=== PATIENT | female | born 1945 | race Caucasian/White ===

== ENCOUNTER → 2016-10-07 | Outpatient (CLI) | payer MEDICARE ==
--- NOTE | 2016-10-07 16:39 | NM ---
EXAMINATION TYPE: NM parathyroid w/spect DATE OF EXAM: 10/07/2016 3:40 PM COMPARISON: NONE HISTORY: Abnormal laboratory testing TECHNIQUE: Following administration of 26.5 mCi Tc99m Sestamibi. Anterior projection images of the neck and ches t were obtained 10 minutes and 3 hours post injection. SPECT images of the neck and chest were obtai daxa and reconstructed in three axes. FINDINGS: Thyroid tracer washout: Delayed images demonstrate near-complete tracer washout from the thyroid. Parathyroid uptake: None. The two-hour delayed images demonstrate no focal abnormal persistent uptake in the region of the parathyroid glands to suggest parathyroid adenoma. Normal uptake: There is physiological tracer uptake in the myocardium, liver, salivary glands, and th yroid gland. IMPRESSION: No evident parathyroid adenoma.
== END | disposition home or self-care (01) ==
LOC: RADNMMAIN 11:17
PROVIDERS: ATTEND Family Medicine
DX: R89.9 Unspecified abnormal finding in specimens from other organs, systems and tissues (principal)
CPT/HCPCS: 78071; A9500

== ENCOUNTER → 2016-11-24 | Outpatient (CLI) | payer MEDICARE ==
--- NOTE | 2016-11-24 13:35 | BD ---
EXAMINATION TYPE: MG DEXA axial skeleton. DATE OF EXAM: 11/24/2016 12:32 PM COMPARISON: NONE CLINICAL HISTORY: Height: 61.5 IN Weight: 171 LBS FRAX RISK QUESTIONS: Alcohol (3 or more units per day): NO Family History (Parent hip fracture): NO Glucocorticoids (More than 3mos): NO (Ex: prednisone, prednisolone, methylprednisolone, dexamethasone, and hydrocortisone). History of Fracture in Adulthood: NO Secondary Osteoporosis: 1. Type 1 Diabetes: NO 2. Hyperthyroidism: NO 3. Menopause before 45: YES AGE 37 4. Malnutrition: NO 5. Chronic liver disease: NO Rheumatoid Arthritis: NO Current Tobacco Use: NO RISK FACTORS HISTORY OF: Active: YES Postmenopausal woman: AGE 37 Take estrogen and/or progesterone medications: NOT NOW How long: HORMONE SHOTS AGE 25 FOR 6 MONTHS. PREMARIN AGE 37 - 47 Lost more than 2 inches in height since high school: YES Hyperparathyroidism: YES MEDICATIONS: Osteoporosis Medications: YES Which medication: Evista How Lon MONTHS Additional Medications: VENLAFAXNE ER, RALOXIFENE (EVISTA), LISINIPRIL,LIPITOR, VIT D EXAM MEASUREMENTS: Bone mineral densitometry was performed using the .[employer] System. Bone mineral density as measured about the Lumbar spine is: ----- L1-L4(G/cm2): 1.363 T Score Values are as follows: ----- L2: 0.3 ----- L3: 2.4 ----- L4: 2.3 ----- L1-L4: 1.5 Bone mineral density has: Increased 0.7% since study of: 03/29/2013 Bone mineral density about the R hip (g/cm2): 0.773 Bone mineral density about the L hip (g/cm2): 0.818 T Score values are as follows: -----R Neck: -1.9 -----L Neck: -1.6 -----R Intertrochanter: -0.5 -----L Intertrochanter: -1.0 Bone mineral density has: Decreased -0.3% since study of: 03/29/2013 IMPRESSION: Osteopenia (T Score between -2.5 and -1 as noted by T score values There is slightly increased risk of fracture and the patient may be considered for treatment. Re-Screen 1-2 years. NOTE: T-SCORE=SD OF THE YOUNG ADULT MEAN.
== END | disposition home or self-care (01) ==
LOC: RADBDWWP 12:30
PROVIDERS: ATTEND Family Medicine
DX: M85.80 Other specified disorders of bone density and structure, unspecified site (principal)
CPT/HCPCS: 77080

== ENCOUNTER 2017-01-20 08:55 | Day surgery (SDC) | payer MEDICARE ==
[2017-01-19 08:34] VITALS: BMI 29.2
[~2017-01-20 08:55] MED LIST: LIDOCAINE 1% 20 ML VIAL (10MG/ML) FOR IV START INTRADERMA PRN
[2017-01-20] MEDS: LACTATED RINGERS 1,000 ML IV SCH ×2 (10:04→10:43)
[2017-01-20 10:05] VITALS: RESP 16; TEMP 98
[2017-01-20] MEDS ORDERED: PROPOFOL 10 MG/ML 20 ML VIAL IV ONE (10:43)
[2017-01-20] MEDS ORDERED: LIDOCAINE 1% INJ 10MG/ML (20 ML MDV) ONE (10:43)
--- NOTE | 2017-01-20 11:00 | P.PCN ---
Date of Procedure: 01/20/17 Preoperative Diagnosis: Postoperative Diagnosis: Procedure(s) Performed: BRIEF HISTORY: Patient is a 71-year-old [place] white female,cheduled for an elective colonoscopy as a part of screening for colon rectal neoplasia. She has family history of colon cancer diagnosed in her father and her paternal uncle. PROCEDURE PERFORMED: Colonoscopy with snare polypectomy . PREOPERATIVE DIAGNOSIS: Screening for colon cancer and family history of colon cancer IV sedation per Anesthesia. PROCEDURE: After informed consent was obtained, the patient, was brought into the endoscopy unit. IV sedation was administered by Anesthesia under continuous monitoring. Digital rectal examination was normal. Initially the Olympus CF- 160 flexible video colonoscope was then inserted in the rectum, gradually advanced into the cecum without any difficulty. Careful examination was performed as the scope was gradually being withdrawn. Ileocecal valve and the appendiceal orifice were visualized and appeared normal. Prep was excellent. Mucosa of the cecum, ascending colon, appeared normal. In the proximal transverse colon there was a 1.5 cm flat polyp that was removed by snare polypectomy. The rest of the transverse colon, descending colon, sigmoid colon , and rectum appeared normal. Retroflexion was performed in the rectum and small internal hemorrhoids were seen. The patient tolerated the procedure well. IMPRESSION: 1.5 cm flat proximal transverse colon polyp status post polypectomy Small internal hemorrhoids RECOMMENDATIONS: Findings of this examination were discussed with the patient as well as her family. She was advised to follow with the biopsy results. If the biopsy shows a tubular adenoma she can have a repeat colonoscopy in 3-5 years. Implants: Indications for Procedure: Operative Findings: Description of Procedure:
[2017-01-20 11:41] VITALS: BP 113/52; PULSE 71
== END 2017-01-20 11:56 | disposition home or self-care (01) ==
LOC: ORWHC2ENDO 08:55
PROVIDERS: ATTEND Internal Medicine Gastroenterology
DX: Z12.11 Encounter for screening for malignant neoplasm of colon (principal); D12.3 Benign neoplasm of transverse colon; I10 Essential (primary) hypertension; E78.5 Hyperlipidemia, unspecified; Z79.899 Other long term (current) drug therapy; Z88.1 Allergy status to other antibiotic agents; Z79.810 Long term (current) use of selective estrogen receptor modulators (SERMs)
CPT/HCPCS: 88305; 45385; J2001; J2704

== ENCOUNTER → 2017-06-11 | Outpatient (CLI) | payer MEDICARE ==
--- NOTE | 2017-06-11 10:04 | MM ---
Reason for exam: additional evaluation requested from prior study. Last mammogram was performed 1 year and 1 month ago. History: Patient is postmenopausal and has history of other cancer at age 66. Reductions of both breasts, November 2015. Benign stereotactic core biopsy of the right breast, January 12, 2003. Took hormonal contraceptives for 3 years beginning at age 21. Took estrogen for 20 years beginning at age 41. Taking antineoplastic beginning at age 71. Physical Findings: Nurse did not find any significant physical abnormalities on exam. MG 3D Diag Mammo W/Cad DANYA Bilateral CC and MLO view(s) were taken. XCCL view(s) were taken of the right breast. Prior study comparison: May 15, 2016, bilateral MG 3d diag mammo w/cad DANYA. May 15, 2015, bilateral MG screening mammo w CAD. There are scattered fibroglandular densities. Finding #1: There is a 5 mm equal density (isodense), circumscribed oval mass in the left breast. Finding #2: There are typically benign calcifications in both breasts. These results were verbally communicated with the patient and result sheet given to the patient on 06/11/17. ASSESSMENT: Incomplete: need additional imaging evaluation, BI-RAD 0 RECOMMENDATION: Ultrasound of the left breast.
--- NOTE | 2017-06-11 10:05 | USB ---
Reason for exam: additional evaluation requested from abnormal screening. History: Patient is postmenopausal and has history of other cancer at age 66. Reductions of both breasts, November 2015. Benign stereotactic core biopsy of the right breast, January 12, 2003. Took hormonal contraceptives for 3 years beginning at age 21. Took estrogen for 20 years beginning at age 41. Taking antineoplastic beginning at age 71. US Breast Limited LT Left breast ultrasound demonstrates no cystic or solid lesion seen. These results were verbally communicated with the patient and result sheet given to the patient on 06/11/17. ASSESSMENT: Probably benign, BI-RAD 3 RECOMMENDATION: Follow-up diagnostic mammogram of the left breast in 6 months.
== END ==
LOC: RADMAMWWP 08:17
PROVIDERS: ATTEND Internal Medicine Hematology & Oncology
DX: R92.8 Other abnormal and inconclusive findings on diagnostic imaging of breast (principal); Z85.3 Personal history of malignant neoplasm of breast
CPT/HCPCS: 76642; G0204; G0279

== ENCOUNTER → 2017-12-13 | Outpatient (CLI) | payer MEDICARE ==
--- NOTE | 2017-12-14 08:52 | MM ---
Reason for exam: follow-up at short interval from prior study. Last mammogram was performed 6 months ago. History: Patient is postmenopausal and has history of other cancer at age 66. Reductions of both breasts, November 2015. Benign stereotactic core biopsy of the right breast, January 12, 2003. Took hormonal contraceptives for 3 years beginning at age 21. Took estrogen for 20 years beginning at age 41. Taking antineoplastic beginning at age 71. Physical Findings: Nurse did not find any significant physical abnormalities on exam. MG 3D Diag Mammo W/Cad LT CC and MLO view(s) were taken of the left breast. Prior study comparison: June 11, 2017, bilateral MG 3d diag mammo w/cad DANYA. May 15, 2016, bilateral MG 3d diag mammo w/cad DANYA. There are scattered fibroglandular densities. There are new lower outer quadrant calcifications that appear dystrophic as fat necrosis, 6 month follow up recommended. The previously seen left breast focal asymmetry now has dystrophic calcifications most compatible with fat necrosis. These results were verbally communicated with the patient and result sheet given to the patient on 12/13/17. ASSESSMENT: Probably benign, BI-RAD 3 RECOMMENDATION: Follow-up diagnostic mammogram of both breasts in 6 months. Back on schedule for May 2018.
== END | disposition home or self-care (01) ==
LOC: RADMAMWWP 10:44
PROVIDERS: ATTEND Internal Medicine Hematology & Oncology
DX: R92.8 Other abnormal and inconclusive findings on diagnostic imaging of breast (principal); Z85.3 Personal history of malignant neoplasm of breast
CPT/HCPCS: 77065; G0279

== ENCOUNTER → 2018-06-15 | Outpatient (CLI) | payer MEDICARE ==
--- NOTE | 2018-06-15 13:45 | MM ---
Reason for exam: follow-up at short interval from prior study. Last mammogram was performed 6 months ago. History: Patient is postmenopausal and has history of other cancer at age 66. Reductions of both breasts, November 2015. Benign stereotactic core biopsy of the right breast, January 12, 2003. Took hormonal contraceptives for 3 years beginning at age 21. Took estrogen for 20 years beginning at age 41. Taking antineoplastic beginning at age 71. Physical Findings: Nurse did not find any significant physical abnormalities on exam. MG 3D Diag Mammo W/Cad DANYA Bilateral CC and MLO view(s) were taken. Prior study comparison: December 13, 2017, left breast MG 3d diag mammo w/cad LT. June 11, 2017, bilateral MG 3d diag mammo w/cad DANYA. No significant new findings when compared with previous films. These results were verbally communicated with the patient and result sheet given to the patient on 06/15/18. ASSESSMENT: Benign, BI-RAD 2 RECOMMENDATION: Routine screening mammogram of both breasts in 1 year.
== END | disposition home or self-care (01) ==
LOC: RADMAMWWP 12:53
PROVIDERS: ATTEND Internal Medicine Hematology & Oncology
DX: R92.8 Other abnormal and inconclusive findings on diagnostic imaging of breast (principal); Z85.3 Personal history of malignant neoplasm of breast
CPT/HCPCS: 77066; G0279; 77062

== ENCOUNTER → 2019-06-20 | Outpatient (CLI) | payer MEDICARE ==
--- NOTE | 2019-06-21 10:22 | MM ---
Reason for exam: screening (asymptomatic). Last mammogram was performed 1 year ago. History: Patient is postmenopausal and has history of other cancer at age 66. Reductions of both breasts, November 2015. Benign stereotactic core biopsy of the right breast, January 12, 2003. Took hormonal contraceptives for 3 years beginning at age 21. Took estrogen for 20 years beginning at age 41. Taking antineoplastic beginning at age 71. Physical Findings: A clinical breast exam by your physician is recommended on an annual basis and results should be correlated with mammographic findings. MG 3D Screening Mammo W/Cad Bilateral CC and MLO view(s) were taken. Prior study comparison: June 15, 2018, bilateral MG 3d diag mammo w/cad DANYA. December 13, 2017, left breast MG 3d diag mammo w/cad LT. There are scattered fibroglandular densities. Benign appearing bilateral calcifications. No suspicious abnormality. Stable posterior depth 3mm asymmetry in the superior left breast on MLO compared to 2017. No significant changes when compared with prior studies. ASSESSMENT: Benign, BI-RAD 2 RECOMMENDATION: Routine screening mammogram of both breasts in 1 year.
== END | disposition home or self-care (01) ==
LOC: RADMAMWWP 09:50
PROVIDERS: ATTEND Family Medicine
DX: Z12.31 Encounter for screening mammogram for malignant neoplasm of breast (principal)
CPT/HCPCS: 77063; 77067

== ENCOUNTER 2019-11-30 15:52 | Emergency (ER) | payer MEDICARE ==
[2019-11-30 15:59] VITALS: RESP 18
[2019-11-30] MEDS ORDERED: ONDANSETRON 4 MG/2 ML VIAL IVP STA (16:06)
[2019-11-30] MEDS ORDERED: diphenhydrAMINE 50 MG/ML 1 ML VIAL IVP STA (16:06)
[2019-11-30] MEDS ORDERED: SODIUM CHLORIDE 0.9% 1,000 ML IV STA (16:06)
[2019-11-30] MEDS ORDERED: KETOROLAC 30 MG/ML 1 ML VIAL IVP STA (16:06)
--- NOTE | 2019-11-30 16:14 | ED ---
General Adult HPI - General Chief complaint: Headache Stated complaint: Headache, vomiting Time Seen by Provider: 11/30/19 15:55 Source: patient Mode of arrival: wheelchair Limitations: physical limitation - History of Present Illness Initial comments: Dictation was produced using [email or web address] dictation software. please excuse any grammatical, word or spelling errors. This patient was cared for during a federal and state declared state of emergency secondary to Covid 19 Chief Complaint: 74-year-old feel past medical history migraines presents with headache. History of Present Illness: 74-year-old female she was sent in by primary care physician for headaches. Patient states she's history of migraines. States that the headache is severe located to the left forehead region. She states that her symptoms have been progressive over the last 4 days. Patient states that headache is mildly different from her headache symptoms past. Denies any radiation to the neck. Patient denies numbness tingling or paresthesias. She has had some episodes of vomiting. Does report that her symptoms are worse in the morning and better at night. She does report improvement of symptoms with Tylenol and Motrin. Patient has any vision loss. She reports that her headaches worse with light and sound. He does report that is throbbing in natu re. The ROS documented in this emergency department record has been reviewed and confirmed by me. Those systems with pertinent positive or negative responses have been documented in the HPI. All other systems are other negative and/or noncontributory. PHYSICAL EXAM: General Impression: Alert and oriented x3, not in acute distress HEENT: Normocephalic atraumatic, extra-ocular movements intact, pupils equal and reactive to light bilaterally, mucous membranes moist. Cardiovascular: Heart regular rate and rhythm, S1&S2 audible, no murmurs, rubs or gallops Chest: Able to complete full sentences, no retractions, no tachypnea Abdomen: Bowel sounds present, abdomen soft, non-tender, non-distended, no organomegaly Musculoskeletal: Pulses present and equal in all extremities, no peripheral marcin a Motor: no focal deficits noted Neurological: CN II-XII grossly intact, no focal motor or sensory deficits noted, no tenderness to palpation over the right temporal area Skin: Intact with no visualized rashes Psych: Normal affect and mood ED course: 74-year-old female past medical history of hypertension, headaches, dyslipidemia presents with headache 4 days. Signs upon arrival are within acc eptable limits. Laboratory evaluation tape. No leukocytosis. Hemoglobin stable. Coag panel is unremarkable. Metabolic panel is negative. Glucose is [address] was obtained showing multiple compartments of acute intracranial hemorrhage including subdural, subarachnoid intraparenchymal bleed. There is mild local mass effect. Brain bleeding is measuring approximately 3.6 cm. Discussed this with radiologist. Patient case was discussed with Dr. Hurley who requested CT angiogram of the head be obtained. Dr. Hurley reviewed the films and requested that patient be transferred to [facility] for further intervention. He also requested the patient be placed on cardiac drip to maintain a systolic blood pressure less than 140 systolic. Results and plan was discussed with patient who is agreeable with plan. Patient given IV analgesia for headache. - Related Data Home Medications Medication Instructions Recorded Confirmed Atorvastatin [Lipitor] 10 mg PO HS 10/28/16 01/20/17 Cholecalciferol [Vitamin D3] 1,000 unit PO DAILY 10/28/16 01/20/17 Lisinopril [Zestril] 20 mg PO BID 10/28/16 01/20/17 Raloxifene [Evista] 60 mg PO DAILY 10/28/16 01/20/17 Venlafaxine HCl [Effexor] 75 mg PO DAILY 10/28/16 01/20/17 Allergies Allergy/AdvReac Type Severity Reaction Status Date / Time erythromycin base Allergy Rash/Hives Verified 11/30/19 15:59 Review of Systems ROS Statement: Those systems with pertinent positive or pertinent negative responses have been documented in the HPI. ROS Other: All systems not noted in ROS Statement are negative. 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, basal cell skin cancer History of Any Multi-Drug Resistant Organisms: None Reported Past Surgical History: Adenoidectomy, Appendectomy, Hysterectomy, Orthopedic Surgery, Tonsillectomy Additional Past Surgical History / Comment(s): navid breast reduction, hemorrhoidectomy, metal nithin in toe, lt carpal tunnel, basal cell skin cancer removed Past Anesthesia/Blood Transfusion Reactions: No Reported Reaction Past Psychological History: No Psychological Hx Reported Smoking Status: Never smoker - Past Family History Mother Family Medical History: CVA/TIA, Dementia, Myocardial Infarction ([place]) Father Family Medical History: Cancer Additional Family Medical History / Comment(s): colon cancer, alcoholism General Exam Limitations: physical limitation Course Vital Signs 11/30/19 11/30/19 11/30/19 15:57 17:31 17:57 Temperature 98.4 F Pulse Rate 71 81 76 Respiratory 18 18 18 Rate Blood Pressure 142/89 156/95 158/85 O2 Sat by Pulse 100 99 99 Oximetry Medical Decision Making - Lab Data Result diagrams: 11/30/19 16:33 11/30/19 16:33 Lab Results 11/30/19 11/30/19 11/30/19 Range/Units 16:33 16:33 16:33 WBC 5.2 (3.8-10.6) k/uL RBC 4.68 (3.80-5.40) m/uL Hgb 14.3 (11.4-16.0) gm/dL Hct 43.2 (34.0-46.0) % MCV 92.2 (80.0-100.0) fL MCH 30.6 (25.0-35.0) pg MCHC 33.2 (31.0-37.0) g/dL RDW 14.2 (11.5-15.5) % Plt Count 163 (150-450) k/uL Neutrophils % 79 % Lymphocytes % 16 % Monocytes % 3 % Eosinophils % 1 % Basophils % 0 % Neutrophils # 4.1 (1.3-7.7) k/uL Lymphocytes # 0.9 L (1.0-4.8) k/uL Monocytes # 0.2 (0-1.0) k/uL Eosinophils # 0.0 (0-0.7) k/uL Basophils # 0.0 (0-0.2) k/uL ESR 10 (0-20) mm/hr PT 10.1 (9.0-12.0) sec INR 1.0 (<1.2) APTT 22.8 (22.0-30.0) sec Sodium 139 (137-145) mmol/L Potassium 3.6 (3.5-5.1) mmol/L Chloride 101 (98-107) mmol/L Carbon Dioxide 28 (22-30) mmol/L Anion Gap 10 mmol/L BUN 16 (7-17) mg/dL Creatinine 0.61 (0.52-1.04) mg/dL Est GFR (CKD-EPI)AfAm >90 (>60 ml/min/1.73 sqM) Est GFR (CKD-EPI)NonAf 90 (>60 ml/min/1.73 sqM) Glucose 127 H (74-99) mg/dL Calcium 9.7 (8.4-10.2) mg/dL C-Reactive Protein <5.0 (<10.0) mg/L Critical Care Time Critical Care Time: Yes Total Critical Care Time: 33 Disposition Clinical Impression: Intracranial bleed Disposition: OTHER INSTITUTION NOT DEFINED Condition: Critical Referrals: Pradeep Chung DO [Primary Care Provider] - 1-2 days Time of Disposition: 18:02 - Out of Hospital Transfer - Req. Specs Out of Hospital Transfer - Requested Specifics: Other Emergency Center ([facility])
[2019-11-30 16:44] LABS: Basophils % (A) 0 %; Eosinophils % (A) 1 %; HCT 43.2 % (34.0-46.0); HGB 14.3 gm/dL (11.4-16.0); Lymphocytes # (A) 0.9 k/uL (1.0-4.8); Lymphocytes % (A) 16 %; MCH 30.6 pg (25.0-35.0); MCHC 33.2 g/dL (31.0-37.0); MCV 92.2 fL (80.0-100.0); Monocytes # (A) 0.2 k/uL (0-1.0); Monocytes % (A) 3 %; Neutrophils # (A) 4.1 k/uL (1.3-7.7); Neutrophils % (A) 79 %; Platelet Count 163 k/uL (150-450); RBC 4.68 m/uL (3.80-5.40); RDW 14.2 % (11.5-15.5); WBC 5.2 k/uL (3.8-10.6)
[2019-11-30 16:55] LABS: African American GFR (CKD) >90 (>60 ml/min/1.73 sqM); Anion Gap 10 mmol/L; Blood Urea Nitrogen 16 mg/dL (7-17); C Reactive Protein <5.0 mg/L (<10.0); Calcium 9.7 mg/dL (8.4-10.2); Carbon Dioxide 28 mmol/L (22-30); Chloride 101 mmol/L (98-107); Glucose 127 mg/dL (74-99); Non-African American GFR(CKD) 90 (>60 ml/min/1.73 sqM); Potassium 3.6 mmol/L (3.5-5.1); Sodium 139 mmol/L (137-145)
--- NOTE | 2019-11-30 17:13 | CT ---
EXAMINATION TYPE: CT brain wo con DATE OF EXAM: 11/30/2019 COMPARISON: None HISTORY: Severe headache. CT DLP: 1172.4 mGycm Automated exposure control for dose reduction was used. FINDINGS: There is acute intracranial hemorrhage. There is a subdural hematoma along the falx cerebri measured near the skull vertex on image 44 at 3 mm in greatest thickness as well as what appears to be an intr aparenchymal hemorrhage of the parietal and occipital lobe measuring up to 3.6 x 1.9 cm on image 30. Just adjacent to the right lateral ventricle. Adjacent subdural hematoma layers along the right tento rium cerebelli measuring 5 mm in greatest thickness. Subarachnoid hemorrhage is also seen in the righ t temporal lobe measuring 4 mm in greatest thickness. Subtle hyperdensity of the right temporal lobe anteriorly on image 22 relate to a cortical contusion. Right temporal subarachnoid hemorrhage is also seen on image 19. There is no significant midline shift. There is some cerebral edema of the right cerebral hemisphere as the sulci are less pronounced than o n the left (for example image 39). Few scattered areas of hypoattenuation in the periventricular and subcortical white matter most commo nly are on the basis of chronic microangiopathy. Lenses are surgically absent. Globes are unremarkabl e. No hydrocephalus seen. Punctate sclerotic foci of the scalp are overwhelmingly benign. Fat-contain ing right parietal intramuscular lesion most commonly relates to a lipoma measuring 2.6 cm. Paranasal sinuses and mastoid air cells are well aerated. IMPRESSION: MULTIPLE COMPARTMENTS OF ACUTE INTRACRANIAL HEMORRHAGE INCLUDING SUBDURAL HEMATOMA, SUBARACHNOID HEMO RRHAGE, AND INTRAPARENCHYMAL HEMORRHAGE MEASURING 3.6 CM WITH LOCAL MASS EFFECT ALTHOUGH NO MIDLINE S HIFT SEEN. GIVEN THE MULTIPLE COMPARTMENTS OF HEMORRHAGE CONCERN FOR TRAUMATIC INJURY ALTHOUGH THIS P ATIENT DENIES TRAUMATIC INJURY AND THE POSSIBILITY OF NONACCIDENTAL TRAUMA SHOULD BE EXCLUDED. COAGUL OPATHY IS AN ALTERNATIVE CONSIDERATION. ANEURYSM IS LESS LIKELY GIVEN THE MULTIPLE COMPARTMENTS OF HE MORRHAGE. FINDINGS WERE DISCUSSED WITH THE ORDERING PROVIDER MARIA ANTONIA ROSALES BY DR. DIA ON 11/30/2019 AT 1708 PM.
[2019-11-30 17:28] LABS: Erythrocyte Sedimentation Rate 10 mm/hr (0-20)
[2019-11-30 17:33] LABS: Partial Thromboplastin Time 22.8 sec (22.0-30.0); Prothrombin Time 10.1 sec (9.0-12.0)
[2019-11-30] MEDS ORDERED: LABETALOL 5 MG/ML VIAL MDV IVP ONE (17:36)
--- NOTE | 2019-11-30 17:40 | XR ---
EXAMINATION TYPE: XR chest 1V portable DATE OF EXAM: 11/30/2019 COMPARISON: NONE HISTORY: Altered mental status. Headache. TECHNIQUE: Single frontal view of the chest is obtained. FINDINGS: The mediastinal silhouette is enlarged with tortuosity the thoracic aorta. Prominent upper mediastinum may relate to prominent vasculature. Left basilar opacity most likely relates to atelect asis along the left hemidiaphragm and overlying copious soft tissue. No pneumothorax or suspected ple ural effusion. Osseous structures appear intact. IMPRESSION: 1. Probable left basilar atelectasis. 2. Enlarged cardiomediastinal silhouette and tortuosity the thoracic aorta. Prominence of the upper m ediastinum may relate to vasculature.
[2019-11-30] MEDS ORDERED: niCARdipine 20 MG in SODIUM CHLORIDE 0.9% 192 ML IV SCH (18:00)
--- NOTE | 2019-11-30 18:06 | CT ---
EXAMINATION TYPE: CT angio head DATE OF EXAM: 11/30/2019 HISTORY: Severe headache. COMPARISON: CT brain of the same date CT DLP: 743.2 mGycm. Automated Exposure Control for Dose Reduction was Utilized. TECHNIQUE: CTA scan of the neck is performed with IV Contrast, patient injected with 100 mL of Isovu e 370, axial images are obtained, coronal and sagittal reformatted images are reviewed. Three-D recon structed images are created on an independent workstation and reviewed. FINDINGS: Carotid/Vascular Structures: The vertebral arteries are codominant. Basilar artery appears intact and unremarkable. Posterior communicating arteries are either diminutive or congenitally absent. Posteri or cerebral arteries appear grossly intact. Intraparenchymal hemorrhage and subdural hemorrhage are s een adjacent to the right posterior cerebral artery however no definitive aneurysm is seen from right posterior cerebral artery. The known subarachnoid hemorrhage of the right temporal lobe is redemonst rated. No sizable aneurysm from the right MCA to account for this finding. Visualized portions of the internal carotid arteries including the cavernous, petrous, and supraclinoid portions are grossly un remarkable. No large vessel vascular occlusion identified. IMPRESSION: Intracranial hemorrhage is seen adjacent to the right posterior cerebral artery however n o definitive aneurysm is identified. No large vessel occlusion. No aneurysm is identified of the righ t MCA to account for the subarachnoid hemorrhage of the right temporal lobe. Subdural hemorrhage is r edemonstrated as seen on the brain CT of the same date.
[2019-11-30 19:15] VITALS: BP 132/80; PULSE 82; TEMP 98.2
== END 2019-11-30 19:15 | disposition other institution (70) ==
LOC: EC 15:52
DX: I62.9 Nontraumatic intracranial hemorrhage, unspecified (principal)
CPT/HCPCS: 36415; 80048; 85652; 85025; 85610; 85730; 86140; 71045; 70496; 70450; 99291; 96365; 96375 ×4; 96361; J1200; J2405; J1885; Q9967

== ENCOUNTER 2020-01-02 16:13 | Emergency (ER) | payer MEDICARE ==
[2020-01-02 16:19] VITALS: RESP 18; TEMP 98.1
[2020-01-02] MEDS ORDERED: METOCLOPRAMIDE 5 MG/ML 2 ML VIAL IVP STA (17:15)
[2020-01-02] MEDS ORDERED: SODIUM CHLORIDE 0.9% 1,000 ML IV STA (17:15)
[2020-01-02] MEDS ORDERED: SODIUM CHLORIDE 0.9% 500 ML 500 ML IV STA (17:15)
[2020-01-02] MEDS ORDERED: FAMOTIDINE 20 MG/2 ML VIAL IV STA (17:16)
--- NOTE | 2020-01-02 17:21 | ED ---
General Adult HPI - General Chief complaint: Nausea/Vomiting/Diarrhea Stated complaint: Vomiting Time Seen by Provider: 01/02/20 16:25 Source: patient, RN notes reviewed Mode of arrival: wheelchair Limitations: no limitations - History of Present Illness Initial comments: Patient is a pleasant 74-year-old female presenting to the emergency Department with vomiting. Onset of symptoms was last night. Patient vomited approximately 12 times. Patient still has some nausea. Patient does have some discomfort of her abdomen secondary to using her muscles excessively. Patient did have recent concern for intracranial hemorrhage however discharge paper showed venous sinus thrombosis. Patient is on anticoagulation. Patient was discharged recently [facility] after being seen here. Blood pressure this morning was high up to 140/90. Patient feels like she may be somewhat dehydrated. Patient states she has double vision however no change in any of her symptoms other than nausea and vomiting since discharge from [facility]. Patient states double vision is chronic. Patient states she did loose some of her vision and was told it will not come back. Patient has some mild unsteadiness with her gait and does use a walker, this is also unchanged. No isolated area of weakness. No confusion. - Related Data Home Medications Medication Instructions Recorded Confirmed Atorvastatin [Lipitor] 10 mg PO HS 10/28/16 01/20/17 Cholecalciferol [Vitamin D3] 1,000 unit PO DAILY 10/28/16 01/20/17 Lisinopril [Zestril] 20 mg PO BID 10/28/16 01/20/17 Raloxifene [Evista] 60 mg PO DAILY 10/28/16 01/20/17 Venlafaxine HCl [Effexor] 75 mg PO DAILY 10/28/16 01/20/17 Previous Rx's Medication Instructions Recorded Metoclopramide HCl [Reglan] 10 mg PO Q6HR PRN #15 tablet 01/02/20 Allergies Allergy/AdvReac Type Severity Reaction Status Date / Time erythromycin base Allergy Rash/Hives Verified 01/02/20 16:19 Review of Systems ROS Statement: Those systems with pertinent positive or pertinent negative responses have been documented in the HPI. ROS Other: All systems not noted in ROS Statement are negative. Constitutional: Denies: fever Eyes: Denies: eye pain ENT: Denies: ear pain Respiratory: Denies: cough Cardiovascular: Denies: chest pain Endocrine: Denies: fatigue Gastrointestinal: Reports: as per HPI, nausea, vomiting Genitourinary: Denies: dysuria Musculoskeletal: Denies: back pain Skin: Denies: rash Neurological: Reports: as per HPI. 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, basal cell skin cancer, brain bleed History of Any Multi-Drug Resistant Organisms: None Reported Past Surgical History: Adenoidectomy, Appendectomy, Hysterectomy, Orthopedic Surgery, Tonsillectomy Additional Past Surgical History / Comment(s): navid breast reduction, hemorrhoidectomy, metal nithin in toe, lt carpal tunnel, basal cell skin cancer removed Past Anesthesia/Blood Transfusion Reactions: No Reported Reaction Past Psychological History: Anxiety Smoking Status: Never smoker Past Alcohol Use History: None Reported Past Drug Use History: None Reported - Past Family History Mother Family Medical History: CVA/TIA, Dementia, Myocardial Infarction ([place]) Father Family Medical History: Cancer Additional Family Medical History / Comment(s): colon cancer, alcoholism General Exam Limitations: no limitations General appearance: alert, in no apparent distress Head exam: Present: normocephalic Eye exam: Present: normal appearance, PERRL, EOMI, other (There is slight disconjugate gaze however extraocular muscles are intact) Neck exam: Present: normal inspection Respiratory exam: Present: normal lung sounds bilaterally Cardiovascular Exam: Present: regular rate, normal rhythm GI/Abdominal exam: Present: soft. Absent: tenderness Extremities exam: Present: normal inspection Neurological exam: Present: alert, oriented X3, CN II-XII intact (there is slight disconjugate gaze and patient states she sees double vision). Absent: motor sensory deficit Expanded Neurological exam: Present: protecting the airway Speech: Present: fluid speech Cranial nerves: EOM's Intact: Normal Motor strength exam: RUE: 5, LUE: 5, RLE: 5, LLE: 5 Eye Response: (4) open spontaneously Motor Response: (6) obeys commands Verbal Response: (5) oriented Psychiatric exam: Present: normal affect, normal mood Skin exam: Present: normal color Course Vital Signs 01/02/20 01/02/20 01/02/20 16:16 16:31 17:47 Temperature 98.1 F Pulse Rate 102 H 85 76 Respiratory 18 18 18 Rate Blood Pressure 133/92 146/94 132/77 O2 Sat by Pulse 96 96 97 Oximetry - Reevaluation(s) Reevaluation #1: 01/02/20 17:57 Patient is on Xarelto, 20 mg 01/02/20 18:47 Patient reevaluated and resting comfortably in bed. Patient still has some mild abdominal discomfort however just feels it is from her muscles being sore from vomiting. Abdomen remained soft and nontender. Patient is offered computed tomography scan of the abdomen however refuses. Case was discussed in detail with Dr. posey covering for Dr. Hurley who is comfortable with discharge and recommend they call tomorrow. EKG Findings - EKG Comments: EKG Findings:: Normal sinus rhythm 84. OR 158. QRS 88. QT 386. QTc 46. Left axis. Normal QRS. No acute ST change. Medical Decision Making - Lab Data Result diagrams: 01/02/20 16:25 01/02/20 16:25 Lab Results 01/02/20 01/02/20 01/02/20 Range/Units 16:25 16:25 16:25 WBC 4.5 (3.8-10.6) k/uL RBC 4.62 (3.80-5.40) m/uL Hgb 14.2 (11.4-16.0) gm/dL Hct 43.4 (34.0-46.0) % MCV 93.9 (80.0-100.0) fL MCH 30.6 (25.0-35.0) pg MCHC 32.6 (31.0-37.0) g/dL RDW 15.5 (11.5-15.5) % Plt Count 183 (150-450) k/uL Neutrophils % 54 % Lymphocytes % 34 % Monocytes % 7 % Eosinophils % 1 % Basophils % 1 % Neutrophils # 2.4 (1.3-7.7) k/uL Lymphocytes # 1.5 (1.0-4.8) k/uL Monocytes # 0.3 (0-1.0) k/uL Eosinophils # 0.0 (0-0.7) k/uL Basophils # 0.0 (0-0.2) k/uL PT 11.9 (9.0-12.0) sec INR 1.2 H (<1.2) APTT 26.8 (22.0-30.0) sec Sodium 138 (137-145) mmol/L Potassium 3.7 (3.5-5.1) mmol/L Chloride 99 (98-107) mmol/L Carbon Dioxide 26 (22-30) mmol/L Anion Gap 13 mmol/L BUN 13 (7-17) mg/dL Creatinine 0.60 (0.52-1.04) mg/dL Est GFR (CKD-EPI)AfAm >90 (>60 ml/min/1.73 sqM) Est GFR (CKD-EPI)NonAf >90 (>60 ml/min/1.73 sqM) Glucose 133 H (74-99) mg/dL Calcium 10.1 (8.4-10.2) mg/dL Total Bilirubin 0.9 (0.2-1.3) mg/dL AST 45 H (14-36) U/L ALT 27 (4-34) U/L Alkaline Phosphatase 83 (38-126) U/L Total Protein 7.8 (6.3-8.2) g/dL Albumin 4.8 (3.5-5.0) g/dL Amylase 64 (30-110) U/L Lipase 65 (23-300) U/L - Radiology Data Radiology results: report reviewed (Computed tomography scan shows resolution of previous areas of intercranial hemorrhage. Persistent decreased attenuation right parietal occipital lobe), image reviewed (KUB shows nonobstructive pattern) Disposition Clinical Impression: Vomiting Disposition: HOME SELF-CARE Condition: Stable Instructions (If sedation given, give patient instructions): Acute Nausea and Vomiting (ED) Additional Instructions: Please follow-up with primary care physician and Dr. Hurley tomorrow. Return for headache, weakness, confusion, speech problems, worsening vision, worsening balance, uncontrolled vomiting, worsening symptoms or other concerns. Prescription sent to [facility] on Prescriptions: Metoclopramide HCl [Reglan] 10 mg PO Q6HR PRN #15 tablet PRN Reason: Nausea Is patient prescribed a controlled substance at d/c from ED?: No Referrals: Pradeep Chung DO [Primary Care Provider] - 1-2 days Time of Disposition: 18:53
[2020-01-02 17:24] LABS: Basophils % (A) 1 %; Eosinophils % (A) 1 %; HCT 43.4 % (34.0-46.0); HGB 14.2 gm/dL (11.4-16.0); Lymphocytes # (A) 1.5 k/uL (1.0-4.8); Lymphocytes % (A) 34 %; MCH 30.6 pg (25.0-35.0); MCHC 32.6 g/dL (31.0-37.0); MCV 93.9 fL (80.0-100.0); Mean Platelet Volume 10.3; Monocytes # (A) 0.3 k/uL (0-1.0); Monocytes % (A) 7 %; Neutrophils # (A) 2.4 k/uL (1.3-7.7); Neutrophils % (A) 54 %; Platelet Count 183 k/uL (150-450); RBC 4.62 m/uL (3.80-5.40); RDW 15.5 % (11.5-15.5); WBC 4.5 k/uL (3.8-10.6)
[2020-01-02 17:30] LABS: ALT 27 U/L (4-34); AST 45 U/L (14-36); African American GFR (CKD) >90 (>60 ml/min/1.73 sqM); Albumin 4.8 g/dL (3.5-5.0); Alkaline Phosphatase 83 U/L (38-126); Amylase 64 U/L (30-110); Anion Gap 13 mmol/L; Blood Urea Nitrogen 13 mg/dL (7-17); Calcium 10.1 mg/dL (8.4-10.2); Carbon Dioxide 26 mmol/L (22-30); Chloride 99 mmol/L (98-107); Glucose 133 mg/dL (74-99); Non-African American GFR(CKD) >90 (>60 ml/min/1.73 sqM); Potassium 3.7 mmol/L (3.5-5.1); Sodium 138 mmol/L (137-145); Total Bilirubin 0.9 mg/dL (0.2-1.3); Total Protein 7.8 g/dL (6.3-8.2)
[2020-01-02 17:34] LABS: INR 1.2 (<1.2); Partial Thromboplastin Time 26.8 sec (22.0-30.0); Prothrombin Time 11.9 sec (9.0-12.0)
--- NOTE | 2020-01-02 17:38 | CT ---
EXAMINATION TYPE: CT brain wo con DATE OF EXAM: 01/02/2020 COMPARISON: 12/10/2019 HISTORY: Nausea, double vision CT DLP: 1056.[address] of the brain was performed. The ventricles, basal cisterns and sulci overlying the cerebral convexities demonstrate mild enlargem ent. Previously noted areas of intracranial hemorrhage have resolved. There is persistent decreased attenu ation within the parietal occipital lobe on the right. There is decreased attenuation about the periventricular white matter and deep white matter of both c erebral hemispheres, compatible with chronic small vessel ischemia. Differential diagnosis does inclu de demyelination. No mass effects are seen.No midline shift. Osseous calvarium is intact. If symptoms persist consider MRI. IMPRESSION: 1. Previously noted areas of intracranial hemorrhage have resolved since prior examination. There is persistent decreased attenuation within the parietal occipital lobe on the right.
--- NOTE | 2020-01-02 17:39 | XR ---
EXAMINATION TYPE: XR KUB DATE OF EXAM: 01/02/2020 COMPARISON: NONE HISTORY: Pain TECHNIQUE: Single supine KUB image of the abdomen is obtained FINDINGS: Small bowel demonstrates no evidence for dilatation or air fluid levels. Gas and fecal material is seen in non-distended colon. No convincing evidence for pneumoperitoneum. No unusual calcifications. Round radiopaque density overlying the right midabdomen. The lung bases are clear. The osseous structures are intact. IMPRESSION: 1. Overall nonobstructive bowel gas pattern.
[2020-01-02] MEDS ORDERED: ONDANSETRON 4 MG ODT STARTER PACK 2 TAB BTL PO STA (18:51)
[2020-01-02 19:22] VITALS: BP 135/97; PULSE 89
== END 2020-01-02 19:22 | disposition home or self-care (01) ==
LOC: EC 16:13
DX: R11.10 Vomiting, unspecified (principal); R10.9 Unspecified abdominal pain; H53.2 Diplopia; F41.9 Anxiety disorder, unspecified; I10 Essential (primary) hypertension; E78.5 Hyperlipidemia, unspecified; Z79.899 Other long term (current) drug therapy; Z79.810 Long term (current) use of selective estrogen receptor modulators (SERMs); Z79.01 Long term (current) use of anticoagulants; Z88.1 Allergy status to other antibiotic agents; Z85.828 Personal history of other malignant neoplasm of skin; Z90.89 Acquired absence of other organs; Z90.710 Acquired absence of both cervix and uterus
CPT/HCPCS: 99284; 96374; 96375; 96361; 36415; 93005; 80053; 82150; 83690; 85025; 85610; 85730; 74018; 70450; J2765; S0119

== ENCOUNTER → 2020-03-06 | Outpatient (CLI) | payer MEDICARE ==
[2020-03-06 12:07] LABS: Anisocytosis Slight; Basophils % (A) 0 %; Eosinophils # (A) 0.1 k/uL (0-0.7); Eosinophils % (A) 2 %; HCT 40.6 % (34.0-46.0); HGB 13.1 gm/dL (11.4-16.0); Hypochromasia Slight; Lymphocytes # (A) 1.7 k/uL (1.0-4.8); Lymphocytes % (A) 62 %; MCHC 32.3 g/dL (31.0-37.0); Monocytes # (A) 0.1 k/uL (0-1.0); Monocytes % (A) 5 %; Neutrophils # (A) 0.8 k/uL (1.3-7.7); Neutrophils % (A) 29 %; Platelet Count 162 k/uL (150-450); RBC 4.23 m/uL (3.80-5.40); RDW 16.3 % (11.5-15.5); WBC 2.7 k/uL (3.8-10.6)
[2020-03-06 12:34] LABS: Large Platelets Present
[2020-03-06 19:51] LABS: African American GFR (CKD) 84.2 (60.0-200.0); Albumin 4.3 g/dL (3.80-4.90); Albumin/Globulin Ratio 2.05 (1.60-3.17); Anion Gap 7.1 mmol/L (4.00-12.00); BUN/Creat Ratio 16.25 Ratio (12.00-20.00); Calcium 9.5 mg/dL (8.7-10.3); Carbon Dioxide 28.9 mmol/L (21.6-31.8); Chol/HDL Ratio 2.55; Globulin 2.1 g/dL (1.6-3.3); LDL Cholesterol,Calculated 62.4 mg/dL (0.0-131.0); Non-African American GFR(CKD) 72.6 (60.0-200.0); Potassium 4.6 mmol/L (3.5-5.5); Total Bilirubin 0.9 mg/dL (0.2-1.2); Total Protein 6.4 g/dL (6.2-8.2); VLDL Calculation 16.6 mg/dL (5.00-40.00)
[2020-03-06 21:25] LABS: Cardiolipin Ab IgG Interp NEGATIVE (NEGATIVE); Cardiolipin Ab IgM Interp Positive (NEGATIVE); Cardiolipin IgA Antibody 25.9 U/mL; Cardiolipin IgM Antibody 108.8 U/mL
[2020-03-07 12:30] LABS: APTT 60 Sec(s) (<43); APTT 1:1 Mix 46 Sec(s) (<43); DRVVT 1:1 Mix 56 Sec(s) (<44); DRVVT Confirmation Positive (Negative); Dilute Russell Viper Venom 90 Sec(s) (<44); Hexagonal Phase Neutralization Negative (Negative)
== END | disposition home or self-care (01) ==
LOC: LABWHC1 10:01
PROVIDERS: ATTEND Family Medicine
DX: I67.6 Nonpyogenic thrombosis of intracranial venous system (principal); I62.9 Nontraumatic intracranial hemorrhage, unspecified; E78.00 Pure hypercholesterolemia, unspecified; E55.9 Vitamin D deficiency, unspecified
CPT/HCPCS: 36415; 80053; 80061; 82306; 85025; 85598; 85613; 85730; 85732; 86146; 86147

== ENCOUNTER → 2020-05-01 | Outpatient (CLI) | payer MEDICARE ==
[2020-05-01 12:23] LABS: African American GFR (CKD) >90 (>60 ml/min/1.73 sqM); Blood Urea Nitrogen 17 mg/dL (7-17); Non-African American GFR(CKD) 86 (>60 ml/min/1.73 sqM)
--- NOTE | 2020-05-01 13:21 | CT ---
EXAMINATION TYPE: CT angio head neck DATE OF EXAM: 05/01/2020 HISTORY: Arteriovenous fistula. COMPARISON: CT DLP: 384.5 mGycm. Automated Exposure Control for Dose Reduction was Utilized. TECHNIQUE: CTA scan of the neck is performed with IV Contrast, patient injected with 65ml mL of Isov ue 370, axial images are obtained, coronal and sagittal reformatted images are reviewed. Three-D jose nstructed images are created on an independent workstation and reviewed. FINDINGS: I common carotid arteries are patent. There is mild atherosclerotic plaque at the carotid b ifurcation with no evidence of significant stenosis. Mild atherosclerotic change of the aortic arch. Origins of the great vessels are patent. There is a large left thyroid nodule measuring 1.8 cm. Additional subcentimeter nodule suspected. Subclavian arteries appear to be patent bilaterally. Vertebral arteries are fairly symmetric in size. Vertebral basilar system is patent. Intracranial carotid arteries are patent. Anterior cerebral, middle cerebral and posterior cerebral a rteries are patent bilaterally suggestion of fenestration in the anterior communicating artery but no evidence of aneurysm. IMPRESSION: 1. Carotid bifurcations demonstrate mild atherosclerotic plaque with no significant stenosis. 2. Question of a small fenestration in the anterior communicating artery but no evidence of sizable a neurysm. 3. No diagnostic evidence of a dural AV fistula. If clinical suspicion is high then MRA/ MRV would be recommended.
== END | disposition home or self-care (01) ==
LOC: RADCTMAIN 11:21
PROVIDERS: ATTEND Psychiatry & Neurology Vascular Neurology
DX: I65.29 Occlusion and stenosis of unspecified carotid artery (principal); I77.0 Arteriovenous fistula, acquired
CPT/HCPCS: 82565; 84520; 70496; 70498; 36415; Q9967

== ENCOUNTER → 2020-05-27 | Outpatient (CLI) | payer MEDICARE ==
[2020-05-27 12:04] LABS: INR 3.1 (<1.2); Prothrombin Time 30.1 sec (9.0-12.0)
== END | disposition home or self-care (01) ==
LOC: LABWHC1 09:13
DX: I67.6 Nonpyogenic thrombosis of intracranial venous system (principal); I62.9 Nontraumatic intracranial hemorrhage, unspecified
CPT/HCPCS: 36415; 85610

== ENCOUNTER → 2020-06-10 | Outpatient (CLI) | payer MEDICARE ==
[2020-06-10 09:33] LABS: INR 1.1 (<1.2); Prothrombin Time 11.6 sec (9.0-12.0)
== END | disposition home or self-care (01) ==
LOC: LABWHC1 08:38
PROVIDERS: ATTEND Internal Medicine Hematology & Oncology
DX: I67.6 Nonpyogenic thrombosis of intracranial venous system (principal); I62.9 Nontraumatic intracranial hemorrhage, unspecified
CPT/HCPCS: 36415; 85610

== ENCOUNTER → 2020-06-24 | Outpatient (CLI) | payer MEDICARE ==
[2020-06-24 15:18] LABS: INR 1.96 (0.90-1.11); Prothrombin Time 20.4 sec (9.9-11.9)
== END | disposition home or self-care (01) ==
LOC: LABWHC1 10:07
PROVIDERS: ATTEND Internal Medicine Hematology & Oncology
DX: I67.6 Nonpyogenic thrombosis of intracranial venous system (principal); I62.9 Nontraumatic intracranial hemorrhage, unspecified
CPT/HCPCS: 36415; 85610

== ENCOUNTER → 2020-07-08 | Outpatient (CLI) | payer MEDICARE ==
[2020-07-08 16:11] LABS: Prothrombin Time 29.9 sec (9.9-11.9)
== END | disposition home or self-care (01) ==
LOC: LABWHC1 09:31
PROVIDERS: ATTEND Internal Medicine Hematology & Oncology
DX: I67.6 Nonpyogenic thrombosis of intracranial venous system (principal); I62.9 Nontraumatic intracranial hemorrhage, unspecified
CPT/HCPCS: 36415; 85610

== ENCOUNTER → 2020-07-22 | Outpatient (CLI) | payer MEDICARE ==
[2020-07-22 15:29] LABS: INR 3.05 (0.90-1.11); Prothrombin Time 30.3 sec (9.9-11.9)
== END | disposition home or self-care (01) ==
LOC: LABWHC1 08:36
PROVIDERS: ATTEND Internal Medicine Hematology & Oncology
DX: I67.6 Nonpyogenic thrombosis of intracranial venous system (principal); I62.9 Nontraumatic intracranial hemorrhage, unspecified
CPT/HCPCS: 36415; 85610

== ENCOUNTER → 2020-08-20 | Outpatient (CLI) | payer MEDICARE ==
[2020-08-20 17:01] LABS: INR 2.45 (0.90-1.11); Prothrombin Time 24.8 sec (9.9-11.9)
== END | disposition home or self-care (01) ==
LOC: LABWHC1 08:44
PROVIDERS: ATTEND Internal Medicine Hematology & Oncology
DX: I67.6 Nonpyogenic thrombosis of intracranial venous system (principal); I62.9 Nontraumatic intracranial hemorrhage, unspecified
CPT/HCPCS: 36415; 85610

== ENCOUNTER 2020-10-11 10:19 | Emergency (ER) | payer MEDICARE ==
[2020-10-11 10:29] VITALS: RESP 18
[2020-10-11 10:31] LABS: Glucose,Whole Blood 100 mg/dL (75-99)
[2020-10-11] MEDS ORDERED: DIPH,PERTUS(ACELL)TETVAC-LF 0.5 ML VIAL IM ONE (10:35)
--- NOTE | 2020-10-11 10:43 | ED ---
General Adult HPI - General Source: patient, EMS, RN notes reviewed, old records reviewed Mode of arrival: EMS Limitations: no limitations <Martin Gamble - Last Filed: 10/11/20 12:19> <Mir Han - Last Filed: 10/11/20 12:51> - General Chief complaint: Fall Stated complaint: Fall Time Seen by Provider: 10/11/20 10:20 - History of Present Illness Initial comments: This is a 75-year-old female who presents to the emergency department with past medical history significant for leukemia. Patient states today she was in the bathroom and she remembers feeling lightheaded and next thing she knew she woke up on the ground. Patient states she has been feeling lightheaded quite a bit lately. Patient was bleeding from back of her head and complained of a little bit of headache. She does not remember the event. Patient denies chest pain difficulty breathing shortness of breath. Patient denies abdominal pain patient denies nausea or vomiting. Patient denies any numbness or weakness. Patient denies any recent fever chills or cough. Patient also refuses a c-collar that EMS wanted to place. Patient continues to refuse a c-collar. Patient also states she's on Coumadin but doesn't know why. (Martin Gamble) - Related Data Home Medications Medication Instructions Recorded Confirmed lisinopriL [Zestril] 20 mg PO BID 10/28/16 10/11/20 Allopurinol [Zyloprim] 300 mg PO DAILY 10/11/20 10/11/20 Atorvastatin [Lipitor] 40 mg PO HS 10/11/20 10/11/20 Famotidine 20 mg PO BID 10/11/20 10/11/20 Venetoclax [Venclexta] 70 mg PO DAILY 10/11/20 10/11/20 Warfarin [Coumadin] 2 mg PO SUTUTHSA@2100 10/11/20 10/11/20 Warfarin [Coumadin] 5 mg PO HS 10/11/20 10/11/20 ondansetron HCL [Zofran] 8 mg PO BID PRN 10/11/20 10/11/20 Allergies Allergy/AdvReac Type Severity Reaction Status Date / Time erythromycin base Allergy Rash/Hives Verified 10/11/20 12:15 Review of Systems ROS Other: All systems not noted in ROS Statement are negative. <Martin Gamble - Last Filed: 10/11/20 12:19> ROS Other: All systems not noted in ROS Statement are negative. <Mir Han - Last Filed: 10/11/20 12:51> ROS Statement: Those systems with pertinent positive or pertinent negative responses have been documented in the HPI. 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, basal cell skin cancer, brain bleed History of Any Multi-Drug Resistant Organisms: None Reported Past Surgical History: Adenoidectomy, Appendectomy, Hysterectomy, Orthopedic Surgery, Tonsillectomy Additional Past Surgical History / Comment(s): navid breast reduction, hemorrhoidectomy, metal nithin in toe, lt carpal tunnel, basal cell skin cancer removed Past Anesthesia/Blood Transfusion Reactions: No Reported Reaction Past Psychological History: Anxiety Smoking Status: Unknown if ever smoked Past Alcohol Use History: None Reported Past Drug Use History: None Reported - Past Family History Mother Family Medical History: CVA/TIA, Dementia, Myocardial Infarction ([place]) Father Family Medical History: Cancer Additional Family Medical History / Comment(s): colon cancer, alcoholism <Martin Gamble - Last Filed: 10/11/20 12:19> General Exam Limitations: no limitations <TyeMartin - Last Filed: 10/11/20 12:19> - General Exam Comments Initial Comments: GENERAL: Patient is well-developed and well-nourished. Patient is nontoxic and well- hydrated and is in mild distress. Patient has a laceration of the back of the scalp in the occipital region. Measures about 5 cm. ENT: Neck is soft and supple. No significant lymphadenopathy is noted. Oropharynx is clear. Moist mucous membranes. Neck has full range of motion without eliciting any pain. EYES: The sclera were anicteric and conjunctiva were pink and moist. Extraocular movements were intact and pupils were equal round and reactive to light. Eyelids were unremarkable. PULMONARY: Unlabored respirations. Good breath sounds bilaterally. No audible rales rhonchi or wheezing was noted. CARDIOVASCULAR: There is a regular rate and rhythm without any murmurs gallops or rubs. ABDOMEN: Soft and nontender with normal bowel sounds. SKIN: Skin is clear with no lesions or rashes and otherwise unremarkable. NEUROLOGIC: Patient is alert and oriented x3. Cranial nerves II through XII are grossly intact. Motor and sensory are also intact. Normal speech, volume and content. Symmetrical smile. MUSCULOSKELETAL: Normal extremities with adequate strength and full range of motion. No lower extremity swelling or edema. No calf tenderness. LYMPHATICS: No significant lymphadenopathy is noted PSYCHIATRIC: Normal psychiatric evaluation. (Martin Gamble) Course Vital Signs 10/11/20 10/11/20 10:22 11:29 Temperature 97.7 F Pulse Rate 81 79 Respiratory 18 18 Rate Blood Pressure 124/76 129/64 O2 Sat by Pulse 98 99 Oximetry Procedures - Laceration Laceration #1 Consent Obtained: verbal consent Indication: laceration Site: scalp Size (cm): 4 Description: linear Depth: simple, single layer Pre-repair: wound explored, irrigated extensively, deep structures intact Type of Sutures: other (Dermal queenie) Number of Sutures: 6 (Dermal queenie) Patient Tolerated Procedure: well, no complications <Mir Han - Last Filed: 10/11/20 12:51> Medical Decision Making - Lab Data Result diagrams: 10/11/20 11:01 10/11/20 11:01 <Martin Gamble - Last Filed: 10/11/20 12:19> - Lab Data Result diagrams: 10/11/20 11:01 10/11/20 11:01 <Mir Han - Last Filed: 10/11/20 12:51> - Medical Decision Making Patient's EKG shows sinus rhythm with occasional PAC at 70 bpm VT interval 160 QRS is 84 QT interval 370 QTC is 424. Patient's EKG shows no ST segment e levation or depression. CT brain and C-spine showed no acute abnormality. Patient ambulated without problem. Patient's scalp was sutured. I suggested that the patient stay but she did not want to stay and her did not want to stay so they stated they would follow-up on Wednesday with their p bettysijohn and refused admission. (Martin Gamble) - Lab Data Lab Results 10/11/20 10/11/20 10/11/20 Range/Units 10:29 10:55 11:01 WBC 1.0 L* (3.8-10.6) k/uL RBC 3.01 L (3.80-5.40) m/uL Hgb 9.8 L (11.4-16.0) gm/dL Hct 30.0 L (34.0-46.0) % MCV 99.5 (80.0-100.0) fL MCH 32.6 (25.0-35.0) pg MCHC 32.7 (31.0-37.0) g/dL RDW 18.3 H (11.5-15.5) % Plt Count 202 (150-450) k/uL MPV 10.7 Neutrophils % 16 % Lymphocytes % 64 % Monocytes % 16 % Eosinophils % 1 % Basophils % 1 % Neutrophils # 0.2 L* (1.3-7.7) k/uL Lymphocytes # 0.6 L (1.0-4.8) k/uL Monocytes # 0.2 (0-1.0) k/uL Eosinophils # 0.0 (0-0.7) k/uL Basophils # 0.0 (0-0.2) k/uL Manual Slide Review Performed Hypochromasia Slight Anisocytosis Slight Macrocytosis Slight PT (9.0-12.0) sec INR (<1.2) APTT (22.0-30.0) sec Sodium (137-145) mmol/L Potassium (3.5-5.1) mmol/L Chloride (98-107) mmol/L Carbon Dioxide (22-30) mmol/L Anion Gap mmol/L BUN (7-17) mg/dL Creatinine (0.52-1.04) mg/dL Est GFR (CKD-EPI)AfAm (>60 ml/min/1.73 sqM) Est GFR (CKD-EPI)NonAf (>60 ml/min/1.73 sqM) Glucose (74-99) mg/dL POC Glucose (mg/dL) 100 H (75-99) mg/dL POC Glu Ice Cream Van Vendor ID Lolis Sanchze Calcium (8.4-10.2) mg/dL Total Bilirubin (0.2-1.3) mg/dL AST (14-36) U/L ALT (4-34) U/L Alkaline Phosphatase (38-126) U/L Troponin I (0.000-0.034) ng/mL Total Protein (6.3-8.2) g/dL Albumin (3.5-5.0) g/dL Urine Color Urine Appearance (Clear) Urine pH (5.0-8.0) Ur Specific [place] (1.001-1.035) Urine Protein (Negative) Urine Glucose (UA) (Negative) Urine Ketones (Negative) Urine Blood (Negative) Urine Nitrite (Negative) Urine Bilirubin (Negative) Urine Urobilinogen (<2.0) mg/dL Ur Leukocyte Esterase (Negative) Urine RBC (0-5) /hpf Urine WBC (0-5) /hpf Ur Squamous Epith Cells (0-4) /hpf Amorphous Sediment (None) /hpf Urine Bacteria (None) /hpf Hyaline Casts (0-2) /lpf Urine Mucus (None) /hpf Urine Opiates Screen (NotDetected) Ur Oxycodone Screen (NotDetected) Urine Methadone Screen (NotDetected) Ur Propoxyphene Screen (NotDetected) Ur Barbiturates Screen (NotDetected) U Tricyclic Antidepress (NotDetected) Ur Phencyclidine Scrn (NotDetected) Ur Amphetamines Screen (NotDetected) U Methamphetamines Scrn (NotDetected) U Benzodiazepines Scrn (NotDetected) Urine Cocaine Screen (NotDetected) U Marijuana (THC) Screen (NotDetected) Serum Alcohol mg/dL Blood Type Blood Type Confirm B Positive Blood Type Recheck Bld Type Recheck Status Antibody Screen Spec Expiration Date 10/11/20 10/11/20 10/11/20 Range/Units 11:01 11:01 11:01 WBC (3.8-10.6) k/uL RBC (3.80-5.40) m/uL Hgb (11.4-16.0) gm/dL Hct (34.0-46.0) % MCV (80.0-100.0) fL MCH (25.0-35.0) pg MCHC (31.0-37.0) g/dL RDW (11.5-15.5) % Plt Count (150-450) k/uL MPV Neutrophils % % Lymphocytes % % Monocytes % % Eosinophils % % Basophils % % Neutrophils # (1.3-7.7) k/uL Lymphocytes # (1.0-4.8) k/uL Monocytes # (0-1.0) k/uL Eosinophils # (0-0.7) k/uL Basophils # (0-0.2) k/uL Manual Slide Review Hypochromasia Anisocytosis Macrocytosis PT 13.5 H (9.0-12.0) sec INR 1.3 H (<1.2) APTT 24.4 (22.0-30.0) sec Sodium 140 (137-145) mmol/L Potassium 4.1 (3.5-5.1) mmol/L Chloride 105 (98-107) mmol/L Carbon Dioxide 25 (22-30) mmol/L Anion Gap 10 mmol/L BUN 14 (7-17) mg/dL Creatinine 0.66 (0.52-1.04) mg/dL Est GFR (CKD-EPI)AfAm >90 (>60 ml/min/1.73 sqM) Est GFR (CKD-EPI)NonAf 87 (>60 ml/min/1.73 sqM) Glucose 118 H (74-99) mg/dL POC Glucose (mg/dL) (75-99) mg/dL POC Glu Ice Cream Van Vendor ID Calcium 9.1 (8.4-10.2) mg/dL Total Bilirubin 1.0 (0.2-1.3) mg/dL AST 22 (14-36) U/L ALT 16 (4-34) U/L Alkaline Phosphatase 70 (38-126) U/L Troponin I <0.012 (0.000-0.034) ng/mL Total Protein 6.6 (6.3-8.2) g/dL Albumin 3.8 (3.5-5.0) g/dL Urine Color Urine Appearance (Clear) Urine pH (5.0-8.0) Ur Specific [place] (1.001-1.035) Urine Protein (Negative) Urine Glucose (UA) (Negative) Urine Ketones (Negative) Urine Blood (Negative) Urine Nitrite (Negative) Urine Bilirubin (Negative) Urine Urobilinogen (<2.0) mg/dL Ur Leukocyte Esterase (Negative) Urine RBC (0-5) /hpf Urine WBC (0-5) /hpf Ur Squamous Epith Cells (0-4) /hpf Amorphous Sediment (None) /hpf Urine Bacteria (None) /hpf Hyaline Casts (0-2) /lpf Urine Mucus (None) /hpf Urine Opiates Screen (NotDetected) Ur Oxycodone Screen (NotDetected) Urine Methadone Screen (NotDetected) Ur Propoxyphene Screen (NotDetected) Ur Barbiturates Screen (NotDetected) U Tricyclic Antidepress (NotDetected) Ur Phencyclidine Scrn (NotDetected) Ur Amphetamines Screen (NotDetected) U Methamphetamines Scrn (NotDetected) U Benzodiazepines Scrn (NotDetected) Urine Cocaine Screen (NotDetected) U Marijuana (THC) Screen (NotDetected) Serum Alcohol <10 mg/dL Blood Type Blood Type Confirm Blood Type Recheck Bld Type Recheck Status Antibody Screen Spec Expiration Date 10/11/20 10/11/20 Range/Units 11:01 11:39 WBC (3.8-10.6) k/uL RBC (3.80-5.40) m/uL Hgb (11.4-16.0) gm/dL Hct (34.0-46.0) % MCV (80.0-100.0) fL MCH (25.0-35.0) pg MCHC (31.0-37.0) g/dL RDW (11.5-15.5) % Plt Count (150-450) k/uL MPV Neutrophils % % Lymphocytes % % Monocytes % % Eosinophils % % Basophils % % Neutrophils # (1.3-7.7) k/uL Lymphocytes # (1.0-4.8) k/uL Monocytes # (0-1.0) k/uL Eosinophils # (0-0.7) k/uL Basophils # (0-0.2) k/uL Manual Slide Review Hypochromasia Anisocytosis Macrocytosis PT (9.0-12.0) sec INR (<1.2) APTT (22.0-30.0) sec Sodium (137-145) mmol/L Potassium (3.5-5.1) mmol/L Chloride (98-107) mmol/L Carbon Dioxide (22-30) mmol/L Anion Gap mmol/L BUN (7-17) mg/dL Creatinine (0.52-1.04) mg/dL Est GFR (CKD-EPI)AfAm (>60 ml/min/1.73 sqM) Est GFR (CKD-EPI)NonAf (>60 ml/min/1.73 sqM) Glucose (74-99) mg/dL POC Glucose (mg/dL) (75-99) mg/dL POC Glu Ice Cream Van Vendor ID Calcium (8.4-10.2) mg/dL Total Bilirubin (0.2-1.3) mg/dL AST (14-36) U/L ALT (4-34) U/L Alkaline Phosphatase (38-126) U/L Troponin I (0.000-0.034) ng/mL Total Protein (6.3-8.2) g/dL Albumin (3.5-5.0) g/dL Urine Color Yellow Urine Appearance Turbid H (Clear) Urine pH 7.0 (5.0-8.0) Ur Specific [place] 1.024 (1.001-1.035) Urine Protein 1+ H (Negative) Urine Glucose (UA) Negative (Negative) Urine Ketones Negative (Negative) Urine Blood Negative (Negative) Urine Nitrite Negative (Negative) Urine Bilirubin Negative (Negative) Urine Urobilinogen 6.0 (<2.0) mg/dL Ur Leukocyte Esterase Negative (Negative) Urine RBC 4 (0-5) /hpf Urine WBC 4 (0-5) /hpf Ur Squamous Epith Cells 1 (0-4) /hpf Amorphous Sediment Rare H (None) /hpf Urine Bacteria Rare H (None) /hpf Hyaline Casts 13 H (0-2) /lpf Urine Mucus Many H (None) /hpf Urine Opiates Screen Not Detected (NotDetected) Ur Oxycodone Screen Not Detected (NotDetected) Urine Methadone Screen Not Detected (NotDetected) Ur Propoxyphene Screen Not Detected (NotDetected) Ur Barbiturates Screen Not Detected (NotDetected) U Tricyclic Antidepress Not Detected (NotDetected) Ur Phencyclidine Scrn Not Detected (NotDetected) Ur Amphetamines Screen Not Detected (NotDetected) U Methamphetamines Scrn Not Detected (NotDetected) U Benzodiazepines Scrn Not Detected (NotDetected) Urine Cocaine Screen Not Detected (NotDetected) U Marijuana (THC) Screen Not Detected (NotDetected) Serum Alcohol mg/dL Blood Type B Positive Blood Type Confirm Blood Type Recheck No Previous Record Bld Type Recheck Status CABO Indicated Antibody Screen NEGATIVE Spec Expiration Date 10/14/20202300 Disposition Is patient prescribed a controlled substance at d/c from ED?: No Time of Disposition: 12:26 <Martin Gamble - Last Filed: 10/11/20 12:19> <Mir Han - Last Filed: 10/11/20 12:51> Clinical Impression: Scalp laceration, Syncope Disposition: HOME SELF-CARE Instructions (If sedation given, give patient instructions): Syncope (ED), Fall Prevention for Older Adults (ED) Additional Instructions: Staple should come out in 7 days Referrals: Pradeep Chung DO [Primary Care Provider] - 1-2 days
--- NOTE | 2020-10-11 11:15 | XR ---
EXAMINATION TYPE: XR chest 1V portable DATE OF EXAM: 10/11/2020 COMPARISON: NONE HISTORY: 11/30/2019 TECHNIQUE: Single frontal view of the chest is obtained. FINDINGS: There is no focal air space opacity, pleural effusion, or pneumothorax seen. The cardiac silhouette size is within normal limits. The osseous structures are intact. No overt failure. Arthr opathy of the shoulder. Hypertrophic and degenerative change of the spine. IMPRESSION: No acute process.
--- NOTE | 2020-10-11 11:16 | XR ---
EXAMINATION TYPE: XR pelvis AP view DATE OF EXAM: 10/11/2020 CLINICAL HISTORY: pain TECHNIQUE: Single view the pelvis is submitted. FINDINGS: No evidence for fracture, dislocation or bony lesion. Joint spaces are well-preserved. S I joints appear symmetric. IMPRESSION: 1. No acute fracture or dislocation seen. ICD 10 NO FRACTURE, INITIAL EVALUATION
[2020-10-11 11:17] LABS: Anisocytosis Slight; Basophils % (A) 1 %; Eosinophils % (A) 1 %; HGB 9.8 gm/dL (11.4-16.0); Hypochromasia Slight; Lymphocytes # (A) 0.6 k/uL (1.0-4.8); Lymphocytes % (A) 64 %; MCH 32.6 pg (25.0-35.0); MCHC 32.7 g/dL (31.0-37.0); MCV 99.5 fL (80.0-100.0); Macrocytosis Slight; Mean Platelet Volume 10.7; Monocytes # (A) 0.2 k/uL (0-1.0); Monocytes % (A) 16 %; Neutrophils # (A) 0.2 k/uL (1.3-7.7); Neutrophils % (A) 16 %; Platelet Count 202 k/uL (150-450); RBC 3.01 m/uL (3.80-5.40); RDW 18.3 % (11.5-15.5)
[2020-10-11 11:25] LABS: INR 1.3 (<1.2); Partial Thromboplastin Time 24.4 sec (22.0-30.0); Prothrombin Time 13.5 sec (9.0-12.0)
[2020-10-11 11:28] LABS: ALT 16 U/L (4-34); AST 22 U/L (14-36); African American GFR (CKD) >90 (>60 ml/min/1.73 sqM); Albumin 3.8 g/dL (3.5-5.0); Alcohol <10 mg/dL; Alkaline Phosphatase 70 U/L (38-126); Anion Gap 10 mmol/L; Blood Urea Nitrogen 14 mg/dL (7-17); Calcium 9.1 mg/dL (8.4-10.2); Carbon Dioxide 25 mmol/L (22-30); Chloride 105 mmol/L (98-107); Glucose 118 mg/dL (74-99); Non-African American GFR(CKD) 87 (>60 ml/min/1.73 sqM); Potassium 4.1 mmol/L (3.5-5.1); Sodium 140 mmol/L (137-145); Total Protein 6.6 g/dL (6.3-8.2)
[2020-10-11 12:02] LABS: Amorphous Sediment,Urine Rare /hpf; Appearance,Urine Turbid (Clear); Bacteria,Urine Rare /hpf; Bilirubin,Urine Negative (Negative); Blood,Urine Negative (Negative); Color,Urine Yellow; Glucose,Urine (UA) Negative (Negative); Hyaline Casts,Urine 13 /lpf (0-2); Ketones,Urine Negative (Negative); Leukocyte Esterase,Urine Negative (Negative); Mucus,Urine Many /hpf; Nitrite,Urine Negative (Negative); Protein,Urine 1+ (Negative); RBC,Urine 4 /hpf (0-5); Specific Gravity,Urine 1.024 (1.001-1.035); Squamous Epithelial Cell,Urine 1 /hpf (0-4); WBC,Urine 4 /hpf (0-5)
--- NOTE | 2020-10-11 12:02 | CT ---
EXAMINATION TYPE: CT brain woo wo con DATE OF EXAM: 10/11/2020 COMPARISON: 01/02/2020 HISTORY: Fall today with possible synsopal episode. CT DLP: 1382.[address] of the brain was performed. The ventricles, basal cisterns and sulci overlying the cerebral convexities demonstrate mild enlargem ent. There is no evidence for intracranial hemorrhage or sulcal effacement. There is decreased attenuatio n about the periventricular white matter and deep white matter of both cerebral hemispheres, compatib le with chronic small vessel ischemia. No mass effects are seen. If symptoms persist consider MRI. Osseous calvarium is intact. IMPRESSION: 1. Age related atrophic and chronic small vessel ischemic change without acute intracranial process seen at this time. CT Cervical Spine: Unenhanced CT of the cervical spine was performed with bone and soft tissue window settings submitted . Coronal and sagittal reconstruction is obtained. There is normal alignment and prevertebral soft tissues. No evidence for acute cervical fracture . Scattered degenerative disc disease and spondylosis. Biapical scarring. Soft tissue air is noted in the occipital region likely related to soft tissue laceration. Correlate clinically. IMPRESSION: 1. No evidence for acute fracture or subluxation of the cervical spine.
[2020-10-11 12:05] LABS: Amphetamine Screen,Urine Not Detected (NotDetected); Barbiturate Screen,Urine Not Detected (NotDetected); Benzodiazepines Screen,Urine Not Detected (NotDetected); Cocaine Screen,Urine Not Detected (NotDetected); Methadone Screen, Urine Not Detected (NotDetected); Opiate Screen,Urine Not Detected (NotDetected); Oxycodone Screen, Urine Not Detected (NotDetected); Phencyclidine Screen,Urine Not Detected (NotDetected); Tricyclic Antidepressant,Urine Not Detected (NotDetected); Urn Cannabinoid Scrn Not Detected (NotDetected)
[2020-10-11 13:05] VITALS: PULSE 77
[2020-10-11 13:07] VITALS: BP 109/70; TEMP 98
== END 2020-10-11 12:58 | disposition home or self-care (01) ==
LOC: EC 10:19
DX: S01.01XA Laceration without foreign body of scalp, initial encounter (principal); R55 Syncope and collapse; F41.9 Anxiety disorder, unspecified; E78.5 Hyperlipidemia, unspecified; I10 Essential (primary) hypertension; Z23 Encounter for immunization; Z79.01 Long term (current) use of anticoagulants; Z79.899 Other long term (current) drug therapy; Z88.1 Allergy status to other antibiotic agents; Z90.89 Acquired absence of other organs; Z90.49 Acquired absence of other specified parts of digestive tract; Z90.710 Acquired absence of both cervix and uterus; Z85.828 Personal history of other malignant neoplasm of skin; Z80.0 Family history of malignant neoplasm of digestive organs; W01.10XA Fall on same level from slipping, tripping and stumbling with subsequent striking against unspecified object, initial encounter; Y92.002 Bathroom of unspecified non-institutional (private) residence as the place of occurrence of the external cause
CPT/HCPCS: 36415; 93005; 86900; 86901; 80053; 84484; 85025; 85610; 85730; 86850; 81001; 80306; 72170; 71045; 72125; 70450; 90715; 99285; 96365; 90471; 12002; G0480; J0690; 80320

== ENCOUNTER 2020-10-12 14:56 | Inpatient (IN) | payer MEDICARE ==
--- NOTE | 2020-10-12 15:42 | ED ---
General Adult HPI - General Chief complaint: Altered Mental Status Stated complaint: Revisit Altered Time Seen by Provider: 10/12/20 15:10 Source: patient Mode of arrival: wheelchair Limitations: physical limitation - History of Present Illness Initial comments: Dictation was produced using [email or web address] dictation software. please excuse any grammatical, word or spelling errors. This patient was cared for during a federal and state declared state of e mergency secondary to Covid 19 Chief Complaint: 75-year-old male presents with altered mental status History of Present Illness: It is a 75-year-old female she presents today with altered mental status. Patient showing signs of confusion today where she saying very abnormal things. Patient has a history of low leukopenia. She is supposedly scheduled to have bone marrow transplant in the near future. She was seen here yesterday after a ground-level fall. She suffered a laceration to her posterior head that was stapled. Patient does take Coumadin. is at bedside reports that she does not have any significant localizing symptoms. She has however been complaining of dizziness. She has a chronic mild cough. Denies any urinary symptoms. reports that patient was significantly weak today and having trouble doing her activities of daily living. The ROS documented in this emergency department record has been reviewed and confirmed by me. Those systems with pertinent positive or negative responses have been documented in the HPI. All other systems are other negative and/or noncontributory. PHYSICAL EXAM: General Impression: Alert and oriented x2/4, not in acute distress HEENT: Normocephalic atraumatic, extra-ocular movements intact, pupils equal and reactive to light bilaterally, mucous membranes moist. Cardiovascular: Heart regular rate and rhythm Chest: Able to complete full sentences, no retractions, no tachypnea Abdomen: abdomen soft, non-tender, non-distended, no organomegaly Musculoskeletal: Pulses present and equal in all extremities, no peripheral edema Motor: no focal deficits noted Neurological: CN II-XII grossly intact, no focal motor or sensory deficits noted, negative Brudzinski's, negative Kernig's, NIH of 34 not able to Skin: Intact with no visualized rashes Psych: Normal affect and mood ED course: Patient is a in 75-year-old female presents with altered mental status. She fell yesterday. Signs upon arrival shows temperature of 103.2, rest of vital signs within acceptable limits. Patient has a fever with altered mental status concerning for sepsis. She does not have any localizing symptoms.Chest x-ray shows no acute processes. Computed tomography scan of the brain is negative for any acute processes. 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 Laboratory evaluation obtained. Leukopenia 1.5, hemoglobin 10.7, white count shows INR 1.9. Metabolic panel is within acceptable limits. CRP is elevated 7.8. Rapid coronavirus test is negative. Pending urine studies. There is a delay in getting a urine sample for evaluation. Considering patient's medical presentation and medical comorbidit ies patient is given a dose of Zosyn and vancomycin for neutropenic fever. Patient does have positive strokelike symptoms. At this point is unclear what patient's symptoms initially began and unlikely to be acute stroke given that alternative diagnoses more likely in the setting of pyrexia. Urinalysis is negative. At this point there is no obvious source of bacterial infection. Patient is on Coumadin and INR is 1.9. She doesn't exactly follow commands and it's thought that patient would not tolerate a lumbar puncture and would be uncooperative. Lumbar puncture will not be attempted at this time. Case is discussed with infectious disease who recommends that patient be started on acyclovir along with broad-spectrum antibiotics. Says altered mental status patient not showing any signs of severe sepsis. She is not hypotensive nor tachycardic nor tachypneic. Infectious disease and neurology will be consulted. Case was discussed with . percussion was went except patient's care for admission. EKG interpretation: Ventricular rate 95, sinus rhythm,. Interval 152, QRS 80, QTC 404. Artifact in V4. No DE prolongation, no QTC prolongation, no ST or T- wave changes noted. EKG compared to 11/08/2020 showing no changes. Overall, this EKG is unremarkable - Related Data Home Medications Medication Instructions Recorded Confirmed lisinopriL [Zestril] 20 mg PO BID 10/28/16 10/12/20 Allopurinol [Zyloprim] 300 mg PO DAILY 10/11/20 10/12/20 Atorvastatin [Lipitor] 40 mg PO HS 10/11/20 10/12/20 Famotidine 20 mg PO BID PRN 10/11/20 10/12/20 Warfarin [Coumadin] 2 mg PO SUTUTHSA@2100 10/11/20 10/12/20 Warfarin [Coumadin] 5 mg PO HS 10/11/20 10/12/20 ondansetron HCL [Zofran] 8 mg PO BID PRN 10/11/20 10/12/20 Allergies Allergy/AdvReac Type Severity Reaction Status Date / Time erythromycin base Allergy Rash/Hives Verified 10/12/20 16:48 Review of Systems ROS Statement: Those systems with pertinent positive or pertinent negative responses have been documented in the HPI. ROS Other: All systems not noted in ROS Statement are negative. 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, basal cell skin cancer, brain bleed History of Any Multi-Drug Resistant Organisms: None Reported Past Surgical History: Adenoidectomy, Appendectomy, Hysterectomy, Orthopedic Surgery, Tonsillectomy Additional Past Surgical History / Comment(s): navid breast reduction, hemorrhoidectomy, metal nithin in toe, lt carpal tunnel, basal cell skin cancer removed Past Anesthesia/Blood Transfusion Reactions: No Reported Reaction Past Psychological History: Anxiety Smoking Status: Unknown if ever smoked Past Alcohol Use History: None Reported Past Drug Use History: None Reported - Past Family History Mother Family Medical History: CVA/TIA, Dementia, Myocardial Infarction ([place]) Father Family Medical History: Cancer Additional Family Medical History / Comment(s): colon cancer, alcoholism General Exam Limitations: physical limitation Course Vital Signs 10/12/20 10/12/20 10/12/20 14:57 15:13 15:23 Temperature 99.5 F 103.2 F H Pulse Rate 97 Respiratory 16 Rate Blood Pressure 111/72 108/59 O2 Sat by Pulse 97 96 Oximetry 10/12/20 10/12/20 10/12/20 15:30 16:00 16:30 Temperature Pulse Rate 96 90 Respiratory 17 18 Rate Blood Pressure 108/59 109/62 110/67 O2 Sat by Pulse 100 100 Oximetry 10/12/20 10/12/20 10/12/20 17:00 17:30 18:27 Temperature 103.1 F H Pulse Rate 91 90 Respiratory 18 18 Rate Blood Pressure 124/75 124/75 O2 Sat by Pulse 100 100 Oximetry Medical Decision Making - Lab Data Result diagrams: 10/12/20 15:51 10/12/20 16:45 Lab Results 10/12/20 10/12/20 10/12/20 Range/Units 15:51 15:51 15:51 WBC 1.5 L (3.8-10.6) k/uL RBC 3.30 L (3.80-5.40) m/uL Hgb 10.7 L (11.4-16.0) gm/dL Hct 32.6 L (34.0-46.0) % MCV 98.8 (80.0-100.0) fL MCH 32.4 (25.0-35.0) pg MCHC 32.8 (31.0-37.0) g/dL RDW 18.3 H (11.5-15.5) % Plt Count 185 (150-450) k/uL MPV 11.3 Neutrophils # WORKDAY CONSULTANT Anisocytosis Slight Macrocytosis Slight PT 18.5 H (9.0-12.0) sec INR 1.9 H (<1.2) APTT 22.4 (22.0-30.0) sec Sodium (137-145) mmol/L Potassium (3.5-5.1) mmol/L Chloride (98-107) mmol/L Carbon Dioxide (22-30) mmol/L Anion Gap mmol/L BUN (7-17) mg/dL Creatinine (0.52-1.04) mg/dL Est GFR (CKD-EPI)AfAm (>60 ml/min/1.73 sqM) Est GFR (CKD-EPI)NonAf (>60 ml/min/1.73 sqM) Glucose (74-99) mg/dL POC Glucose (mg/dL) (75-99) mg/dL POC Glu Insurance Analyst ID Plasma Lactic Acid Andrew (0.7-2.0) mmol/L Calcium (8.4-10.2) mg/dL Magnesium (1.6-2.3) mg/dL Total Bilirubin (0.2-1.3) mg/dL AST (14-36) U/L ALT (4-34) U/L Alkaline Phosphatase (38-126) U/L Ammonia (<30) umol/L C-Reactive Protein (<10.0) mg/L Total Protein (6.3-8.2) g/dL Albumin (3.5-5.0) g/dL Urine Color Yellow Urine Appearance Clear (Clear) Urine pH 6.0 (5.0-8.0) Ur Specific [place] 1.016 (1.001-1.035) Urine Protein Negative (Negative) Urine Glucose (UA) Negative (Negative) Urine Ketones Negative (Negative) Urine Blood Negative (Negative) Urine Nitrite Negative (Negative) Urine Bilirubin Negative (Negative) Urine Urobilinogen 2.0 (<2.0) mg/dL Ur Leukocyte Esterase Negative (Negative) Coronavirus (PCR) (Not Detectd) 10/12/20 10/12/20 10/12/20 Range/Units 15:51 16:31 16:45 WBC (3.8-10.6) k/uL RBC (3.80-5.40) m/uL Hgb (11.4-16.0) gm/dL Hct (34.0-46.0) % MCV (80.0-100.0) fL MCH (25.0-35.0) pg MCHC (31.0-37.0) g/dL RDW (11.5-15.5) % Plt Count (150-450) k/uL MPV Neutrophils # Anisocytosis Macrocytosis PT (9.0-12.0) sec INR (<1.2) APTT (22.0-30.0) sec Sodium (137-145) mmol/L Potassium (3.5-5.1) mmol/L Chloride (98-107) mmol/L Carbon Dioxide (22-30) mmol/L Anion Gap mmol/L BUN (7-17) mg/dL Creatinine (0.52-1.04) mg/dL Est GFR (CKD-EPI)AfAm (>60 ml/min/1.73 sqM) Est GFR (CKD-EPI)NonAf (>60 ml/min/1.73 sqM) Glucose (74-99) mg/dL POC Glucose (mg/dL) 121 H (75-99) mg/dL POC Glu Insurance Analyst ID [facility] Plasma Lactic Acid Andrew 1.7 (0.7-2.0) mmol/L Calcium (8.4-10.2) mg/dL Magnesium (1.6-2.3) mg/dL Total Bilirubin (0.2-1.3) mg/dL AST (14-36) U/L ALT (4-34) U/L Alkaline Phosphatase (38-126) U/L Ammonia <9 (<30) umol/L C-Reactive Protein (<10.0) mg/L Total Protein (6.3-8.2) g/dL Albumin (3.5-5.0) g/dL Urine Color Urine Appearance (Clear) Urine pH (5.0-8.0) Ur Specific [place] (1.001-1.035) Urine Protein (Negative) Urine Glucose (UA) (Negative) Urine Ketones (Negative) Urine Blood (Negative) Urine Nitrite (Negative) Urine Bilirubin (Negative) Urine Urobilinogen (<2.0) mg/dL Ur Leukocyte Esterase (Negative) Coronavirus (PCR) Not Detected (Not Detectd) 10/12/20 Range/Units 16:45 WBC (3.8-10.6) k/uL RBC (3.80-5.40) m/uL Hgb (11.4-16.0) gm/dL Hct (34.0-46.0) % MCV (80.0-100.0) fL MCH (25.0-35.0) pg MCHC (31.0-37.0) g/dL RDW (11.5-15.5) % Plt Count (150-450) k/uL MPV Neutrophils # Anisocytosis Macrocytosis PT (9.0-12.0) sec INR (<1.2) APTT (22.0-30.0) sec Sodium 135 L (137-145) mmol/L Potassium 4.0 (3.5-5.1) mmol/L Chloride 101 (98-107) mmol/L Carbon Dioxide 26 (22-30) mmol/L Anion Gap 8 mmol/L BUN 12 (7-17) mg/dL Creatinine 0.68 (0.52-1.04) mg/dL Est GFR (CKD-EPI)AfAm >90 (>60 ml/min/1.73 sqM) Est GFR (CKD-EPI)NonAf 86 (>60 ml/min/1.73 sqM) Glucose 124 H (74-99) mg/dL POC Glucose (mg/dL) (75-99) mg/dL POC Glu Insurance Analyst ID Plasma Lactic Acid Andrew (0.7-2.0) mmol/L Calcium 9.1 (8.4-10.2) mg/dL Magnesium 1.9 (1.6-2.3) mg/dL Total Bilirubin 1.3 (0.2-1.3) mg/dL AST 24 (14-36) U/L ALT 15 (4-34) U/L Alkaline Phosphatase 62 (38-126) U/L Ammonia (<30) umol/L C-Reactive Protein 78.8 H (<10.0) mg/L Total Protein 6.7 (6.3-8.2) g/dL Albumin 3.8 (3.5-5.0) g/dL Urine Color Urine Appearance (Clear) Urine pH (5.0-8.0) Ur Specific [place] (1.001-1.035) Urine Protein (Negative) Urine Glucose (UA) (Negative) Urine Ketones (Negative) Urine Blood (Negative) Urine Nitrite (Negative) Urine Bilirubin (Negative) Urine Urobilinogen (<2.0) mg/dL Ur Leukocyte Esterase (Negative) Coronavirus (PCR) (Not Detectd) Disposition Clinical Impression: Altered mental status Disposition: ADMITTED IP TO THIS HOSP Condition: Fair Referrals: Pradeep Chung DO [Primary Care Provider] - 1-2 days Decision Time: 18:39
[2020-10-12 16:17] LABS: Anisocytosis Slight; HCT 32.6 % (34.0-46.0); HGB 10.7 gm/dL (11.4-16.0); MCH 32.4 pg (25.0-35.0); MCHC 32.8 g/dL (31.0-37.0); MCV 98.8 fL (80.0-100.0); Macrocytosis Slight; Mean Platelet Volume 11.3; Platelet Count 185 k/uL (150-450); RDW 18.3 % (11.5-15.5)
[2020-10-12 16:23] LABS: INR 1.9 (<1.2); Partial Thromboplastin Time 22.4 sec (22.0-30.0); Prothrombin Time 18.5 sec (9.0-12.0)
[2020-10-12 16:32] LABS: Glucose,Whole Blood 121 mg/dL (75-99)
--- NOTE | 2020-10-12 16:32 | XR ---
EXAMINATION TYPE: XR chest 1V portable DATE OF EXAM: 10/12/2020 COMPARISON: Yesterday HISTORY: Fever. TECHNIQUE: Single view FINDINGS: Heart is normal. Lungs are clear of consolidation. There are chest leads. There are no heriberto r masses. Costophrenic angles are clear. IMPRESSION: No active cardiopulmonary disease. Normal heart. No change.
--- NOTE | 2020-10-12 16:36 | CT ---
EXAMINATION TYPE: CT brain wo con DATE OF EXAM: 10/12/2020 COMPARISON: Yesterday HISTORY: Altered mental status post fall yesterday. CT DLP: 1100.4 mGycm Automated exposure control for dose reduction was used. There is cerebral mild atrophy. There is no mass effect nor midline shift. There is no sign of intrac ranial hemorrhage. There is some hypodensity in the right occipital lobe with slight enlargement of t he occipital horn right lateral ventricle consistent with an old infarct. Calvarium is intact. The skull base is intact. There is normal aeration of the mastoid sinuses. IMPRESSION: Old right occipital lobe infarct. No acute intracranial abnormality. Cerebral atrophy. No change comp ared to yesterday.
[2020-10-12 16:59] LABS: Lactic Acid, Venous 1.7 mmol/L (0.7-2.0)
[2020-10-12 17:03] LABS: ALT 15 U/L (4-34); AST 24 U/L (14-36); African American GFR (CKD) >90 (>60 ml/min/1.73 sqM); Albumin 3.8 g/dL (3.5-5.0); Alkaline Phosphatase 62 U/L (38-126); Anion Gap 8 mmol/L; Blood Urea Nitrogen 12 mg/dL (7-17); C Reactive Protein 78.8 mg/L (<10.0); Calcium 9.1 mg/dL (8.4-10.2); Carbon Dioxide 26 mmol/L (22-30); Chloride 101 mmol/L (98-107); Glucose 124 mg/dL (74-99); Magnesium 1.9 mg/dL (1.6-2.3); Non-African American GFR(CKD) 86 (>60 ml/min/1.73 sqM); Sodium 135 mmol/L (137-145); Total Bilirubin 1.3 mg/dL (0.2-1.3); Total Protein 6.7 g/dL (6.3-8.2)
[2020-10-12] MEDS ORDERED: AMPICILLIN-SULBACTAM 3 GM in SODIUM CHLORIDE 0.9% 100 ML IVPB STA (17:19)
[2020-10-12] MEDS ORDERED: PIPERACILLIN-TAZOBACTAM 3.375 GM in SODIUM CHLORIDE 0.9% 100 ML IVPB STA (17:20)
[2020-10-12] MEDS ORDERED: VANCOMYCIN IV PER PHARMACY 1 EACH MISC MISCELLANE PRN (17:20)
[2020-10-12] MEDS ORDERED: VANCOMYCIN 1,250 MG in SODIUM CHLORIDE 0.9% 250 ML IVPB STA (17:27)
[2020-10-12 18:05] LABS: Appearance,Urine Clear (Clear); Bilirubin,Urine Negative (Negative); Blood,Urine Negative (Negative); Color,Urine Yellow; Glucose,Urine (UA) Negative (Negative); Ketones,Urine Negative (Negative); Leukocyte Esterase,Urine Negative (Negative); Nitrite,Urine Negative (Negative); Protein,Urine Negative (Negative); Specific Gravity,Urine 1.016 (1.001-1.035)
[2020-10-12] MEDS ORDERED: ACETAMINOPHEN TAB 500 MG TAB PO STA (18:17)
[2020-10-12] MEDS ORDERED: ONDANSETRON 4 MG/2 ML VIAL IVP PRN (18:39)
[2020-10-12] MEDS ORDERED: NALOXONE 0.4 MG/ML 1 ML VIAL IV PRN (18:39)
--- NOTE | 2020-10-12 18:58 | CT ---
EXAMINATION TYPE: CT angio head neck DATE OF EXAM: 10/12/2020 COMPARISON: 05/01/2020 HISTORY: Altered mental status post fall yesterday. CT DLP: 431.6 mGycm Automated exposure control for dose reduction was used. CONTRAST: Performed with IV Contrast, patient injected with 65ml mL of Isovue 370. Images obtained from the aortic arch to the vertex of the brain with IV contrast and 3-D post process ed images. Aortic arch is intact. There is normal branching pattern of the great vessels on the aortic arch. The re is bilateral arterial flow in the subclavian arteries. There is arterial flow in the common art gallery internship al and external carotid arteries bilaterally. There is arterial flow in both vertebral arteries. Ther e is fairly wide patency of the internal and external carotid arteries bilaterally. There is less calvin n 10% stenosis in both internal carotid arteries. There is arterial flow in the vertebrobasilar arter y system. There is no evidence of carotid or vertebral artery aneurysm or dissection. There is arterial flow in the anterior middle and posterior cerebral arteries. There is no evidence o f hemodynamic stenosis. There is no mass effect. I see no evidence of intracranial aneurysm or neovas cularity. There is normal contrast opacification of the venous sinuses. IMPRESSION: No significant angiographic abnormality of the head and neck. No adverse change compared to old exam.
[2020-10-12] MEDS ORDERED: FAMOTIDINE 20 MG TAB PO PRN (20:29)
[2020-10-12] MEDS ORDERED: SODIUM CHLORIDE 0.9% 500 ML 500 ML IV ONE (20:34)
[2020-10-12] MEDS: SODIUM CHLORIDE 0.9% 1,000 ML IV SCH ×2 (20:50→20:51)
[2020-10-12] MEDS: ATORVASTATIN 40 MG TAB PO SCH (22:15)
[2020-10-12] MEDS: ACYCLOVIR SODIUM 650 MG in SODIUM CHLORIDE 0.9% 100 ML IV SCH (22:50)
[2020-10-13] MEDS: ACYCLOVIR SODIUM 650 MG in SODIUM CHLORIDE 0.9% 100 ML IV SCH ×2 (03:51→13:06)
[2020-10-13] MEDS: SODIUM CHLORIDE 0.9% 1,000 ML IV SCH ×4 (03:52→22:50)
[2020-10-13] MEDS: ACETAMINOPHEN TAB 325 MG TAB PO PRN ×3 (03:54→21:40)
[2020-10-13 08:18] LABS: Neutrophils % (M) 4 %
[2020-10-13 08:19] LABS: Blast Cells # (M) 0.31 k/uL (0); Lymphocytes # (M) 0.77 k/uL (1.0-4.8); Metamyelocytes # (M) 0.03 k/uL (0); Metamyelocytes % 2 %; Monocytes # (M) 0.14 k/uL (0-1.0); Nucleated Red Blood Cells 12 /100 WBC (0-0); Total Cells Counted 100; WBC 1.3 k/uL (3.8-10.6)
[2020-10-13 08:20] LABS: Neutrophils # (M) 0.05 k/uL (1.3-7.7)
[2020-10-13 08:21] LABS: Poikilocytosis (M) Present; Polychromasia Present
[2020-10-13 08:22] LABS: Large Platelets Present
[2020-10-13] MEDS: VANCOMYCIN 1,250 MG in SODIUM CHLORIDE 0.9% 250 ML IVPB SCH (09:13)
[2020-10-13] MEDS: allopurinoL 300 MG TAB PO SCH (09:13)
[2020-10-13] MEDS ORDERED: levETIRAcetam IV 1,000 MG in SALINE 1 100ML.BAG IVPB STA (10:30)
[2020-10-13] MEDS ORDERED: RX INFO: IV CONTRAST WAS GIVEN 1 EACH MISC MISCELLANE PRN (10:39)
--- NOTE | 2020-10-13 10:59 | P.CNNES ---
History of Present Illness Consult date: 10/13/20 Requesting physician: Jimmy García Reason for Consult: altered mental status History of Present Illness: This is a 75-year-old woman with medical history of intraparechymal hemorrhage (11/2019), leukemia on chemotherapy and hypertension that presented to the emergency department on 10/12/2020 for altered mental status. Some of the history is obtained from medical record since patient is unable to provide that to me. Patient could not tell me why she presented to the hospital on this current visit but stated that on Wednesday she was in the bathroom and then the she stood up and felt very dizzy and passed out. She thinks she passed out for 30 minutes but unsure. She was on the ground and her found on the ground. She denies of any the jerking extremities that her seen according to the patient. Denies of any urinary or bowel incontinence or tongue bite. She denies of any previous episodes of the seizures or syncopal episodes. She denies of any fever recently. She denies of any chest palpitation prior to the episode that. Denies of any visual disturbance. She has chronic ringing of the head she said since the intraparenchymal bleed of November 2019. Denies of any focal weakness. She said that she had queenie in the back of the head as a result of the fall. On this current presentation to the ED it is noted that the patient had that confusion and was saying abnormal things. It is noted the in the note by the ED that the reports that the patient was significantly weak on 10/12/2020 and was having trouble of daily activities at. Patient was complaining of dizziness. Patient has a history of leukemia and that she's supposed to be as scheduled for bone marrow transplant in the future. Also as stated above, the patient also presented to the emergency department on 10/11/2020 for an episode of a fall. Upon looking the ED notes that it is noted that the patient was in the bathroom and remembers feeling lightheaded and the next thing as she knew was that she was a she woke up on the ground. The patient is on Coumadin and could not tell the ED why she is on Coumadin but was tell me that the she had a tumor in the brain in November 2019. Patient stated that the she is been diagnosed with chlamydia at the end of 2019 and that started the her chemotherapy in 09/02/2020. Currently she gets it every other week according to the patient. Regarding the patient's history she stated that it was a normal to her knowledge vaginal delivery and no complication. Again she does not have any history of seizures. Of note patient stated in November 2019 she had headache as well as vomiting and she presented to [facility] [place] she was told that that the she had the bleed in the brain as well as a tumor. She had a CT of the head on the 11/30/2019 and it's reported as multiple compartments of acute intracranial hemorrhage including subdural hematoma, subar achnoid hemorrhage and intraparenchymal hemorrhage measuring 3.6 cm with local mass effect although no midline shift seen. Given the multiple compartments of hemorrhage concern for a traumatic injury although this patient denies traumatic injury and the possibility of non-accidental trauma should be excluded that. Coagulopathy is an alternative consideration. Aneurysm less likely given the multiple compartments of hemorrhage. She was transferred over to [facility]. She said that she didn't have any intervention. As a result she was told that she had a hemorrhage as well as a tumor and was started on the anticoagulation. She cannot tell me what kind of tumor. I'm thinking possibly she had the sinus thrombosis and that is my thinking process. Workup in the hospital consisted of: Initial vital signs is blood pressure of 111/72, heart rate of 97, respiratory of 16, temperature of 99.5 Fahrenheit oral and pulse ox 97% at room air. Temperature was 103.2 Fahrenheit. Also it is recorded in the patient's blood pressure has been in the 80s over 50s to 60s. 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 No acute intracranial abnormality. Cerebral atrophy. No change compared to yesterday. CTA of the head and neck was reported as no significant angiographic abnormality of the head and neck. No adverse changes compared to old exam. EKG is reported as sinus rhythm with premature superventricular complication. Left axis deviation. Nonspecific T wave abnormality. Abnormal EKG. Initial white blood cell is 1.3. The blasts is 24 which is elevated. The neutrophils is 0.05. Nucleated red blood cell is 12K. His sodium was 135. Initial POC glucose is 121. The plasma lactic acid vein is 1.7 the. The calcium is 9.1. Magnesium is 1.9. Ammonia level S is less than 9. CRP is 78.8 which is elevated. Review of Systems Review of system: The 12 point system was reviewed and apparent positive and negative per HPI. 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, basal cell skin cancer, brain bleed History of Any Multi-Drug Resistant Organisms: None Reported Past Surgical History: Adenoidectomy, Appendectomy, Hysterectomy, Orthopedic Surgery, Tonsillectomy Additional Past Surgical History / Comment(s): navid breast reduction, hemorrhoidectomy, metal nithin in toe, lt carpal tunnel, basal cell skin cancer removed Past Anesthesia/Blood Transfusion Reactions: No Reported Reaction Past Psychological History: Anxiety Smoking Status: Unknown if ever smoked Past Alcohol Use History: None Reported Past Drug Use History: None Reported - Past Family History Mother Family Medical History: CVA/TIA, Dementia, Myocardial Infarction ([place]) Father Family Medical History: Cancer Additional Family Medical History / Comment(s): colon cancer, alcoholism Medications and Allergies Home Medications Medication Instructions Recorded Confirmed Type lisinopriL [Zestril] 20 mg PO BID 10/28/16 10/12/20 History Allopurinol [Zyloprim] 300 mg PO DAILY 10/11/20 10/12/20 History Atorvastatin [Lipitor] 40 mg PO HS 10/11/20 10/12/20 History Famotidine 20 mg PO BID PRN 10/11/20 10/12/20 History Warfarin [Coumadin] 2 mg PO SUTUTHSA@2100 10/11/20 10/12/20 History Warfarin [Coumadin] 5 mg PO HS 10/11/20 10/12/20 History ondansetron HCL [Zofran] 8 mg PO BID PRN 10/11/20 10/12/20 History Allergies Allergy/AdvReac Type Severity Reaction Status Date / Time erythromycin base Allergy Rash/Hives Verified 10/12/20 16:48 Physical Examination - Vital Signs Vital Signs: Vital Signs Temp Pulse Pulse Resp BP BP BP 10/13/20 05:26 98.9 F 10/13/20 03:45 100.7 F H 96 20 130/66 10/12/20 23:00 97.9 F 85 18 114/73 02/20/21 22:12 97.6 F 101/65 10/12/20 20:56 97.4 F L 10/12/20 20:50 96/55 10/12/20 20:24 80/53 87/59 10/12/20 19:30 98.7 F 79 20 88/55 10/12/20 18:27 103.1 F H 10/12/20 17:30 90 18 124/75 10/12/20 17:00 91 18 124/75 10/12/20 16:30 90 18 110/67 10/12/20 16:00 96 17 109/62 10/12/20 15:30 108/59 10/12/20 15:23 103.2 F H 10/12/20 15:13 108/59 10/12/20 14:57 99.5 F 97 16 111/72 Pulse Ox 10/13/20 05:26 10/13/20 03:45 10/12/20 23:00 100 10/12/20 22:12 10/12/20 20:56 10/12/20 20:50 10/12/20 20:24 10/12/20 19:30 96 10/12/20 18:27 10/12/20 17:30 100 10/12/20 17:00 100 10/12/20 16:30 10/12/20 16:00 100 10/12/20 15:30 100 10/12/20 15:23 10/12/20 15:13 96 10/12/20 14:57 97 Intake and Output 10/12/20 10/13/20 10/13/20 22:59 06:59 14:59 Output Total 400 1600 Balance -400 -1600 Output: Urine 400 1600 Straight 400 800 Other: Voiding Method Bedpan Bedpan Diaper Weight 65.771 kg 76.4 kg GENERAL: The patient is lying in bed and is not in acute distress. HENT: Staple in occipital region and seems more middle/right region (from recent fall this past Wednesday). Otherwise Normocephalic. No nuchal ridigity. CHEST: The heart rate is regular rate rhythm. No murmurs to auscultation. LUNG: Clear to auscultation bilaterally no wheezing noted throughout. Not labored breathing. ABDOMEN/GI: Bowel sounds present in all 4 quadrants. No tenderness to palpation throughout. NEUROLOGICAL: Higher mental function: The patient is awake, alert, oriented to self, place and time. Patient is following commands. No aphasia and no neglect. Cranial nerves: The pupils are round, equal and reactive to light and accommodation. Visual noe are left upper quandrant hemianopsia to confro ntation. Extraocular movement is intact no nystagmus is noted. Facial sensation is normal to touch throughout. The facial strength is normal throughout. Hearing is mildly decreased to hand rubs bilaterally. Tongue is midline and moved [id number] without any difficulty. No dysarthria is noted. Shoulder shrug is normal bilaterally. Motor: Gait is deferred. The strength is left arm extension/flexion 5- otherwise 5/5. Normal tone and bulk. Cerebellum: Normal finger to nose heel to chin bilaterally. Sensation: Sensation is normal to touch throughout. Reflexes (right/left): 2+ Plantars are mute bilaterally. Results Urinalysis is negative for urinary tract infection. Martin virus PCR was not detected. Coagulation study: PT of 18.5, INR 1.9, PTT of 22.4. - Laboratory Findings CBC and BMP: 10/12/20 15:51 10/12/20 16:45 Abnormal Lab Findings: Abnormal Labs 10/12/20 10/12/20 10/12/20 15:51 15:51 16:31 WBC 1.3 L* RBC 3.30 L Hgb 10.7 L Hct 32.6 L RDW 18.3 H Blast Cells % 24 H* Neutrophils # (Manual) 0.05 L* Lymphocytes # (Manual) 0.77 L Metamyelocytes # (Man) 0.03 H Blast Cells # (Man) 0.31 H Nucleated RBCs 12 H PT 18.5 H INR 1.9 H Sodium Glucose POC Glucose (mg/dL) 121 H C-Reactive Protein 10/12/20 16:45 WBC RBC Hgb Hct RDW Blast Cells % Neutrophils # (Manual) Lymphocytes # (Manual) Metamyelocytes # (Man) Blast Cells # (Man) Nucleated RBCs PT INR Sodium 135 L Glucose 124 H POC Glucose (mg/dL) C-Reactive Protein 78.8 H Assessment and Plan Assessment: This is a 75-year-old woman with medical history of leukemia that presented to the emergency department on 10/12/2020 for altered mental status. She presented to the emergency department also on the 10/11/2019 for an episode of unresponsiveness. The patient's altered mental status and the episode of unresponsiveness (10/11/20) with generalzied weakness and septic is likely due septic especially with history of leukemia. Cannot rule out seizure (especially with old stroke). Old right occipital/temporal bleed (11/2019) Left upper quandrant hemianopsia due to above. Episode of unresponsiveness on 10/11/2020 is likely due to new onset seizure. Cannot rule out syncope. 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 No acute intracranial abnormality. Cerebral atrophy. No change compared to yesterday. CTA of the head and neck was reported as no significant angiographic abnormality of the head and neck. No adverse changes compared to old exam. Tomorrow I'll get MRI of the brain with and without gadolinium for better enhancement. MRI the brain cannot be done today since the there is no ataxia available. I ordered an EEG. The EEG can be done tomorrow since patient is back to baseline and I'll be starting the patient on the Keppra 500 mg 1 tablet twice a day and I will load her with one time Keppra 1000mg once. I ordered a TSH level as well. I ordered orthostatic as well as 2-D echo. I recommend holding the Coumadin and is anticoagulation as needed can consider heparin drip but please avoid any boluses and keep the PTT between 45 and 60. Oncology team is consulted. Infection disease is on board. Infection disease ordered herpes virus. The patient was started on acyclovir, Zosyn and vancomycin. Blood cultures are ordered and are pending. I do not think this is meningoencephalitis since patient is awake and responding and no nuchal rigidity. Will try to obtain records from [facility] for her recent work-up (11/2019). I had a discussion with the primary team and he stated she had venous sinus thrombosis in the past. She had chemotherapy last 2 weeks ago and has been fee ling generalized weakness. The plan was discussed with the patient's nurse. Also plan is discussed with the primary team. Thank you for the consultation. Dr. Fontenot will take over coverage for neurology service starting tomorrow (10/14/2020). Wisam Williamson MD Neuro-Hospitalist Time with Patient: Greater than 30
--- NOTE | 2020-10-13 14:42 | P.CONS ---
History of Present Illness - Reason for Consult Consult date: 10/13/20 Leukopenia Requesting physician: Alberto Dubois - Chief Complaint Fall and confusion - History of Present Illness Ms. 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 Malloy (I was not able to verify this by ), however was lost to follow up since 08/2017, who is here for fall and altered mentation. CT head and CT angio overall unreamrakable. Neurology on board. She was febrile at 103 on presentation. She was found to have leukopenia, WBC 1.5, with blasts, leading to our consult. She was started on broad spectrum antibiotics and was admitted for further management. I discussed with pt's . She presented here in 11/2019 at which time she was found to have a clot in the brain. She was transferred to [facility] where she met Dr. Serra and was discharged on warfarin. She was also found to have acute leukemia, and is on hypomethylating agent with oral chemotherapy. It seems that she completed her therapy and is now being evaluated for BMT at [facility]. Unfortunately she was hospitalized here for fall and head trauma prior to having this testing done. While here, she was found to have confusion and fever up to 103. Admitted and started on broad specturm antibiotics. I attempted to confirm if pt was seen by Dr. Malloy in [phone] however pt's had to speak with another physician. WIll clarify this history by tomorrow. 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, basal cell skin cancer, brain bleed History of Any Multi-Drug Resistant Organisms: None Reported Past Surgical History: Adenoidectomy, Appendectomy, Hysterectomy, Orthopedic Surgery, Tonsillectomy Additional Past Surgical History / Comment(s): navid breast reduction, hemorrhoidectomy, metal nithin in toe, lt carpal tunnel, basal cell skin cancer removed Past Anesthesia/Blood Transfusion Reactions: No Reported Reaction Past Psychological History: Anxiety Smoking Status: Unknown if ever smoked Past Alcohol Use History: None Reported Past Drug Use History: None Reported - Past Family History Mother Family Medical History: CVA/TIA, Dementia, Myocardial Infarction ([place]) Father Family Medical History: Cancer Additional Family Medical History / Comment(s): colon cancer, alcoholism Medications and Allergies Home Medications Medication Instructions Recorded Confirmed Type lisinopriL [Zestril] 20 mg PO BID 10/28/16 10/12/20 History Allopurinol [Zyloprim] 300 mg PO DAILY 10/11/20 10/12/20 History Atorvastatin [Lipitor] 40 mg PO HS 10/11/20 10/12/20 History Famotidine 20 mg PO BID PRN 10/11/20 10/12/20 History Warfarin [Coumadin] 2 mg PO SUTUTHSA@2100 10/11/20 10/12/20 History Warfarin [Coumadin] 5 mg PO HS 10/11/20 10/12/20 History ondansetron HCL [Zofran] 8 mg PO BID PRN 10/11/20 10/12/20 History Allergies Allergy/AdvReac Type Severity Reaction Status Date / Time erythromycin base Allergy Rash/Hives Verified 10/12/20 16:48 Physical Exam Vitals: Vital Signs Temp Pulse Pulse Resp BP BP BP 10/13/20 08:00 98.4 F 98 18 99/64 10/13/20 05:26 98.9 F 10/13/20 03:45 100.7 F H 96 20 130/66 10/12/20 23:00 97.9 F 85 18 114/73 10/12/20 22:12 97.6 F 101/65 10/12/20 20:56 97.4 F L 10/12/20 20:50 96/55 10/12/20 20:24 80/53 87/59 10/12/20 19:30 98.7 F 79 20 88/55 10/12/20 18:27 103.1 F H 10/12/20 17:30 90 18 124/75 10/12/20 17:00 91 18 124/75 10/12/20 16:30 90 18 110/67 10/12/20 16:00 96 17 109/62 10/12/20 15:30 108/59 10/12/20 15:23 103.2 F H 10/12/20 15:13 108/59 10/12/20 14:57 99.5 F 97 16 111/72 Pulse Ox 10/13/20 08:00 100 10/13/20 05:26 10/13/20 03:45 10/12/20 23:00 100 10/12/20 22:12 10/12/20 20:56 10/12/20 20:50 10/12/20 20:24 10/12/20 19:30 96 10/12/20 18:27 10/12/20 17:30 100 10/12/20 17:00 100 10/12/20 16:30 10/12/20 16:00 100 10/12/20 15:30 100 10/12/20 15:23 10/12/20 15:13 96 10/12/20 14:57 97 Intake and Output 10/12/20 10/13/20 10/13/20 22:59 06:59 14:59 Intake Total 240 Output Total 400 1600 Balance -400 -1600 240 Intake: Oral 240 Output: Urine 400 1600 Straight 400 800 Other: Voiding Method Bedpan Bedpan Bedpan Diaper Diaper Weight 65.771 kg 76.4 kg To limit exposure to and protect all from the spread of COVID, part/all of the encounter was provided by chart review, telephone/video visit with the patient/family, and/or discussion with other teams and ancillary staff. Results CBC & Chem 7: 10/12/20 15:51 10/12/20 16:45 Labs: Abnormal Lab Results - Last 24 Hours (Table) 10/12/20 10/12/20 10/12/20 Range/Units 15:51 15:51 16:31 WBC 1.3 L* (3.8-10.6) k/uL RBC 3.30 L (3.80-5.40) m/uL Hgb 10.7 L (11.4-16.0) gm/dL Hct 32.6 L (34.0-46.0) % RDW 18.3 H (11.5-15.5) % Blast Cells % 24 H* % Neutrophils # (Manual) 0.05 L* (1.3-7.7) k/uL Lymphocytes # (Manual) 0.77 L (1.0-4.8) k/uL Metamyelocytes # (Man) 0.03 H (0) k/uL Blast Cells # (Man) 0.31 H (0) k/uL Nucleated RBCs 12 H (0-0) /100 WBC PT 18.5 H (9.0-12.0) sec INR 1.9 H (<1.2) Sodium (137-145) mmol/L Glucose (74-99) mg/dL POC Glucose (mg/dL) 121 H (75-99) mg/dL C-Reactive Protein (<10.0) mg/L Procalcitonin (0.02-0.09) ng/mL 10/12/20 10/13/20 Range/Units 16:45 06:42 WBC (3.8-10.6) k/uL RBC (3.80-5.40) m/uL Hgb (11.4-16.0) gm/dL Hct (34.0-46.0) % RDW (11.5-15.5) % Blast Cells % % Neutrophils # (Manual) (1.3-7.7) k/uL Lymphocytes # (Manual) (1.0-4.8) k/uL Metamyelocytes # (Man) (0) k/uL Blast Cells # (Man) (0) k/uL Nucleated RBCs (0-0) /100 WBC PT (9.0-12.0) sec INR (<1.2) Sodium 135 L (137-145) mmol/L Glucose 124 H (74-99) mg/dL POC Glucose (mg/dL) (75-99) mg/dL C-Reactive Protein 78.8 H (<10.0) mg/L Procalcitonin 0.27 H (0.02-0.09) ng/mL CT Scan - head: report reviewed Assessment and Plan Assessment: 1. Acute leukemia 2. Febrile neutropenia 3. Bicytopenia due to chemotherapy 4. History of CVA/embolism on warfarin Plan: Ms. Schumacher is a very pleasant 75 yo female with multiple comorbidities including acute leukemia, follows with Dr. Serra in [facility], who is here for fall and altered mentation, course complicated by febrile neutropenia. She has bicytopenia, neutropenia and anemia, due to chemotherapy and leukemia. Agree with infectious work up and broad spectrum antibiotics. ID consult. Continue to hold anticoagulation for now, and if plt remains stable and no signs of [employer] bleed, could consider resuming warfarin vs heparin drip. Will need to obtain records from Dr. Serra. She was being evaluated by [facility] for BMT. Discussed with pt's and nursing staff. They were agreeable to the plan. To limit exposure to and protect all from the spread of COVID, part/all of the encounter was provided by chart review, telephone/video visit with the pat ient/family, and/or discussion with other teams and ancillary staff.
--- NOTE | 2020-10-13 14:53 | P.HPIM ---
History of Present Illness H&P Date: 10/13/20 Chief Complaint: Delirium History of presenting complaint: This is a 75-year-old patient of Dr. Chung. Chronic stable medical conditions include hyperlipidemia, hypertension, parathyroid disorder, basal cell skin cancer. Reported history of blood clot in the brain for which patient is on Coumadin, possibly venous thrombosis. Exact diagnosis currently not known. Patient does follow with was a heme oncologist out of [place] and patient be getting chemotherapy for what appears to be leukemia. Last treatment was over 2 weeks ago. She had presented to the ER 2 days ago while after she took a fall in the bathroom. She is feeling lightheaded and neck sting she woke up on the ground. She has been feeling lightheaded lately. She is bleeding from the back of the head there is no chest pain or palpitation prior to the event. No fever reported at that time. She refused a c-collar. Computed tomography scan of the brain that was negative. Patient did not ambulate in the ER without any problem. Scalp was sutured. Patient was asked to stay but patient decided to leave. Refused admission. [November 2019 patient presented to the ER here-CT angios the head had shown intracranial hemorrhage adjacent to the right posterior cerebral artery but no definite aneurysm identified. Subdural hemorrhage. Patient was transferred to [place] in [place]. Patient now presented to the ER with somewhat of a confusion. Presented to the ER. Denies any urinary symptoms. Per the the patient had been very weak. Having trouble with her ADLs. Also noted to have a fever. Patient was started on IV vancomycin and cefepime and IV acyclovir. Lumbar puncture could not be done because INR is 1.9. Patient has been complaining of feeling cold. Had a fever of 103. Denies any neck stiffness or any photophobia. Review of systems: GEN.: Tired feeling cold fever EYES: None HEENT: Posterior scalp suture NECK: None RESPIRATORY: None CARDIOVASCULAR: None GASTROINTESTINAL: None GENITOURINARY: None MUSCULOSKELETAL: None LYMPHATICS: None HEMATOLOGICAL: None PSYCHIATRY: [Was confused yesterday NEUROLOGICAL: [No focal weakness Past medical history to include: Hyperlipidemia, hypertension, mitral valve prolapse, parathyroid disorder, basal cell skin cancer, venous sinus thrombosis, intracranial and subdural hemorrhage in November 2019 Social history: Patient is a . No history of smoking or alcohol Physical examination: VITAL SIGNS: 103.2, 97, 16, 108/59, 97% room air-upon presentation GENERAL: [BMI 30.8, laying in bed, tired. EYES: Pupils equal. Conjunctiva normal. HEENT: External appearance of nose and ears normal, oral cavity grossly normal. Mental sutured in the posterior scalp NECK: JVD not raised; masses not palpable. HEART: First and second heart sounds are normal; no edema. LUNGS: Respiratory rate normal; clear to auscultation. ABDOMEN: Soft, nontender, liver spleen not palpable, no masses palpable. PSYCH: Tired answering questionsl. NEUROLOGICAL: Cranial nerves grossly intact; no facial asymmetry, power and sensation grossly intact. LYMPHATICS: No lymph nodes palpable in the axilla and neck INVESTIGATIONS, reviewed in the clinical context: WBC 1.3 hemoglobin 10.7 platelets 185 blood cells 24% INR 1.9 potassium 4 creatinine 0.68 pro-calcitonin 0.27 TSH 0.686 UA negative Coronavirus [PCR)-not detected Chest x-ray film personally reviewed by me-questionable right basilar infiltrate Computed tomography scan of the brain-without contrast-old right occipital lobe infarct CT angios head and neck-no angiographic abnormality of the head and neck. Assessment and plan: -This is a patient who now presents with increasing confusion which appears to be delirium likely from fever/infection. Patient is neutropenic. Has patient empirically was put on vancomycin and cefepime. Was also put on IV acyclovir. Patient denies any neck stiffness and photophobia currently. There may be a possible infiltrate on the right lung base. -Coumadin monitoring. -It is unclear as to why exactly patient's anticoagulation. Possibly for cranial venous thrombosis. -History of intracranial and subdural hemorrhage in November 2019. 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 We'll consult hematology -Essential hypertension continue Zestril -Hyperlipidemia continue with Lipitor -Hyperuricemia likely from treatment for leukemia. Continue with allopurinol -Recent fall from syncope resulting in scalp laceration. Patient has a sutured at the back of the scalp -Acute delirium on presentation, from sepsis -Neutropenic Sepsis, possibly from pneumonia. Blood culture pending -Questionable seizure as per neurology. Patient be started on Keppra. EEG being ordered Patient's admitted to the medical floor. Consultation to neurology, infectious disease, hematology. Patient is on IV vancomycin, cefepime, IV acyclovir. Coumadin has temporarily been held. Addendum: I spoke to patient's Haim. He did tell me that patient is on Coumadin for the blood clot in the brain that was present same time as the bleeding but they decided to put the patient on Coumadin. This is being followed by Dr. Serra. I also spoke to Dr. rivas from [place]. Both of us feel that the chances of meningitis extremely unlikely. An lumbar puncture will not be needed. Coumadin and therefore be resumed tonight. Past Medical History Past Medical History: Cancer, Hyperlipidemia, Hypertension, Mitral Valve Prolap se (MVP) Additional Past Medical History / Comment(s): 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, basal cell skin cancer, brain bleed History of Any Multi-Drug Resistant Organisms: None Reported Past Surgical History: Adenoidectomy, Appendectomy, Hysterectomy, Orthopedic Surgery, Tonsillectomy Additional Past Surgical History / Comment(s): navid breast reduction, hemorrhoidectomy, metal nithin in toe, lt carpal tunnel, basal cell skin cancer removed Past Anesthesia/Blood Transfusion Reactions: No Reported Reaction Past Psychological History: Anxiety Smoking Status: Unknown if ever smoked Past Alcohol Use History: None Reported Past Drug Use History: None Reported - Past Family History Mother Family Medical History: CVA/TIA, Dementia, Myocardial Infarction (ID) Father Family Medical History: Cancer Additional Family Medical History / Comment(s): colon cancer, alcoholism Medications and Allergies Home Medications Medication Instructions Recorded Confirmed Type lisinopriL [Zestril] 20 mg PO BID 10/28/16 10/12/20 History Allopurinol [Zyloprim] 300 mg PO DAILY 10/11/20 10/12/20 History Atorvastatin [Lipitor] 40 mg PO HS 10/11/20 10/12/20 History Famotidine 20 mg PO BID PRN 10/11/20 10/12/20 History Warfarin [Coumadin] 2 mg PO SUTUTHSA@2100 10/11/20 10/12/20 History Warfarin [Coumadin] 5 mg PO HS 10/11/20 10/12/20 History ondansetron HCL [Zofran] 8 mg PO BID PRN 10/11/20 10/12/20 History Allergies Allergy/AdvReac Type Severity Reaction Status Date / Time erythromycin base Allergy Rash/Hives Verified 10/12/20 16:48 Physical Exam Vitals: Vital Signs Temp Pulse Pulse Resp BP BP BP 10/13/20 05:26 98.9 F 10/13/20 03:45 100.7 F H 96 20 130/66 10/12/20 23:00 97.9 F 85 18 114/73 10/12/20 22:12 97.6 F 101/65 10/12/20 20:56 97.4 F L 10/12/20 20:50 96/55 10/12/20 20:24 80/53 87/59 10/12/20 19:30 98.7 F 79 20 88/55 10/12/20 18:27 103.1 F H 10/12/20 17:30 90 18 124/75 10/12/20 17:00 91 18 124/75 10/12/20 16:30 90 18 110/67 10/12/20 16:00 96 17 109/62 10/12/20 15:30 108/59 10/12/20 15:23 103.2 F H 10/12/20 15:13 108/59 10/12/20 14:57 99.5 F 97 16 111/72 Pulse Ox 10/13/20 05:26 10/13/20 03:45 10/12/20 23:00 100 10/12/20 22:12 10/12/20 20:56 10/12/20 20:50 10/12/20 20:24 10/12/20 19:30 96 10/12/20 18:27 10/12/20 17:30 100 10/12/20 17:00 100 10/12/20 16:30 10/12/20 16:00 100 10/12/20 15:30 100 10/12/20 15:23 10/12/20 15:13 96 10/12/20 14:57 97 Intake and Output 10/12/20 10/13/20 10/13/20 22:59 06:59 14:59 Output Total 400 1600 Balance -400 -1600 Output: Urine 400 1600 Straight 400 800 Other: Voiding Method Bedpan Bedpan Diaper Weight 65.771 kg 76.4 kg Results CBC & Chem 7: 10/12/20 15:51 02/20/21 16:45 Labs: Abnormal Lab Results - Last 24 Hours (Table) 10/12/20 10/12/20 10/12/20 Range/Units 15:51 15:51 16:31 WBC 1.3 L* (3.8-10.6) k/uL RBC 3.30 L (3.80-5.40) m/uL Hgb 10.7 L (11.4-16.0) gm/dL Hct 32.6 L (34.0-46.0) % RDW 18.3 H (11.5-15.5) % Blast Cells % 24 H* % Neutrophils # (Manual) 0.05 L* (1.3-7.7) k/uL Lymphocytes # (Manual) 0.77 L (1.0-4.8) k/uL Metamyelocytes # (Man) 0.03 H (0) k/uL Blast Cells # (Man) 0.31 H (0) k/uL Nucleated RBCs 12 H (0-0) /100 WBC PT 18.5 H (9.0-12.0) sec INR 1.9 H (<1.2) Sodium (137-145) mmol/L Glucose (74-99) mg/dL POC Glucose (mg/dL) 121 H (75-99) mg/dL C-Reactive Protein (<10.0) mg/L 10/12/20 Range/Units 16:45 WBC (3.8-10.6) k/uL RBC (3.80-5.40) m/uL Hgb (11.4-16.0) gm/dL Hct (34.0-46.0) % RDW (11.5-15.5) % Blast Cells % % Neutrophils # (Manual) (1.3-7.7) k/uL Lymphocytes # (Manual) (1.0-4.8) k/uL Metamyelocytes # (Man) (0) k/uL Blast Cells # (Man) (0) k/uL Nucleated RBCs (0-0) /100 WBC PT (9.0-12.0) sec INR (<1.2) Sodium 135 L (137-145) mmol/L Glucose 124 H (74-99) mg/dL POC Glucose (mg/dL) (75-99) mg/dL C-Reactive Protein 78.8 H (<10.0) mg/L Thrombosis Risk Factor Assmnt - Choose All That Apply Each Risk Factor Represents 3 Points: Age 75 years or older Thrombosis Risk Factor Assessment Total Risk Factor Score: 3 Thrombosis Risk Factor Assessment Level: Moderate Risk
[2020-10-13] MEDS ORDERED: HEPARIN SODIUM,PORCINE 5,000 UNIT/ML 1 ML VIAL IV PRN (15:35)
[2020-10-13 16:44] LABS: Anisocytosis Slight; HCT 23.6 % (34.0-46.0); MCH 33.8 pg (25.0-35.0); MCHC 33.8 g/dL (31.0-37.0); Macrocytosis Slight; Mean Platelet Volume 11.1; Platelet Count 124 k/uL (150-450); RBC 2.36 m/uL (3.80-5.40); WBC 2.4 k/uL (3.8-10.6)
[2020-10-13 16:49] LABS: INR 2.2 (<1.2); Partial Thromboplastin Time 25.6 sec (22.0-30.0); Prothrombin Time 21.1 sec (9.0-12.0)
[2020-10-13] MEDS: HEPARIN SOD,PORK IN 0.45% NACL 25,000 UNIT in 0.45% NACL 1 250ML.BAG IV SCH (17:01)
[2020-10-13 17:06] LABS: Band Neutrophils % 1 %; Lymphocytes # (M) 1.73 k/uL (1.0-4.8); Monocytes # (M) 0.19 k/uL (0-1.0); Neutrophils % (M) 10 %
[2020-10-13 17:07] LABS: Blast Cells # (M) 0.22 k/uL (0); Metamyelocytes # (M) 0.02 k/uL (0); Metamyelocytes % 1 %; Myelocytes # (M) 0.02 k/uL (0); Myelocytes % 1 %; Nucleated Red Blood Cells 1 /100 WBC (0-0); Total Cells Counted 200
[2020-10-13 17:08] LABS: Polychromasia Present
[2020-10-13 17:59] LABS: Amorphous Sediment,Urine Rare /hpf; Appearance,Urine Cloudy (Clear); Bacteria,Urine Rare /hpf; Bilirubin,Urine Negative (Negative); Blood,Urine Small (Negative); Color,Urine Yellow; Glucose,Urine (UA) Negative (Negative); Ketones,Urine Negative (Negative); Leukocyte Esterase,Urine Negative (Negative); Mucus,Urine Occasional /hpf; Nitrite,Urine Negative (Negative); PH, Urine 5.5 (5.0-8.0); Protein,Urine Trace (Negative); RBC,Urine 8 /hpf (0-5); Specific Gravity,Urine 1.019 (1.001-1.035); Squamous Epithelial Cell,Urine <1 /hpf (0-4); Urobilinogen,Urine <2.0 mg/dL (<2.0); WBC,Urine 3 /hpf (0-5)
[2020-10-13] MEDS ORDERED: WARFARIN 7.5 MG TAB PO ONE (18:00)
[2020-10-13 19:30] LABS: African American GFR (CKD) >90 (>60 ml/min/1.73 sqM); Anion Gap 7 mmol/L; Blood Urea Nitrogen 9 mg/dL (7-17); Carbon Dioxide 23 mmol/L (22-30); Chloride 107 mmol/L (98-107); Glucose 92 mg/dL (74-99); Non-African American GFR(CKD) >90 (>60 ml/min/1.73 sqM); Potassium 3.8 mmol/L (3.5-5.1); Sodium 137 mmol/L (137-145)
--- NOTE | 2020-10-13 20:44 | CONS ---
CONSULTATION DATE OF SERVICE: 10/13/2020. REASON FOR CONSULTATION: Fever. HISTORY OF PRESENT ILLNESS: The patient is a 75-year-old female with past medical history significant for intracranial hemorrhage back in September of 2019. The patient was treated at [facility]. Apparently, there was also question of venous thrombosis for which the patient is currently on Coumadin. During that time, patient also diagnosed with leukemia and has been on chemotherapy. Last chemo about 2 weeks ago. The patient was recently evaluated at this facility after apparently the patient did have a fall with laceration to the scalp, the patient did have 7 stitches applied on 08/10/2020 and the patient was subsequently discharged home. The patient is brought back to the ER yesterday for fever and confusion. The patient apparently did have fever of 104 Fahrenheit. At home, the patient was noticed to be confused and not making any sense. There is no clear history of any seizure activity. No vomiting or any diarrhea. With these symptoms, the patient was brought into the ER. On arrival to the ER, the patient did have fever of 103 degrees Fahrenheit. The patient is currently saturating 90 to 100% on room air. The patient was noticed to be leukopenic and did have evidence of on the CBC. The patient did have a normal kidney function. Liver enzymes are normal. CRP was 78.8. The patient did have a negative UA. Martin PCR was negative. The patient did have a chest x-ray which was negative for any acute cardiopulmonary disease. CT of the brain with right occipital lobe infarct. No intracranial acute abnormality. Angiographic CT was done as well with no significant angiographic abnormality of the head, neck. LP was considered yesterday as per discussion with the ER physician, however, could not be completed as the patient is on Coumadin and the patient's INR is 1.9 and repeat is 2.2. The patient was started on broad spectrum antibiotic, as the patient was leukopenic, in the form of cefepime and vancomycin and Acyclovir pending formal ID consultation this afternoon. The patient's fever subsequently resolved last night and the patient mentation improved. However, he did spike another fever of 102.7 this afternoon. The patient denies having any headache. The patient knows she is at [facility]. The patient denies any photophobia. No nausea, no vomiting. The patient denies any chest pain or shortness of breath. Minimal cough. The patient complaining of constipation and did have hard time going to the bathroom requiring frequent straining. No blood in the stool and denies any burning or frequency of urine. REVIEW OF SYSTEMS: Positive points have been mentioned in HPI. Rest of the systems are negative. PAST MEDICAL HISTORY: Intracranial hemorrhage, leukemia, basal cell cancer, hypertension, hyperlipidemia, mitral valve prolapse. PAST SURGICAL HISTORY: Adenoidectomy and appendectomy, hysterectomy, tonsillectomy, bilateral breast reduction, hemorrhoidectomy, left carpal tunnel. SOCIAL HISTORY: No smoking, drinking or drug use. FAMILY HISTORY: Mother history of dementia, [place], CVA, TIA. Father history of colon cancer, alcoholism. ALLERGIES: TO ERYTHROMYCIN. MEDICATIONS: The patient is currently on Tylenol, Zyloprim, Lipitor, cefepime 2 g q.8h. she is on heparin, Keppra, Narcan, Zofran, vancomycin pharmacy to dose, Acyclovir. PHYSICAL EXAMINATION: Blood pressure 108/79, pulse 100. Temperature 98.9, T-max is 102.7. She is 100% on room air. GENERAL DESCRIPTION: The patient is an elderly female lying in bed in no distress. No tachypnea or accessory muscles of respiration use. HEENT: Shows pallor. No scleral icterus. Oral mucous membranes dry. NECK: Trachea central. No thyromegaly. LUNGS: Unlabored breathing, decreased breath sounds in the bases. No wheeze or crackles. HEART S1, S2. Regular rate and rhythm. ABDOMEN: Soft. No tenderness. No guarding. No rigidity. EXTREMITIES: No edema of the feet. SKIN examination: No rash or mass palpable. NEUROLOGIC: The patient is awake, alert and oriented times three. No signs of meningeal irritation. LABS: Hemoglobin is 8, white count 2.4. Admission white count 1.3. Did have 24% blasts. BUN of 12, creatinine 0.68. Electrolytes have been normal. Liver enzymes are normal. CRP 78.8. Procalcitonin 0.27. Urine was negative. Martin PCR was negative. Chest x- ray report negative. CT of the brain was negative for any bleed. DIAGNOSTIC IMPRESSION AND PLAN: Patient with a hospital with fever and mental status changes, confusion in this patient who currently does not have any signs of meningeal irritation. Patient is back to her baseline. Clinically not behaving as meningitis or encephalitis. Neurology has seen the patient and of the same opinion with her fever, possibly related to her acute leukemia, as the patient did have significant in the peripheral smear as there is no obvious focus of infection. In view of the patient constipation and straining of the stool, underlying abdominal etiology needs to be ruled out. PLAN: 1. We will obtain a CT of abdomen and pelvis with contrast to rule out any intraabdominal pathology for her fever. 2. We will keep the patient on cefepime and vancomycin while waiting for the culture to finalize and workup to be completed. However, clinically not behaving as an encephalitis. Acyclovir will be discontinued to decrease risk of nephrotoxicity. 3. IV fluid. 4. We will follow on clinical condition and culture to further adjust medication if needed. Thank you for this consultation. Will follow this patient along with you. MMODL / IJN: [id number] /
[2020-10-13] MEDS ORDERED: WARFARIN 5 MG TAB PO SCH (21:00)
[2020-10-13] MEDS ORDERED: WARFARIN 2 MG TAB PO SCH (21:00)
[2020-10-13] MEDS: ATORVASTATIN 40 MG TAB PO SCH (21:40)
[2020-10-13] MEDS: IOPAMIDOL CONTRAST (ORAL USE) VIAL PO PRN ×2 (21:40→22:50)
[2020-10-13] MEDS: levETIRAcetam 500 MG TAB PO SCH (21:40)
[2020-10-13] MEDS: CEFEPIME 2 GM in SODIUM CHLORIDE 0.9% 100 ML IVPB SCH (21:52)
--- NOTE | 2020-10-14 00:26 | CT ---
EXAMINATION TYPE: CT abdomen pelvis w con DATE OF EXAM: 10/13/2020 COMPARISON: None HISTORY: Fever, Constipation CT DLP: 987.40 mGycm Automated exposure control for dose reduction was used. CONTRAST: Performed with IV Contrast, patient injected with 100 mL of Isovue 300. Images obtained from the diaphragm to the floor the pelvis with oral and IV contrast. There is some mild atelectasis left lung base and minimal pleural thickening. Heart size is normal. T here is no pericardial effusion. The stomach is intact. Liver spleen pancreas gallbladder appear intact. Bile ducts are not dilated. There is 1 cm cyst in th e anterior liver near the falciform ligament. There is no adrenal mass. Kidneys show satisfactory contrast opacification. There is no hydronephrosi s. The ureters are not dilated. There is no retroperitoneal adenopathy. There is Rosas catheter in th e urinary bladder. Bladder is empty. There is retained fecal material in the rectum that measures 5.8 cm. There is presacral fluid accumulation. The appendix is not definitely seen. There is no sign of thickened appendix. There is no evidence of mesenteric edema. There is no ascites or free air. Lumbar vertebra have normal alignment. There is degenerative disc space narrowing. There is no compre ssion fracture. The bony pelvis is intact. The hip joints appear intact. The sacrum is intact. I see no evidence of sacral fracture or bone destruction. There is subcutaneous edema over the lumbar spine . There is hysterectomy. I see no evidence of any significant intestinal wall thickening. IMPRESSION: Presacral fluid accumulation measures 2 cm of uncertain significance. I see no significant rectal wal l thickening. There is rectal fecal impaction.
[2020-10-14] MEDS: VANCOMYCIN 1,250 MG in SODIUM CHLORIDE 0.9% 250 ML IVPB SCH (02:27)
[2020-10-14 04:48] LABS: Anisocytosis Slight; HGB 7.7 gm/dL (11.4-16.0); Hypochromasia Slight; MCH 33.3 pg (25.0-35.0); MCHC 33.3 g/dL (31.0-37.0); Macrocytosis Slight; Platelet Count 121 k/uL (150-450)
[2020-10-14 05:01] LABS: African American GFR (CKD) >90 (>60 ml/min/1.73 sqM); Non-African American GFR(CKD) >90 (>60 ml/min/1.73 sqM); Prothrombin Time 19.6 sec (9.0-12.0)
[2020-10-14] MEDS: ACETAMINOPHEN TAB 325 MG TAB PO PRN (05:14)
[2020-10-14 05:22] LABS: Neutrophils % (M) 2 %
[2020-10-14 05:23] LABS: Blast Cells # (M) 0.34 k/uL (0); Lymphocytes # (M) 1.78 k/uL (1.0-4.8); Metamyelocytes # (M) 0.05 k/uL (0); Metamyelocytes % 2 %; Monocytes # (M) 0.19 k/uL (0-1.0); Neutrophils # (M) 0.05 k/uL (1.3-7.7); Nucleated Red Blood Cells 6 /100 WBC (0-0); Total Cells Counted 200; WBC 2.4 k/uL (3.8-10.6)
[2020-10-14 05:24] LABS: Anisocytosis (M) Present; Polychromasia Present
[2020-10-14] MEDS: CEFEPIME 2 GM in SODIUM CHLORIDE 0.9% 100 ML IVPB SCH ×3 (07:01→22:00)
[2020-10-14] MEDS: SODIUM CHLORIDE 0.9% 1,000 ML IV SCH ×3 (07:04→22:01)
[2020-10-14] MEDS: allopurinoL 300 MG TAB PO SCH (08:47)
[2020-10-14] MEDS: levETIRAcetam 500 MG TAB PO SCH ×2 (08:47→20:53)
[2020-10-14] MEDS ORDERED: PHYTONADIONE 5 MG in SODIUM CHLORIDE 0.9% 50 ML IVPB STA (10:31)
--- NOTE | 2020-10-14 11:00 | ECHOF ---
Referral Reason:syncope MEASUREMENTS -------- HEIGHT: 157.5 cm WEIGHT: 77.6 kg BP: RVIDd: 2.3 cm (< 3.3) IVSd: 1.4 cm (0.6 - 1.1) LVIDd: 4.0 cm (3.9 - 5.3) LVPWd: 1.4 cm (0.6 - 1.1) IVSs: 2.0 cm LVIDs: 2.3 cm LVPWs: 1.8 cm Ao Diam: 2.8 cm (2.0 - 3.7) AV Cusp: 1.7 cm (1.5 - 2.6) LA Diam: 2.9 cm (2.7 - 3.8) MV EXCURSION: 14.924 mm (> 18.000) MV EF SLOPE: 71 mm/s (70 - 150) EPSS: 1.0 cm MV E Marlo: 0.84 m/s MV DecT: 104 ms MV A Marlo: 1.04 m/s MV E/A Ratio: 0.81 RAP: 5.00 mmHg RVSP: 12.60 mmHg FINDINGS -------- This was a technically difficult study with suboptimal views. The left ventricular size is normal. There is mild concentric left ventricular hypertrophy. Overa ll left ventricular systolic function is normal with, an EF between 55 - 60 %. The right ventricle is normal in size. The left atrial size is normal. The right atrial size is normal. The aortic valve is trileaflet and appears structurally normal. The mitral valve is normal. There is trace mitral regurgitation. The tricuspid valve appears structurally normal. Trace tricuspid regurgitation present. Right jody tricular systolic pressure is normal at < 35 mmHg. There is no pulmonic regurgitation present. The aortic root size is normal. IVC Not well visulized. There is no pericardial effusion. CONCLUSIONS -------- 1. The left ventricular size is normal. 2. There is mild concentric left ventricular hypertrophy. 3. Overall left ventricular systolic function is normal with, an EF between 55 - 60 %. 4. There is trace mitral regurgitation. 5. Trace tricuspid regurgitation present. 6. There is no pericardial effusion. [employer] ASSEMBLER: Kaycee Greenberg RDCS
[2020-10-14] MEDS ORDERED: VANCOMYCIN 1,500 MG in SODIUM CHLORIDE 0.9% 250 ML IVPB SCH (12:00)
[2020-10-14 13:53] LABS: HSV I IgG Interp POSITIVE (NEGATIVE); HSV II IgG Interp NEGATIVE (NEGATIVE)
[2020-10-14] MEDS ORDERED: SENNOSIDES 8.6 MG TAB PO PRN (16:00)
--- NOTE | 2020-10-14 16:19 | P.PN ---
Subjective Progress Note Date: 10/14/20 Patient initially seen by Dr. Lb Williamson from neurology on 10/13/2020. Please refer to his note for details. This is a follow-up note. Patient has history of intraparenchymal hemorrhage in November 2019, more recent diagnosis of leukemia on chemotherapy, hypertension, came to the hospital on 10/12/2020 for altered mental status. Patient's was also present today. Patient has not had any further seizure type spells or syncopal spell since arrival to the hospital. Patient had EEG performed earlier, which we will review the results. MRI of the brain cannot be performed because patient has st aples placed in on 10/11/2020. Patient is currently maintained on Keppra 500 mg twice a day. No further seizures. Patient's tells me that on 10/11/2020 on Wednesday, she wanted to go to the bathroom, when she got up, felt dizzy, grab the railing, but fell and hit her head on the door edge. She passed out. Patient was on Coumadin. Patient was brought to the hospital. CT head was performed, and she was released. However the next day on 10/12/2020 patient went to bathroom, but was not able to get up. She was found to have temperature of 104. This prompted readmission to the hospital. Computed tomography scan of the head performed 10/12/2020 showed old right occipital lobe infarct. No acute process. Cerebral atrophy. No change as compared to the computed tomography scan of head from the day prior. CTA of head and neck showed no significant abnormality. No stenosis or aneurysm. 2-D echo showed normal left-ventricular size. Mild concentric LVH. EF is 55-60%. Trace MR. Patient's blood test shows WBC 2.4 hemoglobin 7.7, platelets 121, with 14 last cells 0.05% neutrophils. INR is 2.0. Patient is on heparin, with PTT 57.2. Chem-7, UA negative. Influenza screen negative. Martin virus PCR negative. Patient at present complains of pain in the rectal region as she had undergone manual extraction of constipated bowels. She also complains of pain in the queenie otherwise she is doing perfectly fine. Telemetry monitoring showing sinus rhythm with PVCs. Objective - Vital Signs Vital signs: Vital Signs Temp 99.2 F 10/14/20 11:09 Pulse 83 10/14/20 11:31 Resp 18 10/14/20 11:31 BP 122/77 10/14/20 11:31 Pulse Ox 100 10/14/20 11:31 Intake & Output 10/13/20 10/14/20 10/14/20 18:59 06:59 18:59 Intake Total 240 112.461 180 Output Total 2100 1480 Balance -1860 -1367.539 180 Weight 77.9 kg Intake: IV 180 Cefepime 2 gm In Sodium 100 Chloride 0.9% 100 ml @ 25 mls/hr IVPB Q8H [facility] Rx#: [id number] Heparin Sod,Pork in 0.45% 80 NaCl 25,000 unit In 0.45 % NaCl 1 250ml.bag @ 12 UNITS/KG/HR 9.168 mls/hr IV .Q24H [facility] Rx#: [id number] Intake, IV Titration 112.461 Amount Heparin Sod,Pork in 0.45% 112.461 NaCl 25,000 unit In 0.45 % NaCl 1 250ml.bag @ 12 UNITS/KG/HR 9.168 mls/hr IV .Q24H [facility] Rx#: [id number] Oral 240 Output: Urine 2100 1480 Straight 900 Other: Voiding Method Bedpan Indwelling Catheter Indwelling Catheter Diaper - Exam Patient is an elderly female, in no acute distress. Patient is alert and awake fully oriented. She is slightly irritable, gets edgy with her . Each and language functions are normal. On cranial nerve examination pupils are round and reacting, visual noe revealed left upper quadrant visual field defect. Extraocular muscles are intact. Face is symmetric and tongue protrudes the midline. On muscle strength testing there is no pronator drift and the strength is normal in arms and legs. No ataxia. Tone and bulk of muscles normal. - Labs CBC & Chem 7: 10/14/20 04:15 10/14/20 04:15 Labs: Abnormal Lab Results - Last 24 Hours (Table) 10/13/20 10/13/20 10/13/20 Range/Units 06:42 16:18 16:18 WBC 2.4 L (3.8-10.6) k/uL RBC 2.36 L (3.80-5.40) m/uL Hgb 8.0 L D (11.4-16.0) gm/dL Hct 23.6 L (34.0-46.0) % RDW 18.0 H (11.5-15.5) % Plt Count 124 L (150-450) k/uL Blast Cells % 9 H* % Neutrophils # (Manual) 0.20 L* (1.3-7.7) k/uL Metamyelocytes # (Man) 0.02 H (0) k/uL Myelocytes # (Manual) 0.02 H (0) k/uL Blast Cells # (Man) 0.22 H (0) k/uL Nucleated RBCs 1 H (0-0) /100 WBC PT 21.1 H (9.0-12.0) sec INR 2.2 H (<1.2) APTT (22.0-30.0) sec Creatinine (0.52-1.04) mg/dL Calcium (8.4-10.2) mg/dL Urine Appearance (Clear) Urine Protein (Negative) Urine Blood (Negative) Urine RBC (0-5) /hpf Amorphous Sediment (None) /hpf Urine Bacteria (None) /hpf Urine Mucus (None) /hpf HSV I IgG Interpret POSITIVE A (NEGATIVE) 10/13/20 10/13/20 10/13/20 Range/Units 17:00 18:53 22:16 WBC (3.8-10.6) k/uL RBC (3.80-5.40) m/uL Hgb (11.4-16.0) gm/dL Hct (34.0-46.0) % RDW (11.5-15.5) % Plt Count (150-450) k/uL Blast Cells % % Neutrophils # (Manual) (1.3-7.7) k/uL Metamyelocytes # (Man) (0) k/uL Myelocytes # (Manual) (0) k/uL Blast Cells # (Man) (0) k/uL Nucleated RBCs (0-0) /100 WBC PT (9.0-12.0) sec INR (<1.2) APTT 45.7 H (22.0-30.0) sec Creatinine (0.52-1.04) mg/dL Calcium 8.0 L (8.4-10.2) mg/dL Urine Appearance Cloudy H (Clear) Urine Protein Trace H (Negative) Urine Blood Small H (Negative) Urine RBC 8 H (0-5) /hpf Amorphous Sediment Rare H (None) /hpf Urine Bacteria Rare H (None) /hpf Urine Mucus Occasional H (None) /hpf HSV I IgG Interpret (NEGATIVE) 10/14/20 10/14/20 10/14/20 Range/Units 04:15 04:15 04:15 WBC 2.4 L (3.8-10.6) k/uL RBC 2.30 L (3.80-5.40) m/uL Hgb 7.7 L (11.4-16.0) gm/dL Hct 23.0 L (34.0-46.0) % RDW 18.0 H (11.5-15.5) % Plt Count 121 L (150-450) k/uL Blast Cells % 14 H* % Neutrophils # (Manual) 0.05 L* (1.3-7.7) k/uL Metamyelocytes # (Man) 0.05 H (0) k/uL Myelocytes # (Manual) (0) k/uL Blast Cells # (Man) 0.34 H (0) k/uL Nucleated RBCs 6 H (0-0) /100 WBC PT 19.6 H (9.0-12.0) sec INR 2.0 H (<1.2) APTT 55.0 H (22.0-30.0) sec Creatinine 0.49 L (0.52-1.04) mg/dL Calcium (8.4-10.2) mg/dL Urine Appearance (Clear) Urine Protein (Negative) Urine Blood (Negative) Urine RBC (0-5) /hpf Amorphous Sediment (None) /hpf Urine Bacteria (None) /hpf Urine Mucus (None) /hpf HSV I IgG Interpret (NEGATIVE) 10/14/20 Range/Units 09:44 WBC (3.8-10.6) k/uL RBC (3.80-5.40) m/uL Hgb (11.4-16.0) gm/dL Hct (34.0-46.0) % RDW (11.5-15.5) % Plt Count (150-450) k/uL Blast Cells % % Neutrophils # (Manual) (1.3-7.7) k/uL Metamyelocytes # (Man) (0) k/uL Myelocytes # (Manual) (0) k/uL Blast Cells # (Man) (0) k/uL Nucleated RBCs (0-0) /100 WBC PT (9.0-12.0) sec INR (<1.2) APTT 57.2 H (22.0-30.0) sec Creatinine (0.52-1.04) mg/dL Calcium (8.4-10.2) mg/dL Urine Appearance (Clear) Urine Protein (Negative) Urine Blood (Negative) Urine RBC (0-5) /hpf Amorphous Sediment (None) /hpf Urine Bacteria (None) /hpf Urine Mucus (None) /hpf HSV I IgG Interpret (NEGATIVE) Microbiology - Last 24 Hours (Table) 10/12/20 16:45 Blood Culture - Preliminary Blood No Growth after 24 hours Assessment and Plan Assessment: * Probable Syncopal spell 2, less likely seizure. * History of intraparenchymal hemorrhage with residual left upper quadrant visual field defect * Recent diagnosis of leukemia. * Fecal impaction Plan: * We will review the EEG. * If the EEG is normal, would consider taking her off Keppra. * Medical management as per IM/hematology.
[2020-10-14] MEDS: HEPARIN SOD,PORK IN 0.45% NACL 25,000 UNIT in 0.45% NACL 1 250ML.BAG IV SCH (18:48)
[2020-10-14] MEDS: metroNIDAZOLE 500 MG TAB PO SCH ×2 (18:48→20:53)
--- NOTE | 2020-10-14 19:19 | P.PN ---
Subjective Progress Note Date: 10/14/20 Principal diagnosis: AML, coumadin therapy In follow-up today patient remains slightly confused-asking about someone knocking on the door at breakfast but no one was here? Patient continues on heparin drip at this time. She had a follow-up CT of the head, no evidence for acute bleed. CT AP reviewed with her, showing some presacral fluid, subcutaneously-likely related to fall. When I asked patient about her treatment for AML she was not able to report much other than that she takes a pill. left information that she is on pills as well as injections (venclexta, vidaza/dacogen?). Pt is out of her meds? She was due for BM Bx in 2 days. Patient's blast count is noted to be a 14% today. Patient denies vision changes, nausea, pain in the back or in the legs. Objective - Vital Signs Vital signs: Vital Signs Temp 99.2 F 10/14/20 11:09 Pulse 83 10/14/20 11:31 Resp 18 10/14/20 11:31 BP 122/77 10/14/20 11:31 Pulse Ox 100 10/14/20 11:31 Intake & Output 10/13/20 10/14/20 10/14/20 18:59 06:59 18:59 Intake Total 240 112.461 305 Output Total 2100 1480 Balance -1860 -1367.539 305 Weight 77.9 kg Intake: IV 180 Cefepime 2 gm In Sodium 100 Chloride 0.9% 100 ml @ 25 mls/hr IVPB Q8H [facility] Rx#: [id number] Heparin Sod,Pork in 0.45% 80 NaCl 25,000 unit In 0.45 % NaCl 1 250ml.bag @ 12 UNITS/KG/HR 9.168 mls/hr IV .Q24H [facility] Rx#: [id number] Intake, IV Titration 112.461 Amount Heparin Sod,Pork in 0.45% 112.461 NaCl 25,000 unit In 0.45 % NaCl 1 250ml.bag @ 12 UNITS/KG/HR 9.168 mls/hr IV .Q24H [facility] Rx#: [id number] Oral 240 125 Output: Urine 2100 1480 Straight 900 Other: Voiding Method Bedpan Indwelling Catheter Indwelling Catheter Diaper - Constitutional General appearance: Present: average body habitus, cooperative, no acute dis tress - EENT EENT Comment(s): [place] on the back of head, clotted blood, hematoma as expected-nothing out of the ordinary Eyes: Present: anicteric sclerae, EOMI ENT: Present: hearing grossly normal - Respiratory Respiratory: bilateral: CTA - Cardiovascular Heart sounds: normal: S1, S2 - Peripheral edema leg Peripheral Edema: bilateral: None - Gastrointestinal General gastrointestinal: Present: normal bowel sounds, soft - Integumentary Integumentary: Present: pale - Neurologic Neurologic: Present: CNII-XII intact - Musculoskeletal Musculoskeletal: Present: generalized weakness, strength equal bilaterally - Psychiatric Psychiatric Comment(s): affect his irritable Psychiatric: Present: A&O x's 3 - Labs CBC & Chem 7: 10/14/20 04:15 10/14/20 04:15 Labs: Abnormal Lab Results - Last 24 Hours (Table) 10/13/20 10/13/20 10/13/20 Range/Units 06:42 18:53 22:16 WBC (3.8-10.6) k/uL RBC (3.80-5.40) m/uL Hgb (11.4-16.0) gm/dL Hct (34.0-46.0) % RDW (11.5-15.5) % Plt Count (150-450) k/uL Blast Cells % % Neutrophils # (Manual) (1.3-7.7) k/uL Metamyelocytes # (Man) (0) k/uL Blast Cells # (Man) (0) k/uL Nucleated RBCs (0-0) /100 WBC PT (9.0-12.0) sec INR (<1.2) APTT 45.7 H (22.0-30.0) sec Creatinine (0.52-1.04) mg/dL Calcium 8.0 L (8.4-10.2) mg/dL HSV I IgG Interpret POSITIVE A (NEGATIVE) 10/14/20 10/14/20 10/14/20 Range/Units 04:15 04:15 04:15 WBC 2.4 L (3.8-10.6) k/uL RBC 2.30 L (3.80-5.40) m/uL Hgb 7.7 L (11.4-16.0) gm/dL Hct 23.0 L (34.0-46.0) % RDW 18.0 H (11.5-15.5) % Plt Count 121 L (150-450) k/uL Blast Cells % 14 H* % Neutrophils # (Manual) 0.05 L* (1.3-7.7) k/uL Metamyelocytes # (Man) 0.05 H (0) k/uL Blast Cells # (Man) 0.34 H (0) k/uL Nucleated RBCs 6 H (0-0) /100 WBC PT 19.6 H (9.0-12.0) sec INR 2.0 H (<1.2) APTT 55.0 H (22.0-30.0) sec Creatinine 0.49 L (0.52-1.04) mg/dL Calcium (8.4-10.2) mg/dL HSV I IgG Interpret (NEGATIVE) 10/14/20 Range/Units 09:44 WBC (3.8-10.6) k/uL RBC (3.80-5.40) m/uL Hgb (11.4-16.0) gm/dL Hct (34.0-46.0) % RDW (11.5-15.5) % Plt Count (150-450) k/uL Blast Cells % % Neutrophils # (Manual) (1.3-7.7) k/uL Metamyelocytes # (Man) (0) k/uL Blast Cells # (Man) (0) k/uL Nucleated RBCs (0-0) /100 WBC PT (9.0-12.0) sec INR (<1.2) APTT 57.2 H (22.0-30.0) sec Creatinine (0.52-1.04) mg/dL Calcium (8.4-10.2) mg/dL HSV I IgG Interpret (NEGATIVE) Microbiology - Last 24 Hours (Table) 10/12/20 16:45 Blood Culture - Preliminary Blood No Growth after 24 hours - Imaging and Cardiology CT scan - abdomen: report reviewed CT scan - pelvis: report reviewed Assessment and Plan (1) Acute myeloid leukemia Narrative/Plan: Called . Pt was diagnosed with AML about 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 Last venclexta was 10/10 and her last dacogen (5 day injections- sounds right) was Wednesday. She was supposed to have work up for BMT last week (ECHO, PFT, labs), she was due for BM Bx in 2 days. She fell Wednesday, came in after fall, received queenie in head and sent home. Her temp was 104F on Sat and she was brought back to ER. Her last fever was 100.6 Fahrenheit last night. After discussing case with patient's , patient will return to her treating Oncologist. I assured him that I would have our staff collect the documents and fax them directly to the Oncologist. All of patient's questions and concerns were addressed to his satisfaction Current Visit: Yes Status: Acute Priority: High Code(s): C92.00 - ACUTE MYELOBLASTIC LEUKEMIA, NOT HAVING ACHIEVED REMISSION SNOMED Code(s): 44250598 (2) Altered mental status Narrative/Plan: Status post fall. CT of the head no evidence for parenchymal brain hemorrhage or subdural hematoma. Unclear the exact etiology of the patient's altered mental status at this time, Neurology consulted Current Visit: Yes Status: Acute Priority: High Code(s): R41.82 - ALTERED MENTAL STATUS, UNSPECIFIED SNOMED Code(s): 849048617 (3) CVA (cerebral vascular accident) Narrative/Plan: Patient has a history of CVA and is on anticoagulation with Coumadin. After her fall she has been placed on heparin drip after admit with AMS. Noted 2 gram drop in Hgb (the 10Hgb is probably a lab anomaly). Coumadin reversed today with a dose of vitamin K, PTT therapeutic. Close hemoglobin monitoring until confirmed no acute bleeding. Current Visit: No Status: Chronic Priority: High Code(s): I63.9 - CEREBRAL INFARCTION, UNSPECIFIED SNOMED Code(s): 352868113 Time with Patient: Greater than 30
[2020-10-14] MEDS: ATORVASTATIN 40 MG TAB PO SCH (20:53)
--- NOTE | 2020-10-14 21:02 | P.PN ---
Progress Note - Text Progress Note Date: 10/14/20 Chief Complaint: Delirium History of presenting complaint: This is a 75-year-old patient of Dr. Chung. Chronic stable medical conditions include hyperlipidemia, hypertension, parathyroid disorder, basal cell skin cancer. Reported history of blood clot in the brain for which patient is on Coumadin, possibly venous thrombosis. Exact diagnosis currently not known. Patient does follow with was a heme oncologist out of [place] and patient be getting chemotherapy for what appears to be leukemia. Last treatment was over 2 weeks ago. She had presented to the ER 2 days ago while after she took a fall in the bathroom. She is feeling lightheaded and neck sting she woke up on the ground. She has been feeling lightheaded lately. She is bleeding from the back of the head there is no chest pain or palpitation prior to the event. No fever reported at that time. She refused a c-collar. Computed tomography scan of the brain that was negative. Patient did not ambulate in the ER without any problem. Scalp was sutured. Patient was asked to stay but homer dias decided to leave. Refused admission. [November 2019 patient presented to the ER here-CT angios the head had shown intracranial hemorrhage adjacent to the right posterior cerebral artery but no definite aneurysm identified. Subdural hemorrhage. Patient was transferred to [facility] in [place]. Patient now presented to the ER with somewhat of a confusion. Presented to the ER. Denies any urinary symptoms. Per the the patient had been very weak. Having trouble with her ADLs. Also noted to have a fever. Patient was started on IV vancomycin and cefepime and IV acyclovir. Lumbar puncture could not be done because INR is 1.9. Patient has been complaining of feeling cold. Had a fever of 103. Denies any neck stiffness or any photophobia. Admitted with neutropenic sepsis the possible source being right lower lobe pneumonia. Initially started on Keppra by neurology for possible seizure. Syncope felt to be from sepsis. Today-patient for more awake. Eating better. Able to converse better. is at bedside. Fevers of coming down. Patient does state of having constipation for a few days. Review of systems: Was done for constitutional, cardiovascular, GI, pulmonary. relevant finding as above Active Medications Acetaminophen (Acetaminophen Tab 325 Mg Tab) 650 mg PO Q6HR PRN PRN Reason: Mild Pain or Fever > 100.5 Last Admin: 10/14/20 05:14 Dose: 650 mg Documented by: Allopurinol (Allopurinol 300 Mg Tab) 300 mg PO DAILY [facility] Last Admin: 10/14/20 08:47 Dose: 300 mg Documented by: Atorvastatin Calcium (Atorvastatin 40 Mg Tab) 40 mg PO HS [facility] Last Admin: 10/13/20 21:40 Dose: 40 mg Documented by: Famotidine (Famotidine 20 Mg Tab) 20 mg PO BID PRN PRN Reason: on chemo days Heparin Sodium (Porcine) (Heparin Sodium,Porcine 5,000 Unit/Ml 1 Ml Vial) 0 unit IV PER PROTOCOL PRN; Protocol PRN Reason: Low PTT Cefepime HCl 2 gm/ Sodium (Chloride) 100 mls @ 25 mls/hr IVPB Q8H [facility] Last Admin: 10/14/20 13:45 Dose: 25 mls/hr Documented by: Sodium Chloride (Saline 0.9%) 1,000 mls @ 125 mls/hr IV .Q8H [facility] Last Admin: 10/14/20 13:13 Dose: 125 mls/hr Documented by: Heparin Sodium/Sodium Chloride (25,000 unit/ Sodium Chloride) 250 mls @ 9.168 mls/hr IV .Q24H [facility]; Protocol Last Admin: 10/14/20 18:48 Dose: 12 units/kg/hr, 9.168 mls/hr Documented by: Levetiracetam (Levetiracetam 500 Mg Tab) 500 mg PO Q12HR [facility] Last Admin: 10/14/20 08:47 Dose: 500 mg Documented by: Metronidazole (Metronidazole 500 Mg Tab) 500 mg PO TID [facility] Last Admin: 10/14/20 18:48 Dose: 500 mg Documented by: Miscellaneous Information (Rx Info: Iv Contrast Was Given 1 Each Misc) 1 each MISCELLANE DAILY PRN PRN Reason: Per Protocol Stop: 10/15/20 10:40 Naloxone HCl (Naloxone 0.4 Mg/Ml 1 Ml Vial) 0.2 mg IV Q2M PRN PRN Reason: Opioid Reversal Ondansetron HCl (Ondansetron 4 Mg/2 Ml Vial) 4 mg IVP Q8HR PRN PRN Reason: Nausea And Vomiting Senna (Sennosides 8.6 Mg Tab) 8.6 mg PO DAILY PRN PRN Reason: Constipation Past medical history to include: Hyperlipidemia, hypertension, mitral valve prolapse, parathyroid disorder, basal cell skin cancer, venous sinus thrombosis, intracranial and subdural hemorrhage in November 2019 Social history: Patient is a . No history of smoking or alcohol Physical examination: VITAL SIGNS: 98.2, 82, 18, 102/65, 99% 2 L GENERAL: Propped up in bed, eating her lunch more awake EYES: Pupils equal. Conjunctiva normal. HEENT: metal sutured in the posterior scalp NECK: JVD not raised; masses not palpable. HEART: First and second heart sounds are normal; no edema. LUNGS: Respiratory rate normal; clear to auscultation. ABDOMEN: Soft, nontender, liver spleen not palpable, no masses palpable. PSYCH: Answering questions but she improved NEUROLOGICAL: Cranial nerves grossly intact; no facial asymmetry, power and sensation grossly intact. INVESTIGATIONS, reviewed in the clinical context: October 14: WBC 2.4 hemoglobin 7.7 platelets 121 2-D echocardiogram-EF 55-60% Computed tomography scan of the abdomen and pelvis with contrast-subcutaneous edema over the lumbar spine.. Rectal fecal impaction WBC 1.3 hemoglobin 10.7 platelets 185 blood cells 24% INR 1.9 potassium 4 creatinine 0.68 pro-calcitonin 0.27 TSH 0.686 UA negative Coronavirus [PCR)-not detected Chest x-ray film personally reviewed by me-questionable right basilar infiltrate Computed tomography scan of the brain-without contrast-old right occipital lobe infarct CT angios head and neck-no angiographic abnormality of the head and neck. Assessment and plan: -Acute delirium with metabolic encephalopathy from sepsis improving, POA -Coumadin monitoring. Will be resumed today and will DC IV heparin after discussion with Dr. Vitale -On Coumadin for venous sinus thrombosis. -History of intracranial and subdural hemorrhage in November 2019. For which patient was transferred out to [facility] -Acute myeloid leukemia, being treated by Dr. lombardo from [facility]. Outpatient due for bone marrow transplant. -Essential hypertension continue Zestril -Hyperlipidemia continue with Lipitor -Hyperuricemia likely from treatment for leukemia. Continue with allopurinol -Recent fall from syncope resulting in scalp laceration. Patient has a sutured at the back of the scalp -Neutropenic Sepsis, possibly from pneumonia. Blood culture pending -Questionable seizure as per neurology. Patient be started on Keppra. EEG pending -Acute constipation. We'll give lactulose Discussed with Dr. Emmanuel from ID. No indication for acyclovir. That was discontinued. He also discontinued the vancomycin. Patient to continue on cefepime. I discussed earlier with Dr. Vitale from neurology. Okay to resume Coumadin. At a lengthy discussion with the patient and at the bedside. Questions were answered. Total time spent today about 45 minutes with over 25 minutes of discussion
[2020-10-14] MEDS ORDERED: WARFARIN 5 MG TAB PO ONE (21:15)
--- NOTE | 2020-10-14 22:04 | PN ---
PROGRESS NOTE DATE OF SERVICE: 10/14/2020 REASON FOR FOLLOWUP: Fever. INTERVAL HISTORY: The patient 's overall fever pattern has improved. Last temperature was in the evening of 100.6. The patient denies having any chest pain, shortness of breath or cough. No abdominal pain. Did have a bowel movement. Constipation resolved. PHYSICAL EXAMINATION: Blood pressure 121/68 with a pulse of 82, temperature 99.2. She is 100% on 2 L nasal cannula. General description is an elderly female lying in bed in no distress. RESPIRATORY SYSTEM: Unlabored breathing. Clear to auscultation anteriorly. HEART: S1, S2. Regular rate and rhythm. ABDOMEN: Soft. No tenderness. LABS: Hemoglobin is 7.5, white count of 2.4; 14 blast cells with a creatinine 0.49. Blood culture has been negative so far. CT did show evidence of presacral edema. DIAGNOSTIC IMPRESSION AND PLAN: Patient admitted to hospital with a fever and mental status changes with concern about possible relationship to her underlying leukemia plus/minus abdominal source in this patient with chronic constipation. Currently covered with cefepime. Flagyl has been added. Vancomycin discontinued. Continue with supportive care. MMODL / IJN: [id number] /
--- NOTE | 2020-10-15 05:34 | EEG ---
ELECTROENCEPHALOGRAM REPORT DATE OF SERVICE: 10/14/2020 PREAMBLE: This is a 75-year-old female who was admitted to the hospital for an episode of unresponsiveness. She has history of leukemia and a history of right occipital temporal bleed. This study is performed to evaluate for any epileptiform activity. EEG FINDINGS: This is a 21 channel routine EEG recording of patient utilizing 10/20 international system with referential and bipolar montages. The background consists of well developed, well regulated, moderate voltage activity in mixed frequencies of 8 hertz alpha with 6-7 hertz theta activity. Background is posterior dominant and reactive to eye opening and closing. Photic driving response was not seen. Different stages of sleep were not seen. No focal or generalized epileptiform activity was seen. IMPRESSION: This is a mildly abnormal EEG due to background slowing of mild degree. This is suggestive of generalized cerebral dysfunction as can be seen with toxic metabolic encephalopathy or due to diffuse structural brain abnormality. No epileptiform activity was seen. MMODL / IJN: [id number] /
[2020-10-15] MEDS: CEFEPIME 2 GM in SODIUM CHLORIDE 0.9% 100 ML IVPB SCH ×3 (06:14→20:55)
[2020-10-15] MEDS: SODIUM CHLORIDE 0.9% 1,000 ML IV SCH ×2 (07:26→13:25)
[2020-10-15 08:01] LABS: African American GFR (CKD) >90 (>60 ml/min/1.73 sqM); Non-African American GFR(CKD) >90 (>60 ml/min/1.73 sqM)
[2020-10-15 08:02] LABS: Anisocytosis Slight; HGB 8.3 gm/dL (11.4-16.0); Hypochromasia Slight; MCH 33.5 pg (25.0-35.0); MCHC 33.4 g/dL (31.0-37.0); MCV 100.5 fL (80.0-100.0); Macrocytosis Slight; Mean Platelet Volume 10.9; Platelet Count 104 k/uL (150-450); RBC 2.48 m/uL (3.80-5.40); RDW 17.9 % (11.5-15.5); WBC 2.5 k/uL (3.8-10.6)
[2020-10-15 08:12] LABS: INR 1.1 (<1.2); Partial Thromboplastin Time 24.5 sec (22.0-30.0); Prothrombin Time 11.2 sec (9.0-12.0)
[2020-10-15] MEDS: metroNIDAZOLE 500 MG TAB PO SCH ×3 (08:19→20:55)
[2020-10-15] MEDS: allopurinoL 300 MG TAB PO SCH (08:19)
[2020-10-15] MEDS: levETIRAcetam 500 MG TAB PO SCH (08:19)
[2020-10-15 10:48] LABS: Blast Cells # (M) 0.75 k/uL (0); Lymphocytes # (M) 1.45 k/uL (1.0-4.8); Metamyelocytes # (M) 0.03 k/uL (0); Metamyelocytes % 1 %; Monocytes # (M) 0.08 k/uL (0-1.0); Neutrophils % (M) 8 %; Nucleated Red Blood Cells 2 /100 WBC (0-0); Total Cells Counted 100
[2020-10-15] MEDS ORDERED: VANCOMYCIN TROUGH DUE 1 EACH MISC MISCELLANE ONE (11:00)
--- NOTE | 2020-10-15 13:29 | P.PN ---
Subjective Progress Note Date: 10/15/20 10/15/2020: Patient denies any new change. No syncopal spells. 10/14/2020: Patient initially seen by Dr. Lb Williamson from neurology on 10/13/2020. Please refer to his note for details. This is a follow-up note. Patient has history of intraparenchymal hemorrhage in November 2019, more recent diagnosis of leukemia on chemotherapy, hypertension, came to the hospital on 10/12/2020 for altered mental status. Patient's was also present today. Patient has not had any further seizure type spells or syncopal spell since arrival to the hospital. Patient had EEG performed earlier, which we will rev iew the results. MRI of the brain cannot be performed because patient has queenie placed in on 10/11/2020. Patient is currently maintained on Keppra 500 mg twice a day. No further seizures. Patient's tells me that on 10/11/2020 on Wednesday, she wanted to go to the bathroom, when she got up, felt dizzy, grab the railing, but fell and hit her head on the door edge. She passed out. Patient was on Coumadin. Patient was brought to the hospital. CT head was performed, and she was released. However the next day on 10/12/2020 patient went to bathroom, but was not able to get up. She was found to have temperature of 104. This prompted readmission to the hospital. Computed tomography scan of the head performed 10/12/2020 showed old right occipital lobe infarct. No acute process. Cerebral atrophy. No change as compared to the computed tomography scan of head from the day prior. CTA of head and neck showed no significant abnormality. No stenosis or aneurysm. 2-D echo showed normal left-ventricular size. Mild concentric LVH. EF is 55-60%. Trace MR. Patient's blood test shows WBC 2.4 hemoglobin 7.7, platelets 121, with 14 last cells 0.05% neutrophils. INR is 2.0. Patient is on heparin, with PTT 57.2. Chem-7, UA negative. Influenza screen negative. Martin virus PCR negative. Patient at present complains of pain in the rectal region as she had undergone manual extraction of constipated bowels. She also complains of pain in the queenie otherwise she is doing perfectly fine. Telemetry monitoring showing sinus rhythm with PVCs. Objective - Vital Signs Vital signs: Vital Signs Temp 99.8 F H 10/15/20 08:00 Pulse 80 10/15/20 08:00 Resp 16 10/15/20 08:00 BP 107/62 10/15/20 08:00 Pulse Ox 98 10/15/20 08:49 Intake & Output 10/14/20 10/15/20 10/15/20 18:59 06:59 18:59 Intake Total 135.680 2464.733 222 Output Total 2720 Balance 553.921 -1547.267 222 Weight 79 kg Intake: IV 180 100 Cefepime 2 gm In Sodium 100 100 Chloride 0.9% 100 ml @ 25 mls/hr IVPB Q8H [facility] Rx#: [id number] Heparin Sod,Pork in 0.45% 80 NaCl 25,000 unit In 0.45 % NaCl 1 250ml.bag @ 12 UNITS/KG/HR 9.168 mls/hr IV .Q24H [facility] Rx#: [id number] Intake, IV Titration 744.134 6438.733 Amount Heparin Sod,Pork in 0.45% 123.921 72.733 NaCl 25,000 unit In 0.45 % NaCl 1 250ml.bag @ 12 UNITS/KG/HR 9.168 mls/hr IV .Q24H [facility] Rx#: [id number] Sodium Chloride 0.9% 1, 1000 000 ml @ 125 mls/hr IV . Q8H [facility] Rx#:[id number] Oral 250 222 Output: Urine 2720 Straight 1500 Other: Voiding Method Indwelling Catheter Indwelling Catheter Indwelling Catheter - Exam Patient is an elderly female, in no acute distress. Detailed testing deferred. - Labs CBC & Chem 7: 10/15/20 07:29 10/15/20 07:29 Labs: Abnormal Lab Results - Last 24 Hours (Table) 10/13/20 10/15/20 Range/Units 06:42 07:29 WBC 2.5 L (3.8-10.6) k/uL RBC 2.48 L (3.80-5.40) m/uL Hgb 8.3 L (11.4-16.0) gm/dL Hct 25.0 L (34.0-46.0) % MCV 100.5 H (80.0-100.0) fL RDW 17.9 H (11.5-15.5) % Plt Count 104 L (150-450) k/uL Blast Cells % 30 H* % Neutrophils # (Manual) 0.20 L* (1.3-7.7) k/uL Metamyelocytes # (Man) 0.03 H (0) k/uL Blast Cells # (Man) 0.75 H (0) k/uL Nucleated RBCs 2 H (0-0) /100 WBC HSV I IgG Interpret POSITIVE A (NEGATIVE) Microbiology - Last 24 Hours (Table) 10/12/20 16:45 Blood Culture - Preliminary Blood No Growth after 48 hours Assessment and Plan Assessment: * Probable Syncopal spell 2, less likely seizure. * History of intraparenchymal hemorrhage with residual left upper quadrant visual field defect * Recent diagnosis of leukemia. * Fecal impaction Plan: * EEG showed mild background slowing consistent with encephalopathy. No epileptiform activity was seen. * We will discontinue Keppra. * Medical management as per IM/hematology. * Neurology will sign off. Please reconsult neurology if any further concerns.
--- NOTE | 2020-10-15 14:05 | P.PN ---
Objective - Vital Signs Vital signs: Vital Signs Temp 99.8 F H 10/15/20 08:00 Pulse 80 10/15/20 12:00 Resp 16 10/15/20 12:00 BP 115/75 10/15/20 12:00 Pulse Ox 100 10/15/20 12:00 Intake & Output 10/14/20 10/15/20 10/15/20 18:59 06:59 18:59 Intake Total 455.374 9299.733 222 Output Total 2720 Balance 553.921 -1547.267 222 Weight 79 kg Intake: IV 180 100 Cefepime 2 gm In Sodium 100 100 Chloride 0.9% 100 ml @ 25 mls/hr IVPB Q8H [facility] Rx#: [id number] Heparin Sod,Pork in 0.45% 80 NaCl 25,000 unit In 0.45 % NaCl 1 250ml.bag @ 12 UNITS/KG/HR 9.168 mls/hr IV .Q24H [facility] Rx#: [id number] Intake, IV Titration 764.780 4830.733 Amount Heparin Sod,Pork in 0.45% 123.921 72.733 NaCl 25,000 unit In 0.45 % NaCl 1 250ml.bag @ 12 UNITS/KG/HR 9.168 mls/hr IV .Q24H [facility] Rx#: [id number] Sodium Chloride 0.9% 1, 1000 000 ml @ 125 mls/hr IV . Q8H [facility] Rx#:[id number] Oral 250 222 Output: Urine 2720 Straight 1500 Other: Voiding Method Indwelling Catheter Indwelling Catheter Indwelling Catheter - Exam - Constitutional General appearance: Present: average body habitus, cooperative, no acute distress - EENT EENT Comment(s): [place] on the back of head, clotted blood, hematoma as expected-nothing out of the ordinary Eyes: Present: anicteric sclerae, EOMI ENT: Present: hearing grossly normal - Respiratory Respiratory: bilateral: CTA - Cardiovascular Heart sounds: normal: S1, S2 - Peripheral edema leg Peripheral Edema: bilateral: None - Gastrointestinal General gastrointestinal: Present: normal bowel sounds, soft - Integumentary Integumentary: Present: pale - Neurologic Neurologic: Present: CNII-XII intact - Musculoskeletal Musculoskeletal: Present: generalized weakness, strength equal bilaterally - Psychiatric Psychiatric Comment(s): affect his irritable Psychiatric: Present: A&O x's 3 - Labs CBC & Chem 7: 10/15/20 07:29 10/15/20 07:29 Labs: Abnormal Lab Results - Last 24 Hours (Table) 10/13/20 10/15/20 Range/Units 06:42 07:29 WBC 2.5 L (3.8-10.6) k/uL RBC 2.48 L (3.80-5.40) m/uL Hgb 8.3 L (11.4-16.0) gm/dL Hct 25.0 L (34.0-46.0) % MCV 100.5 H (80.0-100.0) fL RDW 17.9 H (11.5-15.5) % Plt Count 104 L (150-450) k/uL Blast Cells % 30 H* % Neutrophils # (Manual) 0.20 L* (1.3-7.7) k/uL Metamyelocytes # (Man) 0.03 H (0) k/uL Blast Cells # (Man) 0.75 H (0) k/uL Nucleated RBCs 2 H (0-0) /100 WBC HSV I IgG Interpret POSITIVE A (NEGATIVE) Microbiology - Last 24 Hours (Table) 10/12/20 16:45 Blood Culture - Preliminary Blood No Growth after 48 hours Assessment and Plan Plan: - Imaging and Cardiology CT scan - abdomen: report reviewed CT scan - pelvis: report reviewed Assessment and Plan: 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 Last venclexta was 10/10 and her last dacogen (5 day injections-sounds right) was Wednesday. She was supposed to have work up for BMT last week (ECHO, PFT, labs), she was due for BM Bx in 2 days. She fell Wednesday, came in after fall, received queenie in head and sent home. Her temp was 104F on Sat and she was brought back to ER. Her last fever was 100.6 Fahrenheit last night. Plan will be for patient to return to her treating Oncologist within this week. Altered mental status improving Status post fall. CT of the head no evidence for parenchymal brain hemorrhage or subdural hematoma. Unclear the exact etiology of the patient's altered mental status at this time, Neurology consulted Constipation: - Patient will have increased bowel regimen prior to discharge and plan for discharge CVA (cerebral vascular accident) Patient has a history of CVA and is on anticoagulation with Coumadin. Ok to restart warfarin at prior dosing and patient and aware that follow-up with their primary oncologist needed within the next 2-3 days Physician Attest: I have completed the full history and physical and agree with above dictation, dictated as a scribe.
[2020-10-15 16:52] VITALS: RESP 18
[2020-10-15] MEDS: WARFARIN 5 MG TAB PO SCH (16:52)
[2020-10-15] MEDS: ACETAMINOPHEN TAB 325 MG TAB PO PRN (16:54)
[2020-10-15] MEDS ORDERED: WARFARIN 2 MG TAB PO SCH (18:00)
--- NOTE | 2020-10-15 19:16 | P.PN ---
Progress Note - Text Progress Note Date: 10/15/20 Chief Complaint: Delirium History of presenting complaint: This is a 75-year-old patient of Dr. Chung. Chronic stable medical conditions include hyperlipidemia, hypertension, parathyroid disorder, basal cell skin cancer. Reported history of blood clot in the brain for which patient is on Coumadin, possibly venous thrombosis. Exact diagnosis currently not known. Patient does follow with was a heme oncologist out of [place] and patient be getting chemotherapy for what appears to be leukemia. Last treatment was over 2 weeks ago. She had presented to the ER 2 days ago while after she took a fall in the bathroom. She is feeling lightheaded and neck sting she woke up on the ground. She has been feeling lightheaded lately. She is bleeding from the back of the head there is no chest pain or palpitation prior to the event. No fever reported at that time. She refused a c-collar. Computed tomography scan of the brain that was negative. Patient did not ambulate in the ER without any problem. Scalp was sutured. Patient was asked to stay but homer dias decided to leave. Refused admission. [November 2019 patient presented to the ER here-CT angios the head had shown intracranial hemorrhage adjacent to the right posterior cerebral artery but no definite aneurysm identified. Subdural hemorrhage. Patient was transferred to [facility] in [place]. Patient now presented to the ER with somewhat of a confusion. Presented to the ER. Denies any urinary symptoms. Per the the patient had been very weak. Having trouble with her ADLs. Also noted to have a fever. Patient was started on IV vancomycin and cefepime and IV acyclovir. Lumbar puncture could not be done because INR is 1.9. Patient has been complaining of feeling cold. Had a fever of 103. Denies any neck stiffness or any photophobia. Admitted with neutropenic sepsis the possible source being right lower lobe pneumonia. Initially started on Keppra by neurology for possible seizure. Syncope felt to be from sepsis. EEG negative for seizure. Keppra discontinued by neurology. Today-doing better. No fever. Eating about 50%. Review of systems: Was done for constitutional, cardiovascular, GI, pulmonary. relevant finding as above Active Medications Acetaminophen (Acetaminophen Tab 325 Mg Tab) 650 mg PO Q6HR PRN PRN Reason: Mild Pain or Fever > 100.5 Last Admin: 10/15/20 16:54 Dose: 650 mg Documented by: Allopurinol (Allopurinol 300 Mg Tab) 300 mg PO DAILY [facility] Last Admin: 10/15/20 08:19 Dose: 300 mg Documented by: Atorvastatin Calcium (Atorvastatin 40 Mg Tab) 40 mg PO HS [facility] Last Admin: 10/14/20 20:53 Dose: 40 mg Documented by: Famotidine (Famotidine 20 Mg Tab) 20 mg PO BID PRN PRN Reason: on chemo days Cefepime HCl 2 gm/ Sodium (Chloride) 100 mls @ 25 mls/hr IVPB Q8H [facility] Last Admin: 10/15/20 13:48 Dose: 25 mls/hr Documented by: Sodium Chloride (Saline 0.9%) 1,000 mls @ 125 mls/hr IV .Q8H [facility] Last Admin: 10/15/20 13:25 Dose: Not Given Documented by: Metronidazole (Metronidazole 500 Mg Tab) 500 mg PO TID [facility] Last Admin: 10/15/20 16:52 Dose: 500 mg Documented by: Miscellaneous Information (Warfarin Per Pharmacy) 1 each MISCELLANE DIRECTED PRN PRN Reason: Per Protocol Naloxone HCl (Naloxone 0.4 Mg/Ml 1 Ml Vial) 0.2 mg IV Q2M PRN PRN Reason: Opioid Reversal Ondansetron HCl (Ondansetron 4 Mg/2 Ml Vial) 4 mg IVP Q8HR PRN PRN Reason: Nausea And Vomiting Polyethylene Glycol (Polyethylene Glycol 3350 17 Gm Powd.Pack) 17 gm PO DAILY [facility] Senna (Sennosides 8.6 Mg Tab) 8.6 mg PO DAILY PRN PRN Reason: Constipation Senna/Docusate Sodium (Sennosides-Docusate Sodium 1 Each Tab) 2 each PO BID [facility] Warfarin Sodium (Warfarin 5 Mg Tab) 5 mg PO DAILY@1800 [facility]; Protocol Last Admin: 10/15/20 16:52 Dose: 5 mg Documented by: Warfarin Sodium (Warfarin 2 Mg Tab) 2 mg PO SuTuThSa@1800 [facility]; Protocol Last Admin: 10/15/20 16:53 Dose: 2 mg Documented by: Past medical history to include: Hyperlipidemia, hypertension, mitral valve prolapse, parathyroid disorder, basal cell skin cancer, venous sinus thrombosis, intracranial and subdural hemorrhage in November 2019 Social history: Patient is a . No history of smoking or alcohol Physical examination: VITAL SIGNS: 99.8, 80, 16, 107/62, 98% on 2 L GENERAL: Sitting up more comfortable EYES: Pupils equal. Conjunctiva normal. HEENT: metal sutured in the posterior scalp NECK: JVD not raised; masses not palpable. HEART: First and second heart sounds are normal; no edema. LUNGS: Respiratory rate normal; clear to auscultation. ABDOMEN: Soft, nontender, liver spleen not palpable, no masses palpable. PSYCH: Answering questions appropriately INVESTIGATIONS, reviewed in the clinical context: October 15: WBC 2.5 hemoglobin 8.3 platelets 104 October 14: WBC 2.4 hemoglobin 7.7 platelets 121 2-D echocardiogram-EF 55-60% Computed tomography scan of the abdomen and pelvis with contrast-subcutaneous edema over the lumbar spine.. Rectal fecal impaction WBC 1.3 hemoglobin 10.7 platelets 185 blood cells 24% INR 1.9 potassium 4 creatinine 0.68 pro-calcitonin 0.27 TSH 0.686 UA negative Coronavirus [PCR)-not detected Chest x-ray film personally reviewed by me-questionable right basilar infiltrate Computed tomography scan of the brain-without contrast-old right occipital lobe infarct CT angios head and neck-no angiographic abnormality of the head and neck. Blood culture-negative Assessment and plan: -Acute delirium with metabolic encephalopathy from sepsis improving, POA -Coumadin monitoring. -On Coumadin for venous sinus thrombosis. -History of intracranial and subdural hemorrhage in November 2019. For which patient was transferred out to [facility] -Acute myeloid leukemia, being treated by Dr. lombardo from [facility]. Outpatient due for bone marrow transplant. -Essential hypertension continue Zestril -Hyperlipidemia continue with Lipitor -Hyperuricemia likely from treatment for leukemia. Continue with allopurinol -Recent fall from syncope resulting in scalp laceration. Patient has a sutured at the back of the scalp -Neutropenic Sepsis, possibly from pneumonia. Blood culture negative -Seizures ruled out. EEG negative. Keppra discontinued -Acute constipation. We'll give lactulose -Medical debility. Being followed by PT Discussed with Dr. Vitale from neurology. Keppra been discontinued. Continue with IV antibiotics. Increase activity.
[2020-10-15] MEDS: SENNOSIDES-DOCUSATE SODIUM 1 EACH TAB PO SCH (20:55)
[2020-10-15] MEDS: ATORVASTATIN 40 MG TAB PO SCH (20:55)
[2020-10-15] MEDS: ENOXAPARIN 80 MG/0.8 ML SYRINGE SQ SCH (22:05)
--- NOTE | 2020-10-15 22:41 | PN ---
PROGRESS NOTE DATE OF SERVICE: 10/15/2020 REASON FOR FOLLOWUP: Fever. INTERVAL HISTORY: The patient did spike a low-grade fever of 100.4 this evening. The patient was afebrile after that. The patient overall is feeling better; denies having any chest pain, shortness of breath or cough. No abdominal pain or diarrhea. PHYSICAL EXAMINATION: Blood pressure 104/59, pulse of 77, temperature 98.5. T-max is 100.4. She is 97% on room air. General description is an elderly female lying in bed in no distress. RESPIRATORY SYSTEM: Unlabored breathing with decreased intensity of breath sounds. No wheeze. HEART: S1, S2. Regular rate and rhythm. ABDOMEN: Soft. No tenderness. LABS: Hemoglobin 8.3, white count 2.5, creatinine 0.55. Blood culture has been negative. DIAGNOSTIC IMPRESSION AND PLAN: Patient with a fever and concern for possible malignancy, plus/minus abdominal source. Patient is covered with cefepime and Flagyl. That will be continued while monitoring clinical course closely. Continue supportive care. MMODL / IJN: [id number] /
[2020-10-16] MEDS: CEFEPIME 2 GM in SODIUM CHLORIDE 0.9% 100 ML IVPB SCH ×3 (06:02→20:45)
[2020-10-16 08:29] LABS: INR 1.2 (<1.2)
[2020-10-16 08:45] LABS: African American GFR (CKD) >90 (>60 ml/min/1.73 sqM); Non-African American GFR(CKD) >90 (>60 ml/min/1.73 sqM)
[2020-10-16 09:07] LABS: Anisocytosis Slight; HCT 25.4 % (34.0-46.0); HGB 8.2 gm/dL (11.4-16.0); Hypochromasia Slight; MCH 32.5 pg (25.0-35.0); MCHC 32.2 g/dL (31.0-37.0); MCV 100.8 fL (80.0-100.0); Macrocytosis Slight; Mean Platelet Volume 11.1; Poikilocytosis Slight; RBC 2.52 m/uL (3.80-5.40); RDW 18.4 % (11.5-15.5)
--- NOTE | 2020-10-16 09:11 | XR ---
EXAMINATION TYPE: XR chest 2V DATE OF EXAM: 10/16/2020 COMPARISON: Chest x-ray dated 10/12/2020 HISTORY: Pneumonia TECHNIQUE: Frontal and lateral views of the chest are obtained. FINDINGS: Cardiac mediastinal silhouette shows a similar appearance, lung volumes are improved. No e vident pneumothorax or pleural effusion. There are overlying leads. No evident airspace disease. Cont rast material present in the bowel. IMPRESSION: Improved lung aeration. No acute cardiopulmonary disease evident.
[2020-10-16] MEDS: SENNOSIDES-DOCUSATE SODIUM 1 EACH TAB PO SCH ×2 (09:15→20:32)
[2020-10-16] MEDS: ENOXAPARIN 80 MG/0.8 ML SYRINGE SQ SCH ×2 (09:15→20:45)
[2020-10-16] MEDS: polyethylene glycoL 3350 17 GM POWD.PACK PO SCH (09:15)
[2020-10-16] MEDS: metroNIDAZOLE 500 MG TAB PO SCH ×3 (09:15→20:46)
[2020-10-16] MEDS: allopurinoL 300 MG TAB PO SCH (09:15)
[2020-10-16 14:07] LABS: Neutrophils % (M) 1 %
[2020-10-16 14:08] LABS: Band Neutrophils % 1 %; Monocytes # (M) 0.08 k/uL (0-1.0)
[2020-10-16 14:09] LABS: Metamyelocytes # (M) 0.02 k/uL (0); Metamyelocytes % 1 %; Myelocytes # (M) 0.04 k/uL (0); Myelocytes % 2 %; Nucleated Red Blood Cells 3 /100 WBC (0-0); Total Cells Counted 200
[2020-10-16 14:10] LABS: Blast Cells # (M) 0.52 k/uL (0); Lymphocytes # (M) 1.36 k/uL (1.0-4.8)
[2020-10-16] MEDS: SODIUM CHLORIDE 0.9% 1,000 ML IV SCH ×2 (14:19→18:42)
[2020-10-16] MEDS: WARFARIN 5 MG TAB PO SCH (17:14)
[2020-10-16] MEDS: ATORVASTATIN 40 MG TAB PO SCH (20:45)
[2020-10-16] MEDS: ACETAMINOPHEN TAB 325 MG TAB PO PRN (20:45)
--- NOTE | 2020-10-16 20:51 | P.PN ---
Progress Note - Text Progress Note Date: 10/16/20 Chief Complaint: Delirium History of presenting complaint: This is a 75-year-old patient of Dr. Chung. Chronic stable medical conditions include hyperlipidemia, hypertension, parathyroid disorder, basal cell skin cancer. Reported history of blood clot in the brain for which patient is on Coumadin, possibly venous thrombosis. Exact diagnosis currently not known. Patient does follow with was a heme oncologist out of [place] and patient be getting chemotherapy for what appears to be leukemia. Last treatment was over 2 weeks ago. She had presented to the ER 2 days ago while after she took a fall in the bathroom. She is feeling lightheaded and neck sting she woke up on the ground. She has been feeling lightheaded lately. She is bleeding from the back of the head there is no chest pain or palpitation prior to the event. No fever reported at that time. She refused a c-collar. Computed tomography scan of the brain that was negative. Patient did not ambulate in the ER without any problem. Scalp was sutured. Patient was asked to stay but homer dias decided to leave. Refused admission. [November 2019 patient presented to the ER here-CT angios the head had shown intracranial hemorrhage adjacent to the right posterior cerebral artery but no definite aneurysm identified. Subdural hemorrhage. Patient was transferred to [facility] in [place]. Patient now presented to the ER with somewhat of a confusion. Presented to the ER. Denies any urinary symptoms. Per the the patient had been very weak. Having trouble with her ADLs. Also noted to have a fever. Patient was started on IV vancomycin and cefepime and IV acyclovir. Lumbar puncture could not be done because INR is 1.9. Patient has been complaining of feeling cold. Had a fever of 103. Denies any neck stiffness or any photophobia. Admitted with neutropenic sepsis the possible source being right lower lobe pneumonia. Initially started on Keppra by neurology for possible seizure. Syncope felt to be from sepsis. EEG negative for seizure. Keppra discontinued by neurology. Today- at the bedside. Doing much better. Oral intake better.. No fever. Cough improved Review of systems: Was done for constitutional, cardiovascular, GI, pulmonary. relevant finding as above Active Medications Acetaminophen (Acetaminophen Tab 325 Mg Tab) 650 mg PO Q6HR PRN PRN Reason: Mild Pain or Fever > 100.5 Last Admin: 10/15/20 16:54 Dose: 650 mg Documented by: Allopurinol (Allopurinol 300 Mg Tab) 300 mg PO DAILY [facility] Last Admin: 10/16/20 09:15 Dose: 300 mg Documented by: Atorvastatin Calcium (Atorvastatin 40 Mg Tab) 40 mg PO HS [facility] Last Admin: 10/15/20 20:55 Dose: 40 mg Documented by: Enoxaparin Sodium (Enoxaparin 80 Mg/0.8 Ml Syringe) 80 mg SQ Q12HR [facility] Last Admin: 10/16/20 09:15 Dose: 80 mg Documented by: Famotidine (Famotidine 20 Mg Tab) 20 mg PO BID PRN PRN Reason: on chemo days Cefepime HCl 2 gm/ Sodium (Chloride) 100 mls @ 25 mls/hr IVPB Q8H [facility] Last Admin: 10/16/20 14:18 Dose: 25 mls/hr Documented by: Sodium Chloride (Saline 0.9%) 1,000 mls @ 125 mls/hr IV .Q8H [facility] Last Admin: 10/16/20 18:42 Dose: Not Given Documented by: Metronidazole (Metronidazole 500 Mg Tab) 500 mg PO TID [facility] Last Admin: 10/16/20 17:14 Dose: 500 mg Documented by: Miscellaneous Information (Warfarin Per Pharmacy) 1 each MISCELLANE DIRECTED PRN PRN Reason: Per Protocol Naloxone HCl (Naloxone 0.4 Mg/Ml 1 Ml Vial) 0.2 mg IV Q2M PRN PRN Reason: Opioid Reversal Ondansetron HCl (Ondansetron 4 Mg/2 Ml Vial) 4 mg IVP Q8HR PRN PRN Reason: Nausea And Vomiting Polyethylene Glycol (Polyethylene Glycol 3350 17 Gm Powd.Pack) 17 gm PO DAILY [facility] Last Admin: 10/16/20 09:15 Dose: 17 gm Documented by: Senna (Sennosides 8.6 Mg Tab) 8.6 mg PO DAILY PRN PRN Reason: Constipation Senna/Docusate Sodium (Sennosides-Docusate Sodium 1 Each Tab) 2 each PO BID [facility] Last Admin: 10/16/20 20:32 Dose: Not Given Documented by: Warfarin Sodium (Warfarin 5 Mg Tab) 5 mg PO DAILY@1800 [facility]; Protocol Last Admin: 10/16/20 17:14 Dose: 5 mg Documented by: Warfarin Sodium (Warfarin 2 Mg Tab) 2 mg PO ErnieuThSa@1800 [facility]; Protocol Last Admin: 10/15/20 16:53 Dose: 2 mg Documented by: Past medical history to include: Hyperlipidemia, hypertension, mitral valve prolapse, parathyroid disorder, basal cell skin cancer, venous sinus thrombosis, intracranial and subdural hemorrhage in November 2019 Social history: Patient is a . No history of smoking or alcohol Physical examination: VITAL SIGNS: 99, 90, 18, 135 with 74, 100% on room air GENERAL: Sitting up more comfortable EYES: Pupils equal. Conjunctiva normal. HEENT: metal sutured in the posterior scalp NECK: JVD not raised; masses not palpable. HEART: First and second heart sounds are normal; no edema. LUNGS: Respiratory rate normal; clear to auscultation. ABDOMEN: Soft, nontender, liver spleen not palpable, no masses palpable. PSYCH: Answering questions appropriately INVESTIGATIONS, reviewed in the clinical context: October 15: WBC 2.5 hemoglobin 8.3 platelets 104 October 14: WBC 2.4 hemoglobin 7.7 platelets 121 2-D echocardiogram-EF 55-60% Computed tomography scan of the abdomen and pelvis with contrast-subcutaneous edema over the lumbar spine.. Rectal fecal impaction WBC 1.3 hemoglobin 10.7 platelets 185 blood cells 24% INR 1.9 potassium 4 creatinine 0.68 pro-calcitonin 0.27 TSH 0.686 UA negative Coronavirus [PCR)-not detected Chest x-ray film personally reviewed by me-questionable right basilar infiltrate Computed tomography scan of the brain-without contrast-old right occipital lobe infarct CT angios head and neck-no angiographic abnormality of the head and neck. Blood culture-negative Assessment and plan: -Acute delirium with metabolic encephalopathy from sepsis improving, POA -Coumadin monitoring. -On Coumadin for venous sinus thrombosis. -History of intracranial and subdural hemorrhage in November 2019. For which patient was transferred out to [facility] -Acute myeloid leukemia, being treated by Dr. lombardo from [facility]. Outpatient due for bone marrow transplant. -Essential hypertension continue Zestril -Hyperlipidemia continue with Lipitor -Hyperuricemia likely from treatment for leukemia. Continue with allopurinol -Recent fall from syncope resulting in scalp laceration. Patient has a sutured at the back of the scalp -Neutropenic Sepsis, possibly from pneumonia. Blood culture negative -Seizures ruled out. EEG negative. Keppra discontinued -Acute constipation. Responded well to laxative -Medical debility. Being followed by PT. Patient did walk down the hallway today. Did well Cussed length with the patient and . Patient clinically doing much better. continue with Lovenox DC IV fluids oral intake is good
--- NOTE | 2020-10-16 22:26 | PN ---
PROGRESS NOTE DATE OF SERVICE: 10/16/2020 REASON FOR FOLLOWUP: Fever. INTERVAL HISTORY: The patient spiked another fever this afternoon of 101 degrees Fahrenheit. The patient has been breathing comfortably. The patient denies having any chest pain, shortness of breath or cough. No abdominal pain or diarrhea. She was wondering when she can go home. PHYSICAL EXAMINATION: Her blood pressure is 171/79 with a pulse of 72, temperature 101.2. She is 98% on room air. General description is an elderly female lying in bed in no distress. RESPIRATORY SYSTEM: Unlabored breathing. Clear to auscultation anteriorly. HEART: S1, S2. Regular rate and rhythm. ABDOMEN: Soft. No tenderness. EXTREMITIES: No edema of the feet. LABS: Hemoglobin 8.2, white count 2.0. Did have 26% blast cells. Creatinine 0.59. Blood and urine cultures have been negative so far. DIAGNOSTIC IMPRESSION AND PLAN: Patient with febrile neutropenia, more likely due to her underlying hematological malignancy, as the patient currently does not have any obvious focus of infection. On empiric antibiotics; to continue, and we will monitor her clinical course closely. MMODL / IJN: [id number] /
[2020-10-17] MEDS: CEFEPIME 2 GM in SODIUM CHLORIDE 0.9% 100 ML IVPB SCH (06:17)
[2020-10-17] MEDS: ENOXAPARIN 80 MG/0.8 ML SYRINGE SQ SCH (08:39)
[2020-10-17] MEDS: SENNOSIDES-DOCUSATE SODIUM 1 EACH TAB PO SCH (08:39)
[2020-10-17] MEDS: polyethylene glycoL 3350 17 GM POWD.PACK PO SCH (08:39)
[2020-10-17] MEDS: allopurinoL 300 MG TAB PO SCH (08:40)
[2020-10-17] MEDS: metroNIDAZOLE 500 MG TAB PO SCH (08:40)
[2020-10-17 10:05] LABS: INR 1.4 (<1.2); Prothrombin Time 14.2 sec (9.0-12.0)
[2020-10-17 10:14] LABS: Anisocytosis Slight; HCT 24.9 % (34.0-46.0); HGB 8.1 gm/dL (11.4-16.0); Hypochromasia Slight; MCH 32.1 pg (25.0-35.0); MCHC 32.6 g/dL (31.0-37.0); MCV 98.5 fL (80.0-100.0); Macrocytosis Slight; Mean Platelet Volume 11.2; Poikilocytosis Slight; RBC 2.53 m/uL (3.80-5.40); RDW 18.1 % (11.5-15.5)
[2020-10-17 10:47] VITALS: BP 158/63; PULSE 91; TEMP 98.3
[2020-10-17 11:25] LABS: Neutrophils # (M) 0.02 k/uL (1.3-7.7); Neutrophils % (M) 1 %
[2020-10-17 11:26] LABS: Blast Cells # (M) 0.74 k/uL (0); Lymphocytes # (M) 0.95 k/uL (1.0-4.8); Monocytes # (M) 0.09 k/uL (0-1.0); Nucleated Red Blood Cells 9 /100 WBC (0-0); Total Cells Counted 100; WBC 1.8 k/uL (3.8-10.6)
[2020-10-17 11:31] LABS: Platelet Count 66 k/uL (150-450); Poikilocytosis (M) Present
[2020-10-17] MEDS: SODIUM CHLORIDE 0.9% 1,000 ML IV SCH (12:32)
--- NOTE | 2020-10-17 17:03 | PN ---
PROGRESS NOTE DATE OF SERVICE: 10/17/2020 REASON FOR FOLLOWUP: Fever, possibly related to underlying hematological malignancy. INTERVAL HISTORY: The patient is currently afebrile. She did have a low-grade fever of 101 last night, though. The patient is feeling better. The patient denies having any headache. No chest pain, shortness of breath or cough. No abdominal pain or diarrhea. She wants to go home. PHYSICAL EXAMINATION: Blood pressure 158/63, pulse of 91, temperature 98.3. She is 98% on room air. General description is an elderly female up in the bed in no distress. RESPIRATORY SYSTEM: Unlabored breathing. Clear to auscultation anteriorly. HEART: S1, S2. Regular rate and rhythm. ABDOMEN: Soft. No tenderness. LABS: Hemoglobin is 8.1, white count 1.8. Blast cells of 41%. CRP is 80. Procalcitonin 0.16. DIAGNOSTIC IMPRESSION AND PLAN: Patient admitted to hospital with a fever in this patient who did have extensive workup without localizing focus of infection. She did have predominantly abdominal symptoms and has been on cefepime and Flagyl. Will finish therapy with a short course of oral Ceftin and Flagyl with advice to follow up with her oncologist as soon as possible for treatment of underlying illness. Continue with supportive care. MMODL / IJN: [id number] /
--- NOTE | 2020-10-17 23:10 | P.DS ---
Providers Date of admission: 10/12/20 18:39 Expected date of discharge: 10/17/20 Attending physician: Alberto Dubois Consults: 10/12/20 17:58 Consult Physician Routine Consulting Provider: Jasper Emmanuel Consult Reason/Comments: sirs, suspect infection Do you want consulting provider notified?: Yes 10/12/20 18:17 Consult Physician Routine Consulting Provider: Wisam Williamson Consult Reason/Comments: altered mental status Do you want consulting provider notified?: Yes 10/12/20 20:52 Consult Physician Routine Consulting Provider: Arturo Gan Consult Reason/Comments: history of leukemia Do you want consulting provider notified?: Yes Primary care physician: [facility] Course: Chief Complaint: Delirium History of presenting complaint: This is a 75-year-old patient of Dr. Chung. Chronic stable medical conditions include hyperlipidemia, hypertension, parathyroid disorder, basal cell skin cancer. Reported history of blood clot in the brain for which patient is on Coumadin, possibly venous thrombosis. Exact diagnosis currently not known. Patient does follow with was a heme oncologist out of [place] and patient be getting chemotherapy for what appears to be leukemia. Last treatment was over 2 weeks ago. She had presented to the ER 2 days ago while after she took a fall in the bathroom. She is feeling lightheaded and neck sting she woke up on the ground. She has been feeling lightheaded lately. She is bleeding from the back of the head there is no chest pain or palpitation prior to the event. No fever reported at that time. She refused a c-collar. Computed tomography scan of the brain that was negative. Patient did not ambulate in the ER without any problem. Scalp was sutured. Patient was asked to stay but patient decided to leave. Refused admission. [November 2019 patient presented to the ER here-CT angios the head had shown intracranial hemorrhage adjacent to the right posterior cerebral artery but no definite aneurysm identified. Subdural hemorrhage. Patient was transferred to [place] in [place]. Patient now presented to the ER with somewhat of a confusion. Presented to the ER. Denies any urinary symptoms. Per the the patient had been very weak. Having trouble with her ADLs. Also noted to have a fever. Patient was started on IV vancomycin and cefepime and IV acyclovir. Lumbar puncture could not be done because INR is 1.9. Patient has been complaining of feeling cold. Had a fever of 103. Denies any neck stiffness or any photophobia. Admitted with neutropenic sepsis the possible source being right lower lobe pneumonia. Initially started on Keppra by neurology for possible seizure. Syncope felt to be from sepsis. EEG negative for seizure. Keppra discontinued by neurology. Today-patient doing well. Oral intake good. Had a fever last night. But clinically looks much improved. Discussed with Dr. Ruano. Both of us agreed that probably the fevers from leukemia. Slight cough. Feeling much better. Keen to go home. Patient will overlap with Lovenox until INR therapeutic Discussion and discharge planning more than 35 minutes Consultation: Dr. Emmanuel from ID Dr. Gan from oncology Past medical history to include: Hyperlipidemia, hypertension, mitral valve prolapse, parathyroid disorder, basal cell skin cancer, venous sinus thrombosis, intracranial and subdural hemorrhage in November 2019 Social history: Patient is a . No history of smoking or alcohol Physical examination: VITAL SIGNS: 98.3, 91, 18, 1 58 x 63, 98% room air GENERAL: Sitting up comfortable EYES: Pupils equal. Conjunctiva normal. HEENT: metal sutured in the posterior scalp NECK: JVD not raised; masses not palpable. HEART: First and second heart sounds are normal; no edema. LUNGS: Respiratory rate normal; clear to auscultation. ABDOMEN: Soft, nontender, liver spleen not palpable, no masses palpable. PSYCH: Answering questions appropriately INVESTIGATIONS, reviewed in the clinical context: October 17: White count 1.8 hemoglobin 8.1 platelet 66 October 15: WBC 2.5 hemoglobin 8.3 platelets 104 October 14: WBC 2.4 hemoglobin 7.7 platelets 121 2-D echocardiogram-EF 55-60% Computed tomography scan of the abdomen and pelvis with contrast-subcutaneous edema over the lumbar spine.. Rectal fecal impaction WBC 1.3 hemoglobin 10.7 platelets 185 blood cells 24% INR 1.9 potassium 4 creatinine 0.68 pro-calcitonin 0.27 TSH 0.686 UA negative Coronavirus [PCR)-not detected Chest x-ray film personally reviewed by me-questionable right basilar infiltrate Computed tomography scan of the brain-without contrast-old right occipital lobe infarct CT angios head and neck-no angiographic abnormality of the head and neck. Blood culture-negative Assessment and plan: -Acute delirium with metabolic encephalopathy from sepsis , POA -Coumadin monitoring. -On Coumadin for venous sinus thrombosis. -History of intracranial and subdural hemorrhage in November 2019. 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 Outpatient due for bone marrow transplant. -Essential hypertension continue Zestril -Hyperlipidemia continue with Lipitor -Hyperuricemia likely from treatment for leukemia. Continue with allopurinol -Recent fall from syncope resulting in scalp laceration. Patient has a sutured at the back of the scalp -Neutropenic Sepsis, possibly from pneumonia. Blood culture negative, POA -Seizures ruled out. EEG negative. Keppra discontinued -Acute constipation. Responded well to laxative -Medical debility. Being followed by PT. Patient did walk down the hallway Did well Disposition: Home Follow up with her oncologist, repeat labs in 3 days including INR Plan - Discharge Summary Discharge Rx Participant: No New Discharge Prescriptions: New Cefuroxime Axetil [Ceftin] 500 mg PO BID #14 tab metroNIDAZOLE [Flagyl] 500 mg PO TID #21 tab Enoxaparin [Lovenox] 80 mg SQ Q12HR #10 syringe polyethylene glycoL 3350 [Miralax] 17 gm PO DAILY powd.pack Sennosides-Docusate Sodium [Senokot-S] 2 each PO BID tab Continue Warfarin [Coumadin] 5 mg PO HS Warfarin [Coumadin] 2 mg PO SUTUTHSA@2100 ondansetron HCL [Zofran] 8 mg PO BID PRN PRN Reason: Nausea Famotidine 20 mg PO BID PRN PRN Reason: on chemo days Atorvastatin [Lipitor] 40 mg PO HS Allopurinol [Zyloprim] 300 mg PO DAILY No Action lisinopriL [Zestril] 20 mg PO BID Discharge Medication List lisinopriL [Zestril] 20 mg PO BID 10/28/16 [History] Allopurinol [Zyloprim] 300 mg PO DAILY 10/11/20 [History] Atorvastatin [Lipitor] 40 mg PO HS 10/11/20 [History] Famotidine 20 mg PO BID PRN 10/11/20 [History] Warfarin [Coumadin] 2 mg PO SUTUTHSA@2100 10/11/20 [History] Warfarin [Coumadin] 5 mg PO HS 10/11/20 [History] ondansetron HCL [Zofran] 8 mg PO BID PRN 10/11/20 [History] Cefuroxime Axetil [Ceftin] 500 mg PO BID #14 tab 10/17/20 [Rx] Enoxaparin [Lovenox] 80 mg SQ Q12HR #10 syringe 10/17/20 [Rx] Sennosides-Docusate Sodium [Senokot-S] 2 each PO BID tab 10/17/20 [Rx] metroNIDAZOLE [Flagyl] 500 mg PO TID #21 tab 10/17/20 [Rx] polyethylene glycoL 3350 [Miralax] 17 gm PO DAILY powd.pack 10/17/20 [Rx] Follow up Appointment(s)/Referral(s): oncologistdr [Other] - 1 Week Pradeep Chung DO [Primary Care Provider] - 10/22/20 9:00 am (Appointment already made for October 22 at 9 am ) Activity/Diet/Wound Care/Special Instructions: cbc/bmp - 4 days Discharge Disposition: HOME SELF-CARE
== END 2020-10-17 15:46 | disposition home or self-care (01) | DRG 871 ==
LOC: EC 14:56 → 3SCARD 18:39
PROVIDERS: ADMIT Hospitalist; ATTEND Hospitalist
DX: A41.89 Other specified sepsis (principal); J18.9 Pneumonia, unspecified organism; G93.41 Metabolic encephalopathy; C92.00 Acute myeloblastic leukemia, not having achieved remission; D68.9 Coagulation defect, unspecified; R65.20 Severe sepsis without septic shock; C44.91 Basal cell carcinoma of skin, unspecified; D70.3 Neutropenia due to infection; E21.5 Disorder of parathyroid gland, unspecified; E78.5 Hyperlipidemia, unspecified; F41.9 Anxiety disorder, unspecified; I10 Essential (primary) hypertension; I34.1 Nonrheumatic mitral (valve) prolapse; I49.3 Ventricular premature depolarization; Z86.718 Personal history of other venous thrombosis and embolism; Z79.01 Long term (current) use of anticoagulants; Z86.73 Personal history of transient ischemic attack (TIA), and cerebral infarction without residual deficits; K56.41 Fecal impaction; R29.734 NIHSS score 34; R50.81 Fever presenting with conditions classified elsewhere; R56.9 Unspecified convulsions; T45.1X5A Adverse effect of antineoplastic and immunosuppressive drugs, initial encounter; S01.81XA Laceration without foreign body of other part of head, initial encounter; W18.30XA Fall on same level, unspecified, initial encounter; Y92.002 Bathroom of unspecified non-institutional (private) residence as the place of occurrence of the external cause; Z79.899 Other long term (current) drug therapy; Z80.0 Family history of malignant neoplasm of digestive organs; Z82.3 Family history of stroke; Z82.49 Family history of ischemic heart disease and other diseases of the circulatory system; Z85.828 Personal history of other malignant neoplasm of skin; Z90.710 Acquired absence of both cervix and uterus; Z90.89 Acquired absence of other organs; E79.0 Hyperuricemia without signs of inflammatory arthritis and tophaceous disease; Z81.1 Family history of alcohol abuse and dependence; Z88.1 Allergy status to other antibiotic agents; Z53.09 Procedure and treatment not carried out because of other contraindication
CPT/HCPCS: 12002; 36415; 70450; 70496; 70498; 71045; 71046; 72125; 72170; 74177; 80048; 80053; 80306; 80320; 81001; 81003; 82140; 82565; 83605; 83735; 84145; 84443; 84484; 85025; 85610; 85730; 86140; 86695; 86696; 86850; 86900; 86901; 87040; 87502; 87635; 90471; 90715; 93005; 93306; 94760; 95816; 96365; 99285

== ENCOUNTER 2020-10-28 17:24 | Inpatient (IN) | payer MEDICARE ==
[2020-10-28] MEDS ORDERED: ACETAMINOPHEN TAB 500 MG TAB PO STA (18:07)
--- NOTE | 2020-10-28 18:25 | ED ---
General Adult HPI - General Chief complaint: Recheck/Abnormal Lab/Rx Stated complaint: Fever, Abd labs Time Seen by Provider: 10/28/20 17:30 Source: patient, EMS, RN notes reviewed, old records reviewed Mode of arrival: EMS Limitations: no limitations - History of Present Illness Initial comments: This is a 75-year-old female with a past medical history significant for AML. Patient states 2 weeks ago she fell and hit her head and needs to be transferred to another facility. Patient was sent home the next day she developed 104 fever was brought [facility] to [facility]. Patient Was Discharged Home but Continues to Feel Very Weak and Often Is Unable to Hold Herself up and Needs to Set Her down to the Ground Gently. Patient went to see her primary medical care doctor today and he wanted to come to the hospital because her hemoglobin was low as well as her platelets. Patient also spiked 102 fever earlier in the day while she was at [facility]. Patient denies any new pain. Patient denies headache patient denies any numbness weakness. Patient shortness of breath or difficulty breathing. Patient denies any cough. Patient denies any dysuria hematuria urinary frequency. - Related Data Home Medications Medication Instructions Recorded Confirmed lisinopriL [Zestril] 20 mg PO BID 10/28/16 10/12/20 Allopurinol [Zyloprim] 300 mg PO DAILY 10/11/20 10/12/20 Atorvastatin [Lipitor] 40 mg PO HS 10/11/20 10/12/20 Famotidine 20 mg PO BID PRN 10/11/20 10/12/20 Warfarin [Coumadin] 2 mg PO SUTUTHSA@2100 10/11/20 10/12/20 Warfarin [Coumadin] 5 mg PO HS 10/11/20 10/12/20 ondansetron HCL [Zofran] 8 mg PO BID PRN 10/11/20 10/12/20 Previous Rx's Medication Instructions Recorded Cefuroxime Axetil [Ceftin] 500 mg PO BID #14 tab 10/17/20 Enoxaparin [Lovenox] 80 mg SQ Q12HR #10 syringe 10/17/20 Sennosides-Docusate Sodium 2 each PO BID tab 10/17/20 [Senokot-S] metroNIDAZOLE [Flagyl] 500 mg PO TID #21 tab 10/17/20 polyethylene glycoL 3350 [Miralax] 17 gm PO DAILY powd.pack 10/17/20 Allergies Allergy/AdvReac Type Severity Reaction Status Date / Time erythromycin base Allergy Rash/Hives Verified 10/12/20 16:48 Review of Systems ROS Statement: Those systems with pertinent positive or pertinent negative responses have been documented in the HPI. ROS Other: All systems not noted in ROS Statement are negative. 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, basal cell skin cancer, brain bleed History of Any Multi-Drug Resistant Organisms: None Reported Past Surgical History: Adenoidectomy, Appendectomy, Hysterectomy, Orthopedic Surgery, Tonsillectomy Additional Past Surgical History / Comment(s): navid breast reduction, hemorrhoidectomy, metal nithin in toe, lt carpal tunnel, basal cell skin cancer removed Past Anesthesia/Blood Transfusion Reactions: No Reported Reaction Past Psychological History: Anxiety Smoking Status: Unknown if ever smoked Past Alcohol Use History: None Reported Past Drug Use History: None Reported - Past Family History Mother Family Medical History: CVA/TIA, Dementia, Myocardial Infarction ([place]) Father Family Medical History: Cancer Additional Family Medical History / Comment(s): colon cancer, alcoholism General Exam - General Exam Comments Initial Comments: GENERAL: Patient is well-developed and well-nourished. Patient is nontoxic and well- hydrated and is in mild distress. I took the patient's temperature was 100.1 though she felt warmer. ENT: Neck is soft and supple. No significant lymphadenopathy is noted. Oropharynx is clear. Moist mucous membranes. Neck has full range of motion without eliciting any pain. EYES: The sclera were anicteric and conjunctiva was pale. Extraocular movements were intact and pupils were equal round and reactive to light. Eyelids were unremarkable. PULMONARY: Unlabored respirations. Good breath sounds bilaterally. No audible rales rhonchi or wheezing was noted. CARDIOVASCULAR: There is a regular rate and rhythm without any murmurs gallops or rubs. ABDOMEN: Soft and nontender with normal bowel sounds. No palpable organomegaly was noted. There is no palpable pulsatile mass. SKIN: Skin is pale. NEUROLOGIC: Patient is alert and oriented x3. Cranial nerves II through XII are grossly intact. Motor and sensory are also intact. Normal speech, volume and content. Symmetrical smile. MUSCULOSKELETAL: Normal extremities with adequate strength and full range of motion. No lower extremity swelling or edema. No calf tenderness. LYMPHATICS: No significant lymphadenopathy is noted PSYCHIATRIC: Normal psychiatric evaluation. Limitations: no limitations Course Vital Signs 10/28/20 10/28/20 10/28/20 17:30 17:41 18:41 Temperature 99 F 101 F H Pulse Rate 94 Respiratory 18 18 Rate Blood Pressure 137/61 O2 Sat by Pulse 95 Oximetry 10/28/20 19:54 Temperature 98.1 F Pulse Rate Respiratory Rate Blood Pressure O2 Sat by Pulse Oximetry Medical Decision Making - Medical Decision Making EKG shows normal sinus rhythm at 92 bpm [place] interval 258 QRSs 82 QT interval 340 QTC is 420. Patient's EKG shows no ST segment elevation or depression. Patient's chest x-ray showed no acute abnormality. Patient's neutrophils were extremely low and they were called to us as a critical value by lab however pathology will be looking at them tomorrow. I spoke with Dr. Dubois he agreed to admit the patient admitted the patient I consult to Dr. Andino and Dr. Ruano. I started the patient on cefepime - Lab Data Result diagrams: 10/28/20 18:17 10/28/20 18:17 Lab Results 10/28/20 10/28/20 10/28/20 Range/Units 18:17 18:17 18:17 WBC 2.7 L (3.8-10.6) k/uL RBC 2.18 L (3.80-5.40) m/uL Hgb 7.0 L (11.4-16.0) gm/dL Hct 21.3 L (34.0-46.0) % MCV 97.7 (80.0-100.0) fL MCH 32.0 (25.0-35.0) pg MCHC 32.7 (31.0-37.0) g/dL RDW 19.4 H (11.5-15.5) % Plt Count (150-450) k/uL MPV 14.5 Neutrophils # ANTENNA RIGGER Hypochromasia Slight Poikilocytosis Slight Anisocytosis Slight Macrocytosis Slight PT 37.8 H (9.0-12.0) sec INR 3.9 H (<1.2) APTT 22.8 (22.0-30.0) sec Sodium 133 L (137-145) mmol/L Potassium 4.1 (3.5-5.1) mmol/L Chloride 101 (98-107) mmol/L Carbon Dioxide 27 (22-30) mmol/L Anion Gap 5 mmol/L BUN 11 (7-17) mg/dL Creatinine 0.44 L (0.52-1.04) mg/dL Est GFR (CKD-EPI)AfAm >90 (>60 ml/min/1.73 sqM) Est GFR (CKD-EPI)NonAf >90 (>60 ml/min/1.73 sqM) Glucose 97 (74-99) mg/dL Plasma Lactic Acid Andrew (0.7-2.0) mmol/L Calcium 8.2 L (8.4-10.2) mg/dL Total Bilirubin 1.1 (0.2-1.3) mg/dL AST 29 (14-36) U/L ALT 21 (4-34) U/L Alkaline Phosphatase 43 (38-126) U/L Total Protein 5.7 L (6.3-8.2) g/dL Albumin 3.2 L (3.5-5.0) g/dL Urine Color Urine Appearance (Clear) Urine pH (5.0-8.0) Ur Specific [place] (1.001-1.035) Urine Protein (Negative) Urine Glucose (UA) (Negative) Urine Ketones (Negative) Urine Blood (Negative) Urine Nitrite (Negative) Urine Bilirubin (Negative) Urine Urobilinogen (<2.0) mg/dL Ur Leukocyte Esterase (Negative) Urine RBC (0-5) /hpf Urine WBC (0-5) /hpf Ur Squamous Epith Cells (0-4) /hpf Urine Mucus (None) /hpf Coronavirus (PCR) (Not Detectd) Influenza Type A RNA (Not Detectd) Influenza Type B (PCR) (Not Detectd) 10/28/20 10/28/20 10/28/20 Range/Units 18:17 18:27 18:27 WBC (3.8-10.6) k/uL RBC (3.80-5.40) m/uL Hgb (11.4-16.0) gm/dL Hct (34.0-46.0) % MCV (80.0-100.0) fL MCH (25.0-35.0) pg MCHC (31.0-37.0) g/dL RDW (11.5-15.5) % Plt Count (150-450) k/uL MPV Neutrophils # Hypochromasia Poikilocytosis Anisocytosis Macrocytosis PT (9.0-12.0) sec INR (<1.2) APTT (22.0-30.0) sec Sodium (137-145) mmol/L Potassium (3.5-5.1) mmol/L Chloride (98-107) mmol/L Carbon Dioxide (22-30) mmol/L Anion Gap mmol/L BUN (7-17) mg/dL Creatinine (0.52-1.04) mg/dL Est GFR (CKD-EPI)AfAm (>60 ml/min/1.73 sqM) Est GFR (CKD-EPI)NonAf (>60 ml/min/1.73 sqM) Glucose (74-99) mg/dL Plasma Lactic Acid Andrew 1.1 (0.7-2.0) mmol/L Calcium (8.4-10.2) mg/dL Total Bilirubin (0.2-1.3) mg/dL AST (14-36) U/L ALT (4-34) U/L Alkaline Phosphatase (38-126) U/L Total Protein (6.3-8.2) g/dL Albumin (3.5-5.0) g/dL Urine Color Urine Appearance (Clear) Urine pH (5.0-8.0) Ur Specific [place] (1.001-1.035) Urine Protein (Negative) Urine Glucose (UA) (Negative) Urine Ketones (Negative) Urine Blood (Negative) Urine Nitrite (Negative) Urine Bilirubin (Negative) Urine Urobilinogen (<2.0) mg/dL Ur Leukocyte Esterase (Negative) Urine RBC (0-5) /hpf Urine WBC (0-5) /hpf Ur Squamous Epith Cells (0-4) /hpf Urine Mucus (None) /hpf Coronavirus (PCR) Not Detected (Not Detectd) Influenza Type A RNA Not Detected (Not Detectd) Influenza Type B (PCR) Not Detected (Not Detectd) 10/28/20 Range/Units 19:30 WBC (3.8-10.6) k/uL RBC (3.80-5.40) m/uL Hgb (11.4-16.0) gm/dL Hct (34.0-46.0) % MCV (80.0-100.0) fL MCH (25.0-35.0) pg MCHC (31.0-37.0) g/dL RDW (11.5-15.5) % Plt Count (150-450) k/uL MPV Neutrophils # Hypochromasia Poikilocytosis Anisocytosis Macrocytosis PT (9.0-12.0) sec INR (<1.2) APTT (22.0-30.0) sec Sodium (137-145) mmol/L Potassium (3.5-5.1) mmol/L Chloride (98-107) mmol/L Carbon Dioxide (22-30) mmol/L Anion Gap mmol/L BUN (7-17) mg/dL Creatinine (0.52-1.04) mg/dL Est GFR (CKD-EPI)AfAm (>60 ml/min/1.73 sqM) Est GFR (CKD-EPI)NonAf (>60 ml/min/1.73 sqM) Glucose (74-99) mg/dL Plasma Lactic Acid Andrew (0.7-2.0) mmol/L Calcium (8.4-10.2) mg/dL Total Bilirubin (0.2-1.3) mg/dL AST (14-36) U/L ALT (4-34) U/L Alkaline Phosphatase (38-126) U/L Total Protein (6.3-8.2) g/dL Albumin (3.5-5.0) g/dL Urine Color Yellow Urine Appearance Cloudy H (Clear) Urine pH 7.0 (5.0-8.0) Ur Specific [place] 1.014 (1.001-1.035) Urine Protein Negative (Negative) Urine Glucose (UA) Negative (Negative) Urine Ketones Negative (Negative) Urine Blood Trace H (Negative) Urine Nitrite Negative (Negative) Urine Bilirubin Negative (Negative) Urine Urobilinogen <2.0 (<2.0) mg/dL Ur Leukocyte Esterase Negative (Negative) Urine RBC 3 (0-5) /hpf Urine WBC 2 (0-5) /hpf Ur Squamous Epith Cells 4 (0-4) /hpf Urine Mucus Few H (None) /hpf Coronavirus (PCR) (Not Detectd) Influenza Type A RNA (Not Detectd) Influenza Type B (PCR) (Not Detectd) Disposition Clinical Impression: Fever, Anemia, Neutropenia, Generalized weakness Disposition: ADMITTED IP TO THIS HOSP Referrals: Pradeep Chung DO [Primary Care Provider] - 1-2 days Time of Disposition: 20:00
[2020-10-28] MEDS: SODIUM CHLORIDE 0.9% 500 ML 500 ML IV SCH ×2 (18:29→20:22)
[2020-10-28 18:38] LABS: Anisocytosis Slight; HCT 21.3 % (34.0-46.0); Hypochromasia Slight; MCHC 32.7 g/dL (31.0-37.0); MCV 97.7 fL (80.0-100.0); Macrocytosis Slight; Mean Platelet Volume 14.5; Poikilocytosis Slight; RBC 2.18 m/uL (3.80-5.40); RDW 19.4 % (11.5-15.5)
[2020-10-28 18:42] LABS: INR 3.9 (<1.2); Partial Thromboplastin Time 22.8 sec (22.0-30.0); Prothrombin Time 37.8 sec (9.0-12.0)
[2020-10-28 19:01] LABS: ALT 21 U/L (4-34); AST 29 U/L (14-36); African American GFR (CKD) >90 (>60 ml/min/1.73 sqM); Albumin 3.2 g/dL (3.5-5.0); Alkaline Phosphatase 43 U/L (38-126); Anion Gap 5 mmol/L; Blood Urea Nitrogen 11 mg/dL (7-17); Calcium 8.2 mg/dL (8.4-10.2); Carbon Dioxide 27 mmol/L (22-30); Chloride 101 mmol/L (98-107); Glucose 97 mg/dL (74-99); Non-African American GFR(CKD) >90 (>60 ml/min/1.73 sqM); Sodium 133 mmol/L (137-145); Total Bilirubin 1.1 mg/dL (0.2-1.3); Total Protein 5.7 g/dL (6.3-8.2)
[2020-10-28 19:04] LABS: Potassium 4.1 mmol/L (3.5-5.1)
[2020-10-28 19:41] LABS: Appearance,Urine Cloudy (Clear); Color,Urine Yellow; Protein,Urine Negative (Negative); Specific Gravity,Urine 1.014 (1.001-1.035)
[2020-10-28 19:42] LABS: Bilirubin,Urine Negative (Negative); Blood,Urine Trace (Negative); Glucose,Urine (UA) Negative (Negative); Ketones,Urine Negative (Negative); Leukocyte Esterase,Urine Negative (Negative); Mucus,Urine Few /hpf; Nitrite,Urine Negative (Negative); RBC,Urine 3 /hpf (0-5); Squamous Epithelial Cell,Urine 4 /hpf (0-4); Urobilinogen,Urine <2.0 mg/dL (<2.0); WBC,Urine 2 /hpf (0-5)
--- NOTE | 2020-10-28 19:50 | XR ---
EXAMINATION TYPE: XR chest 2V DATE OF EXAM: 10/28/2020 COMPARISON: Chest x-ray from 10/12/2020 HISTORY: Fever TECHNIQUE: Frontal and lateral views of the chest are obtained. FINDINGS: There is no focal air space opacity, pleural effusion, or pneumothorax seen. The cardiac silhouette size is within normal limits. The osseous structures are intact. IMPRESSION: No acute cardiopulmonary process.
[2020-10-28] MEDS ORDERED: CEFEPIME 2 GM in SODIUM CHLORIDE 0.9% 100 ML IVPB STA (19:55)
[2020-10-28] MEDS ORDERED: SODIUM CHLORIDE 0.9% 1,000 ML IV ONE (20:22)
[2020-10-29] MEDS: CEFEPIME 2 GM in SODIUM CHLORIDE 0.9% 100 ML IVPB SCH ×3 (03:35→19:34)
[2020-10-29] MEDS: SODIUM CHLORIDE 0.9% 1,000 ML IV SCH (11:41)
--- NOTE | 2020-10-29 14:13 | P.CONS ---
History of Present Illness - Reason for Consult Consult date: 10/29/20 AML Requesting physician: Martin Gamble - Chief Complaint fever, weak - History of Present Illness Mrs. Schumacher is a 75 yo female seen by Dr. 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 She states November 2019 she was diagnosed with CVA, seen in [place]. She was soon after diagnosed with AML. She is on venetoclax and hypomethylating agent injections, pending treatment f/u bone marrow-was supposed to be last month-to see if she is in remission and can proceed with transplant. She was admitted in Aug for fall and head trauma, then last month for fever. She is again admitted with fever. Patient was in [place] for her HMA injection late last week. isn't sure what the lab results were or what her vital signs were leaving that appointment. He states that at home she was becoming progressively weaker, checked her temperature, it was 104 Fahrenheit. Brought her to the emergency department. Documented MAXIMUM TEMPERATURE was 101. Pancultures are pending, chest x-ray was negative for an acute process, broad-spectrum antibiotics have been initiated. When seen patient is confusing a lot of her recent events. At this time she has no appetite but denies any nausea, vomiting, oral irritation or sore throat, chest pain, shortness of breath, productive cough, abdominal pain or cramping, dysuria, hematuria, she is unable to explain the consistency of her stool, she doesn't remember her last bowel movement, she denies any pain. 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, basal cell skin cancer, brain bleed History of Any Multi-Drug Resistant Organisms: None Reported Past Surgical History: Adenoidectomy, Appendectomy, Hysterectomy, Orthopedic Surgery, Tonsillectomy Additional Past Surgical History / Comment(s): navid breast reduction, hemorrhoidectomy, metal nithin in toe, lt carpal tunnel, basal cell skin cancer removed Past Anesthesia/Blood Transfusion Reactions: No Reported Reaction Past Psychological History: Anxiety Smoking Status: Unknown if ever smoked Past Alcohol Use History: None Reported Past Drug Use History: None Reported - Past Family History Mother Family Medical History: CVA/TIA, Dementia, Myocardial Infarction ([place]) Father Family Medical History: Cancer Additional Family Medical History / Comment(s): colon cancer, alcoholism Medications and Allergies Home Medications Medication Instructions Recorded Confirmed Type lisinopriL [Zestril] 20 mg PO BID 10/28/16 10/28/20 History Allopurinol [Zyloprim] 300 mg PO DAILY 10/11/20 10/28/20 History Atorvastatin [Lipitor] 40 mg PO HS 10/11/20 10/28/20 History Famotidine 20 mg PO BID PRN 10/11/20 10/28/20 History Warfarin [Coumadin] 2 mg PO SUTUTHSA@2100 10/11/20 10/28/20 History Warfarin [Coumadin] 5 mg PO HS 10/11/20 10/28/20 History ondansetron HCL [Zofran] 8 mg PO BID PRN 10/11/20 10/28/20 History polyethylene glycoL 3350 [Miralax] 17 gm PO DAILY powd.pack 10/17/20 10/28/20 Rx Sennosides-Docusate Sodium 2 tab PO BID 10/28/20 10/28/20 History [Senokot-S] Venetoclax [Venclexta] 10 mg PO DAILY 10/28/20 10/28/20 History Allergies Allergy/AdvReac Type Severity Reaction Status Date / Time erythromycin base Allergy Rash/Hives Verified 10/28/20 20:43 Physical Exam Vitals: Vital Signs Temp Pulse Resp BP Pulse Ox 10/29/20 08:00 99.2 F 88 18 116/66 99 10/29/20 03:35 99.1 F 86 20 123/67 97 10/28/20 20:22 82 16 106/57 95 10/28/20 19:54 98.1 F 10/28/20 18:41 18 10/28/20 17:41 101 F H 10/28/20 17:30 99 F 94 18 137/61 95 Intake and Output 10/28/20 10/29/20 10/29/20 22:59 06:59 14:59 Other: Weight 72.575 kg - Constitutional mildly confused General appearance: average body habitus, cooperative - EENT Eyes: anicteric sclerae, EOMI ENT: hearing grossly normal, normal oropharynx - Neck Neck: no lymphadenopathy - Respiratory Respiratory: bilateral: CTA - Cardiovascular Rhythm: regular Heart sounds: normal: S1, S2 Abnormal Heart Sounds: no systolic murmur, no diastolic murmur, no rub, no S3 Gallop, no S4 Gallop, no click, no other leg Peripheral Edema: bilateral: None - Gastrointestinal General gastrointestinal: no absent bowel sounds, no decreased bowel sounds, no distended, no hepatomegaly, no hyperactive bowel sounds, normal bowel sounds, no organomegaly, no rigid, no scaphoid, soft, no splenomegaly, no tenderness, no umbilical hernia, no ventral hernia - Integumentary Integumentary: normal - Neurologic Neurologic: CNII-XII intact (grossly) - Psychiatric Some of patient's words did not come out as intended. Her train of thought is sometimes hard to follow and changes thoughts in the middle of a sentence Psychiatric: A&O x's 3, appropriate affect, intact judgment & insight Results CBC & Chem 7: 10/28/20 18:17 10/28/20 18:17 Labs: Abnormal Lab Results - Last 24 Hours (Table) 10/28/20 10/28/20 10/28/20 Range/Units 18:17 18:17 18:17 WBC 2.7 L (3.8-10.6) k/uL RBC 2.18 L (3.80-5.40) m/uL Hgb 7.0 L (11.4-16.0) gm/dL Hct 21.3 L (34.0-46.0) % RDW 19.4 H (11.5-15.5) % PT 37.8 H (9.0-12.0) sec INR 3.9 H (<1.2) Sodium 133 L (137-145) mmol/L Creatinine 0.44 L (0.52-1.04) mg/dL Calcium 8.2 L (8.4-10.2) mg/dL Total Protein 5.7 L (6.3-8.2) g/dL Albumin 3.2 L (3.5-5.0) g/dL Urine Appearance (Clear) Urine Blood (Negative) Urine Mucus (None) /hpf 10/28/20 Range/Units 19:30 WBC (3.8-10.6) k/uL RBC (3.80-5.40) m/uL Hgb (11.4-16.0) gm/dL Hct (34.0-46.0) % RDW (11.5-15.5) % PT (9.0-12.0) sec INR (<1.2) Sodium (137-145) mmol/L Creatinine (0.52-1.04) mg/dL Calcium (8.4-10.2) mg/dL Total Protein (6.3-8.2) g/dL Albumin (3.5-5.0) g/dL Urine Appearance Cloudy H (Clear) Urine Blood Trace H (Negative) Urine Mucus Few H (None) /hpf Chest x-ray: report reviewed Assessment and Plan (1) Febrile neutropenia Narrative/Plan: MAXIMUM TEMPERATURE inpatient 101 Fahrenheit, reported temperature of 104 Fahrenheit at home prior to admission. Patient's ANC is not reportable at this time. She recently had treatment for AML. Pancultures pending. Empiric antibiotics ordered. CBC daily. No G-CSF at this time. Current Visit: Yes Status: Acute Priority: High Code(s): D70.9 - NEUTROPENIA, UNSPECIFIED; R50.81 - FEVER PRESENTING WITH CONDITIONS CLASSIFIED ELSEWHERE SNOMED Code(s): 980958092 (2) Acute myeloid leukemia Narrative/Plan: Spoke with patient's . Patient has been continued on the same regimen of the medical ask as well as weekly injections for her AML. Patient is due for a bone marrow on 11/05 to see if she has a deep enough remission for transplant. Please hold the venetoclax while inpatient and being treated for febrile neutropenia. F/U with Hem/Onc in [place] Current Visit: Yes Status: Acute Priority: High Code(s): C92.00 - ACUTE MYELOBLASTIC LEUKEMIA, NOT HAVING ACHIEVED REMISSION SNOMED Code(s): 42178711 (3) Antineoplastic chemotherapy induced pancytopenia Narrative/Plan: Patient will require irradiated blood products. Transfuse for hemoglobin less than 7 unless symptomatic. Transfuse for platelet count less than 10,000 unless symptomatic. New blood specimen had to be sent-pending results No G-CSF at this time. Still pending a bone marrow biopsy and aspirate to confirm remission. Current Visit: Yes Status: Chronic Priority: High Code(s): D61.810 - ANTINEOPLASTIC CHEMOTHERAPY INDUCED PANCYTOPENIA; T45.1X5A - ADVERSE EFFECT OF ANTINEOPLASTIC AND IMMUNOSUP DRUGS, INIT SNOMED Code(s): 377861518065626 (4) Coagulopathy Narrative/Plan: INR 3.9. Hold tonight's dose of Coumadin. Pharmacy to dose Coumadin. We will wait until plt count resulted before reversing INR completely, no evidence of acute bleeding. Or, if platelets less than 50,000, can transfuse - irradiated blood products only- to keep plt level near 50,000 to continue anticoagulation. Current Visit: Yes Status: Acute Priority: High Code(s): D68.9 - COAGULATION DEFECT, UNSPECIFIED SNOMED Code(s): 59571062 Plan: I spoke with patient's over the phone regarding her case.
[2020-10-29 14:53] LABS: Neutrophils % (M) 1 %
[2020-10-29 14:54] LABS: Band Neutrophils % 1 %; Metamyelocytes # (M) 0.05 k/uL (0); Metamyelocytes % 2 %; Myelocytes # (M) 0.03 k/uL (0); Myelocytes % 1 %; Nucleated Red Blood Cells 4 /100 WBC (0-0); Total Cells Counted 100
[2020-10-29 14:55] LABS: Blast Cells # (M) 0.86 k/uL (0); Lymphocytes # (M) 1.48 k/uL (1.0-4.8); Monocytes # (M) 0.13 k/uL (0-1.0); WBC 2.6 k/uL (3.8-10.6)
[2020-10-29 14:56] LABS: Poikilocytosis (M) Present
[2020-10-29] MEDS ORDERED: ONDANSETRON 4 MG TAB PO PRN (18:33)
[2020-10-29] MEDS ORDERED: FAMOTIDINE 20 MG TAB PO PRN (18:33)
[2020-10-29] MEDS: ATORVASTATIN 40 MG TAB PO SCH (20:09)
[2020-10-29] MEDS: lisinopriL 20 MG TAB PO SCH (20:09)
[2020-10-29] MEDS: SENNOSIDES-DOCUSATE SODIUM 1 EACH TAB PO SCH (20:09)
--- NOTE | 2020-10-29 23:10 | P.HPIM ---
History of Present Illness H&P Date: 10/29/20 Chief Complaint: Tired History of presenting complaint: This is a 75-year-old patient of Dr. Chung. Chronic stable medical conditions include hyperlipidemia, hypertension, parathyroid disorder, basal cell skin cancer. Reported history of blood clot in the brain for which patient is on Coumadin, possibly venous thrombosis. Patient does follow with was a heme oncologist out of [place] and patient be getting chemotherapy for acute myeloid leukemia. [November 2019 patient presented to the ER here-CT angios the head had shown intracranial hemorrhage adjacent to the right posterior cerebral artery but no definite aneurysm identified. Subdural hemorrhage. Patient was transferred to [facility] in [place]. On October 12 this year patient admitted here with neutropenic sepsis felt to be possibly from right lower lobe pneumonia. EEG was negative for seizure acti vity. Patient is doing much better by the time of discharge. Some fever was still present. [place] to be from underlying leukemia. Patient was discharged. Since discharge patient has been doing well. Patient now presents after being transferred here from another facility. Her platelets and hemoglobin at below. She also had a few 102 earlier. Has been eating okay. Does feel a bit weak. No respiratory urinary symptoms. Review of systems: GEN.: Tired fever EYES: None HEENT: None NECK: None RESPIRATORY: None CARDIOVASCULAR: None GASTROINTESTINAL: None GENITOURINARY: None MUSCULOSKELETAL: Some muscle weakness LYMPHATICS: None HEMATOLOGICAL: None PSYCHIATRY: None NEUROLOGICAL: [No focal weakness Past medical history to include: Hyperlipidemia, hypertension, mitral valve prolapse, parathyroid disorder, basal cell skin cancer, venous sinus thrombosis, intracranial and subdural hemorrhage in November 2019. Acute myeloid leukemia Social history: Lives with . No history of smoking or alcohol Physical examination: VITAL SIGNS: 101, 94, 18, 1 37 x 61, 95% room air GENERAL: BMI 30.2, laying in bed, awake but tired EYES: Pupils equal. Conjunctiva pale. HEENT: External appearance of nose and ears normal, oral cavity grossly normal. NECK: JVD not raised; masses not palpable. HEART: First and second heart sounds are normal; no edema. LUNGS: Respiratory rate normal; clear to auscultation. ABDOMEN: Soft, nontender, liver spleen not palpable, no masses palpable. PSYCH: Tired answering questions NEUROLOGICAL: Cranial nerves grossly intact; no facial asymmetry, power and sensation grossly intact. LYMPHATICS: No lymph nodes palpable in the axilla and neck INVESTIGATIONS, reviewed in the clinical context: WBC 2.6 hemoglobin 7 platelets-unable to provide a count blast cells 33% Potassium 4.1 creatinine 0.44 albumin 3.2 UA negative for nitrate and leukoesterase Coronavirus [PCF]-not detected. Influenza type A and type B both nondetected. EKG tracing personally reviewed by me-normal sinus rhythm Chest x-ray film personally reviewed by me-no obvious infiltrates Assessment and plan: -This is a patient with underlying AML presents with fever feeling tired. Weak. Was in the hospital close to a month ago when treated for pneumonia with neutropenic sepsis. Patient's had fever off and on. Had been felt to be from AML itself. -Coumadin monitoring. -anticoagulation. for cranial venous thrombosis. -History of intracranial and subdural hemorrhage in November 2019. For which patient was transferred out to [facility] -Acute myeloid leukemia, being treated by Dr. lombardo from [facility]. Awaiting bone marrow transplant -Essential hypertension continue Zestril -Hyperlipidemia continue with Lipitor -Hyperuricemia likely from treatment for leukemia. Continue with allopurinol -Neutropenic fever. The fever could be itself be from underlying AML. Patient empirically has been put on cefepime. Home medications are continued. Gentle hydration. Consultation to hematology and ID. Patient has been elliott cultured. 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, basal cell skin cancer, brain bleed History of Any Multi-Drug Resistant Organisms: None Reported Past Surgical History: Adenoidectomy, Appendectomy, Hysterectomy, Orthopedic Surgery, Tonsillectomy Additional Past Surgical History / Comment(s): navid breast reduction, hemorrhoidectomy, metal nithin in toe, lt carpal tunnel, basal cell skin cancer removed Past Anesthesia/Blood Transfusion Reactions: No Reported Reaction Past Psychological History: Anxiety Smoking Status: Unknown if ever smoked Past Alcohol Use History: None Reported Past Drug Use History: None Reported - Past Family History Mother Family Medical History: CVA/TIA, Dementia, Myocardial Infarction ([place]) Father Family Medical History: Cancer Additional Family Medical History / Comment(s): colon cancer, alcoholism Medications and Allergies Home Medications Medication Instructions Recorded Confirmed Type lisinopriL [Zestril] 20 mg PO BID 10/28/16 10/28/20 History Allopurinol [Zyloprim] 300 mg PO DAILY 10/11/20 10/28/20 History Atorvastatin [Lipitor] 40 mg PO HS 10/11/20 10/28/20 History Famotidine 20 mg PO BID PRN 10/11/20 10/28/20 History Warfarin [Coumadin] 2 mg PO SUTUTHSA@2100 10/11/20 10/28/20 History Warfarin [Coumadin] 5 mg PO HS 10/11/20 10/28/20 History ondansetron HCL [Zofran] 8 mg PO BID PRN 10/11/20 10/28/20 History polyethylene glycoL 3350 [Miralax] 17 gm PO DAILY powd.pack 10/17/20 10/28/20 Rx Sennosides-Docusate Sodium 2 tab PO BID 10/28/20 10/28/20 History [Senokot-S] Venetoclax [Venclexta] 10 mg PO DAILY 10/28/20 10/28/20 History Allergies Allergy/AdvReac Type Severity Reaction Status Date / Time erythromycin base Allergy Rash/Hives Verified 10/28/20 20:43 Physical Exam Vitals: Vital Signs Temp Pulse Resp BP Pulse Ox 10/29/20 11:00 98.9 F 10/29/20 08:00 99.2 F 88 18 116/66 99 10/29/20 03:35 99.1 F 86 20 123/67 97 10/28/20 20:22 82 16 106/57 95 10/28/20 19:54 98.1 F 10/28/20 18:41 18 10/28/20 17:41 101 F H 10/28/20 17:30 99 F 94 18 137/61 95 Intake and Output 10/28/20 10/29/20 10/29/20 22:59 06:59 14:59 Other: Weight 72.575 kg Results CBC & Chem 7: 10/28/20 18:17 10/28/20 18:17 Labs: Abnormal Lab Results - Last 24 Hours (Table) 10/28/20 10/28/20 10/28/20 Range/Units 18:17 18:17 18:17 WBC 2.7 L (3.8-10.6) k/uL RBC 2.18 L (3.80-5.40) m/uL Hgb 7.0 L (11.4-16.0) gm/dL Hct 21.3 L (34.0-46.0) % RDW 19.4 H (11.5-15.5) % PT 37.8 H (9.0-12.0) sec INR 3.9 H (<1.2) Sodium 133 L (137-145) mmol/L Creatinine 0.44 L (0.52-1.04) mg/dL Calcium 8.2 L (8.4-10.2) mg/dL Total Protein 5.7 L (6.3-8.2) g/dL Albumin 3.2 L (3.5-5.0) g/dL Urine Appearance (Clear) Urine Blood (Negative) Urine Mucus (None) /hpf 10/28/20 Range/Units 19:30 WBC (3.8-10.6) k/uL RBC (3.80-5.40) m/uL Hgb (11.4-16.0) gm/dL Hct (34.0-46.0) % RDW (11.5-15.5) % PT (9.0-12.0) sec INR (<1.2) Sodium (137-145) mmol/L Creatinine (0.52-1.04) mg/dL Calcium (8.4-10.2) mg/dL Total Protein (6.3-8.2) g/dL Albumin (3.5-5.0) g/dL Urine Appearance Cloudy H (Clear) Urine Blood Trace H (Negative) Urine Mucus Few H (None) /hpf
[2020-10-30] MEDS: CEFEPIME 2 GM in SODIUM CHLORIDE 0.9% 100 ML IVPB SCH ×3 (04:52→19:29)
[2020-10-30] MEDS: SODIUM CHLORIDE 0.9% 1,000 ML IV SCH ×3 (04:53→12:45)
--- NOTE | 2020-10-30 05:51 | CONS ---
CONSULTATION DATE OF SERVICE: 10/29/2020 REASON FOR CONSULTATION: Fever. HISTORY OF PRESENT ILLNESS: The patient is a 75-year-old female with past medical history significant for acute myeloid leukemia for which the patient is currently undergoing treatment at . Patient was recently admitted to this facility with fever. The patient did have extensive workup with no obvious focus of infection thought to be related to her acute myeloid leukemia. Patient subsequently has been evaluated in the outpatient setting by her oncologist and hence has receive another chemo. The patient has now been brought back to the hospital last evening for evaluation of fever at home along with generalized weakness. The patient denies having any headache or URI symptoms. Denies having any chest pain, shortness of breath or cough. No nausea, no vomiting. No abdominal pain. No diarrhea. No urinary symptoms. With these symptoms, the patient was evaluated by the ER physician. On arrival to the ER, the patient did have a fever of 101 degrees Fahrenheit. The patient is currently on room air. The patient did have a mild leukopenia with white count of 2.6. Did have 33% bands. Platelet count was unable to provide adequate number. The patient did have a normal kidney function and liver enzymes are normal. Urine was negative. Martin and influenza PCR was negative. Chest x-ray was negative for any acute infiltrate. She was started on cefepime. Infectious Disease was consulted for further management of antibiotic therapy. REVIEW OF SYSTEMS: Positive points have been mentioned in HPI. Rest of systems are negative. PAST MEDICAL HISTORY: Acute myeloid leukemia, hypertension, hyperlipidemia, mitral valve prolapse. PAST SURGICAL HISTORY: Adenoidectomy, appendectomy, hysterectomy, tonsillectomy, bilateral breast reduction, hemorrhoidectomy. SOCIAL HISTORY: Denies smoking, drinking, drug use. FAMILY HISTORY: No pertinent findings noticed. ALLERGIES: ERYTHROMYCIN BASED. MEDICATIONS: The patient is currently on Zyloprim, Lipitor, cefepime, Pepcid, Zestril, Zofran, Senokot, and IV fluid. PHYSICAL EXAMINATION: VITAL SIGNS: Blood pressure 119/70 with a pulse of 80, temperature 98.8. She is 97% room air. GENERAL DESCRIPTION: An elderly female lying in bed in no distress. No tachypnea or accessory muscles of respiration use. HEENT: Shows pallor. No scleral icterus. Oral mucous membrane is dry. NECK: Trachea central, no thyromegaly. LUNGS: Unlabored breathing, clear to auscultation anteriorly. HEART: S1, S2. Regular rate and rhythm. ABDOMEN: Soft, no tenderness. No guarding. No rigidity. EXTREMITIES: No edema of the feet. SKIN: No rash or mass palpable. NEUROLOGIC: The patient is awake, alert, oriented. Mood and affect normal. No signs of meningeal irritation. LABS: Hemoglobin is 7, white count 2.6 with 33% bands. BUN of 11, creatinine 0.44. Electrolytes have been normal. Liver enzymes are normal. Urine was negative. Martin and influenza PCR was negative. Chest x-ray was negative. DIAGNOSTIC IMPRESSION AND PLAN: Patient admitted to the hospital with weakness and fever which could be related to her underlying hematological malignancy as patient currently does not have any obvious focus of infection. Patient with negative chest x-ray. Urine is negative. Abdomen soft and nontender on examination. No evidence of any cellulitis or joint swelling. PLAN: 1. We will obtain a CT of the abdomen and pelvis with contrast to rule out any intraabdominal source for infection. 2. Continue the empiric cefepime at this point. 3. Will check and CRP level. 4. We will follow on clinical condition and further adjust medication if needed. Thank you for this consultation. Will follow this patient along with you. MMODL / IJN: [id number] /
[2020-10-30] MEDS: SENNOSIDES-DOCUSATE SODIUM 1 EACH TAB PO SCH ×2 (08:15→20:26)
[2020-10-30] MEDS: polyethylene glycoL 3350 17 GM POWD.PACK PO SCH (08:15)
[2020-10-30] MEDS: lisinopriL 20 MG TAB PO SCH ×2 (08:16→20:26)
[2020-10-30] MEDS: allopurinoL 300 MG TAB PO SCH (08:16)
[2020-10-30 10:01] LABS: INR 1.9 (<1.2); Prothrombin Time 18.8 sec (9.0-12.0)
[2020-10-30 10:02] LABS: Anisocytosis Slight; HCT 22.1 % (34.0-46.0); HGB 7.2 gm/dL (11.4-16.0); Hypochromasia Slight; MCH 32.4 pg (25.0-35.0); MCHC 32.4 g/dL (31.0-37.0); MCV 100.1 fL (80.0-100.0); Macrocytosis Slight; Mean Platelet Volume 10.9; Poikilocytosis Slight; RBC 2.21 m/uL (3.80-5.40); RDW 19.3 % (11.5-15.5)
[2020-10-30] MEDS: IOPAMIDOL CONTRAST (ORAL USE) VIAL PO PRN ×2 (10:08→11:20)
[2020-10-30 11:09] LABS: Monocytes # (M) 0.04 k/uL (0-1.0)
[2020-10-30 11:10] LABS: Blast Cells # (M) 0.59 k/uL (0); Lymphocytes # (M) 1.17 k/uL (1.0-4.8); Nucleated Red Blood Cells 4 /100 WBC (0-0); Total Cells Counted 100; WBC 1.8 k/uL (3.8-10.6)
[2020-10-30 11:13] LABS: Platelet Count 42 k/uL (150-450)
[2020-10-30 11:14] LABS: Polychromasia Present
--- NOTE | 2020-10-30 12:27 | CT ---
EXAMINATION TYPE: CT abdomen pelvis w con DATE OF EXAM: 10/30/2020 HISTORY: Jaundice and fever. CT DLP: 1158mGycm Automated Exposure Control for Dose Reduction was Utilized. CONTRAST: CT scan of the abdomen and pelvis is performed with IV Contrast, patient injected with 100 mL of Isov ue 300. COMPARISON: CT abdomen and pelvis October 13, 2020. FINDINGS: LUNG BASES: Mild bibasilar linear scarring and/or atelectasis. LIVER/GB: Subcentimeter low dense lesion axial image 23 presumed benign and unchanged from prior. No new biliary dilatation. PANCREAS: No significant abnormality is seen. SPLEEN: Stable anterior splenule axial image 22. ADRENALS: No significant abnormality is seen. KIDNEYS: Nonspecific subtle slightly hypodense subcentimeter lesion image 43 series 7 should be follo wed. It is too small to currently characterize. Nondependent air in the bladder position following re cent catheterization, correlate clinically. BOWEL: Small sized hiatal hernia. Oral contrast extends to the left colon. No suspicious small or lar ge bowel dilatation. Mild to moderate prominence of fecal material in the sigmoid colon. This is slig htly less prominent in the rectum from prior CT. Posterior perirectal fluid and fat stranding is impr venu from prior CT. UTERUS/ADNEXA: Uterus surgically absent. A few scattered tiny bilateral pelvic phleboliths redemonstr ated. LYMPH NODES: No greater than 1cm abdominal or pelvic lymph nodes are appreciated. OSSEOUS STRUCTURES: Transitional type vertebra lumbosacral junction redemonstrated. [id number] multilevel disc space narrowing. Multilevel facet arthropathy in the mid to lower lumbar spine. OTHER: Tiny fat-containing umbilical hernia. Significant narrowing at the celiac artery origin is not ed sagittal image 38. Correlate for celiac artery compression syndrome. IMPRESSION: No suspicious new intrahepatic mass or biliary ductal dilatation. Improved presacral flui d and fat stranding. Improved rectal fecal stasis. Persistent mild to moderate distal colonic fecal s tasis. No bowel obstruction.
--- NOTE | 2020-10-30 14:58 | P.PN ---
Subjective Progress Note Date: 10/30/20 Principal diagnosis: Febrile neutropenia, AMS Pt doing well in f/u today. no fever, pain, appetite is fair, no acute changes in bowel or bladder. Objective - Vital Signs Vital signs: Vital Signs Temp 99.3 F 10/30/20 05:00 Pulse 80 10/30/20 08:00 Resp 18 10/30/20 08:00 BP 118/78 10/30/20 05:00 Pulse Ox 95 10/30/20 05:00 Intake & Output 10/29/20 10/30/20 10/30/20 18:59 06:59 18:59 Intake Total 640 1160 240 Balance 640 1160 240 Weight 72.575 kg Intake: Intake, IV Titration 640 800 Amount Cefepime 2 gm In Sodium 200 Chloride 0.9% 100 ml @ 25 mls/hr IVPB Q8H GINO Rx#: [id number] Sodium Chloride 0.9% 1, 640 600 000 ml @ 75 mls/hr IV . [id number] GINO Rx#:[id number] Oral 360 240 Other: # Voids 1 1 - Constitutional General appearance: Present: average body habitus, cooperative, no acute distress - EENT Eyes: Present: anicteric sclerae, EOMI ENT: Present: hearing grossly normal - Respiratory Respiratory: bilateral: CTA - Cardiovascular Rhythm: regular Heart sounds: normal: S1, S2 Abnormal Heart Sounds: Absent: systolic murmur, diastolic murmur, rub, S3 Gallop, S4 Gallop, click, other - Peripheral edema leg Peripheral Edema: bilateral: None - Gastrointestinal General gastrointestinal: Present: normal bowel sounds, soft. Absent: absent bowel sounds, decreased bowel sounds, distended, hepatomegaly, hyperactive bowel sounds, organomegaly, rigid, scaphoid, splenomegaly, tenderness, umbilical hernia, ventral hernia - Musculoskeletal Musculoskeletal: Present: strength equal bilaterally - Psychiatric Psychiatric: Present: A&O x's 3, appropriate affect - Labs CBC & Chem 7: 10/30/20 08:52 10/28/20 18:17 Labs: Abnormal Lab Results - Last 24 Hours (Table) 10/28/20 10/30/20 10/30/20 Range/Units 18:17 08:52 08:52 WBC 2.6 L 1.9 L (3.8-10.6) k/uL RBC 2.21 L (3.80-5.40) m/uL Hgb 7.2 L (11.4-16.0) gm/dL Hct 22.1 L (34.0-46.0) % MCV 100.1 H (80.0-100.0) fL RDW 19.3 H (11.5-15.5) % Blast Cells % 33 H* % Neutrophils # (Manual) 0.00 L* (1.3-7.7) k/uL Metamyelocytes # (Man) 0.05 H (0) k/uL Myelocytes # (Manual) 0.03 H (0) k/uL Blast Cells # (Man) 0.86 H (0) k/uL Nucleated RBCs 4 H (0-0) /100 WBC PT 18.8 H (9.0-12.0) sec INR 1.9 H (<1.2) Microbiology - Last 24 Hours (Table) 10/28/20 18:36 Blood Culture - Preliminary Blood No Growth after 24 hours 10/28/20 18:21 Blood Culture - Preliminary Blood No Growth after 24 hours Assessment and Plan (1) Febrile neutropenia Narrative/Plan: MAXIMUM TEMPERATURE inpatient 101 Fahrenheit, reported temperature of 104 Fahrenheit at home prior to admission, no fever since last night. Patient's ANC remains unreportable at this time. She recently had treatment for AML. Pancultures pending. Empiric antibiotics cont. CBC daily. No G-CSF at this time. Current Visit: Yes Status: Acute Priority: High Code(s): D70.9 - NEUTROPENIA, UNSPECIFIED; R50.81 - FEVER PRESENTING WITH CONDITIONS CLASSIFIED ELSEWHERE SNOMED Code(s): 899095987 (2) Acute myeloid leukemia Narrative/Plan: Patient has been continued on the same regimen of venetoclax and weekly SQ injections for her AML. Patient is due for a bone marrow on 11/05 to see if she has a deep enough remission for transplant. Please hold the venetoclax while inpatient and being treated for febrile neutropenia. F/U with Hem/Onc in [place] Current Visit: Yes Status: Acute Priority: High Code(s): C92.00 - ACUTE MYELOBLASTIC LEUKEMIA, NOT HAVING ACHIEVED REMISSION SNOMED Code(s): 87133934 (3) Antineoplastic chemotherapy induced pancytopenia Narrative/Plan: Patient will require irradiated blood products. Transfuse for hemoglobin less than 7 unless symptomatic. Transfuse for platelet count less than 10,000 unless symptomatic. 42,000 today No G-CSF at this time. Still pending a bone marrow biopsy and aspirate to confirm remission. Current Visit: Yes Status: Chronic Priority: High Code(s): D61.810 - ANTINEOPLASTIC CHEMOTHERAPY INDUCED PANCYTOPENIA; T45.1X5A - ADVERSE EFFECT OF ANTINEOPLASTIC AND IMMUNOSUP DRUGS, INIT SNOMED Code(s): 509396198395516 (4) Coagulopathy Narrative/Plan: INR 1.9. No need to reverse INR, just cont to hold coumadin for plt count <50,000 Current Visit: Yes Status: Acute Priority: High Code(s): D68.9 - COAGULATION DEFECT, UNSPECIFIED SNOMED Code(s): 33821373 Plan: Pt wanted to go home but, cultures must be resulted and she must be afebrile for [address] Gan discussed case with Attending. Doctor attests: I performed a history and physical examination of this patient, developed impression and plan of care, discussed with dictator. I agree with dictators note, documented as a scribe.
[2020-10-30] MEDS ORDERED: ACETAMINOPHEN TAB 325 MG TAB PO PRN (15:14)
[2020-10-30] MEDS: ATORVASTATIN 40 MG TAB PO SCH (20:26)
--- NOTE | 2020-10-30 22:35 | P.PN ---
Progress Note - Text Progress Note Date: 10/30/20 Chief Complaint: Tired History of presenting complaint: This is a 75-year-old patient of Dr. Chung. Chronic stable medical conditions include hyperlipidemia, hypertension, parathyroid disorder, basal cell skin cancer. Reported history of blood clot in the brain for which patient is on Coumadin, possibly venous thrombosis. Patient does follow with was a heme oncologist out of [place] and patient be getting chemotherapy for acute myeloid leukemia. [November 2019 patient presented to the ER here-CT angios the head had shown intracranial hemorrhage adjacent to the right posterior cerebral artery but no definite aneurysm identified. Subdural hemorrhage. Patient was transferred to [facility] in [place]. On October 12 this year patient admitted here with neutropenic sepsis felt to be possibly from right lower lobe pneumonia. EEG was negative for seizure activity. Patient is doing much better by the time of discharge. Some fever was still present. [place]aston to be from underlying leukemia. Patient was discharged. Since discharge patient has been doing well. Patient now presents after being transferred here from another facility. Her platelets and hemoglobin at below. She also had a few 102 earlier. Has been eating okay. Does feel a bit weak. No respiratory urinary symptoms. Today-laying in bed. Wants to go home. Does not like hospital food. No fever noted. On empiric antibiotics. Review of systems: Was done for constitutional, cardiovascular, GI, pulmonary. relevant finding as above Active Medications Acetaminophen (Acetaminophen Tab 325 Mg Tab) 650 mg PO Q6HR PRN PRN Reason: Fever and/ or Pain Allopurinol (Allopurinol 300 Mg Tab) 300 mg PO DAILY [facility] Last Admin: 10/30/20 08:16 Dose: 300 mg Documented by: Atorvastatin Calcium (Atorvastatin 40 Mg Tab) 40 mg PO HS [facility] Last Admin: 10/30/20 20:26 Dose: 40 mg Documented by: Famotidine (Famotidine 20 Mg Tab) 20 mg PO BID PRN PRN Reason: on chemo days Cefepime HCl 2 gm/ Sodium (Chloride) 100 mls @ 25 mls/hr IVPB Q8H [facility] Last Admin: 10/30/20 19:29 Dose: 25 mls/hr Documented by: Sodium Chloride (Saline 0.9%) 1,000 mls @ 75 mls/hr IV .[id number] [facility] Last Admin: 10/30/20 12:45 Dose: 75 mls/hr Documented by: Lisinopril (Lisinopril 20 Mg Tab) 20 mg PO BID [facility] Last Admin: 10/30/20 20:26 Dose: 20 mg Documented by: Ondansetron HCl (Ondansetron 4 Mg Tab) 8 mg PO BID PRN PRN Reason: Nausea Polyethylene Glycol (Polyethylene Glycol 3350 17 Gm Powd.Pack) 17 gm PO DAILY [facility] Last Admin: 10/30/20 08:15 Dose: 17 gm Documented by: Senna/Docusate Sodium (Sennosides-Docusate Sodium 1 Each Tab) 2 each PO BID [facility] Last Admin: 10/30/20 20:26 Dose: 2 each Documented by: Past medical history to include: Hyperlipidemia, hypertension, mitral valve prolapse, parathyroid disorder, basal cell skin cancer, venous sinus thrombosis, intracranial and subdural hemorrhage in November 2019. Acute myeloid leukemia Social history: Lives with . No history of smoking or alcohol Physical examination: VITAL SIGNS: 7.3, 84, 17, 113/58, 100% on room air GENERAL: BMI 30.2, laying in bed, awake EYES: Pupils equal. Conjunctiva pale. HEENT: External appearance of nose and ears normal, oral cavity grossly normal. NECK: JVD not raised; masses not palpable. HEART: First and second heart sounds are normal; no edema. LUNGS: Respiratory rate normal; clear to auscultation. ABDOMEN: Soft, nontender, liver spleen not palpable, no masses palpable. PSYCH: Answering questions INVESTIGATIONS, reviewed in the clinical context: October 30: White count 1.8 hemoglobin 7.2 platelets adequate pro-time 18.8 Computed tomography scan of the abdomen and pelvis-no obvious source of any infection. WBC 2.6 hemoglobin 7 platelets-unable to provide a count blast cells 33% Potassium 4.1 creatinine 0.44 albumin 3.2 UA negative for nitrate and leukoesterase Coronavirus [PCF]-not detected. Influenza type A and type B both nondetected. EKG tracing personally reviewed by me-normal sinus rhythm Chest x-ray film personally reviewed by me-no obvious infiltrates Blood cultures-from October 28: Negative Assessment and plan: -This is a patient with underlying AML presents with fever feeling tired. Weak. Was in the hospital close to a month ago when treated for pneumonia with neutropenic sepsis. Patient's had fever off and on. Had been felt to be from AML itself. -Coumadin monitoring. -anticoagulation. for cranial venous thrombosis. -History of intracranial and subdural hemorrhage in November 2019. For which patient was transferred out to [facility] -Acute myeloid leukemia, being treated by Dr. lombardo from [facility]. Awaiting bone marrow transplant -Essential hypertension continue Zestril -Hyperlipidemia continue with Lipitor -Hyperuricemia likely from treatment for leukemia. Continue with allopurinol -Neutropenic fever. The fever could be itself be from underlying AML. Infection workup is coming back negative treadmill. Continue with IV cefepime. Did explain to the patient and ear to make sure that infection negative before she can be discharged.
--- NOTE | 2020-10-31 01:57 | PN ---
PROGRESS NOTE DATE OF SERVICE: 10/30/2020 REASON FOR FOLLOWUP: Fever. INTERVAL HISTORY: Patient is currently afebrile. Patient is breathing comfortably on room air. Denies having any chest pain. No shortness of breath or cough. No nausea, vomiting, abdominal pain or diarrhea. PHYSICAL EXAMINATION: Her blood pressure is 108/66, pulse of 90, temperature 98.9. She is 95% on room air. General description is an elderly female lying in bed in no distress. Respiratory system: Unlabored breathing, lungs clear to auscultation anteriorly. Heart S1, S2. Regular rate and rhythm. Abdomen: Soft, no tenderness. LABS: White count is 1.8. Cultures so far negative. CT abdomen and pelvis presacral fluid and fat stranding improved. Rectal fecal stasis. DIAGNOSTIC IMPRESSION AND PLAN: Patient with fever and leukopenia and underlying acute myeloid leukemia. As the patient currently does not have any obvious focus of infection, the patient is currently empirically covered with Zosyn with cefepime and can be discontinued if cultures remained to be negative and continue supportive care. MMODL / IJN: [id number] /
[2020-10-31] MEDS: CEFEPIME 2 GM in SODIUM CHLORIDE 0.9% 100 ML IVPB SCH ×3 (03:28→21:01)
[2020-10-31] MEDS: SODIUM CHLORIDE 0.9% 1,000 ML IV SCH ×2 (04:52→19:36)
[2020-10-31] MEDS: polyethylene glycoL 3350 17 GM POWD.PACK PO SCH (08:47)
[2020-10-31] MEDS: SENNOSIDES-DOCUSATE SODIUM 1 EACH TAB PO SCH ×2 (08:47→20:57)
[2020-10-31] MEDS: allopurinoL 300 MG TAB PO SCH ×2 (08:48→11:55)
[2020-10-31] MEDS: lisinopriL 20 MG TAB PO SCH ×3 (08:48→11:56)
[2020-10-31 10:43] LABS: Glucose,Whole Blood 113 mg/dL (75-99)
--- NOTE | 2020-10-31 11:32 | CT ---
EXAMINATION TYPE: CT brain wo con for TPA DATE OF EXAM: 10/31/2020 COMPARISON: Prior CT 10/12/2020 HISTORY: Confusion. Altered mental status CT DLP: 1205.8 mGycm Automated exposure control for dose reduction was used. Helical imaging through the brain. FINDINGS: Cerebellar atrophy and cortical atrophy show similar appearance. Periventricular white matter shows p atchy low attenuation, low-attenuation within the anterior limb of the internal capsule on the left m ay be more conspicuous than on prior due to differences in technique. There is no hemorrhage or hydro cephalus. Encephalomalacia along the inferior right occipital lobe shows a similar appearance. The ca lvarium is intact. Paranasal sinuses and mastoid air cells as visualized are unremarkable. Orbits rosa w symmetric appearance. IMPRESSION: STABLE EXAM, FINDINGS CONSISTENT WITH CHRONIC SMALL VESSEL ISCHEMIC CHANGE, AGE RELATED ATROPHY. PROM INENCE OF THE CEREBELLAR ATROPHY COULD BE INDICATIVE OF UNDERLYING AND I SEIZURE THERAPY, ALCOHOLISM, CORRELATE.
[2020-10-31 11:40] LABS: INR 1.39 (0.90-1.11); Prothrombin Time 14.8 sec (9.9-11.9)
--- NOTE | 2020-10-31 11:50 | CT ---
EXAMINATION TYPE: CODE STROKE: CTA head neck DATE OF EXAM: 10/31/2020 HISTORY: Shortness of breath, altered mental status and confusion COMPARISON: CT brain 10/31/2020 CT DLP: 559.2 mGycm. Automated Exposure Control for Dose Reduction was Utilized. TECHNIQUE: CTA scan of the neck is performed with IV Contrast, patient injected with 65 mL of Isovue 370, axial images are obtained, coronal and sagittal reformatted images are reviewed. Three-D recons tructed images are created on an independent workstation and reviewed. FINDINGS: Carotid/Vascular Structures: Transverse aorta is patent, the innominate, left and right common caroti d, left and likely subclavian arteries are patent. Left and right vertebral arteries are patent and s how codominant appearance. Internal and extra carotid arteries are patent, there is no evidence of st enosis by NASCET criteria. Interest cranial circulation shows no significant stenosis of the internal carotid arteries, there is no evident embolus, aneurysm, or dissection. There are cerebral vascular calcifications Other: Low dense focus in the left thyroid gland measures 2.1 cm. Degenerative disc disease, multilev el facet arthropathy, multilevel foraminal encroachment noted in the cervical spine. IMPRESSION: No significant abnormality is seen within the vasculature. Left thyroid nodule is indete rminate
[2020-10-31 12:57] LABS: Anisocytosis (M) 2+; Basophils # (A) 0 X 10*3/uL (0.00-0.10); Basophils % (A) 0 %; Eosinophils # (A) 0 X 10*3/uL (0.04-0.35); Eosinophils % (A) 0 %; HCT 19.1 % (37.2-46.3); HGB 6.1 g/dL (12.0-15.0); Lymphocytes # (A) 0.95 X 10*3/uL (0.90-5.00); Lymphocytes % (A) 63.8 %; MCH 32.4 pg (27.0-32.0); MCHC 31.9 g/dL (32.0-37.0); MCV 101.6 fL (80.0-97.0); Mean Platelet Volume 11.7 fL (9.5-12.2); Monocytes % (A) 26.8 %; Neutrophils # (A) 0.14 X 10*3/uL (1.80-7.70); Neutrophils % (A) 9.4 %; Platelet Count 33 X 10*3/uL (140-440); RBC 1.88 X 10*6/uL (4.10-5.20); RDW 18.1 % (11.5-14.5); WBC 1.49 X 10*3/uL (4.50-10.00)
--- NOTE | 2020-10-31 16:08 | P.PN ---
Subjective Progress Note Date: 10/31/20 Principal diagnosis: Febrile neutropenia, AMS Pt doing ok in f/u today. No fever, pain, appetite is fair, no acute changes in bowel or bladder. She is having dizziness when changing positions. Code stroke was called on her later in the morning after being seen Objective - Vital Signs Vital signs: Vital Signs Temp 98.5 F 10/31/20 04:34 Pulse 105 H 10/31/20 14:49 Resp 17 10/31/20 14:49 BP 121/78 10/31/20 14:49 Pulse Ox 97 10/31/20 14:49 Intake & Output 10/30/20 10/31/20 10/31/20 18:59 06:59 18:59 Intake Total 240 Balance 240 Intake: Oral 240 Other: # Voids 1 3 # Bowel Movements 0 - Constitutional General appearance: Present: average body habitus, cooperative, no acute distress - EENT Eyes: Present: anicteric sclerae, EOMI - Respiratory Respiratory: bilateral: CTA - Cardiovascular Heart sounds: normal: S1, S2 - Gastrointestinal General gastrointestinal: Present: normal bowel sounds, soft - Integumentary Integumentary: Present: pale - Musculoskeletal Musculoskeletal: Present: generalized weakness - Psychiatric Psychiatric: Present: A&O x's 3 - Labs CBC & Chem 7: 10/31/20 06:20 10/28/20 18:17 Labs: Abnormal Lab Results - Last 24 Hours (Table) 10/28/20 10/30/20 10/31/20 Range/Units 18:15 05:23 06:20 WBC 1.49 L* (4.50-10.00) X 10*3/uL RBC 1.88 L (4.10-5.20) X 10*6/uL Hgb 6.1 L* (12.0-15.0) g/dL Hct 19.1 L* (37.2-46.3) % MCV 101.6 H (80.0-97.0) fL MCH 32.4 H (27.0-32.0) pg MCHC 31.9 L (32.0-37.0) g/dL RDW 18.1 H (11.5-14.5) % Plt Count 33 L (140-440) X 10*3/uL Plt Count Comment DECREASED A Absolute Nucleated RBC 0.06 H (0.00-0.00) X 10*3/uL Neutrophils # 0.14 L* (1.80-7.70) X 10*3/uL Eosinophils # 0 L (0.04-0.35) X 10*3/uL NRBC/100 WBC Diff 4.0 H (0.0-0.0) /100 WBCS Immature Plt Fraction 16.4 H (1.1-6.1) % PT (9.9-11.9) sec INR (0.90-1.11) POC Glucose (mg/dL) (75-99) mg/dL Procalcitonin 0.11 H (0.02-0.09) ng/mL Crossmatch See Detail 10/31/20 10/31/20 Range/Units 06:20 10:41 WBC (4.50-10.00) X 10*3/uL RBC (4.10-5.20) X 10*6/uL Hgb (12.0-15.0) g/dL Hct (37.2-46.3) % MCV (80.0-97.0) fL MCH (27.0-32.0) pg MCHC (32.0-37.0) g/dL RDW (11.5-14.5) % Plt Count (140-440) X 10*3/uL Plt Count Comment Absolute Nucleated RBC (0.00-0.00) X 10*3/uL Neutrophils # (1.80-7.70) X 10*3/uL Eosinophils # (0.04-0.35) X 10*3/uL NRBC/100 WBC Diff (0.0-0.0) /100 WBCS Immature Plt Fraction (1.1-6.1) % PT 14.8 H (9.9-11.9) sec INR 1.39 H (0.90-1.11) POC Glucose (mg/dL) 113 H (75-99) mg/dL Procalcitonin (0.02-0.09) ng/mL Crossmatch Microbiology - Last 24 Hours (Table) 10/28/20 18:36 Blood Culture - Preliminary Blood No Growth after 48 hours 10/28/20 18:21 Blood Culture - Preliminary Blood No Growth after 48 hours Assessment and Plan (1) Febrile neutropenia Narrative/Plan: No fever since after admission. Patient's ANC 0.14. She recently had treatment for AML. Pancultures neg so far. Empiric antibiotics cont. CBC daily. No G-CSF at this time. Current Visit: Yes Status: Acute Priority: High Code(s): D70.9 - NEUTROPENIA, UNSPECIFIED; R50.81 - FEVER PRESENTING WITH CONDITIONS CLASSIFIED ELSEWHERE SNOMED Code(s): 077997094 (2) Acute myeloid leukemia Narrative/Plan: Patient has been continued on the same regimen of venetoclax and weekly SQ HMA injections for her AML. Patient is due for a bone marrow on 11/05 to see if she has a deep enough remission for transplant. Please hold the venetoclax while inpatient and being treated for febrile neutropenia. Current Visit: Yes Status: Acute Priority: High Code(s): C92.00 - ACUTE MYELOBLASTIC LEUKEMIA, NOT HAVING ACHIEVED REMISSION SNOMED Code(s): 85899567 (3) Antineoplastic chemotherapy induced pancytopenia Narrative/Plan: Patient will require irradiated blood products. Transfuse for hemoglobin less than 7 unless symptomatic. 1 unit irradiated PRBCs today for Hgb 6.1. Transfuse for platelet count less than 10,000 unless symptomatic. 33,000 today. No asa, NSAIDs, anticoagulation No G-CSF at this time. Still pending a bone marrow biopsy and aspirate to confirm remission. Current Visit: Yes Status: Chronic Priority: High Code(s): D61.810 - ANTINEOPLASTIC CHEMOTHERAPY INDUCED PANCYTOPENIA; T45.1X5A - ADVERSE EFFECT OF ANTINEOPLASTIC AND IMMUNOSUP DRUGS, INIT SNOMED Code(s): 970699446079426 (4) Coagulopathy Narrative/Plan: INR 1.39. Cont to hold coumadin for plt count <50,000 Current Visit: Yes Status: Acute Priority: High Code(s): D68.9 - CO AGULATION DEFECT, UNSPECIFIED SNOMED Code(s): 02170800 Plan: Pt wanted to go home but, cultures must be resulted and she must be afebrile for [address] Gan discussed case with Attending. SPENT >45 min with pt who also showed up at office. Records are being requested from [facility] so pt care can be transferred to Dr. Beckford. Doctor attests: I performed a history and physical examination of this patient, developed impression and plan of care, discussed with dictator. I agree with dictators note, documented as a scribe. Time with Patient: Greater than 30
--- NOTE | 2020-10-31 20:10 | PN ---
PROGRESS NOTE DATE OF SERVICE: 10/31/2020 REASON FOR FOLLOWUP: Fever. INTERVAL HISTORY: The patient is currently afebrile. The patient is breathing comfortably. The patient denies having any chest pain no shortness of breath or cough. No nausea, no vomiting, no abdominal pain or diarrhea. She has been complaining of pain to her rectal area. PHYSICAL EXAMINATION: Blood pressure 113/79 with a pulse of 105, temperature 98. She is 97% on room air. General description is an elderly female lying in bed in no distress. RESPIRATORY SYSTEM: Unlabored breathing. Clear to auscultation anteriorly. HEART: S1, S2. Regular rate and rhythm. ABDOMEN: Soft. No tenderness. Examination of sacral area in the presence of the patient's did not show any evidence of any wound or any fissure. LABS: Hemoglobin 6.1, white count 1.49. DIAGNOSTIC IMPRESSION AND PLAN: Patient with a fever. Source is likely her acute myeloid leukemia. The patient does not have any obvious focus of infection. Culture has been negative. The blood culture remains negative. The antibiotic should be discontinued and monitor the patient closely off antibiotic therapy. Continue supportive care. MMODL / IJN: [id number] /
[2020-10-31] MEDS: ATORVASTATIN 40 MG TAB PO SCH (21:01)
--- NOTE | 2020-10-31 23:27 | P.CNNES ---
History of Present Illness Consult date: 10/31/20 Requesting physician: Alberto Dubois Reason for Consult: Code Stroke History of Present Illness: Patient is a 75-year-old female came to the hospital on 10/28/2020 for fever with abnormal labs. Patient has history of AML. Patient 2 weeks ago fell and hit her head and needed to be transferred to another facility. Patient was sent home in the next day she developed 101 fever was brought back to the hospital for a week. Patient was discharged but continued to feel very weak, and often unable to hold herself up and needs to sat her down to the ground gently. Patient was brought to the hospital because her hemoglobin was low as well as her platelets. Patient also spiked fever 102. Patient currently not on any antiplatelets or anticoagulants because of pancytopenia. At home patient was on warfarin. Apparently today patient was coming back from the bathroom to her bed, then she had a syncopal spell. The nurse was present by her side, who lowered her down to the floor. Patient was very diaphoretic, and subsequently was noted to have garbled speech, not following commands, had some word salad, not making sense. This prompted activation of the stroke code at 10:40 AM today. Her symptoms lasted for about 5-10 minutes and then was back to baseline. At present patient feels fine. Offers no focal symptoms. CT head showed stable exam. Findings consistent with chronic small vessel ischemic changes, age-related atrophy, prominence of the cerebellar atrophy, could be indicative of Dilantin therapy, alcoholism. Clinical correlation recommended. CTA of head and neck showed no significant abnormality within the vasculature. Left thyroid nodule is indeterminate. Patient's INR on arrival was 3.9, which is now 1.39 after Coumadin has been held. Her most recent blood test from this morning showed WBC 1.49, hemoglobin 6.1, platelets 33. INR is 1.39. UA negative. Patient's lupus anticoagulants are present. Cardiolipin antibodies IgM are elevated 108.8, IgA also elevated 25.9. Beta-2 glycoprotein IgM also elevated 149/20. Heparin levels above 1.0 international units per mL may cause falsely elevated results. Patient at present feels fine. Patient had orthostatics checked, in which her supine blood pressure was 121/78, on sitting was 113/76 on standing up dropped to 81/34. Patient states that she has suffered from a couple falls since last 1 month. Patient is a nonsmoker. Review of Systems Complains of fever, fatigue, tiredness, denies any numbness tingling focal weakness. Patient complains of generalized weakness. Denies any chest pain, abdominal pain, nausea vomiting diarrhea. Denies double vision. All other review of systems reviewed and noncontributory. Patient is feeling cold. Also complains of dizziness when changing her position. 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, basal cell skin cancer, brain bleed History of Any Multi-Drug Resistant Organisms: None Reported Past Surgical History: Adenoidectomy, Appendectomy, Hysterectomy, Orthopedic Surgery, Tonsillectomy Additional Past Surgical History / Comment(s): navid breast reduction, hemorrhoidectomy, metal nithin in toe, lt carpal tunnel, basal cell skin cancer removed Past Anesthesia/Blood Transfusion Reactions: No Reported Reaction Past Psychological History: Anxiety Smoking Status: Unknown if ever smoked Past Alcohol Use History: None Reported Past Drug Use History: None Reported - Past Family History Mother Family Medical History: CVA/TIA, Dementia, Myocardial Infarction (ID) Father Family Medical History: Cancer Additional Family Medical History / Comment(s): colon cancer, alcoholism Medications and Allergies Home Medications Medication Instructions Recorded Confirmed Type lisinopriL [Zestril] 20 mg PO BID 10/28/16 10/28/20 History Allopurinol [Zyloprim] 300 mg PO DAILY 10/11/20 10/28/20 History Atorvastatin [Lipitor] 40 mg PO HS 10/11/20 10/28/20 History Famotidine 20 mg PO BID PRN 10/11/20 10/28/20 History Warfarin [Coumadin] 2 mg PO SUTUTHSA@2100 10/11/20 10/28/20 History Warfarin [Coumadin] 5 mg PO HS 10/11/20 10/28/20 History ondansetron HCL [Zofran] 8 mg PO BID PRN 10/11/20 10/28/20 History polyethylene glycoL 3350 [Miralax] 17 gm PO DAILY powd.pack 10/17/20 10/28/20 Rx Sennosides-Docusate Sodium 2 tab PO BID 10/28/20 10/28/20 History [Senokot-S] Venetoclax [Venclexta] 10 mg PO DAILY 10/28/20 10/28/20 History Allergies Allergy/AdvReac Type Severity Reaction Status Date / Time erythromycin base Allergy Rash/Hives Verified 10/28/20 20:43 Physical Examination - Vital Signs Vital Signs: Vital Signs Temp Pulse Resp BP Pulse Ox 10/31/20 13:22 88 107/68 10/31/20 13:07 89 100/56 10/31/20 12:52 88 103/68 10/31/20 12:37 91 111/77 10/31/20 12:23 97 109/69 10/31/20 12:07 97 129/87 10/31/20 11:52 99 127/72 10/31/20 11:37 97 112/81 10/31/20 11:27 100 115/73 96 10/31/20 04:34 98.5 F 89 16 115/73 97 10/30/20 21:05 98.8 F 91 16 108/66 95 Intake and Output 10/30/20 10/31/20 10/31/20 22:59 06:59 14:59 Other: # Voids 3 # Bowel Movements 0 On examination patient is an elderly female, in no acute distress. She is alert and awake, fully oriented, knows it is October 2020 and that she is in [facility] and name of the current president. She however states that she is 57 years old and she is adamant that she is 57, despite myself tell ing her about her age of 75. She still states that she is 57. Speech and language functions are normal. Attention, concentration and fund of knowledge appears adequate. Detail cognitive function testing deferred. On cranial nerve exam his pupils are round and reactive to light, visual noe are full on confrontation, extraocular muscles are intact with no nystagmus. Face is symmetric, tongue protrudes to the midline. Palatal elevation and sensation normal, hearing and shoulder shrug normal. Facial sensation normal. On muscle strength testing there is no pronator drift and the strength is normal in arms and legs distally and proximally reflexes are 2+ and plantars are downgoing. Se nsory to touch is equal. No ataxia for [id number] testing, tone and bulk of muscles normal gait deferred. On general examination there is no bruit, S1 and S2 audible, abdomen soft nontender. Peripheral pulses present. No edema. Results - Laboratory Findings CBC and BMP: 10/31/20 06:20 10/28/20 18:17 Abnormal Lab Findings: Abnormal Labs 10/28/20 10/28/20 10/28/20 18:15 18:17 18:17 WBC 2.6 L RBC 2.18 L Hgb 7.0 L Hct 21.3 L MCV MCH MCHC RDW 19.4 H Plt Count Plt Count Comment Absolute Nucleated RBC Blast Cells % 33 H* Neutrophils # Neutrophils # (Manual) 0.00 L* Eosinophils # Metamyelocytes # (Man) 0.05 H Myelocytes # (Manual) 0.03 H Blast Cells # (Man) 0.86 H Nucleated RBCs 4 H NRBC/100 WBC Diff Immature Plt Fraction PT 37.8 H INR 3.9 H Sodium Creatinine POC Glucose (mg/dL) Calcium C-Reactive Protein Total Protein Albumin Procalcitonin Urine Appearance Urine Blood Urine Mucus Crossmatch See Detail 10/28/20 10/28/20 10/30/20 18:17 19:30 05:23 WBC RBC Hgb Hct MCV MCH MCHC RDW Plt Count Plt Count Comment Absolute Nucleated RBC Blast Cells % Neutrophils # Neutrophils # (Manual) Eosinophils # Metamyelocytes # (Man) Myelocytes # (Manual) Blast Cells # (Man) Nucleated RBCs NRBC/100 WBC Diff Immature Plt Fraction PT INR Sodium 133 L Creatinine 0.44 L POC Glucose (mg/dL) Calcium 8.2 L C-Reactive Protein Total Protein 5.7 L Albumin 3.2 L Procalcitonin 0.11 H Urine Appearance Cloudy H Urine Blood Trace H Urine Mucus Few H Crossmatch 10/30/20 10/30/20 10/30/20 05:23 08:52 08:52 WBC 1.8 L RBC 2.21 L Hgb 7.2 L Hct 22.1 L MCV 100.1 H MCH MCHC RDW 19.3 H Plt Count 42 L Plt Count Comment Absolute Nucleated RBC Blast Cells % 33 H* Neutrophils # Neutrophils # (Manual) 0.00 L* Eosinophils # Metamyelocytes # (Man) Myelocytes # (Manual) Blast Cells # (Man) 0.59 H Nucleated RBCs 4 H NRBC/100 WBC Diff Immature Plt Fraction PT 18.8 H INR 1.9 H Sodium Creatinine POC Glucose (mg/dL) Calcium C-Reactive Protein 2.1 H Total Protein Albumin Procalcitonin Urine Appearance Urine Blood Urine Mucus Crossmatch 10/31/20 10/31/20 10/31/20 06:20 06:20 10:41 WBC 1.49 L* RBC 1.88 L Hgb 6.1 L* Hct 19.1 L* MCV 101.6 H MCH 32.4 H MCHC 31.9 L RDW 18.1 H Plt Count 33 L Plt Count Comment DECREASED A Absolute Nucleated RBC 0.06 H Blast Cells % Neutrophils # 0.14 L* Neutrophils # (Manual) Eosinophils # 0 L Metamyelocytes # (Man) Myelocytes # (Manual) Blast Cells # (Man) Nucleated RBCs NRBC/100 WBC Diff 4.0 H Immature Plt Fraction 16.4 H PT 14.8 H INR 1.39 H Sodium Creatinine POC Glucose (mg/dL) 113 H Calcium C-Reactive Protein Total Protein Albumin Procalcitonin Urine Appearance Urine Blood Urine Mucus Crossmatch Assessment and Plan Assessment: * Syncopal spell, likely due to orthostatic hypotension versus vasovagal. Patient's orthostatics are significantly positive. Patient's subsequent speech difficulty could be related to cerebral ischemia related to severe anemia, syncope, that resolved fairly rapidly. Patient CTA of head and neck are normal. Current neurological examination is nonfocal. * Acute myeloid leukemia, with pancytopenia * Neutropenic fever Plan: * Patient had a syncopal spell. Doubt TIA, although cannot be ruled out. * Patient had a normal CTA of head and neck. * Patient has positive orthostatics. Treatment of anemia, hydration and other hematologic condition as per IM. * Patient was on Coumadin, but has been held because of severe coagulopathy. * No other neurological workup indicated. * Neurology will sign off. Please reconsult neurology if any other concerns.
--- NOTE | 2020-10-31 23:37 | P.PN ---
Progress Note - Text Progress Note Date: 10/31/20 Chief Complaint: Tired History of presenting complaint: This is a 75-year-old patient of Dr. Chung. Chronic stable medical conditions include hyperlipidemia, hypertension, parathyroid disorder, basal cell skin cancer. Reported history of blood clot in the brain for which patient is on Coumadin, possibly venous thrombosis. Patient does follow with was a heme oncologist out of [place] and patient be getting chemotherapy for acute myeloid leukemia. November 2019 patient presented to the ER here-CT angios the head had shown intracranial hemorrhage adjacent to the right posterior cerebral artery but no definite aneurysm identified. Subdural hemorrhage. Patient was transferred to [facility] in [place]. On October 12 this year patient admitted here with neutropenic sepsis felt to be possibly from right lower lobe pneumonia. EEG was negative for seizure activity. Patient is doing much better by the time of discharge. Some fever was still present. [place] to be from underlying leukemia. Patient was discharged. Since discharge patient has been doing well. Patient now presents after being transferred here from another facility. Her platelets and hemoglobin at below. She also had a few 102 earlier. Has been eating okay. Does feel a bit weak. No respiratory urinary symptoms. Today-this morning hours on the floor patient is feeling a bit tired. Requested to go home. Nurse called me and the patient had slumped to the floor. Did not pass out. Was on answering questions appropriately. There was no focal weakness. She was not making sense. Code stroke was called. I ordered a stat computed tomography scan of the brain. Also patient hemoglobin was 7 and because patient is feeling tired and ordered a unit of a dehydrated blood cells after discussing with hematology team Review of systems: Was done for constitutional, cardiovascular, GI, pulmonary. relevant finding as above Active Medications Acetaminophen (Acetaminophen Tab 325 Mg Tab) 650 mg PO Q6HR PRN PRN Reason: Fever and/ or Pain Allopurinol (Allopurinol 300 Mg Tab) 300 mg PO DAILY [facility] Last Admin: 10/31/20 11:55 Dose: Not Given Documented by: Atorvastatin Calcium (Atorvastatin 40 Mg Tab) 40 mg PO HS [facility] Last Admin: 10/31/20 21:01 Dose: 40 mg Documented by: Famotidine (Famotidine 20 Mg Tab) 20 mg PO BID PRN PRN Reason: on chemo days Cefepime HCl 2 gm/ Sodium (Chloride) 100 mls @ 25 mls/hr IVPB Q8H [facility] Last Admin: 10/31/20 21:01 Dose: 25 mls/hr Documented by: Sodium Chloride (Saline 0.9%) 1,000 mls @ 75 mls/hr IV .[id number] [facility] Last Admin: 10/31/20 19:36 Dose: 75 mls/hr Documented by: Lisinopril (Lisinopril 20 Mg Tab) 20 mg PO BID [facility] Last Admin: 10/31/20 11:56 Dose: Not Given Documented by: Ondansetron HCl (Ondansetron 4 Mg Tab) 8 mg PO BID PRN PRN Reason: Nausea Polyethylene Glycol (Polyethylene Glycol 3350 17 Gm Powd.Pack) 17 gm PO DAILY [facility] Last Admin: 10/31/20 08:47 Dose: Not Given Documented by: Senna/Docusate Sodium (Sennosides-Docusate Sodium 1 Each Tab) 2 each PO BID [facility] Last Admin: 10/31/20 20:57 Dose: Not Given Documented by: Past medical history to include: Hyperlipidemia, hypertension, mitral valve prolapse, parathyroid disorder, basal cell skin cancer, venous sinus thrombosis, intracranial and subdural hemorrhage in November 2019. Acute myeloid leukemia Social history: Lives with . No history of smoking or alcohol Physical examination: VITAL SIGNS: Afebrile, 97, 16, 115/73, 96% room air GENERAL: BMI 30.2, laying in bed, awake, tired EYES: Pupils equal. Conjunctiva pale. HEENT: External appearance of nose and ears normal, oral cavity grossly normal. NECK: JVD not raised; masses not palpable. HEART: First and second heart sounds are normal; no edema. LUNGS: Respiratory rate normal; clear to auscultation. ABDOMEN: Soft, nontender, liver spleen not palpable, no masses palpable. PSYCH: Answering occasional questions. Sometimes vague. No focal weakness INVESTIGATIONS, reviewed in the clinical context: October 31: WBC 1.8 hemoglobin 7.2 platelets 42 Computed tomography scan of the brain-acute chronic changes CT of the brain-unremarkable October 30: White count 1.8 hemoglobin 7.2 platelets adequate pro-time 18.8 Computed tomography scan of the abdomen and pelvis-no obvious source of any infection. WBC 2.6 hemoglobin 7 platelets-unable to provide a count blast cells 33% Potassium 4.1 creatinine 0.44 albumin 3.2 UA negative for nitrate and leukoesterase Coronavirus [PCF]-not detected. Influenza type A and type B both nondetected. EKG tracing personally reviewed by me-normal sinus rhythm Chest x-ray film personally reviewed by me-no obvious infiltrates Blood cultures-from October 28: Negative Assessment and plan: -This is a patient with underlying AML presents with fever feeling tired. Weak. Was in the hospital close to a month ago when treated for pneumonia with neutropenic sepsis. Patient's had fever off and on. Had been felt to be from AML itself. -Coumadin monitoring. -anticoagulation. for cranial venous thrombosis. -History of intracranial and subdural hemorrhage in November 2019. For which patient was transferred out to [facility] -Acute myeloid leukemia, being treated by Dr. lombardo from [facility]. Await ing bone marrow transplant -Essential hypertension continue Zestril -Hyperlipidemia continue with Lipitor -Hyperuricemia likely from treatment for leukemia. Continue with allopurinol -Neutropenic fever. The fever could be itself be from underlying AML. -Near-syncope likely due to vasovagal. Stroke was ruled out. Patient is anemic. Blood has been ordered. Because of the presentation neurology was consulted. Neuro checks ordered Neurology consult. Radiated red blood cells ordered. Code stroke. Also spoken with her . Total time spent for critical care today was 45 minutes.
[2020-11-01 05:00] VITALS: RESP 16
[2020-11-01] MEDS: CEFEPIME 2 GM in SODIUM CHLORIDE 0.9% 100 ML IVPB SCH ×2 (05:01→12:32)
[2020-11-01 05:04] LABS: Glucose,Whole Blood 100 mg/dL (75-99)
[2020-11-01] MEDS: SODIUM CHLORIDE 0.9% 1,000 ML IV SCH (05:05)
[2020-11-01 07:52] LABS: Anisocytosis Slight; HCT 23.2 % (34.0-46.0); MCH 32.5 pg (25.0-35.0); MCHC 34.8 g/dL (31.0-37.0); Mean Platelet Volume 10.5; Poikilocytosis Slight; RBC 2.48 m/uL (3.80-5.40); RDW 18.5 % (11.5-15.5)
[2020-11-01 07:59] LABS: INR 1.2 (<1.2); Prothrombin Time 12.6 sec (9.0-12.0)
[2020-11-01 08:08] LABS: Cholesterol 98 mg/dL (<200); HDL Cholesterol 26 mg/dL (40-60); LDL Cholesterol,Calculated 53 mg/dL (0-99); Triglycerides 97 mg/dL (<150)
[2020-11-01 08:31] LABS: HGB 8.1 gm/dL (11.4-16.0)
[2020-11-01 08:32] LABS: MCV 93.4 fL (80.0-100.0); Platelet Count 45 k/uL (150-450)
[2020-11-01] MEDS: lisinopriL 20 MG TAB PO SCH (08:39)
[2020-11-01] MEDS: polyethylene glycoL 3350 17 GM POWD.PACK PO SCH (08:39)
[2020-11-01] MEDS: SENNOSIDES-DOCUSATE SODIUM 1 EACH TAB PO SCH (08:39)
[2020-11-01] MEDS: allopurinoL 300 MG TAB PO SCH (08:39)
[2020-11-01 09:07] LABS: Blast Cells # (M) 0.47 k/uL (0); Lymphocytes # (M) 0.95 k/uL (1.0-4.8); Monocytes # (M) 0.06 k/uL (0-1.0); Neutrophils # (M) 0.03 k/uL (1.3-7.7); Neutrophils % (M) 2 %; Nucleated Red Blood Cells 5 /100 WBC (0-0); Total Cells Counted 100; WBC 1.5 k/uL (3.8-10.6)
[2020-11-01 13:05] VITALS: BP 119/76; PULSE 83; TEMP 98.6
--- NOTE | 2020-11-01 14:15 | PN ---
PROGRESS NOTE DATE OF SERVICE: 11/01/2020 REASON FOR FOLLOWUP: Fever. INTERVAL HISTORY: The patient is currently afebrile. The patient is feeling better. Breathing comfortably. Patient denies having any chest pain, shortness of breath or cough. No nausea, no vomiting. No abdominal pain and no diarrhea. PHYSICAL EXAMINATION: Her blood pressure 119/76, pulse of 83, temperature 98.6. She is 96% on room air. General description is an elderly female lying in bed in no distress. RESPIRATORY SYSTEM: Unlabored breathing, clear to auscultation anteriorly. HEART: S1, S2. Regular rate and rhythm. ABDOMEN: Soft, no tenderness. LABS: Hemoglobin 8.1, white count 1.5. Culture has been negative. DIAGNOSTIC IMPRESSION AND PLAN: Patient with a fever in acute myeloid leukemia. The patient with no obvious focus of infection did have extensive workup. Plan is to discharge home, no antibiotics and close outpatient followup. MMODL / IJN: [id number] /
--- NOTE | 2020-11-01 15:05 | P.PN ---
Subjective Progress Note Date: 11/01/20 Principal diagnosis: Pancytopenia Discharge planning today, patient has prolonged neutropenia will need close monitoring, defer prophylaxic antibiotics to ID. Objective - Vital Signs Vital signs: Vital Signs Temp 98.6 F 11/01/20 11:37 Pulse 83 11/01/20 11:37 Resp 16 11/01/20 11:37 BP 119/76 11/01/20 11:37 Pulse Ox 96 11/01/20 11:37 Intake & Output 10/31/20 11/01/20 11/01/20 18:59 06:59 18:59 Intake Total 100 1035 360 Balance 100 1035 360 Intake: Intake, IV Titration 100 725 Amount Cefepime 2 gm In Sodium 100 200 Chloride 0.9% 100 ml @ 25 mls/hr IVPB Q8H [facility] Rx#: [id number] Sodium Chloride 0.9% 1, 525 000 ml @ 75 mls/hr IV . [id number] [facility] Rx#:[id number] Oral 360 Blood Product 310 Rc Irr As1 Unit 310 [id number] Other: Voiding Method Diaper Diaper # Voids 1 3 - Exam - Constitutional General appearance: Present: average body habitus, cooperative, no acute distress - EENT Eyes: Present: anicteric sclerae, EOMI - Respiratory Respiratory: bilateral: CTA - Cardiovascular Heart sounds: normal: S1, S2 - Gastrointestinal General gastrointestinal: Present: normal bowel sounds, soft - Integumentary Integumentary: Present: pale - Musculoskeletal Musculoskeletal: Present: generalized weakness - Psychiatric Psychiatric: Present: A&O x's 3 - Labs CBC & Chem 7: 11/01/20 07:21 10/28/20 18:17 Labs: Abnormal Lab Results - Last 24 Hours (Table) 10/28/20 11/01/20 11/01/20 Range/Units 18:15 00:25 05:02 WBC (3.8-10.6) k/uL RBC (3.80-5.40) m/uL Hgb (11.4-16.0) gm/dL Hct (34.0-46.0) % RDW (11.5-15.5) % Plt Count (150-450) k/uL Blast Cells % % Neutrophils # (Manual) (1.3-7.7) k/uL Lymphocytes # (Manual) (1.0-4.8) k/uL Blast Cells # (Man) (0) k/uL Nucleated RBCs (0-0) /100 WBC PT (9.0-12.0) sec INR (<1.2) POC Glucose (mg/dL) 100 H (75-99) mg/dL HDL Cholesterol (40-60) mg/dL Crossmatch See Detail See Detail 11/01/20 11/01/20 11/01/20 Range/Units 07:21 07:21 07:21 WBC 1.5 L (3.8-10.6) k/uL RBC 2.48 L (3.80-5.40) m/uL Hgb 8.1 L (11.4-16.0) gm/dL Hct 23.2 L (34.0-46.0) % RDW 18.5 H (11.5-15.5) % Plt Count 45 L (150-450) k/uL Blast Cells % 31 H* % Neutrophils # (Manual) 0.03 L* (1.3-7.7) k/uL Lymphocytes # (Manual) 0.95 L (1.0-4.8) k/uL Blast Cells # (Man) 0.47 H (0) k/uL Nucleated RBCs 5 H (0-0) /100 WBC PT 12.6 H (9.0-12.0) sec INR 1.2 H (<1.2) POC Glucose (mg/dL) (75-99) mg/dL HDL Cholesterol 26 L (40-60) mg/dL Crossmatch Microbiology - Last 24 Hours (Table) 10/28/20 18:36 Blood Culture - Preliminary Blood No Growth after 72 hours 10/28/20 18:21 Blood Culture - Preliminary Blood No Growth after 72 hours Assessment and Plan Plan: Assessment and Plan Febrile neutropenia No fever since after admission. She recently had treatment for AML. Pancultures neg so far. Empiric antibiotics cont. CBC daily. No G-CSF at this time. Acute myeloid leukemia Patient has been continued on the same regimen of venetoclax and weekly SQ HMA injections for her AML. Patient is due for a bone marrow on 11/05 to see if she has a deep enough remission for transplant. Please hold the venetoclax while inpatient and being treated for febrile neutropenia. Antineoplastic chemotherapy induced pancytopenia Patient will require irradiated blood products. Transfuse for hemoglobin less than 7 unless symptomatic. Hgb 8.1 Transfuse for platelet count less than 10,000 unless symptomatic. No asa, NSAIDs, anticoagulation No G-CSF at this time. Still pending a bone marrow biopsy and aspirate to confirm remission. Coagulopathy Cont to hold coumadin for plt count <50,000 Plan: Discharge is in from primary team, plan to follow-up with Dr. Beckford next week
--- NOTE | 2020-11-02 21:04 | P.DS ---
Providers Date of admission: 10/28/20 20:22 Expected date of discharge: 11/01/20 Attending physician: Alberto Dubois Consults: 10/28/20 20:22 Consult Physician Urgent Consulting Provider: Arturo Gan Consult Reason/Comments: AML Do you want consulting provider notified?: Yes Consult Physician Urgent Consulting Provider: Jasper Emmanuel Consult Reason/Comments: Fever of unknown origin Do you want consulting provider notified?: Yes 10/31/20 11:16 Consult Physician Routine Consulting Provider: Ricardo Fontenot Consult Reason/Comments: code stroke Do you want consulting provider notified?: Yes Primary care physician: [facility] Course: Chief Complaint: Tired History of presenting complaint: This is a 75-year-old patient of Dr. Chung. Chronic stable medical conditions include hyperlipidemia, hypertension, parathyroid disorder, basal cell skin cancer. Reported history of blood clot in the brain for which patient is on Coumadin, possibly venous thrombosis. 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 [November 2019 patient presented to the ER here-CT angios the head had shown intracranial hemorrhage adjacent to the right posterior cerebral artery but no definite aneurysm identified. Subdural hemorrhage. Patient was transferred to [facility] in [place]. On October 12 this year patient admitted here with neutropenic sepsis felt to be possibly from right lower lobe pneumonia. EEG was negative for seizure activity. Patient is doing much better by the time of discharge. Some fever was still present. [place] to be from underlying leukemia. Patient was discharged. Since discharge patient has been doing well. Patient now presents after being transferred here from another facility. Her platelets and hemoglobin at below. She also had a few 102 earlier. Has been eating okay. Does feel a bit weak. No respiratory urinary symptoms. Patient had an episode of becoming less responsive. A bit confused. Workup including computed tomography scan neurological workup was all negative. Hemoglobin was low with orthostatic. Given a unit of blood. Patient responded really well. Today-greatly improved. Using a walker to get about. Hemoglobin is stable. Discussed with neurology. Discussed with the patient and the . Stable for discharge. Follow-up with his oncologist. Cleared by oncology. Patient is back walking around with a walker. Discussed with physical therapy. Stable Discussion and discharge planning more than 35 minutes Consultation: Dr. Vitale from neurology Dr. Gan from oncology Past medical history to include: Hyperlipidemia, hypertension, mitral valve prolapse, parathyroid disorder, basal cell skin cancer, venous sinus thrombosis, intracranial and subdural hemorrhage in November 2019. Acute myeloid leukemia Social history: Lives with . No history of smoking or alcohol Physical examination: VITAL SIGNS: 98.6, 83, 16, 119/76, 96% room air GENERAL: Sitting up, comfortable EYES: Pupils equal. Conjunctiva pale. HEENT: External appearance of nose and ears normal, oral cavity grossly normal. NECK: JVD not raised; masses not palpable. HEART: First and second heart sounds are normal; no edema. LUNGS: Respiratory rate normal; clear to auscultation. ABDOMEN: Soft, nontender, liver spleen not palpable, no masses palpable. PSYCH: AO 3 INVESTIGATIONS, reviewed in the clinical context: November 01: WBC 1.5 hemoglobin 8.1 platelets 45 blast cells October 31: WBC 1.8 hemoglobin 7.2 platelets 42 Computed tomography scan of the brain-acute chronic changes CT of the brain-unremarkable October 30: White count 1.8 hemoglobin 7.2 platelets adequate pro-time 18.8 Computed tomography scan of the abdomen and pelvis-no obvious source of any infection. WBC 2.6 hemoglobin 7 platelets-unable to provide a count blast cells 33% Potassium 4.1 creatinine 0.44 albumin 3.2 UA negative for nitrate and leukoesterase Coronavirus [PCF]-not detected. Influenza type A and type B both nondetected. EKG tracing personally reviewed by me-normal sinus rhythm Chest x-ray film personally reviewed by me-no obvious infiltrates Blood cultures-from October 28: Negative Assessment and plan: -Fever felt to be from AML. Infection workup was negative. -Symptomatic severe anemia from AML. Transfuse 1 unit of blood. -Coumadin monitoring. -anticoagulation. for cranial venous thrombosis. -History of intracranial and subdural hemorrhage in November 2019. For which patient was transferred out to [facility] -Acute myeloid leukemia, being treated by Dr. lombardo from [facility]. Awaiting bone marrow transplant -Essential hypertension continue Zestril -Hyperlipidemia continue with Lipitor -Hyperuricemia likely from treatment for leukemia. Continue with allopurinol -Near-syncope likely due to vasovagal. Secondary to anemia. Stroke workup was negative Disposition: Home Plan - Discharge Summary Discharge Rx Participant: No New Discharge Prescriptions: Continue Warfarin [Coumadin] 5 mg PO HS Warfarin [Coumadin] 2 mg PO SUTUTHSA@2100 ondansetron HCL [Zofran] 8 mg PO BID PRN PRN Reason: Nausea Famotidine 20 mg PO BID PRN PRN Reason: on chemo days Atorvastatin [Lipitor] 40 mg PO HS Allopurinol [Zyloprim] 300 mg PO DAILY polyethylene glycoL 3350 [Miralax] 17 gm PO DAILY powd.pack Sennosides-Docusate Sodium [Senokot-S] 2 tab PO BID Venetoclax [Venclexta] 10 mg PO DAILY Changed lisinopriL [Zestril] 10 mg PO HS #0 Discharge Medication List Allopurinol [Zyloprim] 300 mg PO DAILY 10/11/20 [History] Atorvastatin [Lipitor] 40 mg PO HS 10/11/20 [History] Famotidine 20 mg PO BID PRN 10/11/20 [History] Warfarin [Coumadin] 2 mg PO SUTUTHSA@2100 10/11/20 [History] Warfarin [Coumadin] 5 mg PO HS 10/11/20 [History] ondansetron HCL [Zofran] 8 mg PO BID PRN 10/11/20 [History] polyethylene glycoL 3350 [Miralax] 17 gm PO DAILY powd.pack 10/17/20 [Rx] Sennosides-Docusate Sodium [Senokot-S] 2 tab PO BID 10/28/20 [History] Venetoclax [Venclexta] 10 mg PO DAILY 10/28/20 [History] lisinopriL [Zestril] 10 mg PO HS #0 11/01/20 [Rx] Follow up Appointment(s)/Referral(s): oncology, [Other] - 1 Week Pradeep Chung DO [Primary Care Provider] - 11/13/20 1:00 pm [facility], [NON-STAFF] - 1 Week Activity/Diet/Wound Care/Special Instructions: cbc/bmp - 3 days Discharge Disposition: HOME WITH HOME HEALTH SERVICES
== END 2020-11-01 17:25 | disposition home health service (06) | DRG 834 ==
LOC: EC 17:24 → 5NMEDONC 20:22
PROVIDERS: ADMIT Hospitalist; ATTEND Hospitalist
PROC: 30233N1 Transfusion of Nonautologous Red Blood Cells into Peripheral Vein, Percutaneous Approach (ICD-10-PCS; principal; 2020-11-01)
DX: C92.00 Acute myeloblastic leukemia, not having achieved remission (principal); D61.810 Antineoplastic chemotherapy induced pancytopenia; I62.03 Nontraumatic chronic subdural hemorrhage; D68.9 Coagulation defect, unspecified; I67.6 Nonpyogenic thrombosis of intracranial venous system; D70.9 Neutropenia, unspecified; E21.5 Disorder of parathyroid gland, unspecified; Z20.822 Contact with and (suspected) exposure to COVID-19; R50.81 Fever presenting with conditions classified elsewhere; T45.1X5A Adverse effect of antineoplastic and immunosuppressive drugs, initial encounter; E78.5 Hyperlipidemia, unspecified; I10 Essential (primary) hypertension; E04.1 Nontoxic single thyroid nodule; I34.1 Nonrheumatic mitral (valve) prolapse; R55 Syncope and collapse; E79.0 Hyperuricemia without signs of inflammatory arthritis and tophaceous disease; Z85.828 Personal history of other malignant neoplasm of skin; Z79.01 Long term (current) use of anticoagulants; Z79.899 Other long term (current) drug therapy; Z91.81 History of falling; Z90.49 Acquired absence of other specified parts of digestive tract; Z90.89 Acquired absence of other organs; Z90.710 Acquired absence of both cervix and uterus; Z87.19 Personal history of other diseases of the digestive system; Z87.42 Personal history of other diseases of the female genital tract; Z87.2 Personal history of diseases of the skin and subcutaneous tissue; Z87.39 Personal history of other diseases of the musculoskeletal system and connective tissue; Z86.59 Personal history of other mental and behavioral disorders; Z86.19 Personal history of other infectious and parasitic diseases; Z98.890 Other specified postprocedural states; Z88.1 Allergy status to other antibiotic agents; Z82.49 Family history of ischemic heart disease and other diseases of the circulatory system; Z81.8 Family history of other mental and behavioral disorders; Z82.3 Family history of stroke; Z80.0 Family history of malignant neoplasm of digestive organs; Z81.1 Family history of alcohol abuse and dependence
CPT/HCPCS: 36415; 70450; 70496; 70498; 71046; 74177; 80053; 80061; 81001; 83605; 84145; 85025; 85610; 85730; 86140; 86850; 86900; 86901; 86920; 87040; 87502; 87635; 93005; 94760; 96361; 96365; 96366; 99285

== ENCOUNTER 2020-11-12 12:17 | Inpatient (IN) | payer MEDICARE ==
[2020-11-12] MEDS ORDERED: SODIUM CHLORIDE 0.9% 500 ML 500 ML IV STA (12:22)
[2020-11-12] MEDS ORDERED: CEFEPIME 2 GM in SODIUM CHLORIDE 0.9% 100 ML IVPB STA (12:30)
[2020-11-12] MEDS ORDERED: VANCOMYCIN IV PER PHARMACY 1 EACH MISC MISCELLANE PRN (12:30)
[2020-11-12] MEDS ORDERED: VANCOMYCIN 1,250 MG in SODIUM CHLORIDE 0.9% 250 ML IVPB STA (12:33)
--- NOTE | 2020-11-12 12:40 | ED ---
General Adult HPI - General Chief complaint: Syncope Stated complaint: syncope Time Seen by Provider: 11/12/20 12:20 Source: patient, EMS, RN notes reviewed, old records reviewed Mode of arrival: EMS - History of Present Illness Initial comments: 75-year-old female presented from the oncologist office with syncopal episode, hypotension. Patient is currently being treated for AML she is uncertain when her last chemotherapy was per she was admitted earlier this month this inst itution. Patient denies pain complaints. She denies abdominal pain nausea vomiting. EMS reported the patient was scheduled for chemotherapy today but is not believe that the patient received chemotherapy today. Patient had a very low blood pressure in the office, and had had 2 short episodes of syncope lasting several minutes. She denies chest pain. Denies palpitations. She denies cough or fever but states she does have chills. - Related Data Home Medications Medication Instructions Recorded Confirmed Allopurinol [Zyloprim] 300 mg PO DAILY 10/11/20 11/12/20 Atorvastatin [Lipitor] 40 mg PO HS 10/11/20 11/12/20 Famotidine 20 mg PO BID PRN 10/11/20 11/12/20 Warfarin [Coumadin] 2 mg PO SUTUTHSA@2100 10/11/20 11/12/20 Warfarin [Coumadin] 5 mg PO HS 10/11/20 11/12/20 ondansetron HCL [Zofran] 8 mg PO BID PRN 10/11/20 11/12/20 Previous Rx's Medication Instructions Recorded polyethylene glycoL 3350 [Miralax] 17 gm PO DAILY powd.pack 10/17/20 lisinopriL [Zestril] 10 mg PO HS #0 11/01/20 Allergies Allergy/AdvReac Type Severity Reaction Status Date / Time erythromycin base Allergy Rash/Hives Verified 11/12/20 13:21 Review of Systems ROS Statement: Those systems with pertinent positive or pertinent negative responses have been documented in the HPI. ROS Other: All systems not noted in ROS Statement are negative. 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, basal cell skin cancer, brain bleed History of Any Multi-Drug Resistant Organisms: None Reported Past Surgical History: Adenoidectomy, Appendectomy, Hysterectomy, Orthopedic Surgery, Tonsillectomy Additional Past Surgical History / Comment(s): navid breast reduction, hemorrhoidectomy, metal nithin in toe, lt carpal tunnel, basal cell skin cancer removed Past Anesthesia/Blood Transfusion Reactions: No Reported Reaction Past Psychological History: Anxiety Smoking Status: Unknown if ever smoked Past Alcohol Use History: None Reported Past Drug Use History: None Reported - Past Family History Mother Family Medical History: CVA/TIA, Dementia, Myocardial Infarction ([place]) Father Family Medical History: Cancer Additional Family Medical History / Comment(s): colon cancer, alcoholism General Exam General appearance: alert, in no apparent distress Head exam: Present: atraumatic, normocephalic Eye exam: Present: normal appearance, PERRL ENT exam: Present: mucous membranes dry Neck exam: Present: normal inspection Respiratory exam: Present: normal lung sounds bilaterally. Absent: respiratory distress, wheezes Cardiovascular Exam: Present: normal rhythm, tachycardia GI/Abdominal exam: Present: soft. Absent: distended, tenderness, guarding, rebound Extremities exam: Present: normal inspection, normal capillary refill. Absent: pedal edema, calf tenderness Neurological exam: Present: alert, oriented X3, CN II-XII intact. Absent: motor sensory deficit Psychiatric exam: Present: normal affect, normal mood Skin exam: Present: warm, dry, intact. Absent: cyanosis, diaphoretic Course Vital Signs 11/12/20 11/12/20 12:18 14:20 Temperature 98.4 F Pulse Rate 125 H 92 Respiratory 18 18 Rate Blood Pressure 116/52 100/56 O2 Sat by Pulse 97 98 Oximetry - Reevaluation(s) Reevaluation #1: 11/12/20 12:35 I did discuss case with Sada angelo for oncology who had been present when the patient was sent by EMS to the emergency department. She recommends admission to oncology with medicine on consult and broad-spectrum antibiotics in addition to blood cultures and urine cultures. EKG Findings - EKG Comments: EKG Findings:: EKG: Sinus tachycardia, left anterior fascicular block, rate of 121, ND interval 1:30, QRS duration 74, QTC 440, no ST segment elevation Medical Decision Making - Medical Decision Making 75-year-old female being treated for AML presenting from the oncologist's office with syncope. I did discuss case with Sada Jones recommends urine culture, blood culture, broad-spectrum IV antibiotics and admission. I did admit this patient to oncology with medicine on consult as requested. Patient started on cefepime and vancomycin in the emergency department. She is leukopenic, anemic and has thrombocytopenia. She has a supratherapeutic INR greater than 10. Lactic acid 3.3. Urinalysis pending. - Lab Data Result diagrams: 11/12/20 13:09 11/12/20 13:09 Lab Results 11/12/20 11/12/20 11/12/20 Range/Units 13:09 13:09 13:09 WBC 2.4 L (3.8-10.6) k/uL RBC 2.72 L (3.80-5.40) m/uL Hgb 8.6 L (11.4-16.0) gm/dL Hct 26.3 L (34.0-46.0) % MCV 96.7 (80.0-100.0) fL MCH 31.8 (25.0-35.0) pg MCHC 32.9 (31.0-37.0) g/dL RDW 18.9 H (11.5-15.5) % Plt Count 77 L D (150-450) k/uL MPV 10.7 Hypochromasia Moderate Poikilocytosis Slight Anisocytosis Slight Macrocytosis Slight PT 124.6 H (9.0-12.0) sec INR >10.0 H* (<1.2) APTT 42.9 H (22.0-30.0) sec Sodium 133 L (137-145) mmol/L Potassium 3.9 (3.5-5.1) mmol/L Chloride 99 (98-107) mmol/L Carbon Dioxide 24 (22-30) mmol/L Anion Gap 10 mmol/L BUN 13 (7-17) mg/dL Creatinine 0.63 (0.52-1.04) mg/dL Est GFR (CKD-EPI)AfAm >90 (>60 ml/min/1.73 sqM) Est GFR (CKD-EPI)NonAf 88 (>60 ml/min/1.73 sqM) Glucose 123 H (74-99) mg/dL Plasma Lactic Acid Andrew (0.7-2.0) mmol/L Calcium 8.7 (8.4-10.2) mg/dL Magnesium 1.8 (1.6-2.3) mg/dL Total Bilirubin 1.2 (0.2-1.3) mg/dL AST 41 H (14-36) U/L ALT 60 H (4-34) U/L Alkaline Phosphatase 66 (38-126) U/L Troponin I (0.000-0.034) ng/mL Total Protein 6.1 L (6.3-8.2) g/dL Albumin 3.3 L (3.5-5.0) g/dL Coronavirus (PCR) (Not Detectd) 11/12/20 11/12/20 11/12/20 Range/Units 13:09 13:09 13:09 WBC (3.8-10.6) k/uL RBC (3.80-5.40) m/uL Hgb (11.4-16.0) gm/dL Hct (34.0-46.0) % MCV (80.0-100.0) fL MCH (25.0-35.0) pg MCHC (31.0-37.0) g/dL RDW (11.5-15.5) % Plt Count (150-450) k/uL MPV Hypochromasia Poikilocytosis Anisocytosis Macrocytosis PT (9.0-12.0) sec INR (<1.2) APTT (22.0-30.0) sec Sodium (137-145) mmol/L Potassium (3.5-5.1) mmol/L Chloride (98-107) mmol/L Carbon Dioxide (22-30) mmol/L Anion Gap mmol/L BUN (7-17) mg/dL Creatinine (0.52-1.04) mg/dL Est GFR (CKD-EPI)AfAm (>60 ml/min/1.73 sqM) Est GFR (CKD-EPI)NonAf (>60 ml/min/1.73 sqM) Glucose (74-99) mg/dL Plasma Lactic Acid Andrew 3.3 H* (0.7-2.0) mmol/L Calcium (8.4-10.2) mg/dL Magnesium (1.6-2.3) mg/dL Total Bilirubin (0.2-1.3) mg/dL AST (14-36) U/L ALT (4-34) U/L Alkaline Phosphatase (38-126) U/L Troponin I <0.012 (0.000-0.034) ng/mL Total Protein (6.3-8.2) g/dL Albumin (3.5-5.0) g/dL Coronavirus (PCR) Not Detected (Not Detectd) Disposition Clinical Impression: Neutropenia, Anemia, Coagulopathy, Acute myeloid leukemia, Syncope, Dehydration Disposition: ADMITTED IP TO THIS [facility] Condition: Stable Is patient prescribed a controlled substance at d/c from ED?: No Referrals: Pradeep Chung DO [Primary Care Provider] - 1-2 days Decision to Admit Reason: Admit from EC Decision Date: 11/12/20 Decision Time: 14:27
[2020-11-12 13:22] LABS: Anisocytosis Slight; HCT 26.3 % (34.0-46.0); HGB 8.6 gm/dL (11.4-16.0); Hypochromasia Moderate; MCH 31.8 pg (25.0-35.0); MCHC 32.9 g/dL (31.0-37.0); MCV 96.7 fL (80.0-100.0); Macrocytosis Slight; Mean Platelet Volume 10.7; Poikilocytosis Slight; RBC 2.72 m/uL (3.80-5.40); RDW 18.9 % (11.5-15.5)
[2020-11-12 13:33] LABS: African American GFR (CKD) >90 (>60 ml/min/1.73 sqM); Albumin 3.3 g/dL (3.5-5.0); Anion Gap 10 mmol/L; Carbon Dioxide 24 mmol/L (22-30); Chloride 99 mmol/L (98-107); Glucose 123 mg/dL (74-99); Non-African American GFR(CKD) 88 (>60 ml/min/1.73 sqM); Potassium 3.9 mmol/L (3.5-5.1); Sodium 133 mmol/L (137-145); Total Protein 6.1 g/dL (6.3-8.2)
[2020-11-12 13:34] LABS: Partial Thromboplastin Time 42.9 sec (22.0-30.0)
[2020-11-12 13:39] LABS: Prothrombin Time 124.6 sec (9.0-12.0)
[2020-11-12 13:45] LABS: INR >10.0 (<1.2)
[2020-11-12 14:01] LABS: Platelet Count 77 k/uL (150-450)
--- NOTE | 2020-11-12 14:06 | XR ---
EXAMINATION TYPE: XR chest 2V DATE OF EXAM: 11/12/2020 COMPARISON: 10/28/2020 TECHNIQUE: PA and lateral views submitted. HISTORY: Syncope FINDINGS: Left basilar subsegmental consolidation. No overt failure. Heart size normal. Hypertrophic and degene rative change of the spine. No pneumothorax. IMPRESSION: 1. Left basilar atelectasis or early infiltrate.
[2020-11-12 14:20] LABS: ALT 60 U/L (4-34); AST 41 U/L (14-36); Alkaline Phosphatase 66 U/L (38-126); Blood Urea Nitrogen 13 mg/dL (7-17); Calcium 8.7 mg/dL (8.4-10.2); Magnesium 1.8 mg/dL (1.6-2.3); Total Bilirubin 1.2 mg/dL (0.2-1.3)
[2020-11-12] MEDS ORDERED: PHYTONADIONE 2 MG in SODIUM CHLORIDE 0.9% 50 ML IVPB STA (14:21)
[2020-11-12] MEDS ORDERED: NALOXONE 0.4 MG/ML 1 ML VIAL IV PRN (14:25)
[2020-11-12 14:42] LABS: Blast Cells # (M) 1.04 k/uL (0); Lymphocytes # (M) 1.01 k/uL (1.0-4.8); Metamyelocytes # (M) 0.02 k/uL (0); Metamyelocytes % 1 %; Monocytes # (M) 0.09 k/uL (0-1.0); Myelocytes # (M) 0.02 k/uL (0); Myelocytes % 1 %; Neutrophils # (M) 0.12 k/uL (1.3-7.7); Neutrophils % (M) 5 %; Nucleated Red Blood Cells 4 /100 WBC (0-0); Total Cells Counted 100; WBC 2.3 k/uL (3.8-10.6)
[2020-11-12 14:43] LABS: Rouleaux Present
--- NOTE | 2020-11-12 16:05 | P.HPIM ---
History of Present Illness H&P Date: 11/12/20 Chief Complaint: Syncopal and Hypotensive Mrs. 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 She states November 2019 she was diagnosed with CVA, seen in [place]. She was soon after diagn osed with AML. She started on venetoclax and hypomethylating agent (HMA) injections, pending treatment f/u bone marrow-was supposed to be last month (September)-to see if she is in remission and can proceed with transplant. Unfortunately, this has been delayed with recurrent fevers, prolonged neut ropenia and re-hospitalizations. She was admitted in Aug for fall and head trauma, then September and 3 weeks ago for febrile neutropenia. Patient was in [place] for her HMA injection the first week of October. She presented to the office today for follow-up visit, although she was extremely lethargic and there was a moment of unresponsiveness. Her Blood pressure at the time of visit was 50s/30s. EMS was called and she was transported to emergency department for further evaluation and admission at the direction of Dr. Beckford. Spoke with ER physician Dr. Shanks and would like patient to have imaging Brain, Chest, Abdomen, Pelvis as well as elliott cultures - then broad spectrum antibiotics and anti-fugal coverage. INR >10, her last admission her warfarin was held due to thrombocytopenia. Dr. Beckford has asked for a stat CT Brain, as well as Chest, abdomen and Pelvis imaging (which can be done tomorrow once a little more stable). Vancomycin and cefepime initiated after Blood cultures in ER and Vitamin K given. Stat repeat coags ordered Review of Systems ROS unobtainable: due to mental status 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, basal cell skin cancer, brain bleed History of Any Multi-Drug Resistant Organisms: None Reported Past Surgical History: Adenoidectomy, Appendectomy, Hysterectomy, Orthopedic Surgery, Tonsillectomy Additional Past Surgical History / Comment(s): navid breast reduction, hemorrhoidectomy, metal nithin in toe, lt carpal tunnel, basal cell skin cancer removed Past Anesthesia/Blood Transfusion Reactions: No Reported Reaction Past Psychological History: Anxiety Smoking Status: Unknown if ever smoked Past Alcohol Use History: None Reported Past Drug Use History: None Reported - Past Family History Mother Family Medical History: CVA/TIA, Dementia, Myocardial Infarction ([place]) Father Family Medical History: Cancer Additional Family Medical History / Comment(s): colon cancer, alcoholism Medications and Allergies Home Medications Medication Instructions Recorded Confirmed Type Allopurinol [Zyloprim] 300 mg PO DAILY 10/11/20 11/12/20 History Atorvastatin [Lipitor] 40 mg PO HS 10/11/20 11/12/20 History Famotidine 20 mg PO BID PRN 10/11/20 11/12/20 History Warfarin [Coumadin] 2 mg PO SUTUTHSA@2100 10/11/20 11/12/20 History Warfarin [Coumadin] 5 mg PO HS 10/11/20 11/12/20 History ondansetron HCL [Zofran] 8 mg PO BID PRN 10/11/20 11/12/20 History polyethylene glycoL 3350 [Miralax] 17 gm PO DAILY powd.pack 10/17/20 11/12/20 Rx lisinopriL [Zestril] 10 mg PO HS #0 11/01/20 11/12/20 Rx Allergies Allergy/AdvReac Type Severity Reaction Status Date / Time erythromycin base Allergy Rash/Hives Verified 11/12/20 13:21 Physical Exam Vitals: Vital Signs Temp Pulse Resp BP Pulse Ox 11/12/20 12:18 98.4 F 125 H 18 116/52 97 Intake and Output 11/11/20 11/12/20 11/12/20 22:59 06:59 14:59 Other: Weight 63.503 kg - Constitutional General appearance: thin - EENT Eyes: EOMI ENT: hard of hearing, NA/AT - Respiratory Respiratory: bilateral: diminished - Cardiovascular Heart rate: 124 Rhythm: regularly irregular Heart sounds: normal: S2 - Gastrointestinal General gastrointestinal: soft - Integumentary Integumentary: pale - Neurologic YOUSUF - Musculoskeletal Musculoskeletal: generalized weakness - Psychiatric Lethargic and difficult to arouse Results CBC & Chem 7: 11/15/20 06:53 11/15/20 06:53 Thrombosis Risk Factor Assmnt - DVT/VTE Prophylaxis DVT/VTE Prophylaxis: Contraindicated - See note Assessment and Plan (1) Acute myeloid leukemia Current Visit: Yes Status: Acute Priority: High Code(s): C92.00 - ACUTE MYELOBLASTIC LEUKEMIA, NOT HAVING ACHIEVED REMISSION SNOMED Code(s): 19741589 (2) Coagulopathy Current Visit: Yes Status: Acute Priority: High Code(s): D68.9 - COAGULATION DEFECT, UNSPECIFIED SNOMED Code(s): 33861147 (3) Altered mental status Current Visit: No Status: Acute Priority: High Code(s): R41.82 - ALTERED MENTAL STATUS, UNSPECIFIED SNOMED Code(s): 249826319 (4) SIRS (systemic inflammatory response syndrome) Current Visit: No Status: Acute Code(s): R65.10 - SIRS OF NON-INFECTIOUS ORIGIN W/O ACUTE ORGAN DYSFUNCTION SNOMED Code(s): 985619727 (5) 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: Chronic Priority: High Code(s): D61.810 - ANTINEOPLASTIC CHEMOTHERAPY INDUCED PANCYTOPENIA; T45.1X5A - ADVERSE EFFECT OF ANTINEOPLASTIC AND IMMUNOSUP DRUGS, INIT SNOMED Code(s): 362538020890009 Plan: PLan: Per Dr. beckfodr - Brain Imaging to rule out acute bleed versus other - CT Chest/Abd/Pelvis - Repeat Coags - Hold Anticoagulation at this time - Bone Marrow biopsy to be scheduled this week - Elliott Cultures for prolong neutropenia and broad spectrum antibiotics and Anti- fungal Transfuse Hemoglobin less than 7, platelets less than 10 Irradiated blood products only No Growth factor as remission of leukemia has not been established Physician attest: I have completed the full history and physical and agree with above dictation, dictated as a ascribe.,
[2020-11-12 16:23] LABS: D-Dimer 0.47 mg/L FEU (<0.60)
--- NOTE | 2020-11-12 16:47 | CT ---
EXAMINATION TYPE: CT brain wo/w con DATE OF EXAM: 11/12/2020 COMPARISON: 10/31/2020. HISTORY: INR>10, mental status change. CT DLP: 2170.4 mGycm Automated exposure control for dose reduction was used. CONTRAST: CT scan of the head is performed without and with IV Contrast, patient injected with 100 mL of Isovue 300. FINDINGS: There is no abnormal enhancing mass or midline shift identified. Stable mild parenchymal volume loss . The ventricles and sulci are within normal limits in size. The globes are intact and the visualize d sinuses are clear. No evidence of enhancing lesions or fluid collection. IMPRESSION: No acute intracranial abnormality or enhancing lesions.
[2020-11-12 17:48] LABS: Appearance,Urine Cloudy (Clear); Bacteria,Urine Rare /hpf; Bilirubin,Urine Negative (Negative); Blood,Urine Trace (Negative); Color,Urine Yellow; Glucose,Urine (UA) Negative (Negative); Ketones,Urine Negative (Negative); Leukocyte Esterase,Urine Negative (Negative); Mucus,Urine Few /hpf; Nitrite,Urine Negative (Negative); Protein,Urine Trace (Negative); RBC,Urine 7 /hpf (0-5); Specific Gravity,Urine 1.027 (1.001-1.035); Squamous Epithelial Cell,Urine 33 /hpf (0-4); WBC,Urine 9 /hpf (0-5)
[2020-11-12] MEDS ORDERED: FAMOTIDINE 20 MG TAB PO PRN (20:32)
[2020-11-13] MEDS: ATORVASTATIN 40 MG TAB PO SCH ×2 (01:00→21:14)
[2020-11-13] MEDS: SODIUM CHLORIDE 0.9% 1,000 ML IV SCH ×5 (01:02→22:17)
[2020-11-13] MEDS: VANCOMYCIN 1,250 MG in SODIUM CHLORIDE 0.9% 250 ML IVPB SCH ×2 (06:08→22:09)
[2020-11-13] MEDS: polyethylene glycoL 3350 17 GM POWD.PACK PO SCH (09:19)
[2020-11-13] MEDS: allopurinoL 300 MG TAB PO SCH (09:19)
[2020-11-13] MEDS: ACETAMINOPHEN TAB 325 MG TAB PO PRN (09:23)
[2020-11-13] MEDS: IOPAMIDOL CONTRAST (ORAL USE) VIAL PO PRN ×2 (10:16→11:12)
[2020-11-13 11:24] LABS: Anisocytosis Slight; HCT 21.3 % (34.0-46.0); Hypochromasia Moderate; MCH 31.8 pg (25.0-35.0); MCHC 33.1 g/dL (31.0-37.0); MCV 96.1 fL (80.0-100.0); Macrocytosis Slight; Poikilocytosis Slight; RBC 2.22 m/uL (3.80-5.40); RDW 19.2 % (11.5-15.5); WBC 1.7 k/uL (3.8-10.6)
[2020-11-13 11:34] LABS: INR 1.9 (<1.2); Partial Thromboplastin Time 29.6 sec (22.0-30.0); Prothrombin Time 18.3 sec (9.0-12.0); Prothrombin Time 18.6 sec (9.0-12.0)
[2020-11-13 11:45] LABS: ALT 46 U/L (4-34); AST 32 U/L (14-36); African American GFR (CKD) >90 (>60 ml/min/1.73 sqM); Albumin 2.7 g/dL (3.5-5.0); Albumin/Globulin Ratio 1.1; Alkaline Phosphatase 57 U/L (38-126); Anion Gap 6 mmol/L; Blood Urea Nitrogen 13 mg/dL (7-17); Calcium 8.4 mg/dL (8.4-10.2); Carbon Dioxide 25 mmol/L (22-30); Chloride 105 mmol/L (98-107); Globulin 2.5 g/dL; Glucose 110 mg/dL (74-99); Non-African American GFR(CKD) >90 (>60 ml/min/1.73 sqM); Potassium 3.7 mmol/L (3.5-5.1); Sodium 136 mmol/L (137-145); Total Bilirubin 1.2 mg/dL (0.2-1.3); Total Protein 5.2 g/dL (6.3-8.2)
--- NOTE | 2020-11-13 12:16 | CT ---
EXAMINATION TYPE: CT ChestAbdPelvis w con DATE OF EXAM: 11/13/2020 COMPARISON: 10/30/2020 HISTORY: Leiomyoma CT DLP: 982.8 mGycm CONTRAST: CT scan of the chest, abdomen and pelvis is performed with Oral Contrast and with IV Contrast, patien t injected with 100 mL of Isovue 300. CT Chest: LUNGS: The lungs are clear and free of infiltrate or atelectasis. No pulmonary nodule or mass is det ected. No pleural effusion or CT evidence of interstitial lung disease. MEDIASTINUM: Left thyroid nodule identified. Correlate with ultrasound. Thoracic aorta is of normal c aliber. The heart is not enlarged. No evidence for mediastinal mass or adenopathy. HILAR STRUCTURES: No evidence for mass. No hilar adenopathy is appreciated. OTHER: No significant abnormality. CONTRAST CT ABDOMEN AND PELVIS FINDINGS: LIVER/GB: No calcified gallstones. Left hepatic lobe peripheral hepatic cysts noted measuring less than 1 cm. No additional space-occupying hepatic lesions. Biliary tree is of normal caliber. PANCREAS: No inflammation. No distinct mass. SPLEEN: No splenic enlargement. No lesion seen. ADRENALS: No nodule. No thickening. KIDNEYS/BLADDER: No hydronephrosis. No nephrolithiasis. No disctinct renal mass. BOWEL: Nodular small bowel wall thickening noted involving jejunal loops is nonspecific. There is wal l thickening noted to involve the transverse colon distally and splenic flexure which could reflect u nderlying colitis. Moderate fecal stasis noted. GENITAL ORGANS: No gross abnormality. LYMPH NODES: No greater than 1cm abdominal or pelvic lymph nodes are appreciated. AORTA: No significant abnormality. OSSEOUS STRUCTURES: No significant abnormality is seen. OTHER: Persistent presacral edema is improved in the interval. IMPRESSION: 1. Nodular small bowel wall thickening noted involving jejunal loops is nonspecific. 2.There is wall thickening noted to involve the transverse colon distally and splenic flexure which c ould reflect underlying colitis. 3.Persistent presacral edema is improved in the interval.
[2020-11-13 12:37] LABS: Platelet Count 54 k/uL (150-450)
[2020-11-13 12:55] LABS: Lymphocytes # (M) 0.85 k/uL (1.0-4.8); Metamyelocytes # (M) 0.05 k/uL (0); Metamyelocytes % 3 %; Monocytes # (M) 0.03 k/uL (0-1.0); Neutrophils % (M) 6 %
[2020-11-13 12:56] LABS: Blast Cells # (M) 0.66 k/uL (0); Nucleated Red Blood Cells 3 /100 WBC (0-0); Total Cells Counted 100
[2020-11-13 21:05] LABS: Anisocytosis Slight; Basophils % (A) 1 %; Eosinophils % (A) 1 %; Hypochromasia Slight; Lymphocytes # (A) 1.1 k/uL (1.0-4.8); Lymphocytes % (A) 47 %; MCH 31.4 pg (25.0-35.0); MCHC 33.1 g/dL (31.0-37.0); Macrocytosis Slight; Mean Platelet Volume 10.1; Monocytes # (A) 0.6 k/uL (0-1.0); Monocytes % (A) 27 %; Neutrophils # (A) 0.6 k/uL (1.3-7.7); Neutrophils % (A) 24 %; Poikilocytosis Slight; RBC 2.03 m/uL (3.80-5.40); RDW 18.9 % (11.5-15.5)
[2020-11-13 21:08] LABS: HCT 19.3 % (34.0-46.0); HGB 6.4 gm/dL (11.4-16.0)
[2020-11-13 21:09] LABS: Platelet Count 55 k/uL (150-450)
[2020-11-13 21:47] LABS: Band Neutrophils % 1 %; Eosinophils # (M) 0.02 k/uL (0-0.7); Monocytes # (M) 0.05 k/uL (0-1.0); Neutrophils % (M) 10 %
[2020-11-13 21:48] LABS: Nucleated Red Blood Cells 5 /100 WBC (0-0); Total Cells Counted 200
[2020-11-13 21:49] LABS: Blast Cells # (M) 1.29 k/uL (0); Lymphocytes # (M) 0.74 k/uL (1.0-4.8); WBC 2.3 k/uL (3.8-10.6)
--- NOTE | 2020-11-14 00:59 | P.CONS ---
History of Present Illness - Reason for Consult Consult date: 11/13/20 Medical management Requesting physician: Winsome Beckford - Chief Complaint Tired - History of Present Illness Chief Complaint: Tired History of presenting complaint: This is a 75-year-old patient of Dr. Chung. Chronic stable medical conditions include hyperlipidemia, hypertension, parathyroid disorder, basal cell skin cancer. Reported history of blood clot in the brain for which patient is on Coumadin, possibly venous thrombosis. Patient does follow with / oncologist out of [place] and patient be getting chemotherapy for acute myeloid leukemia. [November 2019 patient presented to the ER here-CT angios the head had shown intracranial hemorrhage adjacent to the right posterior cerebral artery but no definite aneurysm identified. Subdural hemorrhage. Patient was transferred to [facility] in [place]. Patient presented to her oncologist office yesterday feeling very tired and lethargic and a moment of unresponsiveness. The pressure was 50/30s. EMS transported the patient to the hospital. INR was greater than 10. Vitamin K w as given. Broad-spectrum antibiotics were started in the ER including vancomycin and cefepime. Patient has been feeling weak and tired. No obvious reported fever or chills. Appetite has been okay Review of systems: GEN.: Tired EYES: None HEENT: None NECK: None RESPIRATORY: None CARDIOVASCULAR: None GASTROINTESTINAL: None GENITOURINARY: None MUSCULOSKELETAL: Some muscle weakness LYMPHATICS: None HEMATOLOGICAL: None PSYCHIATRY: None NEUROLOGICAL: Gets dizzy on standing lightheaded Past medical history to include: Hyperlipidemia, hypertension, mitral valve prolapse, parathyroid disorder, basal cell skin cancer, venous sinus thrombosis, intracranial and subdural hemorrhage in November 2019. Acute myeloid leukemia Social history: Lives with . No history of smoking or alcohol Physical examination: VITAL SIGNS: 98, 81, 18, 180 60, 95% room air GENERAL: BMI 26.5, laying in bed, awake . tired EYES: Pupils equal. Conjunctiva pale. HEENT: External appearance of nose and ears normal, oral cavity grossly normal. NECK: JVD not raised; masses not palpable. HEART: First and second heart sounds are normal; no edema. LUNGS: Respiratory rate normal; clear to auscultation. ABDOMEN: Soft, nontender, liver spleen not palpable, no masses palpable. PSYCH: Answering simple questions NEUROLOGICAL: Cranial nerves grossly intact; no facial asymmetry, power and sensation grossly intact. LYMPHATICS: No lymph nodes palpable in the axilla and neck INVESTIGATIONS, reviewed in the clinical context: Today: White count 1.7 hemoglobin 7 INR 1.9 Admission labs: WBC 2.3 hemoglobin 8.6 platelets 77 INR greater than 10 creatinine 0.63 sodium 133 albumin 3.3 Coronavirus [PCR]-not detected Assessment and plan: -Hypotension decreased oral intake. Patient's Zestril discontinued -Symptomatic severe anemia from AML. Transfuse 1 unit of blood. -Coumadin toxicity. Vitamin K given.. -anticoagulation. for cranial venous thrombosis. -History of intracranial and subdural hemorrhage in November 2019. For which patient was transferred out to [facility] -Acute myeloid leukemia, being treated by Dr. lombardo from [facility]. Awaiting bone marrow transplant -Essential hypertension . Currently hold of Zestril. Follow closely -Hyperlipidemia continue with Lipitor -Hyperuricemia likely from treatment for leukemia. Continue with allopurinol -Near-syncope likely due to vasovagal. Secondary to anemia. Patient received vitamin K. INR is coming on. Fall precautions. PTOT. Discussed with . maureen. Consult ID Thank you Dr. Beckford 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, basal cell skin cancer, brain bleed History of Any Multi-Drug Resistant Organisms: None Reported Past Surgical History: Adenoidectomy, Appendectomy, Hysterectomy, Orthopedic Surgery, Tonsillectomy Additional Past Surgical History / Comment(s): navid breast reduction, hemorrhoidectomy, metal nithin in toe, lt carpal tunnel, basal cell skin cancer removed Past Anesthesia/Blood Transfusion Reactions: No Reported Reaction Past Psychological History: Anxiety Smoking Status: Unknown if ever smoked Past Alcohol Use History: None Reported Past Drug Use History: None Reported - Past Family History Mother Family Medical History: CVA/TIA, Dementia, Myocardial Infarction ([place]) Father Family Medical History: Cancer Additional Family Medical History / Comment(s): colon cancer, alcoholism Medications and Allergies Home Medications Medication Instructions Recorded Confirmed Type Allopurinol [Zyloprim] 300 mg PO DAILY 10/11/20 11/12/20 History Atorvastatin [Lipitor] 40 mg PO HS 10/11/20 11/12/20 History Famotidine 20 mg PO BID PRN 10/11/20 11/12/20 History Warfarin [Coumadin] 2 mg PO SUTUTHSA@2100 10/11/20 11/12/20 History Warfarin [Coumadin] 5 mg PO HS 10/11/20 11/12/20 History ondansetron HCL [Zofran] 8 mg PO BID PRN 10/11/20 11/12/20 History polyethylene glycoL 3350 [Miralax] 17 gm PO DAILY powd.pack 10/17/20 11/12/20 Rx lisinopriL [Zestril] 10 mg PO HS #0 11/01/20 11/12/20 Rx Allergies Allergy/AdvReac Type Severity Reaction Status Date / Time erythromycin base Allergy Rash/Hives Verified 11/12/20 13:21 Physical Exam Vitals: Vital Signs Temp Pulse Pulse Resp BP BP Pulse Ox 11/13/20 04:49 98.5 F 85 16 105/62 95 11/12/20 21:30 16 11/12/20 20:22 86 16 108/63 97 11/12/20 20:00 98.6 F 89 16 108/69 94 L 11/12/20 18:51 98.6 F 92 18 101/54 98 11/12/20 16:00 96 18 123/80 98 11/12/20 14:20 92 18 100/56 98 11/12/20 12:18 98.4 F 125 H 18 116/52 97 Intake and Output 11/12/20 11/13/20 11/13/20 22:59 06:59 14:59 Other: Voiding Method Diaper Incontinent # Bowel Movements 0 Weight 63.503 kg Results CBC & Chem 7: 11/13/20 20:41 11/13/20 10:48 Labs: Abnormal Lab Results - Last 24 Hours (Table) 11/12/20 11/12/20 11/12/20 Range/Units 13:09 13:09 13:09 WBC 2.3 L (3.8-10.6) k/uL RBC 2.72 L (3.80-5.40) m/uL Hgb 8.6 L (11.4-16.0) gm/dL Hct 26.3 L (34.0-46.0) % RDW 18.9 H (11.5-15.5) % Plt Count 77 L D (150-450) k/uL Blast Cells % 45 H* % Neutrophils # (Manual) 0.12 L* (1.3-7.7) k/uL Metamyelocytes # (Man) 0.02 H (0) k/uL Myelocytes # (Manual) 0.02 H (0) k/uL Blast Cells # (Man) 1.04 H (0) k/uL Nucleated RBCs 4 H (0-0) /100 WBC PT 124.6 H (9.0-12.0) sec INR >10.0 H* (<1.2) APTT 42.9 H (22.0-30.0) sec Sodium 133 L (137-145) mmol/L Glucose 123 H (74-99) mg/dL Plasma Lactic Acid Andrew (0.7-2.0) mmol/L AST 41 H (14-36) U/L ALT 60 H (4-34) U/L Total Protein 6.1 L (6.3-8.2) g/dL Albumin 3.3 L (3.5-5.0) g/dL Urine Appearance (Clear) Urine Protein (Negative) Urine Blood (Negative) Urine RBC (0-5) /hpf Urine WBC (0-5) /hpf Ur Squamous Epith Cells (0-4) /hpf Urine Bacteria (None) /hpf Urine Mucus (None) /hpf 11/12/20 11/12/20 Range/Units 13:09 17:24 WBC (3.8-10.6) k/uL RBC (3.80-5.40) m/uL Hgb (11.4-16.0) gm/dL Hct (34.0-46.0) % RDW (11.5-15.5) % Plt Count (150-450) k/uL Blast Cells % % Neutrophils # (Manual) (1.3-7.7) k/uL Metamyelocytes # (Man) (0) k/uL Myelocytes # (Manual) (0) k/uL Blast Cells # (Man) (0) k/uL Nucleated RBCs (0-0) /100 WBC PT (9.0-12.0) sec INR (<1.2) APTT (22.0-30.0) sec Sodium (137-145) mmol/L Glucose (74-99) mg/dL Plasma Lactic Acid Andrew 3.3 H* (0.7-2.0) mmol/L AST (14-36) U/L ALT (4-34) U/L Total Protein (6.3-8.2) g/dL Albumin (3.5-5.0) g/dL Urine Appearance Cloudy H (Clear) Urine Protein Trace H (Negative) Urine Blood Trace H (Negative) Urine RBC 7 H (0-5) /hpf Urine WBC 9 H (0-5) /hpf Ur Squamous Epith Cells 33 H (0-4) /hpf Urine Bacteria Rare H (None) /hpf Urine Mucus Few H (None) /hpf Microbiology - Last 24 Hours (Table) 11/12/20 17:24 Urine Culture - Preliminary Urine,Clean Catch
[2020-11-14] MEDS: SODIUM CHLORIDE 0.9% 1,000 ML IV SCH (06:26)
[2020-11-14] MEDS: FLUCONAZOLE IN NACL,ISO-OSM 100 MG in SALINE 1 50ML.BAG IVPB SCH (08:09)
[2020-11-14] MEDS: polyethylene glycoL 3350 17 GM POWD.PACK PO SCH (08:10)
[2020-11-14] MEDS: allopurinoL 300 MG TAB PO SCH (08:10)
[2020-11-14 11:50] LABS: Partial Thromboplastin Time 28.5 sec (22.0-30.0); Prothrombin Time 19.3 sec (9.0-12.0)
[2020-11-14 11:57] LABS: ALT 48 U/L (4-34); AST 43 U/L (14-36); African American GFR (CKD) >90 (>60 ml/min/1.73 sqM); Albumin 2.6 g/dL (3.5-5.0); Albumin/Globulin Ratio 1.1; Alkaline Phosphatase 50 U/L (38-126); Anion Gap 5 mmol/L; Blood Urea Nitrogen 7 mg/dL (7-17); Calcium 8.3 mg/dL (8.4-10.2); Carbon Dioxide 25 mmol/L (22-30); Chloride 104 mmol/L (98-107); Globulin 2.4 g/dL; Glucose 98 mg/dL (74-99); Magnesium 1.9 mg/dL (1.6-2.3); Non-African American GFR(CKD) >90 (>60 ml/min/1.73 sqM); Potassium 3.9 mmol/L (3.5-5.1); Sodium 134 mmol/L (137-145); Total Bilirubin 1.4 mg/dL (0.2-1.3)
[2020-11-14 12:03] LABS: Anisocytosis Slight; HCT 29.4 % (34.0-46.0); Hypochromasia Slight; MCH 30.9 pg (25.0-35.0); MCHC 34.4 g/dL (31.0-37.0); Mean Platelet Volume 10.5; Poikilocytosis Slight; RBC 3.27 m/uL (3.80-5.40); RDW 17.8 % (11.5-15.5); WBC 2.2 k/uL (3.8-10.6)
[2020-11-14 12:07] LABS: HGB 10.1 gm/dL (11.4-16.0); MCV 89.8 fL (80.0-100.0)
[2020-11-14 12:08] LABS: Platelet Count 55 k/uL (150-450)
[2020-11-14 12:14] LABS: C Reactive Protein 151.5 mg/L (<10.0)
[2020-11-14] MEDS ORDERED: PHYTONADIONE ORAL 5 MG/5 ML ORAL.SYRG PO STA (13:28)
--- NOTE | 2020-11-14 13:30 | P.PN ---
Subjective Progress Note Date: 11/13/20 Principal diagnosis: Acute Leukemia No acute abnormalities in brain, INR improving. Hemoglobin 7 (down from 8.6). IVF and abx and antifungal coverage. CT chest/Abd/Pelvis possible colitis. In the picture of neutropenia will decrease diet to clear liquids at this time. Her peripheral blood is 39% blasts which is concerning. BM biopy Objective - Vital Signs Vital signs: Vital Signs Temp 98.3 F 11/13/20 19:26 Pulse 85 11/13/20 19:26 Resp 20 11/13/20 19:26 BP 103/62 11/13/20 19:26 Pulse Ox 94 L 11/13/20 19:26 Intake & Output 11/13/20 11/13/20 11/14/20 06:59 18:59 06:59 Intake Total 650 Balance 650 Intake: Intake, IV Titration 650 Amount Sodium Chloride 0.9% 1, 650 000 ml @ 130 mls/hr IV . Q7H42M [facility] Rx#:[id number] Other: Voiding Method Diaper Diaper Incontinent Incontinent # Bowel Movements 0 - Labs CBC & Chem 7: 11/14/20 10:37 11/14/20 10:37 Labs: Abnormal Lab Results - Last 24 Hours (Table) 11/13/20 11/13/20 11/13/20 Range/Units 10:48 10:48 10:48 WBC 1.7 L (3.8-10.6) k/uL RBC 2.22 L (3.80-5.40) m/uL Hgb 7.0 L D (11.4-16.0) gm/dL Hct 21.3 L (34.0-46.0) % RDW 19.2 H (11.5-15.5) % Plt Count 54 L (150-450) k/uL Blast Cells % 39 H* % Neutrophils # (Manual) 0.10 L* (1.3-7.7) k/uL Lymphocytes # (Manual) 0.85 L (1.0-4.8) k/uL Metamyelocytes # (Man) 0.05 H (0) k/uL Blast Cells # (Man) 0.66 H (0) k/uL Nucleated RBCs 3 H (0-0) /100 WBC PT 18.6 H (9.0-12.0) sec INR 1.9 H (<1.2) Sodium 136 L (137-145) mmol/L Creatinine 0.43 L (0.52-1.04) mg/dL Glucose 110 H (74-99) mg/dL ALT 46 H (4-34) U/L Total Protein 5.2 L (6.3-8.2) g/dL Albumin 2.7 L (3.5-5.0) g/dL 11/13/20 Range/Units 10:48 WBC (3.8-10.6) k/uL RBC (3.80-5.40) m/uL Hgb (11.4-16.0) gm/dL Hct (34.0-46.0) % RDW (11.5-15.5) % Plt Count (150-450) k/uL Blast Cells % % Neutrophils # (Manual) (1.3-7.7) k/uL Lymphocytes # (Manual) (1.0-4.8) k/uL Metamyelocytes # (Man) (0) k/uL Blast Cells # (Man) (0) k/uL Nucleated RBCs (0-0) /100 WBC PT 18.3 H (9.0-12.0) sec INR 1.9 H (<1.2) Sodium (137-145) mmol/L Creatinine (0.52-1.04) mg/dL Glucose (74-99) mg/dL ALT (4-34) U/L Total Protein (6.3-8.2) g/dL Albumin (3.5-5.0) g/dL Microbiology - Last 24 Hours (Table) 11/12/20 13:50 Blood Culture - Preliminary Blood No Growth after 24 hours 11/12/20 17:24 Urine Culture - Preliminary Urine,Clean Catch Assessment and Plan (1) Acute myeloid leukemia Current Visit: Yes Status: Acute Priority: High Code(s): C92.00 - ACUTE MYELOBLASTIC LEUKEMIA, NOT HAVING ACHIEVED REMISSION SNOMED Code(s): 29379173 (2) Coagulopathy Current Visit: Yes Status: Acute Priority: High Code(s): D68.9 - COAGULATION DEFECT, UNSPECIFIED SNOMED Code(s): 95329711 (3) Altered mental status Current Visit: No Status: Acute Priority: High Code(s): R41.82 - ALTERED MENTAL STATUS, UNSPECIFIED SNOMED Code(s): 062728444 (4) SIRS (systemic inflammatory response syndrome) Current Visit: No Status: Acute Code(s): R65.10 - SIRS OF NON-INFECTIOUS ORIGIN W/O ACUTE ORGAN DYSFUNCTION SNOMED Code(s): 266207535 (5) 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: Chronic Priority: High Code(s): D61.810 - ANTINEOPLASTIC CHEMOTHERAPY INDUCED PANCYTOPENIA; T45.1X5A - ADVERSE EFFECT OF ANTINEOPLASTIC AND IMMUNOSUP DRUGS, INIT SNOMED Code(s): 653907518483032 Plan: PLan: - Brain Imaging to rule out acute bleed versus other - CT Chest/Abd/Pelvis - Repeat Coags - Hold Anticoagulation at this time - Bone Marrow biopsy to be scheduled 11/14, check pt/inr prior - Sunshine Cultures for prolong neutropenia and broad spectrum antibiotics and Anti- fungal Transfuse Hemoglobin less than 7, platelets less than 10 Irradiated blood products only No Growth factor as remission of leukemia has not been established Physician attest: I have completed the full history and physical and agree with above dictation, dictated as a ascribe.,
--- NOTE | 2020-11-14 13:38 | P.PN ---
Subjective Progress Note Date: 11/14/20 Principal diagnosis: Acute Leukemia Unable to undergo BM biopsy with INR 2, will need to reschedule. Vitamin K ordered. She receive PRBC yesterday for hemoglobin 6.6, still incontinent with diarrhea. Therefore decrease diet to clear liquids for neutropenic colitis and allow healing Objective - Vital Signs Vital signs: Vital Signs Temp 98.6 F 11/14/20 11:31 Pulse 85 11/14/20 11:31 Resp 17 11/14/20 11:31 BP 133/83 11/14/20 11:31 Pulse Ox 94 L 11/14/20 11:31 Intake & Output 11/13/20 11/14/20 11/14/20 18:59 06:59 18:59 Intake Total 650 100 620 Output Total 1 Balance 650 99 620 Intake: Intake, IV Titration 650 Amount Sodium Chloride 0.9% 1, 650 000 ml @ 130 mls/hr IV . Q7H42M [facility] Rx#:[id number] Oral 100 Blood Product 0 620 Rc Irr As1 Unit 0 310 [id number] Rc Irr As1 Unit 310 [id number] Output: Urine/Stool Mix 1 Other: Voiding Method Diaper Diaper Diaper Incontinent Incontinent Incontinent # Voids 2 # Bowel Movements 0 - Exam - Constitutional General appearance: thin - EENT Eyes: EOMI ENT: hard of hearing, NA/AT - Respiratory Respiratory: bilateral: diminished - Cardiovascular Heart rate: 124 Rhythm: regularly irregular Heart sounds: normal: S2 - Gastrointestinal General gastrointestinal: soft - Integumentary Integumentary: pale - Neurologic YOUSUF - Musculoskeletal Musculoskeletal: generalized weakness - Psychiatric Lethargic and difficult to arouse - Labs CBC & Chem 7: 11/14/20 10:37 11/14/20 10:37 Labs: Abnormal Lab Results - Last 24 Hours (Table) 11/13/20 11/13/20 11/13/20 Range/Units 10:48 20:41 21:50 WBC 2.3 L (3.8-10.6) k/uL RBC 2.03 L (3.80-5.40) m/uL Hgb 6.4 L* (11.4-16.0) gm/dL Hct 19.3 L* (34.0-46.0) % RDW 18.9 H (11.5-15.5) % Plt Count 55 L (150-450) k/uL Blast Cells % 39 H* 56 H* % Neutrophils # 0.6 L (1.3-7.7) k/uL Neutrophils # (Manual) 0.20 L* (1.3-7.7) k/uL Lymphocytes # (Manual) 0.74 L (1.0-4.8) k/uL Blast Cells # (Man) 1.29 H (0) k/uL Nucleated RBCs 5 H (0-0) /100 WBC PT (9.0-12.0) sec INR (<1.2) Sodium (137-145) mmol/L Creatinine (0.52-1.04) mg/dL Calcium (8.4-10.2) mg/dL Total Bilirubin (0.2-1.3) mg/dL AST (14-36) U/L ALT (4-34) U/L C-Reactive Protein (<10.0) mg/L Total Protein (6.3-8.2) g/dL Albumin (3.5-5.0) g/dL Crossmatch See Detail 11/14/20 11/14/20 11/14/20 Range/Units 10:37 10:37 10:37 WBC 2.2 L (3.8-10.6) k/uL RBC 3.27 L (3.80-5.40) m/uL Hgb 10.1 L D (11.4-16.0) gm/dL Hct 29.4 L (34.0-46.0) % RDW 17.8 H (11.5-15.5) % Plt Count (150-450) k/uL Blast Cells % % Neutrophils # (1.3-7.7) k/uL Neutrophils # (Manual) (1.3-7.7) k/uL Lymphocytes # (Manual) (1.0-4.8) k/uL Blast Cells # (Man) (0) k/uL Nucleated RBCs (0-0) /100 WBC PT 19.3 H (9.0-12.0) sec INR 2.0 H (<1.2) Sodium 134 L (137-145) mmol/L Creatinine 0.39 L (0.52-1.04) mg/dL Calcium 8.3 L (8.4-10.2) mg/dL Total Bilirubin 1.4 H (0.2-1.3) mg/dL AST 43 H (14-36) U/L ALT 48 H (4-34) U/L C-Reactive Protein 151.5 H (<10.0) mg/L Total Protein 5.0 L (6.3-8.2) g/dL Albumin 2.6 L (3.5-5.0) g/dL Crossmatch Microbiology - Last 24 Hours (Table) 11/12/20 13:50 Blood Culture - Preliminary Blood No Growth after 24 hours Assessment and Plan (1) Acute myeloid leukemia Current Visit: Yes Status: Acute Priority: High Code(s): C92.00 - ACUTE MYELOBLASTIC LEUKEMIA, NOT HAVING ACHIEVED REMISSION SNOMED Code(s): 57209900 (2) Coagulopathy Current Visit: Yes Status: Acute Priority: High Code(s): D68.9 - COAGULATION DEFECT, UNSPECIFIED SNOMED Code(s): 08045549 (3) Altered mental status Current Visit: No Status: Acute Priority: High Code(s): R41.82 - ALTERED MENTAL STATUS, UNSPECIFIED SNOMED Code(s): 698777137 (4) SIRS (systemic inflammatory response syndrome) Current Visit: No Status: Acute Code(s): R65.10 - SIRS OF NON-INFECTIOUS ORIGIN W/O ACUTE ORGAN DYSFUNCTION SNOMED Code(s): 328424632 (5) 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: Chronic Priority: High Code(s): D61.810 - ANTINEOPLASTIC CHEMOTHERAPY INDUCED PANCYTOPENIA; T45.1X5A - ADVERSE EFFECT OF ANTINEOPLASTIC AND IMMUNOSUP DRUGS, INIT SNOMED Code(s): 694671450373278 Plan: PLan: - Brain Imaging to rule out acute bleed versus other - CT Chest/Abd/Pelvis - Repeat Coags - Hold Anticoagulation at this time - Bone Marrow biopsy unable to be performed today due to increased INR - Check Stool Studies - incontinent and diarrhea - Strict i and O - Change to clear liquids Transfuse Hemoglobin less than 7, platelets less than 10 Irradiated blood products only No Growth factor as remission of leukemia has not been established Will ask IR to do Bone Marrow Biopsy as unable to perform today. ID to follow for ongoing antibiotics and per Dr. Beckford please provide prophylaxis with prolonged neutropenia Physician attest: I have completed the full history and physical and agree with above dictation, dictated as a ascribe.,
--- NOTE | 2020-11-14 13:40 | P.PN ---
Subjective From records: This is a 75-year-old patient of Dr. Chung. Chronic stable medical conditions include hyperlipidemia, hypertension, parathyroid disorder, basal cell skin cancer. Reported history of blood clot in the brain for which patient is on Coumadin, possibly venous thrombosis. 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 [November 2019 patient presented to the ER here-CT angios the head had shown intracranial hemorrhage adjacent to the right posterior cerebral artery but no definite aneurysm identified. Subdural hemorrhage. Patient was transferred to [facility] in [place]. Patient presented to her oncologist office yesterday feeling very tired and lethargic and a moment of unresponsiveness. The pressure was 50/30s. EMS transported the patient to the hospital. INR was greater than 10. Vitamin K was given. Broad-spectrum antibiotics were started in the ER including vancomycin and cefepime. Patient has been feeling weak and tired. No obvious reported fever or chills. Appetite has been okay Subjective: 11/14/2020 This is a pleasant 75 years old female with history of AML and follow-up with oncologist, patient presents with transient period of unconsciousness and unresponsiveness associated with hypotension at the oncology office. Patient states that she has long history of dizziness especially when she gets up more in the last 2 months associated with some sweating. She describes her dizziness as presyncope. Patient states that she was walking without help to she fell about 2 months ago due to her dizziness and now she needs more help with walking. Patient states that currently she needs to 3 people to help her walking. She complains also from pain in her hemorrhoids. Today she got 2 units of blood transfusion and her hemoglobin increased from 6.4 up to 10.1. Platelets 50 5K and WBC is 2.2K. Blast cells in the peripheral blood is 56% Currently her INR is 2.0. BMP is unremarkable. CT of the brain is negative. CT of the chest, abdomen and pelvis showed possible colitis. elliott-culture was obtained. Patient is currently covered with IV vancomycin and fluconazole with infectious disease team consulted Review of systems CONSTITUTIONAL: No fever, no malaise, no fatigue. HEENT: No recent visual problems or hearing problems. Denied any sore throat. CARDIOVASCULAR: No orthopnea, PND, no palpitations, no syncope. PULMONARY: No shortness of breath, no cough, no hemoptysis. GASTROINTESTINAL: No diarrhea, no nausea, no vomiting, no abdominal pain. Normoactive bowel sounds. NEUROLOGICAL: No headaches, no weakness, no numbness. Active Medications Generic Name Dose Route Start Last Admin Trade Name Freq PRN Reason Stop Dose Admin Acetaminophen 650 mg 11/12/20 14:25 11/13/20 09:23 Acetaminophen Tab 325 Mg Tab PO 650 mg Q6HR PRN Administration Mild Pain or Fever > 100.5 Allopurinol 300 mg 11/13/20 09:00 11/14/20 08:10 Allopurinol 300 Mg Tab PO 300 mg DAILY GINO Administration Atorvastatin Calcium 40 mg 11/12/20 21:00 11/13/20 21:14 Atorvastatin 40 Mg Tab PO 40 mg HS GINO Administration Cholestyramine Resin 4 gm 11/14/20 18:00 Cholestyramine (With Sugar) 4 Gm Packet PO BID@1000,1800 GINO Famotidine 20 mg 11/12/20 20:32 Famotidine 20 Mg Tab PO BID PRN on chemo days Sodium Chloride 1,000 mls @ 130 mls/hr 11/12/20 12:45 11/14/20 06:26 Saline 0.9% IV Not Given .Q7H42M GINO Vancomycin HCl 1,250 mg/ 250 mls @ 125 mls/hr 11/13/20 06:00 11/13/20 22:09 Sodium Chloride IVPB 125 mls/hr Q16H GINO Administration Fluconazole/Sodium Chloride 50 mls @ 50 mls/hr 11/14/20 09:00 11/14/20 08:09 100 mg/ IV Solution IVPB 50 mls/hr DAILY GINO Administration Naloxone HCl 0.2 mg 11/12/20 14:25 Naloxone 0.4 Mg/Ml 1 Ml Vial IV Q2M PRN Opioid Reversal Polyethylene Glycol 17 gm 11/13/20 09:00 11/14/20 08:10 Polyethylene Glycol 3350 17 Gm Powd.Pack PO 17 gm DAILY GINO Administration Objective - Vital Signs Vital signs: Vital Signs Temp 98.6 F 11/14/20 11:31 Pulse 85 11/14/20 11:31 Resp 17 11/14/20 11:31 BP 133/83 11/14/20 11:31 Pulse Ox 94 L 11/14/20 11:31 Intake & Output 11/13/20 11/14/2021 18:59 06:59 18:59 Intake Total 650 100 620 Output Total 1 Balance 650 99 620 Intake: Intake, IV Titration 650 Amount Sodium Chloride 0.9% 1, 650 000 ml @ 130 mls/hr IV . Q7H42M [facility] Rx#:[id number] Oral 100 Blood Product 0 620 Rc Irr As1 Unit 0 310 [id number] Rc Irr As1 Unit 310 [id number] Output: Urine/Stool Mix 1 Other: Voiding Method Diaper Diaper Diaper Incontinent Incontinent Incontinent # Voids 2 # Bowel Movements 0 - Exam -GENERAL: The patient is alert and oriented x3, not in any acute distress. Generally weak HEENT: Pupils are round and equally reacting to light. EOMI. No scleral icterus. No conjunctival pallor. Normocephalic, atraumatic. No pharyngeal erythema. No thyromegaly. CARDIOVASCULAR: S1 and S2 present. No murmurs, rubs, or gallops. PULMONARY: Chest is clear to auscultation, no wheezing or crackles. ABDOMEN: Soft, nontender, nondistended, normoactive bowel sounds. No palpable organomegaly. MUSCULOSKELETAL: No joint swelling or deformity. EXTREMITIES: No cyanosis, clubbing, or pedal edema. NEUROLOGICAL: Gross neurological examination did not reveal any focal deficits. SKIN: No rashes. no petechiae. - Labs CBC & Chem 7: 11/14/20 10:37 11/14/20 10:37 Labs: Abnormal Lab Results - Last 24 Hours (Table) 11/13/20 11/13/20 11/13/20 Range/Units 10:48 20:41 21:50 WBC 2.3 L (3.8-10.6) k/uL RBC 2.03 L (3.80-5.40) m/uL Hgb 6.4 L* (11.4-16.0) gm/dL Hct 19.3 L* (34.0-46.0) % RDW 18.9 H (11.5-15.5) % Plt Count 55 L (150-450) k/uL Blast Cells % 39 H* 56 H* % Neutrophils # 0.6 L (1.3-7.7) k/uL Neutrophils # (Manual) 0.20 L* (1.3-7.7) k/uL Lymphocytes # (Manual) 0.74 L (1.0-4.8) k/uL Blast Cells # (Man) 1.29 H (0) k/uL Nucleated RBCs 5 H (0-0) /100 WBC PT (9.0-12.0) sec INR (<1.2) Sodium (137-145) mmol/L Creatinine (0.52-1.04) mg/dL Calcium (8.4-10.2) mg/dL Total Bilirubin (0.2-1.3) mg/dL AST (14-36) U/L ALT (4-34) U/L C-Reactive Protein (<10.0) mg/L Total Protein (6.3-8.2) g/dL Albumin (3.5-5.0) g/dL Crossmatch See Detail 11/14/20 11/14/20 11/14/20 Range/Units 10:37 10:37 10:37 WBC 2.2 L (3.8-10.6) k/uL RBC 3.27 L (3.80-5.40) m/uL Hgb 10.1 L D (11.4-16.0) gm/dL Hct 29.4 L (34.0-46.0) % RDW 17.8 H (11.5-15.5) % Plt Count (150-450) k/uL Blast Cells % % Neutrophils # (1.3-7.7) k/uL Neutrophils # (Manual) (1.3-7.7) k/uL Lymphocytes # (Manual) (1.0-4.8) k/uL Blast Cells # (Man) (0) k/uL Nucleated RBCs (0-0) /100 WBC PT 19.3 H (9.0-12.0) sec INR 2.0 H (<1.2) Sodium 134 L (137-145) mmol/L Creatinine 0.39 L (0.52-1.04) mg/dL Calcium 8.3 L (8.4-10.2) mg/dL Total Bilirubin 1.4 H (0.2-1.3) mg/dL AST 43 H (14-36) U/L ALT 48 H (4-34) U/L C-Reactive Protein 151.5 H (<10.0) mg/L Total Protein 5.0 L (6.3-8.2) g/dL Albumin 2.6 L (3.5-5.0) g/dL Crossmatch Microbiology - Last 24 Hours (Table) 11/12/20 13:50 Blood Culture - Preliminary Blood No Growth after 24 hours Assessment and Plan Assessment: -Hypotension decreased oral intake. Patient's Zestril discontinued. Improved after Blood transfusion -Symptomatic severe anemia from AML. Status post 2 unit of blood transfusion. -Acute myeloid leukemia, being treated by Dr. lombardo from [facility]. Awaiting bone marrow transplant -pancytopenia, with infection is suspected. Hematology team. Continue with broad-spectrum antibiotics and ID team were consulted -Coumadin toxicity. Vitamin K given. 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 -History of intracranial and subdural hemorrhage in November 2019. For which patient was transferred out to [facility] -Left thyroid nodule, patient informed -Essential hypertension . Currently hold of Zestril. Follow closely -Hyperlipidemia continue with Lipitor -Hyperuricemia likely from treatment for leukemia. Continue with allopurinol -Near-syncope likely due to vasovagal. Secondary to anemia.
[2020-11-14 13:55] LABS: Folate, Serum 8.8 ng/mL
[2020-11-14 14:20] LABS: Neutrophils % (M) 2 %
[2020-11-14 14:21] LABS: Lymphocytes # (M) 1.17 k/uL (1.0-4.8); Metamyelocytes # (M) 0.02 k/uL (0); Metamyelocytes % 1 %; Monocytes # (M) 0.07 k/uL (0-1.0); Neutrophils # (M) 0.04 k/uL (1.3-7.7); Nucleated Red Blood Cells 1 /100 WBC (0-0); Total Cells Counted 100
[2020-11-14 14:31] LABS: % Iron Saturation 36.9 (12.00-45.00); Ferritin 1267.5 ng/mL (10.0-291.0)
[2020-11-14] MEDS: VANCOMYCIN 1,250 MG in SODIUM CHLORIDE 0.9% 250 ML IVPB SCH (14:41)
[2020-11-14] MEDS: CHOLESTYRAMINE (WITH SUGAR) 4 GM PACKET PO SCH (18:19)
[2020-11-14 19:38] LABS: LD Isoenzymes 1 33 % (19-38); LD Isoenzymes 2 36 % (30-43); LD Isoenzymes 3 18 % (16-26); LD Isoenzymes 4 6 % (3-12); LD Isoenzymes 5 7 % (3-14); Lactacte Dehydrogenase(LD) ISO 138 U/L (120-250)
[2020-11-14] MEDS: ATORVASTATIN 40 MG TAB PO SCH (21:55)
[2020-11-14] MEDS: ACETAMINOPHEN TAB 325 MG TAB PO PRN (21:55)
[2020-11-15 05:38] LABS: Glucose,Whole Blood 99 mg/dL (75-99)
[2020-11-15 07:31] LABS: INR 1.4 (<1.2); Partial Thromboplastin Time 25.5 sec (22.0-30.0); Prothrombin Time 13.8 sec (9.0-12.0)
[2020-11-15] MEDS: ACETAMINOPHEN TAB 325 MG TAB PO PRN (07:40)
[2020-11-15] MEDS: allopurinoL 300 MG TAB PO SCH (07:40)
[2020-11-15 07:59] LABS: Anisocytosis Slight; HCT 29.1 % (34.0-46.0); HGB 9.8 gm/dL (11.4-16.0); Hypochromasia Slight; MCH 30.3 pg (25.0-35.0); MCHC 33.8 g/dL (31.0-37.0); MCV 89.8 fL (80.0-100.0); Mean Platelet Volume 11.1; Poikilocytosis Moderate; RBC 3.24 m/uL (3.80-5.40); RDW 18.3 % (11.5-15.5); WBC 2.3 k/uL (3.8-10.6)
[2020-11-15 08:00] LABS: Platelet Count 45 k/uL (150-450)
[2020-11-15] MEDS: VANCOMYCIN 1,250 MG in SODIUM CHLORIDE 0.9% 250 ML IVPB SCH ×2 (08:12→15:43)
[2020-11-15 08:15] LABS: Blast Cells # (M) 1.01 k/uL (0); Eosinophils # (M) 0.02 k/uL (0-0.7); Monocytes # (M) 0.12 k/uL (0-1.0); Neutrophils # (M) 0.05 k/uL (1.3-7.7); Neutrophils % (M) 2 %; Nucleated Red Blood Cells 2 /100 WBC (0-0); Total Cells Counted 100
[2020-11-15 08:16] LABS: Poikilocytosis (M) Present
[2020-11-15] MEDS: FLUCONAZOLE IN NACL,ISO-OSM 100 MG in SALINE 1 50ML.BAG IVPB SCH (10:26)
[2020-11-15] MEDS: polyethylene glycoL 3350 17 GM POWD.PACK PO SCH (10:27)
[2020-11-15] MEDS: CHOLESTYRAMINE (WITH SUGAR) 4 GM PACKET PO SCH ×2 (10:56→15:37)
[2020-11-15 12:26] LABS: African American GFR (CKD) >90 (>60 ml/min/1.73 sqM); Anion Gap 5 mmol/L; Blood Urea Nitrogen 9 mg/dL (7-17); Carbon Dioxide 23 mmol/L (22-30); Chloride 110 mmol/L (98-107); Glucose 94 mg/dL (74-99); Non-African American GFR(CKD) >90 (>60 ml/min/1.73 sqM); Potassium 3.8 mmol/L (3.5-5.1); Sodium 138 mmol/L (137-145)
[2020-11-15 12:27] LABS: ALT 43 U/L (4-34); AST 37 U/L (14-36); Albumin 2.4 g/dL (3.5-5.0); Alkaline Phosphatase 47 U/L (38-126); Calcium 8.5 mg/dL (8.4-10.2); Globulin 2.5 g/dL; Total Bilirubin 1.3 mg/dL (0.2-1.3); Total Protein 4.9 g/dL (6.3-8.2)
--- NOTE | 2020-11-15 12:48 | US ---
EXAMINATION TYPE: US renals and bladder DATE OF EXAM: 11/15/2020 COMPARISON: NONE CLINICAL HISTORY: uti. UTI EXAM MEASUREMENTS: Right Kidney: 10.6 x 5.2 x 4.5 cm Left Kidney: 11.3 x 5.4 x 4.7 cm Right Kidney: no evidence of hydronephrosis Left Kidney: hyperechoic area mid = 0.6 x 0.9cm Bladder: wnl Bilateral Jets seen: no There is no evidence for hydronephrosis at this point in time. No nephrolithiasis is seen. 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 Cortical medullary differentiation is maintained. Th e urinary bladder is anechoic. IMPRESSION: Echogenic focus is indeterminate in the left mid kidney. No hydronephrosis.
[2020-11-15] MEDS ORDERED: VANCOMYCIN TROUGH DUE 1 EACH MISC MISCELLANE ONE (13:00)
[2020-11-15] MEDS: AMPICILLIN-SULBACTAM 3 GM in SODIUM CHLORIDE 0.9% 100 ML IVPB SCH ×2 (13:14→20:09)
--- NOTE | 2020-11-15 13:18 | P.PN ---
Subjective Progress Note Date: 11/15/20 Principal diagnosis: Acute Leukemia INR improved 1.4, No loose stool overnight. Bone Marrow Biopsy planned for 1:30 today, Dr. Malloy. Spoke to Nursing will increase full liquids post bone marrow biopsy Objective - Vital Signs Vital signs: Vital Signs Temp 97.8 F 11/15/20 12:41 Pulse 75 11/15/20 12:41 Resp 17 11/15/20 12:41 BP 133/64 11/15/20 12:41 Pulse Ox 96 11/15/20 12:41 Intake & Output 11/14/20 11/15/20 11/15/20 18:59 06:59 18:59 Intake Total 620 1000 Balance 620 1000 Intake: Intake, IV Titration 900 Amount Sodium Chloride 0.9% 1, 900 000 ml @ 75 mls/hr IV . [id number] [facility] Rx#:[id number] Oral 100 Blood Product 620 Rc Irr As1 Unit 310 [id number] Rc Irr As1 Unit 310 [id number] Other: Voiding Method Diaper Diaper Incontinent Incontinent # Voids 2 - Exam - Constitutional General appearance: thin - EENT Eyes: EOMI ENT: hard of hearing, NA/AT - Respiratory Respiratory: bilateral: diminished - Cardiovascular Heart rate: 124 Rhythm: regularly irregular Heart sounds: normal: S2 - Gastrointestinal General gastrointestinal: soft - Integumentary Integumentary: pale - Neurologic YOUSUF - Musculoskeletal Musculoskeletal: generalized weakness - Psychiatric Lethargic and difficult to arouse - Labs CBC & Chem 7: 11/15/20 06:53 11/15/20 06:53 Labs: Abnormal Lab Results - Last 24 Hours (Table) 11/13/20 11/14/20 11/14/20 Range/Units 20:41 10:37 10:37 WBC (3.8-10.6) k/uL RBC (3.80-5.40) m/uL Hgb (11.4-16.0) gm/dL Hct (34.0-46.0) % RDW (11.5-15.5) % Plt Count 55 L (150-450) k/uL Blast Cells % 41 H* % Neutrophils # (Manual) 0.04 L* (1.3-7.7) k/uL Metamyelocytes # (Man) 0.02 H (0) k/uL Blast Cells # (Man) 0.90 H (0) k/uL Nucleated RBCs 1 H (0-0) /100 WBC PT (9.0-12.0) sec INR (<1.2) Chloride (98-107) mmol/L Creatinine (0.52-1.04) mg/dL TIBC 168 L (228-460) ug/dL Ferritin 1267.5 H (10.0-291.0) ng/mL AST (14-36) U/L ALT (4-34) U/L Total Protein (6.3-8.2) g/dL Albumin (3.5-5.0) g/dL Vitamin B12 1436.0 H (200.0-944.0) pg/mL Procalcitonin 0.14 H (0.02-0.09) ng/mL 11/15/20 11/15/20 11/15/20 Range/Units 06:53 06:53 06:53 WBC 2.3 L (3.8-10.6) k/uL RBC 3.24 L (3.80-5.40) m/uL Hgb 9.8 L (11.4-16.0) gm/dL Hct 29.1 L (34.0-46.0) % RDW 18.3 H (11.5-15.5) % Plt Count 45 L (150-450) k/uL Blast Cells % 44 H* % Neutrophils # (Manual) 0.05 L* (1.3-7.7) k/uL Metamyelocytes # (Man) (0) k/uL Blast Cells # (Man) 1.01 H (0) k/uL Nucleated RBCs 2 H (0-0) /100 WBC PT 13.8 H (9.0-12.0) sec INR 1.4 H (<1.2) Chloride 110 H (98-107) mmol/L Creatinine 0.39 L (0.52-1.04) mg/dL TIBC (228-460) ug/dL Ferritin (10.0-291.0) ng/mL AST 37 H (14-36) U/L ALT 43 H (4-34) U/L Total Protein 4.9 L (6.3-8.2) g/dL Albumin 2.4 L (3.5-5.0) g/dL Vitamin B12 (200.0-944.0) pg/mL Procalcitonin (0.02-0.09) ng/mL Microbiology - Last 24 Hours (Table) 11/12/20 17:24 Urine Culture - Final Urine,Clean Catch Enterococcus faecalis 11/12/20 13:50 Blood Culture - Preliminary Blood No Growth after 48 hours Assessment and Plan (1) Acute myeloid leukemia Current Visit: Yes Status: Acute Priority: High Code(s): C92.00 - ACUTE MYELOBLASTIC LEUKEMIA, NOT HAVING ACHIEVED REMISSION SNOMED Code(s): 46713728 (2) Coagulopathy Current Visit: Yes Status: Acute Priority: High Code(s): D68.9 - COAGULATION DEFECT, UNSPECIFIED SNOMED Code(s): 56440240 (3) Altered mental status Current Visit: No Status: Acute Priority: High Code(s): R41.82 - ALTERED MENTAL STATUS, UNSPECIFIED SNOMED Code(s): 904100853 (4) SIRS (systemic inflammatory response syndrome) Current Visit: No Status: Acute Code(s): R65.10 - SIRS OF NON-INFECTIOUS ORIGIN W/O ACUTE ORGAN DYSFUNCTION SNOMED Code(s): 548042682 (5) 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 sheehan - Brain Imaging to rule out acute bleed versus other - CT Chest/Abd/Pelvis Reviewed with evidence of probable colitis - Stool studies ordered. - Repeat Coags, Vitamin K PRN - Hold Anticoagulation at this time - Bone Marrow biopsy today at 1:30 - [facility] for prolong neutropenia and broad spectrum antibiotics and Anti- fungal, ID following Transfuse Hemoglobin less than 7, platelets less than 10 Irradiated blood products only No Growth factor as remission of leukemia has not been established Patient will need PFT prior to potential transplant, will see if can be completed while inpatient. Physician attest: I have completed the full history and physical and agree with above dictation, dictated as a ascribe.,
--- NOTE | 2020-11-15 13:56 | P.PN ---
Subjective From records: This is a 75-year-old patient of Dr. Chung. Chronic stable medical conditions include hyperlipidemia, hypertension, parathyroid disorder, basal cell skin cancer. Reported history of blood clot in the brain for which patient is on Coumadin, possibly venous thrombosis. 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 [November 2019 patient presented to the ER here-CT angios the head had shown intracranial hemorrhage adjacent to the right posterior cerebral artery but no definite aneurysm identified. Subdural hemorrhage. Patient was transferred to [facility] in [place]. Patient presented to her oncologist office yesterday feeling very tired and lethargic and a moment of unresponsiveness. The pressure was 50/30s. EMS transported the patient to the hospital. INR was greater than 10. Vitamin K was given. Broad-spectrum antibiotics were started in the ER including vancomycin and cefepime. Patient has been feeling weak and tired. No obvious reported fever or chills. Appetite has been okay Subjective: 11/14/2020 This is a pleasant 75 years old female with history of AML and follow-up with oncologist, patient presents with transient period of unconsciousness and unresponsiveness associated with hypotension at the oncology office. Patient states that she has long history of dizziness especially when she gets up more in the last 2 months associated with some sweating. She describes her dizziness as presyncope. Patient states that she was walking without help to she fell about 2 months ago due to her dizziness and now she needs more help with walking. Patient states that currently she needs to 3 people to help her walking. She complains also from pain in her hemorrhoids. Today she got 2 units of blood transfusion and her hemoglobin increased from 6.4 up to 10.1. Platelets 50 5K and WBC is 2.2K. Blast cells in the peripheral blood is 56% Currently her INR is 2.0. BMP is unremarkable. CT of the brain is negative. CT of the chest, abdomen and pelvis showed possible colitis. elliott-culture was obtained. Patient is currently covered with IV vancomycin and fluconazole with infectious disease team consulted 11/15/2020 Patient awake with no abdominal pain and her diarrhea is improving. She had low-grade temperature yesterday 100.5. 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 No hydronephrosis Bone marrow biopsy is planned for today but was cancelled by IR team for scheduling conflicts. Patient reports less dizziness today. She does not look confused like yesterday. Pancytopenia is a stable. BMP is a stable as well. Liver enzymes slightly impr venu. We will keep the fluid at normal saline 75 mL/h as patient is not eating much Review of systems CONSTITUTIONAL: No fever, no malaise, no fatigue. HEENT: No recent visual problems or hearing problems. Denied any sore throat. CARDIOVASCULAR: No orthopnea, PND, no palpitations, no syncope. PULMONARY: No shortness of breath, no cough, no hemoptysis. GASTROINTESTINAL: No diarrhea, no nausea, no vomiting, no abdominal pain. Normoactive bowel sounds. NEUROLOGICAL: No headaches, no weakness, no numbness. Active Medications Generic Name Dose Route Start Last Admin Trade Name Freq PRN Reason Stop Dose Admin Acetaminophen 650 mg 11/12/20 14:25 11/15/20 07:40 Acetaminophen Tab 325 Mg Tab PO 650 mg Q6HR PRN Administration Mild Pain or Fever > 100.5 Allopurinol 300 mg 11/13/20 09:00 11/15/20 07:40 Allopurinol 300 Mg Tab PO 300 mg DAILY GINO Administration Atorvastatin Calcium 40 mg 11/12/20 21:00 11/14/20 21:55 Atorvastatin 40 Mg Tab PO 40 mg HS GINO Administration Cholestyramine Resin 4 gm 11/14/20 18:00 11/15/20 10:56 Cholestyramine (With Sugar) 4 Gm Packet PO 4 gm BID@1000,1800 GINO Administration Famotidine 20 mg 11/12/20 20:32 Famotidine 20 Mg Tab PO BID PRN on chemo days Sodium Chloride 1,000 mls @ 75 mls/hr 11/12/20 12:45 11/14/20 06:26 Saline 0.9% IV Not Given .[id number] GINO Fluconazole/Sodium Chloride 50 mls @ 50 mls/hr 11/14/20 09:00 11/15/20 10:26 100 mg/ IV Solution IVPB 50 mls/hr DAILY GINO Administration Vancomycin HCl 1,250 mg/ 250 mls @ 125 mls/hr 11/15/20 02:00 11/15/20 08:12 Sodium Chloride IVPB Not Given Q12H [facility] Ampicillin Sodium/Sulbactam 100 mls @ 200 mls/hr 11/15/20 12:00 11/15/20 13:14 Sodium 3 gm/ Sodium Chloride IVPB 200 mls/hr Q8H [facility] Administration Naloxone HCl 0.2 mg 11/12/20 14:25 Naloxone 0.4 Mg/Ml 1 Ml Vial IV Q2M PRN Opioid Reversal Polyethylene Glycol 17 gm 11/13/20 09:00 11/15/20 10:27 Polyethylene Glycol 3350 17 Gm Powd.Pack PO Not Given DAILY [facility] Objective - Vital Signs Vital signs: Vital Signs Temp 97.8 F 11/15/20 12:41 Pulse 75 11/15/20 12:41 Resp 17 11/15/20 12:41 BP 133/64 11/15/20 12:41 Pulse Ox 96 11/15/20 12:41 Intake & Output 11/14/20 11/15/20 11/15/20 18:59 06:59 18:59 Intake Total 620 1000 Balance 620 1000 Intake: Intake, IV Titration 900 Amount Sodium Chloride 0.9% 1, 900 000 ml @ 75 mls/hr IV . [id number] [facility] Rx#:[id number] Oral 100 Blood Product 620 Rc Irr As1 Unit 310 [id number] Rc Irr As1 Unit 310 [id number] Other: Voiding Method Diaper Diaper Incontinent Incontinent # Voids 2 - Exam -GENERAL: The patient is alert and oriented x3, not in any acute distress. Generally weak HEENT: Pupils are round and equally reacting to light. EOMI. No scleral icterus. No conjunctival pallor. Normocephalic, atraumatic. No pharyngeal erythema. No thyromegaly. CARDIOVASCULAR: S1 and S2 present. No murmurs, rubs, or gallops. PULMONARY: Chest is clear to auscultation, no wheezing or crackles. ABDOMEN: Soft, nontender, nondistended, normoactive bowel sounds. No palpable organomegaly. MUSCULOSKELETAL: No joint swelling or deformity. EXTREMITIES: No cyanosis, clubbing, or pedal edema. NEUROLOGICAL: Gross neurological examination did not reveal any focal deficits. SKIN: No rashes. no petechiae. - Labs CBC & Chem 7: 11/15/20 06:53 11/15/20 06:53 Labs: Abnormal Lab Results - Last 24 Hours (Table) 11/13/20 11/14/20 11/14/20 Range/Units 20:41 10:37 10:37 WBC (3.8-10.6) k/uL RBC (3.80-5.40) m/uL Hgb (11.4-16.0) gm/dL Hct (34.0-46.0) % RDW (11.5-15.5) % Plt Count 55 L (150-450) k/uL Blast Cells % 41 H* % Neutrophils # (Manual) 0.04 L* (1.3-7.7) k/uL Metamyelocytes # (Man) 0.02 H (0) k/uL Blast Cells # (Man) 0.90 H (0) k/uL Nucleated RBCs 1 H (0-0) /100 WBC PT (9.0-12.0) sec INR (<1.2) Chloride (98-107) mmol/L Creatinine (0.52-1.04) mg/dL TIBC 168 L (228-460) ug/dL Ferritin 1267.5 H (10.0-291.0) ng/mL AST (14-36) U/L ALT (4-34) U/L Total Protein (6.3-8.2) g/dL Albumin (3.5-5.0) g/dL Vitamin B12 1436.0 H (200.0-944.0) pg/mL Procalcitonin 0.14 H (0.02-0.09) ng/mL 11/15/20 11/15/20 11/15/20 Range/Units 06:53 06:53 06:53 WBC 2.3 L (3.8-10.6) k/uL RBC 3.24 L (3.80-5.40) m/uL Hgb 9.8 L (11.4-16.0) gm/dL Hct 29.1 L (34.0-46.0) % RDW 18.3 H (11.5-15.5) % Plt Count 45 L (150-450) k/uL Blast Cells % 44 H* % Neutrophils # (Manual) 0.05 L* (1.3-7.7) k/uL Metamyelocytes # (Man) (0) k/uL Blast Cells # (Man) 1.01 H (0) k/uL Nucleated RBCs 2 H (0-0) /100 WBC PT 13.8 H (9.0-12.0) sec INR 1.4 H (<1.2) Chloride 110 H (98-107) mmol/L Creatinine 0.39 L (0.52-1.04) mg/dL TIBC (228-460) ug/dL Ferritin (10.0-291.0) ng/mL AST 37 H (14-36) U/L ALT 43 H (4-34) U/L Total Protein 4.9 L (6.3-8.2) g/dL Albumin 2.4 L (3.5-5.0) g/dL Vitamin B12 (200.0-944.0) pg/mL Procalcitonin (0.02-0.09) ng/mL Microbiology - Last 24 Hours (Table) 11/12/20 17:24 Urine Culture - Final Urine,Clean Catch Enterococcus faecalis 11/12/20 13:50 Blood Culture - Preliminary Blood No Growth after 48 hours Assessment and Plan Assessment: -Acute myeloid leukemia, being treated by Dr. lombardo from [facility]. 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 Continue with Unasyn -Hypotension decreased oral intake. Improved after Blood transfusion -Symptomatic severe anemia from AML. Status post 2 unit of blood transfusion. -pancytopenia, with infection is suspected. Hematology team. Continue with broad-spectrum antibiotics and ID team were consulted -cranial venous sinus thrombosis. Resume Coumadin after bone marrow biopsy -History of intracranial and subdural hemorrhage in November 2019. For which patient was transferred out to [facility] -Left thyroid nodule, patient informed -Essential hypertension . Currently hold of Zestril. Follow closely -Hyperlipidemia continue with Lipitor -Hyperuricemia likely from treatment for leukemia. Continue with allopurinol -Near-syncope likely due to vasovagal. Secondary to anemia.
--- NOTE | 2020-11-15 14:19 | P.GSCN ---
History of Present Illness Consult date: 11/15/20 History of present illness: CHIEF COMPLAINT: Syncope Reason for consult: Rectal pain HISTORY OF PRESENT ILLNESS: This is a 75-year-old female with a known history of Acute myeloid leukemia. Patient apparently was at her oncologist office and had a syncopal episode with hypotension and was brought into the emergency room for further evaluation and admission to the hospital and was likely caused by her anemia. Patient is followed by oncology service. She is pancytopenic. She was given 2 units of blood during this admission for her anemia. She was scheduled for a bone marrow biopsy today which has been rescheduled for Wednesday. She is on antibiotics for possible colitis. Patient has been complaining of rectal pain over the last 3 weeks. Apparently about 3 weeks ago patient was constipated with a rectal impaction and was disimpacted. And since then has been complaining of rectal pain. She also has a known history of hemorrhoids with hemorrhoidectomy. She denies any rectal bleeding. But she has pain with sitting. Patient apparently has been having diarrhea during this admission. Her last stool was yesterday and was soft. Diarrhea appears to have resolved. Patient does have a family history of colon cancer and has had colon polyps removed in the past. PAST MEDICAL HISTORY: See list. PAST SURGICAL HISTORY: See list. MEDICATIONS: See list. ALLERGIES: See list. SOCIAL HISTORY: No illicit drug use. REVIEW OF SYSTEMS: CONSTITUTIONAL: Denies fever or chills. HEENT: Denies blurred vision, vision changes, or eye pain. Denies hemoptysis CARDIOVASCULAR: Denies chest pain or pressure. RESPIRATORY: No shortness of breath. GASTROINTESTINAL: See HPI for pertinent findings HEMATOLOGIC: Denies bleeding disorders. GENITOURINARY: Denies any blood in urine or increased urinary frequency. SKIN: Denies pruitis. Denies rash. PHYSICAL EXAM: VITAL SIGNS: Reviewed GENERAL: Well-developed in no acute distress. HEENT: No sclera icterus. Extraocular movements grossly intact. Moist buccal mucosa. Head is atraumatic, normocephalic. No nasal drainage. ABDOMEN: Soft. Nondistended. Nontender NEUROLOGIC: Alert and oriented. Cranial nerves II through XII grossly intact. Rectal exam: Evidence of external and possibly internal hemorrhoid. No blood present LABORATORY DATA: WBC 2.3 Hgb 9.8 platelets 45 INR 1.4 Creatinine 0.39 IMAGING: Computed tomography scan abdomen and pelvis nodular small bowel wall thickening noted involving the jejunal loops is nonspecific. There is wall thickening noted to involve the transverse colon distally and splenic flexure which could reflect underlying colitis. Neoplasm not excluded. Persistent presacral edema is improved in the interval. ASSESSMENT: 1. Rectal pain likely secondary to hemorrhoids 2. Computed tomography scan of the abdomen shows Wall thickening noted to involve the transverse colon distally and splenic flexure which could reflect underlying colitis. Neoplasm not excluded. 3. Acute myeloid leukemia 4. 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 Chemotherapy-induced Pancytopenia 6. 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 Coumadin currently on hold PLAN: -Patient scheduled for colonoscopy on 11/18/[address] Maya for further evaluation of the wall thickening involving the transverse colon and splenic flexure noted on CAT scan -Add Anusol suppository for hemorrhoids -Continue Tucks pads -Continue supportive care -Continue antibiotics -Keep Coumadin on hold Thank you for this consultation Physician [employer] note has been reviewed by physician. Signing provider agrees with the documented findings, assessment, and plan of care. 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, basal cell skin cancer, brain bleed History of Any Multi-Drug Resistant Organisms: None Reported Past Surgical History: Adenoidectomy, Appendectomy, Hysterectomy, Orthopedic Surgery, Tonsillectomy Additional Past Surgical History / Comment(s): navid breast reduction, hemorrhoidectomy, metal nithin in toe, lt carpal tunnel, basal cell skin cancer removed Past Anesthesia/Blood Transfusion Reactions: No Reported Reaction Past Psychological History: Anxiety Smoking Status: Unknown if ever smoked Past Alcohol Use History: None Reported Past Drug Use History: None Reported - Past Family History Mother Family Medical History: CVA/TIA, Dementia, Myocardial Infarction ([place]) Father Family Medical History: Cancer Additional Family Medical History / Comment(s): colon cancer, alcoholism Medications and Allergies Home Medications Medication Instructions Recorded Confirmed Type Allopurinol [Zyloprim] 300 mg PO DAILY 10/11/20 11/12/20 History Atorvastatin [Lipitor] 40 mg PO HS 10/11/20 11/12/20 History Famotidine 20 mg PO BID PRN 10/11/20 11/12/20 History Warfarin [Coumadin] 2 mg PO SUTUTHSA@2100 10/11/20 11/12/20 History Warfarin [Coumadin] 5 mg PO HS 10/11/20 11/12/20 History ondansetron HCL [Zofran] 8 mg PO BID PRN 10/11/20 11/12/20 History polyethylene glycoL 3350 [Miralax] 17 gm PO DAILY powd.pack 10/17/20 11/12/20 Rx lisinopriL [Zestril] 10 mg PO HS #0 11/01/20 11/12/20 Rx Allergies Allergy/AdvReac Type Severity Reaction Status Date / Time erythromycin base Allergy Rash/Hives Verified 11/12/20 13:21 Surgical - Exam Vital Signs Temp Pulse Resp BP Pulse Ox 98.4 F 125 H 18 116/52 97 11/12/20 12:18 11/12/20 12:18 11/12/20 12:18 11/12/20 12:18 11/12/20 12:18 Results - Labs 11/15/20 06:53 11/15/20 06:53 Abnormal Lab Results - Last 24 Hours (Table) 11/13/20 11/14/20 11/14/20 Range/Units 20:41 10:37 10:37 WBC (3.8-10.6) k/uL RBC (3.80-5.40) m/uL Hgb (11.4-16.0) gm/dL Hct (34.0-46.0) % RDW (11.5-15.5) % Plt Count 55 L (150-450) k/uL Blast Cells % 41 H* % Neutrophils # (Manual) 0.04 L* (1.3-7.7) k/uL Metamyelocytes # (Man) 0.02 H (0) k/uL Blast Cells # (Man) 0.90 H (0) k/uL Nucleated RBCs 1 H (0-0) /100 WBC PT (9.0-12.0) sec INR (<1.2) Chloride (98-107) mmol/L Creatinine (0.52-1.04) mg/dL TIBC 168 L (228-460) ug/dL Ferritin 1267.5 H (10.0-291.0) ng/mL AST (14-36) U/L ALT (4-34) U/L Total Protein (6.3-8.2) g/dL Albumin (3.5-5.0) g/dL Vitamin B12 1436.0 H (200.0-944.0) pg/mL Procalcitonin 0.14 H (0.02-0.09) ng/mL 11/15/20 11/15/20 11/15/20 Range/Units 06:53 06:53 06:53 WBC 2.3 L (3.8-10.6) k/uL RBC 3.24 L (3.80-5.40) m/uL Hgb 9.8 L (11.4-16.0) gm/dL Hct 29.1 L (34.0-46.0) % RDW 18.3 H (11.5-15.5) % Plt Count 45 L (150-450) k/uL Blast Cells % 44 H* % Neutrophils # (Manual) 0.05 L* (1.3-7.7) k/uL Metamyelocytes # (Man) (0) k/uL Blast Cells # (Man) 1.01 H (0) k/uL Nucleated RBCs 2 H (0-0) /100 WBC PT 13.8 H (9.0-12.0) sec INR 1.4 H (<1.2) Chloride 110 H (98-107) mmol/L Creatinine 0.39 L (0.52-1.04) mg/dL TIBC (228-460) ug/dL Ferritin (10.0-291.0) ng/mL AST 37 H (14-36) U/L ALT 43 H (4-34) U/L Total Protein 4.9 L (6.3-8.2) g/dL Albumin 2.4 L (3.5-5.0) g/dL Vitamin B12 (200.0-944.0) pg/mL Procalcitonin (0.02-0.09) ng/mL Microbiology - Last 24 Hours (Table) 11/12/20 17:24 Urine Culture - Final Urine,Clean Catch Enterococcus faecalis 11/12/20 13:50 Blood Culture - Preliminary Blood No Growth after 48 hours Diabetes panel 11/15/20 11/15/20 Range/Units 06:53 06:53 Sodium 138 (137-145) mmol/L Potassium 3.8 (3.5-5.1) mmol/L Chloride 110 H (98-107) mmol/L Carbon Dioxide 23 (22-30) mmol/L BUN 9 (7-17) mg/dL Creatinine 0.39 L (0.52-1.04) mg/dL Glucose 94 (74-99) mg/dL Calcium 8.5 (8.4-10.2) mg/dL AST 37 H (14-36) U/L ALT 43 H (4-34) U/L Alkaline Phosphatase 47 (38-126) U/L Total Protein 4.9 L (6.3-8.2) g/dL Albumin 2.4 L (3.5-5.0) g/dL Calcium panel 11/15/20 11/15/20 Range/Units 06:53 06:53 Calcium 8.5 (8.4-10.2) mg/dL Albumin 2.4 L (3.5-5.0) g/dL Pituitary panel 11/15/20 11/15/20 Range/Units 06:53 06:53 Sodium 138 (137-145) mmol/L Potassium 3.8 (3.5-5.1) mmol/L Chloride 110 H (98-107) mmol/L Carbon Dioxide 23 (22-30) mmol/L BUN 9 (7-17) mg/dL Creatinine 0.39 L (0.52-1.04) mg/dL Glucose 94 (74-99) mg/dL Calcium 8.5 (8.4-10.2) mg/dL Adrenal panel 11/15/20 11/15/20 Range/Units 06:53 06:53 Sodium 138 (137-145) mmol/L Potassium 3.8 (3.5-5.1) mmol/L Chloride 110 H (98-107) mmol/L Carbon Dioxide 23 (22-30) mmol/L BUN 9 (7-17) mg/dL Creatinine 0.39 L (0.52-1.04) mg/dL Glucose 94 (74-99) mg/dL Calcium 8.5 (8.4-10.2) mg/dL Total Bilirubin 1.3 (0.2-1.3) mg/dL AST 37 H (14-36) U/L ALT 43 H (4-34) U/L Alkaline Phosphatase 47 (38-126) U/L Total Protein 4.9 L (6.3-8.2) g/dL Albumin 2.4 L (3.5-5.0) g/dL
--- NOTE | 2020-11-15 15:32 | P.CONS ---
History of Present Illness - Reason for Consult Consult date: 11/14/20 infection Requesting physician: Alberto Dubois - Chief Complaint weakness x few days - History of Present Illness Patient is a 75 year female with a past medical history significant for acute myeloid leukemia for the patient is currently undergoing treatment patient did have a multiple admission to this facility for recurrent fever patient did have extensive workup and no obvious focus of infection patient was evaluated at oncology office on November 12 patient was lethargic and some unresponsiveness she was noticed to be hypertensive the blood pressure 50 syst olic patient subsequently was sent to [facility] ER on 11/12/2020 for further management, on presentation hospital the patient was afebrile patient did have a low hemoglobin of 6.4 and also leukopenia, urine has been mildly positive, patient did have CT of the chest abdominal pelvis we did shows moderately small bowel wall thickening involving digital nonspecific wall thickening noted in all transfers: Which could've less chronic colitis persistent presacral edema has improved interval patient has been treated with Unasyn and vancomycin consult has been placed to infectious disease with concern for possible infection, patient evaluation denies having any fever or chills, the patient denies having any chest pain shortness of breath or cough no nausea no vomiting abdominal pain and no diarrhea no urinary symptoms Review of Systems Positive point has been mentioned in the HPI rest of the systems are negative 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, basal cell skin cancer, brain bleed History of Any Multi-Drug Resistant Organisms: None Reported Past Surgical History: Adenoidectomy, Appendectomy, Hysterectomy, Orthopedic Surgery, Tonsillectomy Additional Past Surgical History / Comment(s): navid breast reduction, hemorrhoidectomy, metal nithin in toe, lt carpal tunnel, basal cell skin cancer removed Past Anesthesia/Blood Transfusion Reactions: No Reported Reaction Past Psychological History: Anxiety Smoking Status: Unknown if ever smoked Past Alcohol Use History: None Reported Past Drug Use History: None Reported - Past Family History Mother Family Medical History: CVA/TIA, Dementia, Myocardial Infarction ([place]) Father Family Medical History: Cancer Additional Family Medical History / Comment(s): colon cancer, alcoholism Medications and Allergies Home Medications Medication Instructions Recorded Confirmed Type Allopurinol [Zyloprim] 300 mg PO DAILY 10/11/20 11/12/20 History Atorvastatin [Lipitor] 40 mg PO HS 10/11/20 11/12/20 History Famotidine 20 mg PO BID PRN 10/11/20 11/12/20 History Warfarin [Coumadin] 2 mg PO SUTUTHSA@2100 10/11/20 11/12/20 History Warfarin [Coumadin] 5 mg PO HS 10/11/20 11/12/20 History ondansetron HCL [Zofran] 8 mg PO BID PRN 10/11/20 11/12/20 History polyethylene glycoL 3350 [Miralax] 17 gm PO DAILY powd.pack 10/17/20 11/12/20 Rx lisinopriL [Zestril] 10 mg PO HS #0 11/01/20 11/12/20 Rx Allergies Allergy/AdvReac Type Severity Reaction Status Date / Time erythromycin base Allergy Rash/Hives Verified 11/12/20 13:21 Physical Exam Vitals: Vital Signs Temp Pulse Resp BP Pulse Ox 11/15/20 08:25 98 F 76 17 133/73 95 11/15/20 05:00 98.8 F 77 20 127/74 95 11/14/20 19:30 100.5 F H 79 20 107/69 93 L Intake and Output 11/14/20 11/15/20 11/15/20 22:59 06:59 14:59 Intake Total 1000 Balance 1000 Intake: Intake, IV Titration 900 Amount Sodium Chloride 0.9% 1, 900 000 ml @ 75 mls/hr IV . [id number] [facility] Rx#:[id number] Oral 100 Other: Voiding Method Diaper Incontinent # Voids 2 GENERAL DESCRIPTION: An daily female lying in bed, no distress. No tachypnea or accessory muscle of respiration use. HEENT: Shows Pallor , no scleral icterus. Oral mucous membrane is dry. No pharyngeal erythema or thrush NECK: Trachea central, no thyromegaly. LUNGS: Unlabored breathing. Clear to auscultation anteriorly. No wheeze or crackle. HEART: S1, S2, regular rate and rhythm. No loud murmur ABDOMEN: Soft, no tenderness , guarding or rigidity, no organomegaly EXTREMITIES: No edema of feet. SKIN: No rash, no masses palpable. NEUROLOGICAL: The patient is awake, alert, oriented x3, mood and affect normal. Results CBC & Chem 7: 11/15/20 06:53 11/15/20 06:53 Labs: Abnormal Lab Results - Last 24 Hours (Table) 11/13/20 11/14/20 11/14/20 Range/Units 20:41 10:37 10:37 WBC 2.2 L (3.8-10.6) k/uL RBC 3.27 L (3.80-5.40) m/uL Hgb 10.1 L D (11.4-16.0) gm/dL Hct 29.4 L (34.0-46.0) % RDW 17.8 H (11.5-15.5) % Plt Count 55 L (150-450) k/uL Blast Cells % 41 H* % Neutrophils # (Manual) 0.04 L* (1.3-7.7) k/uL Metamyelocytes # (Man) 0.02 H (0) k/uL Blast Cells # (Man) 0.90 H (0) k/uL Nucleated RBCs 1 H (0-0) /100 WBC PT (9.0-12.0) sec INR (<1.2) Sodium 134 L (137-145) mmol/L Chloride (98-107) mmol/L BUN (7-17) mg/dL Creatinine 0.39 L (0.52-1.04) mg/dL Glucose (74-99) mg/dL Calcium 8.3 L (8.4-10.2) mg/dL TIBC 168 L (228-460) ug/dL Ferritin 1267.5 H (10.0-291.0) ng/mL Total Bilirubin 1.4 H (0.2-1.3) mg/dL AST 43 H (14-36) U/L ALT 48 H (4-34) U/L C-Reactive Protein 151.5 H (<10.0) mg/L Total Protein 5.0 L (6.3-8.2) g/dL Albumin 2.6 L (3.5-5.0) g/dL Vitamin B12 1436.0 H (200.0-944.0) pg/mL Procalcitonin (0.02-0.09) ng/mL 11/14/20 11/15/20 11/15/20 Range/Units 10:37 06:53 06:53 WBC 2.3 L (3.8-10.6) k/uL RBC 3.24 L (3.80-5.40) m/uL Hgb 9.8 L (11.4-16.0) gm/dL Hct 29.1 L (34.0-46.0) % RDW 18.3 H (11.5-15.5) % Plt Count 45 L (150-450) k/uL Blast Cells % 44 H* % Neutrophils # (Manual) 0.05 L* (1.3-7.7) k/uL Metamyelocytes # (Man) (0) k/uL Blast Cells # (Man) 1.01 H (0) k/uL Nucleated RBCs 2 H (0-0) /100 WBC PT 13.8 H (9.0-12.0) sec INR 1.4 H (<1.2) Sodium (137-145) mmol/L Chloride (98-107) mmol/L BUN (7-17) mg/dL Creatinine (0.52-1.04) mg/dL Glucose (74-99) mg/dL Calcium (8.4-10.2) mg/dL TIBC (228-460) ug/dL Ferritin (10.0-291.0) ng/mL Total Bilirubin (0.2-1.3) mg/dL AST (14-36) U/L ALT (4-34) U/L C-Reactive Protein (<10.0) mg/L Total Protein (6.3-8.2) g/dL Albumin (3.5-5.0) g/dL Vitamin B12 (200.0-944.0) pg/mL Procalcitonin 0.14 H (0.02-0.09) ng/mL 11/15/20 Range/Units 06:53 WBC (3.8-10.6) k/uL RBC (3.80-5.40) m/uL Hgb (11.4-16.0) gm/dL Hct (34.0-46.0) % RDW (11.5-15.5) % Plt Count (150-450) k/uL Blast Cells % % Neutrophils # (Manual) (1.3-7.7) k/uL Metamyelocytes # (Man) (0) k/uL Blast Cells # (Man) (0) k/uL Nucleated RBCs (0-0) /100 WBC PT (9.0-12.0) sec INR (<1.2) Sodium 130 L (137-145) mmol/L Chloride 95 L (98-107) mmol/L BUN 32 H (7-17) mg/dL Creatinine (0.52-1.04) mg/dL Glucose 181 H (74-99) mg/dL Calcium (8.4-10.2) mg/dL TIBC (228-460) ug/dL Ferritin (10.0-291.0) ng/mL Total Bilirubin (0.2-1.3) mg/dL AST (14-36) U/L ALT 45 H (4-34) U/L C-Reactive Protein (<10.0) mg/L Total Protein 5.8 L (6.3-8.2) g/dL Albumin (3.5-5.0) g/dL Vitamin B12 (200.0-944.0) pg/mL Procalcitonin (0.02-0.09) ng/mL Microbiology - Last 24 Hours (Table) 11/12/20 17:24 Urine Culture - Final Urine,Clean Catch Enterococcus faecalis 11/12/20 13:50 Blood Culture - Preliminary Blood No Growth after 48 hours Assessment and Plan Assessment: 1-patient being admitted to hospital with weakness hypotension in this patient with underlying acute myeloid leukemia patient was noticed to be anemic with hemoglobin 6.4, patient did not have any fever so far did have a CT abdominal pelvis and chest did show some evidence of vaginitis and possible colitis the patient did have significant abdominal pain or any diarrhea (1) Febrile neutropenia Current Visit: No Status: Acute Priority: High Code(s): D70.9 - NEUTROPENIA, UNSPECIFIED; R50.81 - FEVER PRESENTING WITH CONDITIONS CLASSIFIED ELSEWHERE SNOMED Code(s): 393323372 Plan: 1-patient is currently covered with Unasyn and vancomycin to continue waiting for the culture finalized 2-gentle IV fluid We will follow on clinical condition and cultures to further adjust medication if needed Thank you for this consultation will follow this patient with you Time with Patient: Greater than 30
[2020-11-15] MEDS: HYDROCORTISONE SUPPOSITORY 25 MG SUPP RECTAL SCH (15:43)
[2020-11-15] MEDS: DEXTROSE 5%-0.9% NACL 1,000 ML IV SCH (15:46)
[2020-11-15] MEDS: SODIUM CHLORIDE 0.9% 1,000 ML IV SCH (18:01)
[2020-11-15] MEDS: ATORVASTATIN 40 MG TAB PO SCH (20:10)
--- NOTE | 2020-11-15 23:20 | PN ---
PROGRESS NOTE DATE OF SERVICE: 11/15/2020 REASON FOR FOLLOWUP: Febrile neutropenia and UTI. INTERVAL HISTORY: The patient is currently afebrile. The patient is breathing comfortably. The patient denies having any chest pain or shortness of breath or cough. No abdominal pain or diarrhea. She has been complaining of some pain to the perirectal area. PHYSICAL EXAMINATION: Blood pressure 126/60 with a pulse of 95, temperature 97.6. She is 98% on room air. General description is an elderly female lying in bed in no distress. RESPIRATORY SYSTEM: Unlabored breathing. Clear to auscultation anteriorly. HEART: S1, S2. Regular rate and rhythm. ABDOMEN: Soft. No tenderness. LABS: Hemoglobin is 9.8, white count 2.3, creatinine 0.39. Urine showing Enterococcus faecalis. Blood culture negative. DIAGNOSTIC IMPRESSION AND PLAN: Patient with febrile neutropenia with concern for possible urinary tract infection. No other obvious focus of infection. Patient is covered with Unasyn. If the blood culture remains negative, antibiotics will be discontinued. Continue with supportive care. MMODL / IJN: [id number] /
[2020-11-16] MEDS: VANCOMYCIN 1,250 MG in SODIUM CHLORIDE 0.9% 250 ML IVPB SCH ×2 (01:35→15:20)
[2020-11-16] MEDS: AMPICILLIN-SULBACTAM 3 GM in SODIUM CHLORIDE 0.9% 100 ML IVPB SCH ×3 (03:48→20:14)
[2020-11-16] MEDS: DEXTROSE 5%-0.9% NACL 1,000 ML IV SCH ×2 (05:59→17:43)
[2020-11-16 06:31] LABS: Partial Thromboplastin Time 24.7 sec (22.0-30.0)
[2020-11-16 06:59] LABS: INR 1.2 (<1.2); Prothrombin Time 12.7 sec (9.0-12.0)
[2020-11-16] MEDS: FLUCONAZOLE IN NACL,ISO-OSM 100 MG in SALINE 1 50ML.BAG IVPB SCH (09:21)
[2020-11-16] MEDS: HYDROCORTISONE SUPPOSITORY 25 MG SUPP RECTAL SCH (09:21)
[2020-11-16] MEDS: polyethylene glycoL 3350 17 GM POWD.PACK PO SCH (09:21)
[2020-11-16] MEDS: allopurinoL 300 MG TAB PO SCH (09:21)
[2020-11-16] MEDS: CHOLESTYRAMINE (WITH SUGAR) 4 GM PACKET PO SCH ×2 (09:21→16:38)
[2020-11-16 09:28] LABS: African American GFR (CKD) 118.1 (60.0-200.0); Albumin 2.7 g/dL (3.80-4.90); Albumin/Globulin Ratio 1.69 (1.60-3.17); Anion Gap 7.5 mmol/L (4.00-12.00); Calcium 7.8 mg/dL (8.7-10.3); Carbon Dioxide 26.5 mmol/L (21.6-31.8); Globulin 1.6 g/dL (1.6-3.3); Non-African American GFR(CKD) 101.9 (60.0-200.0); Potassium 3.2 mmol/L (3.5-5.5); Total Bilirubin 1.2 mg/dL (0.3-1.2); Total Protein 4.3 g/dL (6.2-8.2)
[2020-11-16 11:25] LABS: HCT 26.2 % (37.2-46.3); HGB 8.6 g/dL (12.0-15.0); MCH 30.2 pg (27.0-32.0); MCHC 32.8 g/dL (32.0-37.0); MCV 91.9 fL (80.0-97.0); Mean Platelet Volume 10.7 fL (9.5-12.2); Platelet Count 40 X 10*3/uL (140-440); RBC 2.85 X 10*6/uL (4.10-5.20); RDW 18.4 % (11.5-14.5); WBC 2.23 X 10*3/uL (4.50-10.00)
[2020-11-16 11:26] LABS: Basophils # (M) 0 X 10*3/uL (0.00-0.10); Blast Cells # (M) 0.22 k/uL (0); Eosinophils # (M) 0 X 10*3/uL (0.04-0.35); Lymphocytes # (M) 1.96 X 10*3/uL (0.90-5.00); Monocytes # (M) 0.02 X 10*3/uL (0.20-1.00); Neutrophils # (M) 0.02 X 10*3/uL (2.00-8.90); Neutrophils % (M) 1 %; Smudge Cells PRESENT
--- NOTE | 2020-11-16 14:01 | P.PN ---
Subjective Progress Note Date: 11/16/20 CHIEF COMPLAINT: Rectal pain HISTORY OF PRESENT ILLNESS: The patient is a 75-year-old female admitted with pancytopenia due to recent chemotherapy for acute myelocytic leukemia was present rectal pain and diarrhea. Patient has a personal history of colon polyps including family history of colon cancer. Her last colonoscopy was 5 years ago. Her is at bedside providing additional history. He reports 1 month ago, she had a fecal disimpaction and from that time on, she has moderate to severe rectal pain. She has seen multiple providers complaining of pain and was prescribed creams. Since evaluation yesterday, she was started on rectal medications where she has some improvement. She is tolerating full liquid diet. ROS: History of mitral valve prolapse, hypertension, hyperlipidemia. Past history of hemorrhoidectomy. PHYSICAL EXAM: VITAL SIGNS: Reviewed CONSTITUTIONAL: Well developed and in no acute distress. EYES: Conjuctivae without sclera icterus. Extraocular movements grossly intact. HEAD, EARS, NOSE, THROAT: Moist buccal mucosa. Head is atraumatic, normocephalic. Hears conversational speech. No nasal drainage. NECK: Supple. No thyroidomegaly. RESPIRATORY: Non-labored respirations and equal bilateral excursions. CARDIOVASCULAR: Palpable 2+ radial pulses. Regular rate. Regular rhythm. ABDOMEN: Non tender. MUSCULOSKELETAL: No gross deformity of the lower extremities noted. No clubbing. No cyanosis. SKIN: Good skin turgor. Well perfused. NEUROLOGIC: Cranial nerves II through XII grossly intact. No focal or lateralizing signs. PSYCH: Appropriate affect. Alert and oriented to person, place and time. CLINICAL LABS: White blood cell count low at 2.23, hemoglobin low 8.6 STUDIES: CT of the chest abdomen and pelvis independently reviewed by me with findings of colonic wall edema involving the mid to distal transverse colon and proximal descending colon. Inflammation of the rectum also identified. Moderate distention of the urinary bladder noted. This is my independent interpretation. RADIOLOGY: Report of CT chest abdomen and pelvis also describes nodular thickening of the jejunum. ASSESSMENT: 1. Acute myeloid leukemia status post chemotherapy 2. Chemotherapy-induced pancytopenia 3. Rectal pain with proctitis 4. Abnormal computed tomography scan for colitis PLAN: 1. Recommend colonoscopy for abnormal computed tomography scan for colitis 2. Patient is elevated risk for complications due to recent chemotherapy and proctitis 3. Clinical history mimics anal fissure and may benefit from sitz baths for rectal pain. 4. Start of bowel prep tomorrow. Objective - Vital Signs Vital signs: Vital Signs Temp 98.3 F 11/16/20 04:58 Pulse 80 11/16/20 04:58 Resp 16 11/16/20 04:58 BP 110/68 11/16/20 04:58 Pulse Ox 95 11/16/20 04:58 Intake & Output 11/15/20 11/16/20 11/16/20 18:59 06:59 18:59 Intake Total 240 Balance 240 Intake: Oral 240 Other: Voiding Method Diaper Incontinent # Voids 3 3 - Labs CBC & Chem 7: 11/16/20 06:10 11/16/20 06:10 Labs: Abnormal Lab Results - Last 24 Hours (Table) 11/16/20 11/16/20 11/16/20 Range/Units 06:10 06:10 06:10 WBC 2.23 L (4.50-10.00) X 10*3/uL RBC 2.85 L (4.10-5.20) X 10*6/uL Hgb 8.6 L (12.0-15.0) g/dL Hct 26.2 L (37.2-46.3) % RDW 18.4 H (11.5-14.5) % Plt Count 40 L (140-440) X 10*3/uL Plt Count Comment A Blast Cells % 10 H* (0-0) % Neutrophils # (Manual) 0.02 L* (2.00-8.90) X 10*3/uL Monocytes # (Manual) 0.02 L (0.20-1.00) X 10*3/uL Eosinophils # (Manual) 0 L (0.04-0.35) X 10*3/uL Immature Plt Fraction 7.7 H (1.1-6.1) % PT 12.7 H (9.0-12.0) sec INR 1.2 H (<1.2) Potassium 3.2 L (3.5-5.5) mmol/L BUN 6.0 L (9.0-27.0) mg/dL Creatinine 0.4 L (0.6-1.5) mg/dL Glucose 128 H (70-110) mg/dL Calcium 7.8 L (8.7-10.3) mg/dL Total Protein 4.3 L (6.2-8.2) g/dL Albumin 2.70 L (3.80-4.90) g/dL Microbiology - Last 24 Hours (Table) 11/12/20 13:50 Blood Culture - Preliminary Blood No Growth after 72 hours Assessment and Plan (1) Colitis Current Visit: Yes Status: Acute Code(s): K52.9 - NONINFECTIVE GASTROENTERITIS AND COLITIS, UNSPECIFIED SNOMED Code(s): 86058436 (2) Rectal pain Current Visit: Yes Status: Acute Code(s): K62.89 - OTHER SPECIFIED DISEASES OF ANUS AND RECTUM SNOMED Code(s): 07580639 (3) Acute myeloid leukemia Current Visit: Yes Status: Acute Priority: High Code(s): C92.00 - ACUTE MYELOBLASTIC LEUKEMIA, NOT HAVING ACHIEVED REMISSION SNOMED Code(s): 29825539 (4) Neutropenia Current Visit: Yes Status: Acute Code(s): D70.9 - NEUTROPENIA, UNSPECIFIED SNOMED Code(s): 146531055 (5) 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: Chronic Priority: High Code(s): D61.810 - ANTI NEOPLASTIC CHEMOTHERAPY INDUCED PANCYTOPENIA; T45.1X5A - ADVERSE EFFECT OF ANTINEOPLASTIC AND IMMUNOSUP DRUGS, INIT SNOMED Code(s): 829272439863552
--- NOTE | 2020-11-16 15:21 | P.PN ---
Subjective Progress Note Date: 11/16/20 Principal diagnosis: Febrile neutropenia Neutropenic colitis AML Continues to have rectal/anal pain. Colonoscopy planned on Wednesday. Objective - Vital Signs Vital signs: Vital Signs Temp 98.4 F 11/16/20 13:28 Pulse 76 11/16/20 13:28 Resp 14 11/16/20 13:28 BP 127/75 11/16/20 13:28 Pulse Ox 96 11/16/20 13:28 Intake & Output 11/15/20 11/16/20 11/16/20 18:59 06:59 18:59 Intake Total 240 Balance 240 Intake: Oral 240 Other: Voiding Method Diaper Incontinent # Voids 3 3 - Exam Gen.: In no acute distress. HEENT: She does have conjunctival pallor. No scleral icterus. Neck: Supple. Lungs: No respiratory distress. Heart: Regular rate. No lower extremity edema. Abdomen: Soft. MSK: Appropriate strength in all 4 extremities. Neuro: Alert and oriented 3. Skin: No jaundice. Psych: Appropriate affect. - Labs CBC & Chem 7: 11/16/20 06:10 11/16/20 06:10 Labs: Abnormal Lab Results - Last 24 Hours (Table) 11/16/20 11/16/20 11/16/20 Range/Units 06:10 06:10 06:10 WBC 2.23 L (4.50-10.00) X 10*3/uL RBC 2.85 L (4.10-5.20) X 10*6/uL Hgb 8.6 L (12.0-15.0) g/dL Hct 26.2 L (37.2-46.3) % RDW 18.4 H (11.5-14.5) % Plt Count 40 L (140-440) X 10*3/uL Plt Count Comment A Blast Cells % 10 H* (0-0) % Neutrophils # (Manual) 0.02 L* (2.00-8.90) X 10*3/uL Monocytes # (Manual) 0.02 L (0.20-1.00) X 10*3/uL Eosinophils # (Manual) 0 L (0.04-0.35) X 10*3/uL Immature Plt Fraction 7.7 H (1.1-6.1) % PT 12.7 H (9.0-12.0) sec INR 1.2 H (<1.2) Potassium 3.2 L (3.5-5.5) mmol/L BUN 6.0 L (9.0-27.0) mg/dL Creatinine 0.4 L (0.6-1.5) mg/dL Glucose 128 H (70-110) mg/dL Calcium 7.8 L (8.7-10.3) mg/dL Total Protein 4.3 L (6.2-8.2) g/dL Albumin 2.70 L (3.80-4.90) g/dL Microbiology - Last 24 Hours (Table) 11/12/20 13:50 Blood Culture - Preliminary Blood No Growth after 72 hours Assessment and Plan Assessment: 1. AML 2. Pancytopenia due to leukemia and chemotherapy 3. Coagulopathy due to warfarin use 4. Syncope 5. Dehydration 6. ADAN 7. Rectal/anal pain 8. Febrile neutropenia Plan: Ms. Schumacher is a very pleasant 75 yo female with history of AML, here for syncope due to dehydration/ADAN and anemia. She also had febrile neutropenia, on antibiotics. Fevers have resolved. Brain imaging due to recent head trauma in setting of warfarin therapy negative. Coagulopathy reversed. BMB was planned however delayed with initial plan of Wednesday. Ongoing diarrhea due to neutropenic colitis. Also with anal pain, surgery consulted. Colonoscopy planned on Wednesday. Unclear if pt will be able to proceed with BMB in addition to colonoscopy on Wednesday. Pt eager to determine cause of her discomfort and seems to prefer having colonoscopy first. Otherwise, will continue antibiotics. ID on board. Supportive transfusion for Hgb <7, plt <10 or bleeding, irradiated products. No G-CSF at this time. OP PFT's will be needed for potential BMT. Discussed at length with pt and at bedside. They are agreeable with the plan. Time with Patient: Greater than 30
[2020-11-16] MEDS: SODIUM CHLORIDE 0.9% 1,000 ML IV SCH (17:44)
--- NOTE | 2020-11-16 18:13 | PN ---
PROGRESS NOTE DATE OF SERVICE: 11/16/2020 REASON FOR FOLLOWUP: Febrile neutropenia and UTI. INTERVAL HISTORY: The patient is currently afebrile. The patient is breathing comfortably. Patient denies any chest pain. No shortness of breath. No cough. No nausea, vomiting. No abdominal pain or diarrhea. PHYSICAL EXAMINATION: Blood pressure 127/75, pulse of 76, temperature 98.4. She is 96% on room air. General description is an elderly female lying in bed in no distress. Respiratory system: Unlabored breathing, clear to auscultation. Heart S1, S2. Regular rate and rhythm. Abdomen: Soft, no tenderness. LABS: Hemoglobin 8.4, white count 2.23, BUN of 6, creatinine 0.4. Urine showing Enterococcus faecalis. DIAGNOSTIC IMPRESSION AND PLAN: Patient with febrile neutropenia. This patient did have a positive culture with Enterococcus faecalis, should be covered with Unasyn. With no evidence of any MRSA bacteremia, we will discontinue the vancomycin to decrease nephrotoxicity and continue supportive care. MMODL / IJN: [id number] /
[2020-11-16] MEDS: ATORVASTATIN 40 MG TAB PO SCH (20:13)
[2020-11-16] MEDS ORDERED: POTASSIUM CHLORIDE ER 20 MEQ TAB.ER PO STA (20:15)
--- NOTE | 2020-11-16 20:18 | P.PN ---
Subjective From records: This is a 75-year-old patient of Dr. Chung. Chronic stable medical conditions include hyperlipidemia, hypertension, parathyroid disorder, basal cell skin cancer. Reported history of blood clot in the brain for which patient is on Coumadin, possibly venous thrombosis. 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 [November 2019 patient presented to the ER here-CT angios the head had shown intracranial hemorrhage adjacent to the right posterior cerebral artery but no definite aneurysm identified. Subdural hemorrhage. Patient was transferred to [facility] in [place]. Patient presented to her oncologist office yesterday feeling very tired and lethargic and a moment of unresponsiveness. The pressure was 50/30s. EMS transported the patient to the hospital. INR was greater than 10. Vitamin K was given. Broad-spectrum antibiotics were started in the ER including vancomycin and cefepime. Patient has been feeling weak and tired. No obvious reported fever or chills. Appetite has been okay Subjective: 11/14/2020 This is a pleasant 75 years old female with history of AML and follow-up with oncologist, patient presents with transient period of unconsciousness and unresponsiveness associated with hypotension at the oncology office. Patient states that she has long history of dizziness especially when she gets up more in the last 2 months associated with some sweating. She describes her dizziness as presyncope. Patient states that she was walking without help to she fell about 2 months ago due to her dizziness and now she needs more help with walking. Patient states that currently she needs to 3 people to help her walking. She complains also from pain in her hemorrhoids. Today she got 2 units of blood transfusion and her hemoglobin increased from 6.4 up to 10.1. Platelets 50 5K and WBC is 2.2K. Blast cells in the peripheral blood is 56% Currently her INR is 2.0. BMP is unremarkable. CT of the brain is negative. CT of the chest, abdomen and pelvis showed possible colitis. elliott-culture was obtained. Patient is currently covered with IV vancomycin and fluconazole with infectious disease team consulted 11/15/2020 Patient awake with no abdominal pain and her diarrhea is improving. She had low-grade temperature yesterday 100.5. 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 No hydronephrosis Bone marrow biopsy is planned for today but was cancelled by IR team for scheduling conflicts. Patient reports less dizziness today. She does not look confused like yesterday. Pancytopenia is a stable. BMP is a stable as well. Liver enzymes slightly impr venu. We will keep the fluid at normal saline 75 mL/h as patient is not eating much 11/16/2020 Patient states that her dizziness as she came with syncope and diarrhea has stopped as per her, she denies abdominal pain. She is able to eat some of her food, Throughout her symptoms are due to enterococcus UTI which is improved with antibiotic Unasyn, ID team on the case, also patient is an fluconazole while IV vancomycin was stopped. History of venous sinus thrombosis, Coumadin is on hold for patient is planned to go for colonoscopy and possible bone marrow biopsy on Wednesday, patient looks to do this procedure. Her pancytopenia is stable, no anticoagulation due to low platelets less than 40. No fever today. Objective - Vital Signs Vital signs: Vital Signs Temp 98.4 F 11/16/20 13:28 Pulse 76 11/16/20 13:28 Resp 14 11/16/20 13:28 BP 127/75 11/16/20 13:28 Pulse Ox 96 11/16/20 13:28 Intake & Output 11/15/20 11/16/20 11/16/20 18:59 06:59 18:59 Intake Total 240 Balance 240 Intake: Oral 240 Other: Voiding Method Diaper Incontinent # Voids 3 3 - Exam -GENERAL: The patient is alert and oriented x3, not in any acute distress. Generally weak HEENT: Pupils are round and equally reacting to light. EOMI. No scleral icterus. No conjunctival pallor. Normocephalic, atraumatic. No pharyngeal erythema. No thyromegaly. CARDIOVASCULAR: S1 and S2 present. No murmurs, rubs, or gallops. PULMONARY: Chest is clear to auscultation, no wheezing or crackles. ABDOMEN: Soft, nontender, nondistended, normoactive bowel sounds. No palpable organomegaly. MUSCULOSKELETAL: No joint swelling or deformity. EXTREMITIES: No cyanosis, clubbing, or pedal edema. NEUROLOGICAL: Gross neurological examination did not reveal any focal deficits. SKIN: No rashes. no petechiae. - Labs CBC & Chem 7: 11/16/20 06:10 11/16/20 06:10 Labs: Abnormal Lab Results - Last 24 Hours (Table) 11/16/20 11/16/20 11/16/20 Range/Units 06:10 06:10 06:10 WBC 2.23 L (4.50-10.00) X 10*3/uL RBC 2.85 L (4.10-5.20) X 10*6/uL Hgb 8.6 L (12.0-15.0) g/dL Hct 26.2 L (37.2-46.3) % RDW 18.4 H (11.5-14.5) % Plt Count 40 L (140-440) X 10*3/uL Plt Count Comment A Blast Cells % 10 H* (0-0) % Neutrophils # (Manual) 0.02 L* (2.00-8.90) X 10*3/uL Monocytes # (Manual) 0.02 L (0.20-1.00) X 10*3/uL Eosinophils # (Manual) 0 L (0.04-0.35) X 10*3/uL Immature Plt Fraction 7.7 H (1.1-6.1) % PT 12.7 H (9.0-12.0) sec INR 1.2 H (<1.2) Potassium 3.2 L (3.5-5.5) mmol/L BUN 6.0 L (9.0-27.0) mg/dL Creatinine 0.4 L (0.6-1.5) mg/dL Glucose 128 H (70-110) mg/dL Calcium 7.8 L (8.7-10.3) mg/dL Total Protein 4.3 L (6.2-8.2) g/dL Albumin 2.70 L (3.80-4.90) g/dL Microbiology - Last 24 Hours (Table) 11/12/20 13:50 Blood Culture - Preliminary Blood No Growth after 72 hours Assessment and Plan Assessment: -Acute myeloid leukemia, being treated by Dr. lombardo from [facility]. 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 Continue with Unasyn -Hypotension decreased oral intake. Improved after Blood transfusion -Symptomatic severe anemia from AML. Status post 2 unit of blood transfusion. -pancytopenia, with infection is suspected. Hematology team. Continue with broad-spectrum antibiotics and ID team were consulted -cranial venous sinus thrombosis. Resume Coumadin after bone marrow biopsy -History of intracranial and subdural hemorrhage in November 2019. For which patient was transferred out to [facility] -Left thyroid nodule, patient informed -Essential hypertension . Currently hold of Zestril. Follow closely -Hyperlipidemia continue with Lipitor -Hyperuricemia likely from treatment for leukemia. Continue with allopurinol -Near-syncope likely due to vasovagal. Secondary to anemia.
[2020-11-17] MEDS: AMPICILLIN-SULBACTAM 3 GM in SODIUM CHLORIDE 0.9% 100 ML IVPB SCH ×3 (05:07→21:58)
--- NOTE | 2020-11-17 08:23 | P.PN ---
Subjective Progress Note Date: 11/17/20 Principal diagnosis: Febrile neutropenia Neutropenic colitis AML UTI Syncope ADAN No more dizziness. Colonoscopy planned tomorrow. BMB possibly tomorrow as well. Objective - Vital Signs Vital signs: Vital Signs Temp 99.2 F 11/17/20 04:53 Pulse 65 11/17/20 04:53 Resp 16 11/17/20 04:53 BP 128/82 11/17/20 04:53 Pulse Ox 97 11/17/20 04:53 Intake & Output 11/16/20 11/17/20 11/17/20 18:59 06:59 18:59 Intake Total 1000 Balance 1000 Intake: Intake, IV Titration 1000 Amount Ampicillin-Sulbactam 3 gm 100 In Sodium Chloride 0.9% 100 ml @ 200 mls/hr IVPB Q8H [facility] Rx#:[id number] Dextrose 5%-0.9% NaCl 1, 600 000 ml @ 75 mls/hr IV . [id number] [facility] Rx#:[id number] Fluconazole in NaCl,Iso- 50 Osm 100 mg In Saline 1 50ml.bag @ 50 mls/hr IVPB DAILY [facility] Rx#:[id number] Vancomycin 1,250 mg In 250 Sodium Chloride 0.9% 250 ml @ 125 mls/hr IVPB Q12H [facility] Rx#:[id number] Other: Voiding Method Incontinent # Voids 4 2 # Bowel Movements 1 - Exam Gen.: In no acute distress. HEENT: She does have conjunctival pallor. No scleral icterus. Neck: Supple. Lungs: No respiratory distress. Heart: Regular rate. No lower extremity edema. Abdomen: Soft. MSK: Appropriate strength in all 4 extremities. Neuro: Alert and oriented 3. Skin: No jaundice. Psych: Appropriate affect. - Labs CBC & Chem 7: 11/16/20 06:10 11/16/20 06:10 Labs: Abnormal Lab Results - Last 24 Hours (Table) 11/16/20 11/16/20 Range/Units 06:10 06:10 WBC 2.23 L (4.50-10.00) X 10*3/uL RBC 2.85 L (4.10-5.20) X 10*6/uL Hgb 8.6 L (12.0-15.0) g/dL Hct 26.2 L (37.2-46.3) % RDW 18.4 H (11.5-14.5) % Plt Count 40 L (140-440) X 10*3/uL Plt Count Comment A Blast Cells % 10 H* (0-0) % Neutrophils # (Manual) 0.02 L* (2.00-8.90) X 10*3/uL Monocytes # (Manual) 0.02 L (0.20-1.00) X 10*3/uL Eosinophils # (Manual) 0 L (0.04-0.35) X 10*3/uL Immature Plt Fraction 7.7 H (1.1-6.1) % Potassium 3.2 L (3.5-5.5) mmol/L BUN 6.0 L (9.0-27.0) mg/dL Creatinine 0.4 L (0.6-1.5) mg/dL Glucose 128 H (70-110) mg/dL Calcium 7.8 L (8.7-10.3) mg/dL Total Protein 4.3 L (6.2-8.2) g/dL Albumin 2.70 L (3.80-4.90) g/dL Microbiology - Last 24 Hours (Table) 11/12/20 13:50 Blood Culture - Preliminary Blood No Growth after 96 hours Assessment and Plan Assessment: 1. AML 2. Pancytopenia due to leukemia and chemotherapy 3. Coagulopathy due to warfarin use 4. Syncope 5. Dehydration 6. ADAN 7. Rectal/anal pain 8. Febrile neutropenia 9. UTI Plan: Ms. Schumacher is a very pleasant 75 yo female with history of AML, here for syncope due to dehydration/ADAN and anemia. She also had febrile neutropenia, on antibiotics. Fevers have resolved. Brain imaging due to recent head trauma in setting of warfarin therapy negative. Coagulopathy reversed. BMB was planned however delayed with initial plan of Wednesday. Ongoing diarrhea due to neutropenic colitis. Overall seems better. Also with anal pain, surgery consulted. Colonoscopy planned on Wednesday. Possible BMB Wednesday or Wednesday; pt seems to prefer to hold off on 2 procedures in one day and eager to determine cause of her discomfort and seems to prefer having colonoscopy first. Otherwise, will continue antibiotics. ID on board. Supportive transfusion for Hgb <7, plt <10 or bleeding, irradiated products. Awaiting CBC from today. No G-CSF at this time. OP PFT's will be needed for potential BMT. Discussed at length with pt and at bedside. They are agreeable with the plan.
[2020-11-17] MEDS: polyethylene glycoL 3350 17 GM POWD.PACK PO SCH (09:28)
[2020-11-17] MEDS: FLUCONAZOLE IN NACL,ISO-OSM 100 MG in SALINE 1 50ML.BAG IVPB SCH (09:29)
[2020-11-17] MEDS: HYDROCORTISONE SUPPOSITORY 25 MG SUPP RECTAL SCH (09:29)
[2020-11-17] MEDS: allopurinoL 300 MG TAB PO SCH (09:29)
[2020-11-17] MEDS: CHOLESTYRAMINE (WITH SUGAR) 4 GM PACKET PO SCH ×2 (09:30→16:15)
[2020-11-17] MEDS ORDERED: PEG 3350-NA SULF,BICARB,CL/KCL 4,000 ML BOTTLE PO ONE (12:00)
[2020-11-17] MEDS: DEXTROSE 5%-0.9% NACL 1,000 ML IV SCH (12:21)
--- NOTE | 2020-11-17 16:08 | P.PN ---
Subjective Progress Note Date: 11/17/20 CHIEF COMPLAINT: Rectal pain HISTORY OF PRESENT ILLNESS: The patient is a 75-year-old female admitted with pancytopenia due to recent chemotherapy for acute myelocytic leukemia was present rectal pain and diarrhea. Patient has a personal history of colon polyps including family history of colon cancer. Her last colonoscopy was 5 years ago. She is having bowel movements. She is doing her bowel prep. Her rectal pain has improved with suppositories. ROS: History of mitral valve prolapse, hypertension, hyperlipidemia. Past history of hemorrhoidectomy. PHYSICAL EXAM: VITAL SIGNS: Reviewed CONSTITUTIONAL: Well developed and in no acute distress. EYES: Conjuctivae without sclera icterus. Extraocular movements grossly intact. HEAD, EARS, NOSE, THROAT: Moist buccal mucosa. Head is atraumatic, normocephalic. Hears conversational speech. No nasal drainage. RESPIRATORY: Non-labored respirations and equal bilateral excursions. CARDIOVASCULAR: Palpable 2+ radial pulses. Regular rate. Regular rhythm. ABDOMEN: Non tender. MUSCULOSKELETAL: No gross deformity of the lower extremities noted. No clubbing. No cyanosis. SKIN: Good skin turgor. Well perfused. NEUROLOGIC: Cranial nerves II through XII grossly intact. No focal or lateralizing signs. PSYCH: Appropriate affect. Alert and oriented to person, place and time. CLINICAL LABS: No new labs. ASSESSMENT: 1. Acute myeloid leukemia status post chemotherapy 2. Chemotherapy-induced pancytopenia 3. Rectal pain with proctitis 4. Abnormal computed tomography scan for colitis PLAN: 1. Recommend colonoscopy for colitis 2. Bowel prep initiated Objective - Vital Signs Vital signs: Vital Signs Temp 99.2 F 11/17/20 04:53 Pulse 65 11/17/20 04:53 Resp 16 11/17/20 04:53 BP 128/82 11/17/20 04:53 Pulse Ox 97 11/17/20 04:53 Intake & Output 11/16/20 11/17/20 11/17/20 18:59 06:59 18:59 Intake Total 1000 Balance 1000 Intake: Intake, IV Titration 1000 Amount Ampicillin-Sulbactam 3 gm 100 In Sodium Chloride 0.9% 100 ml @ 200 mls/hr IVPB Q8H [facility] Rx#:[id number] Dextrose 5%-0.9% NaCl 1, 600 000 ml @ 75 mls/hr IV . [id number] [facility] Rx#:[id number] Fluconazole in NaCl,Iso- 50 Osm 100 mg In Saline 1 50ml.bag @ 50 mls/hr IVPB DAILY [facility] Rx#:[id number] Vancomycin 1,250 mg In 250 Sodium Chloride 0.9% 250 ml @ 125 mls/hr IVPB Q12H [facility] Rx#:[id number] Other: Voiding Method Incontinent Incontinent # Voids 4 2 # Bowel Movements 1 - Labs CBC & Chem 7: 11/16/20 06:10 11/16/20 06:10 Labs: Abnormal Lab Results - Last 24 Hours (Table) 11/16/20 Range/Units 06:10 WBC 2.23 L (4.50-10.00) X 10*3/uL RBC 2.85 L (4.10-5.20) X 10*6/uL Hgb 8.6 L (12.0-15.0) g/dL Hct 26.2 L (37.2-46.3) % RDW 18.4 H (11.5-14.5) % Plt Count 40 L (140-440) X 10*3/uL Plt Count Comment A Blast Cells % 10 H* (0-0) % Neutrophils # (Manual) 0.02 L* (2.00-8.90) X 10*3/uL Monocytes # (Manual) 0.02 L (0.20-1.00) X 10*3/uL Eosinophils # (Manual) 0 L (0.04-0.35) X 10*3/uL Blast Cells # (Man) 0.22 H (0) k/uL Immature Plt Fraction 7.7 H (1.1-6.1) % Microbiology - Last 24 Hours (Table) 11/12/20 13:50 Blood Culture - Preliminary Blood No Growth after 96 hours Assessment and Plan (1) Colitis Current Visit: Yes Status: Acute Code(s): K52.9 - NONINFECTIVE GASTROENTERITIS AND COLITIS, UNSPECIFIED SNOMED Code(s): 96708244 (2) Rectal pain Current Visit: Yes Status: Acute Code(s): K62.89 - OTHER SPECIFIED DISEASES OF ANUS AND RECTUM SNOMED Code(s): 21036082 (3) Acute myeloid leukemia Current Visit: Yes Status: Acute Priority: High Code(s): C92.00 - ACUTE MYELOBLASTIC LEUKEMIA, NOT HAVING ACHIEVED REMISSION SNOMED Code(s): 90230134 (4) Neutropenia Current Visit: Yes Status: Acute Code(s): D70.9 - NEUTROPENIA, UNSPECIFIED SNOMED Code(s): 764036400 (5) 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: Chronic Priority: High Code(s): D61.810 - ANTINEOPLASTIC CHEMOTHERAPY INDUCED PANCYTOPENIA; T45.1X5A - ADVERSE EFFECT OF ANTINEOPLASTIC AND IMMUNOSUP DRUGS, INIT SNOMED Code(s): 624427746062279
--- NOTE | 2020-11-17 19:57 | PN ---
PROGRESS NOTE DATE OF SERVICE: 11/17/2020 REASON FOR FOLLOWUP VISIT: Febrile neutropenia, Enterococcus faecalis UTI. INTERVAL HISTORY: The patient is currently afebrile. The patient is breathing comfortably. Denies having any chest pain. No shortness of breath or cough. No abdominal pain or diarrhea. PHYSICAL EXAMINATION: Blood pressure 122/80 with a pulse of 70. Temperature is 97.8. She is 97% on room air. General description is an elderly female lying in bed in no distress. Respiratory system: Unlabored breathing, clear to auscultation anteriorly. Heart S1, S2. Regular rate and rhythm. Abdomen soft. No tenderness. LABS: Hemoglobin 8.3, white count 2.23, BUN of 6, creatinine 0.4. Urine with Enterococcus coli. Blood culture has been negative. DIAGNOSTIC IMPRESSION AND PLAN: Patient with febrile neutropenia, underlying AML on chemo. Sputum positive for Enterococcus faecalis. Patient covered with Unasyn and monitor clinical course closely. Continue supportive care. MMODL / IJN: [id number] /
--- NOTE | 2020-11-17 20:03 | P.PN ---
Subjective From records: This is a 75-year-old patient of Dr. Chung. Chronic stable medical conditions include hyperlipidemia, hypertension, parathyroid disorder, basal cell skin cancer. Reported history of blood clot in the brain for which patient is on Coumadin, possibly venous thrombosis. 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 [November 2019 patient presented to the ER here-CT angios the head had shown intracranial hemorrhage adjacent to the right posterior cerebral artery but no definite aneurysm identified. Subdural hemorrhage. Patient was transferred to [facility] in [place]. Patient presented to her oncologist office yesterday feeling very tired and lethargic and a moment of unresponsiveness. The pressure was 50/30s. EMS transported the patient to the hospital. INR was greater than 10. Vitamin K was given. Broad-spectrum antibiotics were started in the ER including vancomycin and cefepime. Patient has been feeling weak and tired. No obvious reported fever or chills. Appetite has been okay Subjective: 11/14/2020 This is a pleasant 75 years old female with history of AML and follow-up with oncologist, patient presents with transient period of unconsciousness and unresponsiveness associated with hypotension at the oncology office. Patient states that she has long history of dizziness especially when she gets up more in the last 2 months associated with some sweating. She describes her dizziness as presyncope. Patient states that she was walking without help to she fell about 2 months ago due to her dizziness and now she needs more help with walking. Patient states that currently she needs to 3 people to help her walking. She complains also from pain in her hemorrhoids. Today she got 2 units of blood transfusion and her hemoglobin increased from 6.4 up to 10.1. Platelets 50 5K and WBC is 2.2K. Blast cells in the peripheral blood is 56% Currently her INR is 2.0. BMP is unremarkable. CT of the brain is negative. CT of the chest, abdomen and pelvis showed possible colitis. elliott-culture was obtained. Patient is currently covered with IV vancomycin and fluconazole with infectious disease team consulted 11/15/2020 Patient awake with no abdominal pain and her diarrhea is improving. She had low-grade temperature yesterday 100.5. 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 No hydronephrosis Bone marrow biopsy is planned for today but was cancelled by IR team for scheduling conflicts. Patient reports less dizziness today. She does not look confused like yesterday. Pancytopenia is a stable. BMP is a stable as well. Liver enzymes slightly impr venu. We will keep the fluid at normal saline 75 mL/h as patient is not eating much 11/16/2020 Patient states that her dizziness as she came with syncope and diarrhea has stopped as per her, she denies abdominal pain. She is able to eat some of her food, Throughout her symptoms are due to enterococcus UTI which is improved with antibiotic Unasyn, ID team on the case, also patient is an fluconazole while IV vancomycin was stopped. History of venous sinus thrombosis, Coumadin is on hold for patient is planned to go for colonoscopy and possible bone marrow biopsy on Wednesday, patient looks to do this procedure. Her pancytopenia is stable, no anticoagulation due to low platelets less than 40. No fever today. 11/17/2020 Patient looks comfortable, supine with her during her conversation. No distress. She denies diarrhea although there are still some reports per staff but also they report improvement in her diarrhea. No abdominal pain or tenderness abdomen looks soft. No nausea vomiting. Estimated plan is to undergo colonoscopy and possible bone marrow biopsy tomorrow and the perforation was started, patient was informed and she agreeable to do both procedures. Hemodynamically she is stable so. We will order labs for tomorrow. She remains on Unasyn for enterococcus UTI and Coumadin is still on hold pending procedures. She is on D5 normal saline at 75 mL/h Objective - Vital Signs Vital signs: Vital Signs Temp 97.8 F 11/17/20 12:45 Pulse 70 11/17/20 12:45 Resp 16 11/17/20 12:45 BP 122/80 11/17/20 12:45 Pulse Ox 96 11/17/20 12:45 Intake & Output 11/16/20 11/17/20 11/17/20 18:59 06:59 18:59 Intake Total 1000 Balance 1000 Intake: Intake, IV Titration 1000 Amount Ampicillin-Sulbactam 3 gm 100 In Sodium Chloride 0.9% 100 ml @ 200 mls/hr IVPB Q8H [facility] Rx#:[id number] Dextrose 5%-0.9% NaCl 1, 600 000 ml @ 75 mls/hr IV . [id number] [facility] Rx#:[id number] Fluconazole in NaCl,Iso- 50 Osm 100 mg In Saline 1 50ml.bag @ 50 mls/hr IVPB DAILY [facility] Rx#:[id number] Vancomycin 1,250 mg In 250 Sodium Chloride 0.9% 250 ml @ 125 mls/hr IVPB Q12H [facility] Rx#:[id number] Other: Voiding Method Incontinent Incontinent # Voids 4 2 # Bowel Movements 1 - Exam -GENERAL: The patient is alert and oriented x3, not in any acute distress. Generally weak HEENT: Pupils are round and equally reacting to light. EOMI. No scleral icterus. No conjunctival pallor. Normocephalic, atraumatic. No pharyngeal erythema. No thyromegaly. CARDIOVASCULAR: S1 and S2 present. No murmurs, rubs, or gallops. PULMONARY: Chest is clear to auscultation, no wheezing or crackles. ABDOMEN: Soft, nontender, nondistended, normoactive bowel sounds. No palpable organomegaly. MUSCULOSKELETAL: No joint swelling or deformity. EXTREMITIES: No cyanosis, clubbing, or pedal edema. NEUROLOGICAL: Gross neurological examination did not reveal any focal deficits. SKIN: No rashes. no petechiae. - Labs CBC & Chem 7: 11/16/20 06:10 11/16/20 06:10 Labs: Abnormal Lab Results - Last 24 Hours (Table) 11/16/20 Range/Units 06:10 Blast Cells # (Man) 0.22 H (0) k/uL Microbiology - Last 24 Hours (Table) 11/12/20 13:50 Blood Culture - Preliminary Blood No Growth after 96 hours Assessment and Plan Assessment: -Acute myeloid leukemia, being treated by Dr. lombardo from [facility]. 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 Continue with Unasyn -Hypotension decreased oral intake. Improved after Blood transfusion -Symptomatic severe anemia from AML. Status post 2 unit of blood transfusion. -pancytopenia, with infection is suspected. Hematology team. Continue with broad-spectrum antibiotics and ID team were consulted -cranial venous sinus thrombosis. Resume Coumadin after bone marrow biopsy -History of intracranial and subdural hemorrhage in November 2019. For which patient was transferred out to [facility] -Left thyroid nodule, patient informed -Essential hypertension . Currently hold of Zestril. Follow closely -Hyperlipidemia continue with Lipitor -Hyperuricemia likely from treatment for leukemia. Continue with allopurinol -Near-syncope likely due to vasovagal. Secondary to anemia.
[2020-11-17] MEDS: ATORVASTATIN 40 MG TAB PO SCH (21:58)
[2020-11-18] MEDS: DEXTROSE 5%-0.9% NACL 1,000 ML IV SCH ×2 (03:08→07:50)
[2020-11-18] MEDS: AMPICILLIN-SULBACTAM 3 GM in SODIUM CHLORIDE 0.9% 100 ML IVPB SCH ×3 (03:53→22:09)
[2020-11-18 06:51] LABS: Anisocytosis Slight; HCT 25.7 % (34.0-46.0); HGB 9.1 gm/dL (11.4-16.0); MCH 31.8 pg (25.0-35.0); MCHC 35.4 g/dL (31.0-37.0); MCV 89.9 fL (80.0-100.0); Mean Platelet Volume 10.1; Poikilocytosis Slight; RBC 2.86 m/uL (3.80-5.40); WBC 1.8 k/uL (3.8-10.6)
[2020-11-18 07:05] LABS: Platelet Count 30 k/uL (150-450)
[2020-11-18 07:08] LABS: INR 1.3 (<1.2); Prothrombin Time 13.4 sec (9.0-12.0)
[2020-11-18 07:12] LABS: African American GFR (CKD) >90 (>60 ml/min/1.73 sqM); Anion Gap 4 mmol/L; Blood Urea Nitrogen 3 mg/dL (7-17); Calcium 8.2 mg/dL (8.4-10.2); Carbon Dioxide 29 mmol/L (22-30); Chloride 103 mmol/L (98-107); Glucose 108 mg/dL (74-99); Non-African American GFR(CKD) >90 (>60 ml/min/1.73 sqM); Potassium 3.3 mmol/L (3.5-5.1); Sodium 136 mmol/L (137-145)
[2020-11-18] MEDS: FLUCONAZOLE IN NACL,ISO-OSM 100 MG in SALINE 1 50ML.BAG IVPB SCH (07:46)
[2020-11-18] MEDS: polyethylene glycoL 3350 17 GM POWD.PACK PO SCH (07:50)
[2020-11-18] MEDS: allopurinoL 300 MG TAB PO SCH (07:50)
[2020-11-18] MEDS: CHOLESTYRAMINE (WITH SUGAR) 4 GM PACKET PO SCH ×2 (07:51→18:00)
[2020-11-18 08:04] LABS: Lymphocytes # (M) 0.88 k/uL (1.0-4.8); Myelocytes # (M) 0.02 k/uL (0); Myelocytes % 1 %; Neutrophils # (M) 0.07 k/uL (1.3-7.7); Neutrophils % (M) 4 %
[2020-11-18 08:05] LABS: Blast Cells # (M) 0.83 k/uL (0); Nucleated Red Blood Cells 0 /100 WBC (0-0); Total Cells Counted 100
[2020-11-18] MEDS: HYDROCORTISONE SUPPOSITORY 25 MG SUPP RECTAL SCH (08:51)
[2020-11-18] MEDS: POTASSIUM CHLORIDE 10 MEQ in WATER FOR INJECTION 1 100ML.BAG IVPB SCH ×2 (12:51→14:46)
[2020-11-18] MEDS ORDERED: PROPOFOL 10 MG/ML 20 ML VIAL IV ONE (13:54)
[2020-11-18] MEDS ORDERED: IV FLUID CONTINUATION 500 ML IV ONE (13:54)
[2020-11-18] MEDS: ACETAMINOPHEN TAB 325 MG TAB PO PRN (15:15)
--- NOTE | 2020-11-18 15:42 | P.OP ---
Date of Procedure: 11/18/20 Preoperative Diagnosis: colitis Postoperative Diagnosis: diverticulosis Spasms/thickening of transverse colon Procedure(s) Performed: colonoscopy Anesthesia: MAC Surgeon: Martinez Maya Pathology: none sent Condition: stable Disposition: PACU Description of Procedure: the patient's placed on the operating table in the lateral position she received IV sedation. Digital rectal exam performed which revealed no entrance. Flexible colonoscope was then placed patient anus and passed throughout the entire colon. The colonoscope could be advanced to the mid transverse colon. There was spasm or thickening of the bowel. Scope could not be passed beyond this. the patient's platelets are only 30,000. A biopsy was not performed due to this. Due to this. At this point scope withdrawn. The remainder of the transverse colon descending colon appeared normal. In the sigmoid colon there is mild diverticular changes. There is no evidence of diverticulitis. Scope was brought back the rectum and this appeared normal. Scope was withdrawn for patient.
[2020-11-18] MEDS ORDERED: Magnesium Replacement Protocol 1 EACH MISC MISCELLANE PRN (18:56)
[2020-11-18] MEDS ORDERED: Potassium Replacement Protocol 1 EACH MISC MISCELLANE PRN (18:56)
[2020-11-18] MEDS ORDERED: PETROLATUM, WHITE OINT 50 GM TUBE TOPICAL PRN (20:41)
[2020-11-18] MEDS ORDERED: LIDOCAINE 4% CREAM 5 GM TUBE TOPICAL ONE (20:41)
--- NOTE | 2020-11-18 20:57 | P.PN ---
Subjective Progress Note Date: 11/18/20 Principal diagnosis: Acute Leukemia Long interaction today with patient and . Sputum cultures positive and Dr. Emmanuel from [place] is following. Patient continues to complain of weakness and rectal pain. She does have hemorrhoids, do NOT recommend suppositiory with platelets less than 50K at this time, a supportive care cream has been ordered for pain relief. She has only worked with PT once since admission, a new order for daily therapy and daily OOB has been placed. Patient will need to be observed up and walking to confirm safe for discharge as her re-admissions are related to her syncope episodes apon standing. Muscle atrophy noted Bone marrow biopsy is scheduled tomorrow at 7am Objective - Vital Signs Vital signs: Vital Signs Temp 98.4 F 11/18/20 14:40 Pulse 71 11/18/20 15:20 Resp 16 11/18/20 15:20 BP 120/79 11/18/20 15:20 Pulse Ox 97 11/18/20 15:20 Intake & Output 11/18/20 11/18/20 11/19/20 06:59 18:59 06:59 Intake Total 1850 Balance 1850 Intake: IV 100 Intake, IV Titration 1000 Amount Dextrose 5%-0.9% NaCl 1, 900 000 ml @ 75 mls/hr IV . [id number] [facility] Rx#:[id number] Potassium Chloride 10 meq 100 In Water For Injection 1 100ml.bag @ 100 mls/hr IVPB Q1H [facility] Rx#: [id number] Oral 750 Other: Voiding Method Incontinent Diaper Incontinent # Voids 7 4 # Bowel Movements 7 1 - Exam - Constitutional General appearance: thin - EENT Eyes: EOMI ENT: hard of hearing, NA/AT - Respiratory Respiratory: bilateral: diminished - Cardiovascular Heart rate: 124 Rhythm: regularly irregular Heart sounds: normal: S2 - Gastrointestinal General gastrointestinal: soft - Integumentary Integumentary: pale - Neurologic YOUSUF - Musculoskeletal Musculoskeletal: generalized weakness - Psychiatric Lethargic and difficult to arouse - Labs CBC & Chem 7: 11/18/20 06:11 11/18/20 06:11 Labs: Abnormal Lab Results - Last 24 Hours (Table) 11/18/20 11/18/20 11/18/20 Range/Units 06:11 06:11 06:11 WBC 1.8 L (3.8-10.6) k/uL RBC 2.86 L (3.80-5.40) m/uL Hgb 9.1 L (11.4-16.0) gm/dL Hct 25.7 L (34.0-46.0) % RDW 17.0 H (11.5-15.5) % Plt Count 30 L (150-450) k/uL Blast Cells % 46 H* % Neutrophils # (Manual) 0.07 L* (1.3-7.7) k/uL Lymphocytes # (Manual) 0.88 L (1.0-4.8) k/uL Myelocytes # (Manual) 0.02 H (0) k/uL Blast Cells # (Man) 0.83 H (0) k/uL PT 13.4 H (9.0-12.0) sec INR 1.3 H (<1.2) Sodium 136 L (137-145) mmol/L Potassium 3.3 L (3.5-5.1) mmol/L BUN 3 L (7-17) mg/dL Creatinine 0.37 L (0.52-1.04) mg/dL Glucose 108 H (74-99) mg/dL Calcium 8.2 L (8.4-10.2) mg/dL Microbiology - Last 24 Hours (Table) 11/12/20 13:50 Blood Culture - Final Blood No Growth after 144 hours Assessment and Plan (1) Acute myeloid leukemia Current Visit: Yes Status: Acute Priority: High Code(s): C92.00 - ACUTE MYELOBLASTIC LEUKEMIA, NOT HAVING ACHIEVED REMISSION SNOMED Code(s): 66530380 (2) Coagulopathy Current Visit: Yes Status: Acute Priority: High Code(s): D68.9 - COAGULATION DEFECT, UNSPECIFIED SNOMED Code(s): 16657080 (3) Altered mental status Current Visit: No Status: Acute Priority: High Code(s): R41.82 - ALTERED MENTAL STATUS, UNSPECIFIED SNOMED Code(s): 362514880 (4) SIRS (systemic inflammatory response syndrome) Current Visit: No Status: Acute Code(s): R65.10 - SIRS OF NON-INFECTIOUS ORIGIN W/O ACUTE ORGAN DYSFUNCTION SNOMED Code(s): 107751387 (5) 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: Chronic Priority: High Code(s): D61.810 - ANTINEOPLASTIC CHEMOTHERAPY INDUCED PANCYTOPENIA; T45.1X5A - ADVERSE EFFECT OF ANTINEOPLASTIC AND IMMUNOSUP DRUGS, INIT SNOMED Code(s): 670863183853698 Plan: AML: - Increased peripheral blasts Recurrent Syncopal episodes with movement Neutropenic Colitis: - Improving can increase diet after bone marrow biopsy tomorrow Ilness Myopathy: - PT/OT asked to provide daily therapy - Patient is not getting up and increased risks for pneumonia and skin infection with laying in bed, not to mention unable to assess if improving of syncopal episodes if only laying flat Long interaction today with patient and . Sputum cultures positive and Dr. Emmanuel from ID is following. Patient continues to complain of weakness and rectal pain. She does have hemorrhoids, do NOT recommend suppositiory with platelets less than 50K at this time, a supportive care cream has been ordered for pain relief. She has only worked with PT once since admission, a new order for daily therapy and daily OOB has been placed. Patient will need to be observe d up and walking to confirm safe for discharge as her re-admissions are related to her syncope episodes apon standing. Muscle atrophy noted Transfuse Hemoglobin less than 7, platelets less than 10 Irradiated blood products only No Growth factor as remission of leukemia has not been established Patient will need PFT prior to potential transplant, will see if can be completed while inpatient. Physician attest: I have completed the full history and physical and agree with above dictation, dictated as a ascribe.,
--- NOTE | 2020-11-18 21:37 | P.PN ---
Subjective From records: This is a 75-year-old patient of Dr. Chung. Chronic stable medical conditions include hyperlipidemia, hypertension, parathyroid disorder, basal cell skin cancer. Reported history of blood clot in the brain for which patient is on Coumadin, possibly venous thrombosis. Patient does follow with / oncologist out of [place] and patient be getting chemotherapy for acute myeloid leukemia. [November 2019 patient presented to the ER here-CT angios the head had shown intracranial hemorrhage adjacent to the right posterior cerebral artery but no definite aneurysm identified. Subdural hemorrhage. Patient was transferred to [facility] in [place]. Patient presented to her oncologist office yesterday feeling very tired and lethargic and a moment of unresponsiveness. The pressure was 50/30s. EMS transported the patient to the hospital. INR was greater than 10. Vitamin K was given. Broad-spectrum antibiotics were started in the ER including vancomycin and cefepime. Patient has been feeling weak and tired. No obvious reported fever or chills. Appetite has been okay Subjective: 11/14/2020 This is a pleasant 75 years old female with history of AML and follow-up with oncologist, patient presents with transient period of unconsciousness and unresponsiveness associated with hypotension at the oncology office. Patient states that she has long history of dizziness especially when she gets up more in the last 2 months associated with some sweating. She describes her dizziness as presyncope. Patient states that she was walking without help to she fell about 2 months ago due to her dizziness and now she needs more help with walking. Patient states that currently she needs to 3 people to help her walking. She complains also from pain in her hemorrhoids. Today she got 2 units of blood transfusion and her hemoglobin increased from 6.4 up to 10.1. Platelets 50 5K and WBC is 2.2K. Blast cells in the peripheral blood is 56% Currently her INR is 2.0. BMP is unremarkable. CT of the brain is negative. CT of the chest, abdomen and pelvis showed possible colitis. elliott-culture was obtained. Patient is currently covered with IV vancomycin and fluconazole with infectious disease team consulted 11/15/2020 Patient awake with no abdominal pain and her diarrhea is improving. She had low-grade temperature yesterday 100.5. 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 No hydronephrosis Bone marrow biopsy is planned for today but was cancelled by IR team for scheduling conflicts. Patient reports less dizziness today. She does not look confused like yesterday. Pancytopenia is a stable. BMP is a stable as well. Liver enzymes slightly impr venu. We will keep the fluid at normal saline 75 mL/h as patient is not eating much 11/16/2020 Patient states that her dizziness as she came with syncope and diarrhea has stopped as per her, she denies abdominal pain. She is able to eat some of her food, Throughout her symptoms are due to enterococcus UTI which is improved with antibiotic Unasyn, ID team on the case, also patient is an fluconazole while IV vancomycin was stopped. History of venous sinus thrombosis, Coumadin is on hold for patient is planned to go for colonoscopy and possible bone marrow biopsy on Wednesday, patient looks to do this procedure. Her pancytopenia is stable, no anticoagulation due to low platelets less than 40. No fever today. 11/17/2020 Patient looks comfortable, supine with her during her conversation. No distress. She denies diarrhea although there are still some reports per staff but also they report improvement in her diarrhea. No abdominal pain or tenderness abdomen looks soft. No nausea vomiting. Estimated plan is to undergo colonoscopy and possible bone marrow biopsy tomorrow and the perforation was started, patient was informed and she agreeable to do both procedures. Hemodynamically she is stable so. We will order labs for tomorrow. She remains on Unasyn for enterococcus UTI and Coumadin is still on hold pending procedures. She is on D5 normal saline at 75 mL/h 11/18/2020 Patient with no significant symptoms, she is resting comfortably in bed smiling and all her questions were answered to her satisfaction. Today patient underwent colonoscopy by surgery team showing diverticulosis with no diverticulitis, spasm/thickening of the transverse colon. With colonoscopy being negative for colitis most likely patient's symptoms related to her UTI from enterococci Cara patient is covered with Unasyn, no more dizziness and her mentation is improved significantly. Her Coumadin is still on hold for hematology/oncology primary team and surgery team. She has history of venous sinus thrombosis No headache or weakness currently. Hemodynamically she is a stable, no fever. Labs showing mild pancytopenia with WBC 1.8K, hemoglobin 9.1 and platelets was 30 K and that's why: Biopsy was not taken because of thrombocytopenia. INR is 1.2. Continue with normal saline at 75 mL/h. Objective - Vital Signs Vital signs: Vital Signs Temp 98.5 F 11/18/20 21:00 Pulse 65 11/18/20 21:00 Resp 16 11/18/20 21:00 BP 121/64 11/18/20 21:00 Pulse Ox 91 L 11/18/20 21:00 Intake & Output 11/18/20 11/18/20 11/19/20 06:59 18:59 06:59 Intake Total 1850 Balance 1850 Intake: IV 100 Intake, IV Titration 1000 Amount Dextrose 5%-0.9% NaCl 1, 900 000 ml @ 75 mls/hr IV . [id number] [facility] Rx#:[id number] Potassium Chloride 10 meq 100 In Water For Injection 1 100ml.bag @ 100 mls/hr IVPB Q1H [facility] Rx#: [id number] Oral 750 Other: Voiding Method Incontinent Diaper Incontinent # Voids 7 4 # Bowel Movements 7 1 - Exam -GENERAL: The patient is alert and oriented x3, not in any acute distress. Generally weak HEENT: Pupils are round and equally reacting to light. EOMI. No scleral icterus. No conjunctival pallor. Normocephalic, atraumatic. No pharyngeal erythema. No thyromegaly. CARDIOVASCULAR: S1 and S2 present. No murmurs, rubs, or gallops. PULMONARY: Chest is clear to auscultation, no wheezing or crackles. ABDOMEN: Soft, nontender, nondistended, normoactive bowel sounds. No palpable organomegaly. MUSCULOSKELETAL: No joint swelling or deformity. EXTREMITIES: No cyanosis, clubbing, or pedal edema. NEUROLOGICAL: Gross neurological examination did not reveal any focal deficits. SKIN: No rashes. no petechiae. - Labs CBC & Chem 7: 11/18/20 06:11 11/18/20 06:11 Labs: Abnormal Lab Results - Last 24 Hours (Table) 11/18/20 11/18/20 11/18/20 Range/Units 06:11 06:11 06:11 WBC 1.8 L (3.8-10.6) k/uL RBC 2.86 L (3.80-5.40) m/uL Hgb 9.1 L (11.4-16.0) gm/dL Hct 25.7 L (34.0-46.0) % RDW 17.0 H (11.5-15.5) % Plt Count 30 L (150-450) k/uL Blast Cells % 46 H* % Neutrophils # (Manual) 0.07 L* (1.3-7.7) k/uL Lymphocytes # (Manual) 0.88 L (1.0-4.8) k/uL Myelocytes # (Manual) 0.02 H (0) k/uL Blast Cells # (Man) 0.83 H (0) k/uL PT 13.4 H (9.0-12.0) sec INR 1.3 H (<1.2) Sodium 136 L (137-145) mmol/L Potassium 3.3 L (3.5-5.1) mmol/L BUN 3 L (7-17) mg/dL Creatinine 0.37 L (0.52-1.04) mg/dL Glucose 108 H (74-99) mg/dL Calcium 8.2 L (8.4-10.2) mg/dL Microbiology - Last 24 Hours (Table) 11/12/20 13:50 Blood Culture - Final Blood No Growth after 144 hours Assessment and Plan Assessment: -Acute myeloid leukemia, being treated by Dr. lombardo from [facility]. 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 Continue with Unasyn -Hypotension decreased oral intake. Improved after Blood transfusion -Symptomatic severe anemia from AML. Status post 2 unit of blood transfusion. -pancytopenia, with infection is suspected. Hematology team. Continue with broad-spectrum antibiotics and ID team were consulted -cranial venous sinus thrombosis. Resume Coumadin after bone marrow biopsy -History of intracranial and subdural hemorrhage in November 2019. For which patient was transferred out to [facility] -Left thyroid nodule, patient informed -Essential hypertension . Currently hold of Zestril. Follow closely -Hyperlipidemia continue with Lipitor -Hyperuricemia likely from treatment for leukemia. Continue with allopurinol -Near-syncope likely due to vasovagal. Secondary to anemia.
[2020-11-18] MEDS: ATORVASTATIN 40 MG TAB PO SCH (22:09)
[2020-11-18] MEDS: CLOBETASOL PROP 0.05% CR 15GM TOPICAL SCH (22:32)
--- NOTE | 2020-11-18 23:52 | PN ---
PROGRESS NOTE DATE OF SERVICE: 11/18/2020 REASON FOR FOLLOWUP: Fever and UTI. INTERVAL HISTORY: The patient is currently afebrile. Patient is breathing comfortably. The patient denies having any chest pain, shortness of breath or cough. No nausea, no vomiting. No abdominal pain. No diarrhea. PHYSICAL EXAMINATION: Blood pressure 120/64 with a pulse of 65, temperature 98.5. She is 91% on room air. General description is an elderly female lying in bed in no distress. Respiratory system: Unlabored breathing, clear to auscultation anteriorly. Heart S1, S2. Regular rate and rhythm. Abdomen: Soft, no tenderness. LABS: Hemoglobin 9.1, white count 1.8, BUN of 3, creatinine 0.37. DIAGNOSTIC IMPRESSION AND PLAN: Patient with febrile neutropenia, Enterococcus urinary tract infection. Patient is covered with Unasyn to continue to finish therapy with oral antibiotics. Continue supportive care. MMODL / IJN: [id number] /
[2020-11-19] MEDS: DEXTROSE 5%-0.9% NACL 1,000 ML IV SCH ×2 (02:17→17:44)
[2020-11-19] MEDS: AMPICILLIN-SULBACTAM 3 GM in SODIUM CHLORIDE 0.9% 100 ML IVPB SCH ×3 (05:47→20:59)
[2020-11-19 05:56] LABS: Anisocytosis Slight; HCT 26.9 % (34.0-46.0); HGB 9.1 gm/dL (11.4-16.0); Hypochromasia Slight; MCH 30.6 pg (25.0-35.0); MCHC 33.8 g/dL (31.0-37.0); MCV 90.4 fL (80.0-100.0); Mean Platelet Volume 11.1; Platelet Count 32 k/uL (150-450); Poikilocytosis Slight; RBC 2.98 m/uL (3.80-5.40); RDW 17.2 % (11.5-15.5); WBC 2.1 k/uL (3.8-10.6)
[2020-11-19 05:57] LABS: INR 1.4 (<1.2); Prothrombin Time 13.8 sec (9.0-12.0)
[2020-11-19 06:27] LABS: ALT 33 U/L (4-34); AST 29 U/L (14-36); African American GFR (CKD) >90 (>60 ml/min/1.73 sqM); Albumin 2.4 g/dL (3.5-5.0); Alkaline Phosphatase 47 U/L (38-126); Anion Gap 5 mmol/L; Blood Urea Nitrogen 3 mg/dL (7-17); Calcium 8.4 mg/dL (8.4-10.2); Carbon Dioxide 27 mmol/L (22-30); Chloride 105 mmol/L (98-107); Globulin 2.3 g/dL; Glucose 108 mg/dL (74-99); Magnesium 1.7 mg/dL (1.6-2.3); Non-African American GFR(CKD) >90 (>60 ml/min/1.73 sqM); Potassium 3.3 mmol/L (3.5-5.1); Sodium 137 mmol/L (137-145); Total Bilirubin 0.8 mg/dL (0.2-1.3); Total Protein 4.7 g/dL (6.3-8.2)
[2020-11-19] MEDS ORDERED: fentaNYL (PF) 50 MCG/ML 2 ML AMP ONE (07:15)
[2020-11-19] MEDS ORDERED: PROPOFOL 10 MG/ML 20 ML VIAL IV ONE (07:15)
[2020-11-19] MEDS ORDERED: IV FLUID CONTINUATION 1,000 ML IV ONE (07:17)
[2020-11-19 08:20] LABS: Reticulocyte % 0.9 % (0.5-2.0)
--- NOTE | 2020-11-19 08:30 | PCN ---
PROCEDURE NOTE DATE OF PROCEDURE: November 19, 2020. PREOPERATIVE DIAGNOSIS: Acute myelocytic leukemia. POSTOPERATIVE DIAGNOSIS: Acute myelocytic leukemia. PROCEDURE: Bone marrow aspirate and biopsy. SITE: Right iliac crest. ANESTHESIA: Local with IV systemic sedation. DETAILS: Utilizing sterile technique, the skin overlying the right iliac crest was prepared with Betadine and alcohol. After adequate sterile draping, local anesthesia with 1% lidocaine and systemic sedation, a size 11, 4-inch Jamshidi needle was utilized to access the periosteum with ease. A total off 15 mL of aspirate and 1 cm bone core biopsies were obtained. The patient tolerated the procedure very well. There was no immediate procedure related complication. TOTAL BLOOD LOSS: Less than 1 mL. RESULTS: Pending. MMODL / IJN: [id number] /
[2020-11-19 09:06] LABS: Neutrophils % (M) 1 %
[2020-11-19 09:07] LABS: Lymphocytes # (M) 1.07 k/uL (1.0-4.8); Monocytes # (M) 0.11 k/uL (0-1.0); Neutrophils # (M) 0.02 k/uL (1.3-7.7); Nucleated Red Blood Cells 1 /100 WBC (0-0); Total Cells Counted 100
[2020-11-19] MEDS: LACTATED RINGERS 1,000 ML IV SCH ×2 (10:01→21:04)
[2020-11-19] MEDS: polyethylene glycoL 3350 17 GM POWD.PACK PO SCH (10:04)
[2020-11-19] MEDS: allopurinoL 300 MG TAB PO SCH (10:06)
[2020-11-19] MEDS: FLUCONAZOLE IN NACL,ISO-OSM 100 MG in SALINE 1 50ML.BAG IVPB SCH (10:06)
[2020-11-19] MEDS: CLOBETASOL PROP 0.05% CR 15GM TOPICAL SCH ×2 (10:06→21:04)
[2020-11-19] MEDS: HYDROCORTISONE SUPPOSITORY 25 MG SUPP RECTAL SCH (10:06)
--- NOTE | 2020-11-19 12:09 | P.PN ---
Subjective Progress Note Date: 11/19/20 CHIEF COMPLAINT: Rectal pain HISTORY OF PRESENT ILLNESS: Patient is status post colonoscopy which did reveal diverticulosis and spasms or thickening of the transverse colon. Biopsies not obtained due to low platelet count. Patient was started on [place] yesterday regarding her pain. She reports her pain is better controlled. She denies any nausea or vomiting. She is currently on a full liquid diet. She's asking for regular food. She status post bone marrow biopsy today for her acute myelocytic leukemia. Afebrile. WBC 2.1 Hgb 9.1 platelets 32. PHYSICAL EXAM: VITAL SIGNS: Reviewed. GENERAL: Well-developed in no acute distress. HEENT: No sclera icterus. Extraocular movements grossly intact. Moist buccal mucosa. Head is atraumatic, normocephalic. ABDOMEN: Soft. Nondistended. Nontender. NEUROLOGIC: Alert and oriented. Cranial nerves II through XII grossly intact. ASSESSMENT: 1. Rectal pain likely secondary to hemorrhoids 2. Status post colonoscopy which did reveal diverticulosis and spasms or thickening of the transverse colon. Biopsies not obtained due to low platelet count. 3. Acute myeloid leukemia 4. 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 Chemotherapy-induced Pancytopenia 6. 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 Coumadin currently on hold PLAN: -advance diet to regular -Continue supportive care -Continue pain medication as needed Physician Horticulture Supervisor note has been reviewed by physician. Signing provider agrees with the documented findings, assessment, and plan of care. Objective - Vital Signs Vital signs: Vital Signs Temp 99.0 F 11/19/20 05:00 Pulse 87 11/19/20 09:08 Resp 16 11/19/20 05:00 BP 128/82 11/19/20 09:08 Pulse Ox 94 L 11/19/20 05:00 Intake & Output 11/18/20 11/19/20 11/19/20 18:59 06:59 18:59 Intake Total 1850 0 300 Balance 1850 0 300 Intake: IV 100 300 Intake, IV Titration 1000 Amount Dextrose 5%-0.9% NaCl 1, 900 000 ml @ 75 mls/hr IV . [id number] GINO Rx#:[id number] Potassium Chloride 10 meq 100 In Water For Injection 1 100ml.bag @ 100 mls/hr IVPB Q1H GINO Rx#: [id number] Oral 750 0 Other: Voiding Method Diaper Diaper Diaper Incontinent Incontinent Incontinent # Voids 4 3 # Bowel Movements 1 - Labs CBC & Chem 7: 11/19/20 05:03 11/19/20 05:03 Labs: Abnormal Lab Results - Last 24 Hours (Table) 11/19/20 11/19/20 11/19/20 Range/Units 05:03 05:03 05:03 WBC 2.1 L (3.8-10.6) k/uL RBC 2.98 L (3.80-5.40) m/uL Hgb 9.1 L (11.4-16.0) gm/dL Hct 26.9 L (34.0-46.0) % RDW 17.2 H (11.5-15.5) % Plt Count 32 L (150-450) k/uL Blast Cells % 43 H* % Neutrophils # (Manual) 0.02 L* (1.3-7.7) k/uL Blast Cells # (Man) 0.90 H (0) k/uL Nucleated RBCs 1 H (0-0) /100 WBC PT 13.8 H (9.0-12.0) sec INR 1.4 H (<1.2) Potassium 3.3 L (3.5-5.1) mmol/L BUN 3 L (7-17) mg/dL Creatinine 0.36 L (0.52-1.04) mg/dL Glucose 108 H (74-99) mg/dL Total Protein 4.7 L (6.3-8.2) g/dL Albumin 2.4 L (3.5-5.0) g/dL Microbiology - Last 24 Hours (Table) 11/12/20 13:50 Blood Culture - Final Blood No Growth after 144 hours
[2020-11-19 12:49] VITALS: BMI 26.4
--- NOTE | 2020-11-19 14:30 | P.PN ---
Subjective Progress Note Date: 11/19/20 Principal diagnosis: Acute Leukemia patient seen and evaluated by Dr. Malloy today, at bedside, patient in chair. She had another syncopal episode today this is felt to be related to Orthostatic hypotension as she has had full neurological and cardiology wwork-up for the apst two admissions. Will need Orthostatic monitoring, Continued PT/OT working with her daily, and will begin midodrine Objective - Vital Signs Vital signs: Vital Signs Temp 98.7 F 11/19/20 12:39 Pulse 78 11/19/20 12:39 Resp 17 11/19/20 12:39 BP 104/70 11/19/20 12:39 Pulse Ox 98 11/19/20 12:39 Intake & Output 11/18/20 11/19/20 11/19/20 18:59 06:59 18:59 Intake Total 1850 0 300 Balance 1850 0 300 Weight 63.503 kg Intake: IV 100 300 Intake, IV Titration 1000 Amount Dextrose 5%-0.9% NaCl 1, 900 000 ml @ 75 mls/hr IV . [id number] GINO Rx#:[id number] Potassium Chloride 10 meq 100 In Water For Injection 1 100ml.bag @ 100 mls/hr IVPB Q1H GINO Rx#: [id number] Oral 750 0 Other: Voiding Method Diaper Diaper Diaper Incontinent Incontinent Incontinent # Voids 4 3 # Bowel Movements 1 - Exam - Constitutional General appearance: thin - EENT Eyes: EOMI ENT: hard of hearing, NA/AT - Respiratory Respiratory: bilateral: diminished - Cardiovascular Heart rate: 124 Rhythm: regularly irregular Heart sounds: normal: S2 - Gastrointestinal General gastrointestinal: soft - Integumentary Integumentary: pale - Neurologic YOUSUF - Musculoskeletal Musculoskeletal: generalized weakness - Psychiatric Lethargic and difficult to arouse - Labs CBC & Chem 7: 11/19/20 05:03 11/19/20 05:03 Labs: Abnormal Lab Results - Last 24 Hours (Table) 11/19/20 11/19/20 11/19/20 Range/Units 05:03 05:03 05:03 WBC 2.1 L (3.8-10.6) k/uL RBC 2.98 L (3.80-5.40) m/uL Hgb 9.1 L (11.4-16.0) gm/dL Hct 26.9 L (34.0-46.0) % RDW 17.2 H (11.5-15.5) % Plt Count 32 L (150-450) k/uL Blast Cells % 43 H* % Neutrophils # (Manual) 0.02 L* (1.3-7.7) k/uL Blast Cells # (Man) 0.90 H (0) k/uL Nucleated RBCs 1 H (0-0) /100 WBC PT 13.8 H (9.0-12.0) sec INR 1.4 H (<1.2) Potassium 3.3 L (3.5-5.1) mmol/L BUN 3 L (7-17) mg/dL Creatinine 0.36 L (0.52-1.04) mg/dL Glucose 108 H (74-99) mg/dL Total Protein 4.7 L (6.3-8.2) g/dL Albumin 2.4 L (3.5-5.0) g/dL Microbiology - Last 24 Hours (Table) 11/12/20 13:50 Blood Culture - Final Blood No Growth after 144 hours Assessment and Plan (1) Acute myeloid leukemia Current Visit: Yes Status: Acute Priority: High Code(s): C92.00 - ACUTE MYELOBLASTIC LEUKEMIA, NOT HAVING ACHIEVED REMISSION SNOMED Code(s): 96310420 (2) Coagulopathy Current Visit: Yes Status: Acute Priority: High Code(s): D68.9 - COAGULATION DEFECT, UNSPECIFIED SNOMED Code(s): 54646611 (3) Altered mental status Current Visit: No Status: Acute Priority: High Code(s): R41.82 - ALTERED MENTAL STATUS, UNSPECIFIED SNOMED Code(s): 798127347 (4) SIRS (systemic inflammatory response syndrome) Current Visit: No Status: Acute Code(s): R65.10 - SIRS OF NON-INFECTIOUS ORIGIN W/O ACUTE ORGAN DYSFUNCTION SNOMED Code(s): 717391896 (5) 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: Chronic Priority: High Code(s): D61.810 - ANTINEOPLASTIC CHEMOTHERAPY INDUCED PANCYTOPENIA; T45.1X5A - ADVERSE EFFECT OF ANTINEOPLASTIC AND IMMUNOSUP DRUGS, INIT SNOMED Code(s): 074036341516471 Plan: AML: - Increased peripheral blasts Recurrent Syncopal episodes with movement Neutropenic Colitis: - Improving can increase diet after bone marrow biopsy tomorrow Ilness Myopathy: - PT/OT asked to provide daily therapy - Patient is not getting up and increased risks for pneumonia and skin infection with laying in bed, not to mention unable to assess if improving of syncopal episodes if only laying flat Status Post Bone Marrow Biopsy today Advancement of diet, discussed with surgery Close monitoring orthostatis No discharge until safe while walking, need to have daily PT/OT working and walking with patient and detailed charting regarding this to ensure recurrent admission risk is decreased at discharge. Physician attest: I have completed the full history and physical and agree with above dictation, dictated as a ascribe.,
[2020-11-19] MEDS ORDERED: MAGNESIUM SULFATE-D5W PMX 1 GM in DEXTROSE/WATER 1 100ML.BAG IVPB ONE (15:00)
--- NOTE | 2020-11-19 15:05 | P.PN ---
Subjective From records: This is a 75-year-old patient of Dr. Chung. Chronic stable medical conditions include hyperlipidemia, hypertension, parathyroid disorder, basal cell skin cancer. Reported history of blood clot in the brain for which patient is on Coumadin, possibly venous thrombosis. Patient does follow with / oncologist out of [place] and patient be getting chemotherapy for acute myeloid leukemia. [November 2019 patient presented to the ER here-CT angios the head had shown intracranial hemorrhage adjacent to the right posterior cerebral artery but no definite aneurysm identified. Subdural hemorrhage. Patient was transferred to [facility] in [place]. Patient presented to her oncologist office yesterday feeling very tired and lethargic and a moment of unresponsiveness. The pressure was 50/30s. EMS transported the patient to the hospital. INR was greater than 10. Vitamin K was given. Broad-spectrum antibiotics were started in the ER including vancomycin and cefepime. Patient has been feeling weak and tired. No obvious reported fever or chills. Appetite has been okay Subjective: 11/14/2020 This is a pleasant 75 years old female with history of AML and follow-up with oncologist, patient presents with transient period of unconsciousness and unresponsiveness associated with hypotension at the oncology office. Patient states that she has long history of dizziness especially when she gets up more in the last 2 months associated with some sweating. She describes her dizziness as presyncope. Patient states that she was walking without help to she fell about 2 months ago due to her dizziness and now she needs more help with walking. Patient states that currently she needs to 3 people to help her walking. She complains also from pain in her hemorrhoids. Today she got 2 units of blood transfusion and her hemoglobin increased from 6.4 up to 10.1. Platelets 50 5K and WBC is 2.2K. Blast cells in the peripheral blood is 56% Currently her INR is 2.0. BMP is unremarkable. CT of the brain is negative. CT of the chest, abdomen and pelvis showed possible colitis. elliott-culture was obtained. Patient is currently covered with IV vancomycin and fluconazole with infectious disease team consulted 11/15/2020 Patient awake with no abdominal pain and her diarrhea is improving. She had low-grade temperature yesterday 100.5. 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 No hydronephrosis Bone marrow biopsy is planned for today but was cancelled by IR team for scheduling conflicts. Patient reports less dizziness today. She does not look confused like yesterday. Pancytopenia is a stable. BMP is a stable as well. Liver enzymes slightly impr venu. We will keep the fluid at normal saline 75 mL/h as patient is not eating much 11/16/2020 Patient states that her dizziness as she came with syncope and diarrhea has stopped as per her, she denies abdominal pain. She is able to eat some of her food, Throughout her symptoms are due to enterococcus UTI which is improved with antibiotic Unasyn, ID team on the case, also patient is an fluconazole while IV vancomycin was stopped. History of venous sinus thrombosis, Coumadin is on hold for patient is planned to go for colonoscopy and possible bone marrow biopsy on Wednesday, patient looks to do this procedure. Her pancytopenia is stable, no anticoagulation due to low platelets less than 40. No fever today. 11/17/2020 Patient looks comfortable, supine with her during her conversation. No distress. She denies diarrhea although there are still some reports per staff but also they report improvement in her diarrhea. No abdominal pain or tenderness abdomen looks soft. No nausea vomiting. Estimated plan is to undergo colonoscopy and possible bone marrow biopsy tomorrow and the perforation was started, patient was informed and she agreeable to do both procedures. Hemodynamically she is stable so. We will order labs for tomorrow. She remains on Unasyn for enterococcus UTI and Coumadin is still on hold pending procedures. She is on D5 normal saline at 75 mL/h 11/18/2020 Patient with no significant symptoms, she is resting comfortably in bed smiling and all her questions were answered to her satisfaction. Today patient underwent colonoscopy by surgery team showing diverticulosis with no diverticulitis, spasm/thickening of the transverse colon. With colonoscopy being negative for colitis most likely patient's symptoms related to her UTI from enterococci Cara patient is covered with Unasyn, no more dizziness and her mentation is improved significantly. Her Coumadin is still on hold for hematology/oncology primary team and surgery team. She has history of venous sinus thrombosis No headache or weakness currently. Hemodynamically she is a stable, no fever. Labs showing mild pancytopenia with WBC 1.8K, hemoglobin 9.1 and platelets was 30 K and that's why: Biopsy was not taken because of thrombocytopenia. INR is 1.2. Continue with normal saline at 75 mL/h. 11/19/2020 Patient lying in bed comfortable, it looks like she is having postural hypotension and dizziness again and medial drain 2.5 mg 3 times a day has been admitted by the oncology primary team, it was previously improved and PT/OT recommended home health care however it worsened again. Patient reports no diarrhea or abdominal pain. Her pancytopenia is a stable with WBC 2.1, hemoglobin 9.1, platelets 30 2K. INR is low after holding Coumadin. Patient is afebrile She is a status post bone marrow biopsy today and the result is pending. Diet is been advised by surgery team after colonoscopy did not show any diverticulitis. Currently she remains on Unasyn, fluconazole, D5 normal saline, cholestyramine and today midodrine is added Objective - Vital Signs Vital signs: Vital Signs Temp 98.7 F 11/19/20 12:39 Pulse 78 11/19/20 12:39 Resp 17 11/19/20 12:39 BP 104/70 11/19/20 12:39 Pulse Ox 98 11/19/20 12:39 Intake & Output 11/18/20 11/19/20 11/19/20 18:59 06:59 18:59 Intake Total 1850 0 300 Balance 1850 0 300 Weight 63.503 kg Intake: IV 100 300 Intake, IV Titration 1000 Amount Dextrose 5%-0.9% NaCl 1, 900 000 ml @ 75 mls/hr IV . [id number] GINO Rx#:[id number] Potassium Chloride 10 meq 100 In Water For Injection 1 100ml.bag @ 100 mls/hr IVPB Q1H GINO Rx#: [id number] Oral 750 0 Other: Voiding Method Diaper Diaper Diaper Incontinent Incontinent Incontinent # Voids 4 3 # Bowel Movements 1 - Exam -GENERAL: The patient is alert and oriented x3, not in any acute distress. Generally weak HEENT: Pupils are round and equally reacting to light. EOMI. No scleral icterus. No conjunctival pallor. Normocephalic, atraumatic. No pharyngeal erythema. No thyromegaly. CARDIOVASCULAR: S1 and S2 present. No murmurs, rubs, or gallops. PULMONARY: Chest is clear to auscultation, no wheezing or crackles. ABDOMEN: Soft, nontender, nondistended, normoactive bowel sounds. No palpable organomegaly. MUSCULOSKELETAL: No joint swelling or deformity. EXTREMITIES: No cyanosis, clubbing, or pedal edema. NEUROLOGICAL: Gross neurological examination did not reveal any focal deficits. SKIN: No rashes. no petechiae. - Labs CBC & Chem 7: 11/19/20 05:03 11/19/20 05:03 Labs: Abnormal Lab Results - Last 24 Hours (Table) 11/19/20 11/19/20 11/19/20 Range/Units 05:03 05:03 05:03 WBC 2.1 L (3.8-10.6) k/uL RBC 2.98 L (3.80-5.40) m/uL Hgb 9.1 L (11.4-16.0) gm/dL Hct 26.9 L (34.0-46.0) % RDW 17.2 H (11.5-15.5) % Plt Count 32 L (150-450) k/uL Blast Cells % 43 H* % Neutrophils # (Manual) 0.02 L* (1.3-7.7) k/uL Blast Cells # (Man) 0.90 H (0) k/uL Nucleated RBCs 1 H (0-0) /100 WBC PT 13.8 H (9.0-12.0) sec INR 1.4 H (<1.2) Potassium 3.3 L (3.5-5.1) mmol/L BUN 3 L (7-17) mg/dL Creatinine 0.36 L (0.52-1.04) mg/dL Glucose 108 H (74-99) mg/dL Total Protein 4.7 L (6.3-8.2) g/dL Albumin 2.4 L (3.5-5.0) g/dL Microbiology - Last 24 Hours (Table) 11/12/20 13:50 Blood Culture - Final Blood No Growth after 144 hours Assessment and Plan Assessment: -Acute myeloid leukemia, being treated by Dr. lombardo from [facility]. 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 Continue with Unasyn -Hypotension decreased oral intake. Improved after Blood transfusion -Symptomatic severe anemia from AML. Status post 2 unit of blood transfusion. -pancytopenia, with infection is suspected. Hematology team. Continue with broad-spectrum antibiotics and ID team were consulted -cranial venous sinus thrombosis. Resume Coumadin after bone marrow biopsy -History of intracranial and subdural hemorrhage in November 2019. For which patie nt was transferred out to [facility] -Left thyroid nodule, patient informed -Essential hypertension . Currently hold of Zestril. Follow closely -Hyperlipidemia continue with Lipitor -Hyperuricemia likely from treatment for leukemia. Continue with allopurinol -Near-syncope likely due to vasovagal. Secondary to anemia.
[2020-11-19] MEDS: MIDODRINE 5 MG TAB PO SCH (17:53)
[2020-11-19] MEDS: ATORVASTATIN 40 MG TAB PO SCH (20:59)
--- NOTE | 2020-11-20 02:40 | PN ---
PROGRESS NOTE DATE OF SERVICE: 11/19/2020 REASON FOR FOLLOWUP: Enterococcus urinary tract infection and febrile neutropenia. INTERVAL HISTORY: The patient is currently afebrile. The patient is breathing comfortably. Denies any chest pain, shortness of breath or cough. No nausea, vomiting, abdominal pain or diarrhea. PHYSICAL EXAMINATION: Blood pressure 125/48 with a pulse of 74, temperature 98.3. She is 94% on room air. General description is an elderly female lying in bed in no distress. Respiratory system: Unlabored breathing, clear to auscultation anteriorly. Heart S1, S2. Regular rate and rhythm. Abdomen soft. No tenderness. LABS: Hemoglobin is 11.1, white count 2.1. BUN of 3, creatinine 0.36. DIAGNOSTIC IMPRESSION AND PLAN: Patient with febrile neutropenia positive cultures urine. Patient is covered with Unasyn to finish therapy with oral Augmentin. Continue supportive care. MMODL / CIERRAN: [id number] /
[2020-11-20] MEDS: DEXTROSE 5%-0.9% NACL 1,000 ML IV SCH ×2 (03:43→17:49)
[2020-11-20] MEDS: AMPICILLIN-SULBACTAM 3 GM in SODIUM CHLORIDE 0.9% 100 ML IVPB SCH ×3 (04:26→19:49)
[2020-11-20 07:14] LABS: ALT 26 U/L (4-34); African American GFR (CKD) >90 (>60 ml/min/1.73 sqM); Albumin 2.4 g/dL (3.5-5.0); Anion Gap 6 mmol/L; Blood Urea Nitrogen 4 mg/dL (7-17); Calcium 8.1 mg/dL (8.4-10.2); Carbon Dioxide 27 mmol/L (22-30); Chloride 107 mmol/L (98-107); Globulin 2.3 g/dL; Glucose 108 mg/dL (74-99); Non-African American GFR(CKD) >90 (>60 ml/min/1.73 sqM); Sodium 140 mmol/L (137-145); Total Bilirubin 0.7 mg/dL (0.2-1.3); Total Protein 4.7 g/dL (6.3-8.2)
[2020-11-20 07:34] LABS: AST 26 U/L (14-36); Alkaline Phosphatase 37 U/L (38-126); Magnesium 1.9 mg/dL (1.6-2.3); Potassium 3.5 mmol/L (3.5-5.1)
[2020-11-20 08:02] LABS: Anisocytosis Slight; HCT 26.7 % (34.0-46.0); HGB 9.3 gm/dL (11.4-16.0); Hypochromasia Slight; MCH 31.4 pg (25.0-35.0); MCHC 34.7 g/dL (31.0-37.0); MCV 90.4 fL (80.0-100.0); Mean Platelet Volume 10.5; Poikilocytosis Slight; RBC 2.95 m/uL (3.80-5.40); WBC 2.2 k/uL (3.8-10.6)
[2020-11-20 08:07] LABS: Platelet Count 28 k/uL (150-450)
[2020-11-20] MEDS: allopurinoL 300 MG TAB PO SCH (09:09)
[2020-11-20] MEDS: polyethylene glycoL 3350 17 GM POWD.PACK PO SCH (09:09)
[2020-11-20] MEDS: MIDODRINE 5 MG TAB PO SCH ×3 (09:09→17:16)
[2020-11-20] MEDS: FLUCONAZOLE IN NACL,ISO-OSM 100 MG in SALINE 1 50ML.BAG IVPB SCH (09:12)
[2020-11-20] MEDS: CLOBETASOL PROP 0.05% CR 15GM TOPICAL SCH ×2 (09:14→19:50)
[2020-11-20 09:15] LABS: Neutrophils % (M) 1 %
[2020-11-20 09:16] LABS: Blast Cells # (M) 0.73 k/uL (0); Lymphocytes # (M) 1.36 k/uL (1.0-4.8); Metamyelocytes # (M) 0.02 k/uL (0); Metamyelocytes % 1 %; Monocytes # (M) 0.07 k/uL (0-1.0); Neutrophils # (M) 0.02 k/uL (1.3-7.7); Nucleated Red Blood Cells 0 /100 WBC (0-0); Total Cells Counted 100
--- NOTE | 2020-11-20 12:27 | P.PN ---
Subjective Progress Note Date: 11/20/20 CHIEF COMPLAINT: Rectal pain HISTORY OF PRESENT ILLNESS: Patient is status post colonoscopy which did reveal diverticulosis and spasms or thickening of the transverse colon. Biopsies not obtained due to low platelet count. Patient denies any abdominal pain or rectal pain. She is tolerating regular diet. She denies any nausea or vomiting. Patient was having dizziness yesterday with evidence of orthostatic hypotension and had been started on midodrine. Afebrile. WBC 2.2 hemoglobin 9.3 platelets 28 PHYSICAL EXAM: VITAL SIGNS: Reviewed. GENERAL: Well-developed in no acute distress. HEENT: No sclera icterus. Extraocular movements grossly intact. Moist buccal mucosa. Head is atraumatic, normocephalic. ABDOMEN: Soft. Nondistended. Nontender. NEUROLOGIC: Alert and oriented. Cranial nerves II through XII grossly intact. ASSESSMENT: 1. Rectal pain likely secondary to hemorrhoids 2. Status post colonoscopy which did reveal diverticulosis and spasms or thickening of the transverse colon. Biopsies not obtained due to low platelet count. 3. Acute myeloid leukemia 4. 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 Chemotherapy-induced Pancytopenia 6. 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 Colitis PLAN: -Continue regular diet -Continue supportive care -Continue pain medication as needed Physician Water Ski Assembler note has been reviewed by physician. Signing provider agrees with the documented findings, assessment, and plan of care. Objective - Vital Signs Vital signs: Vital Signs Temp 98.2 F 11/20/20 11:33 Pulse 79 11/20/20 11:33 Resp 22 11/20/20 11:33 BP 136/89 11/20/20 11:33 Pulse Ox 98 11/20/20 11:33 Intake & Output 11/19/20 11/20/20 11/20/20 18:59 06:59 18:59 Intake Total 300 590 Balance 300 590 Weight 63.503 kg Intake: IV 300 Oral 590 Other: Voiding Method Diaper Diaper Diaper Incontinent Incontinent Incontinent # Voids 1 - Labs CBC & Chem 7: 11/20/20 06:25 11/20/20 06:25 Labs: Abnormal Lab Results - Last 24 Hours (Table) 11/20/20 11/20/20 Range/Units 06:25 06:25 WBC 2.2 L (3.8-10.6) k/uL RBC 2.95 L (3.80-5.40) m/uL Hgb 9.3 L (11.4-16.0) gm/dL Hct 26.7 L (34.0-46.0) % RDW 17.0 H (11.5-15.5) % Plt Count 28 L (150-450) k/uL Blast Cells % 33 H* % Neutrophils # (Manual) 0.02 L* (1.3-7.7) k/uL Metamyelocytes # (Man) 0.02 H (0) k/uL Blast Cells # (Man) 0.73 H (0) k/uL BUN 4 L (7-17) mg/dL Creatinine 0.42 L (0.52-1.04) mg/dL Glucose 108 H (74-99) mg/dL Calcium 8.1 L (8.4-10.2) mg/dL Alkaline Phosphatase 37 L (38-126) U/L Total Protein 4.7 L (6.3-8.2) g/dL Albumin 2.4 L (3.5-5.0) g/dL
--- NOTE | 2020-11-20 14:36 | P.PN ---
Subjective Progress Note Date: 11/20/20 Principal diagnosis: Acute Leukemia Awaiting for Orthostatic vitals to assess midiorine and re-current hospitalization primary symptom. PT/OT continues daily, Incentive spirometer at bedside, at bedside, Bone Marrow Biopsy pending. at bedside who is also very forgetful, patient has difficult time comprehending simple topics. Blood pressure has increased on mididrine therefore dose decreased, unable to assess if this is helping to this point. Objective - Vital Signs Vital signs: Vital Signs Temp 98.2 F 11/20/20 11:33 Pulse 79 11/20/20 11:33 Resp 22 11/20/20 11:33 BP 136/89 11/20/20 11:33 Pulse Ox 98 11/20/20 11:33 Intake & Output 11/19/20 11/20/20 11/20/20 18:59 06:59 18:59 Intake Total 300 590 Balance 300 590 Weight 63.503 kg Intake: IV 300 Oral 590 Other: Voiding Method Diaper Diaper Diaper Incontinent Incontinent Incontinent # Voids 1 - Exam - Constitutional General appearance: thin - EENT Eyes: EOMI ENT: hard of hearing, NA/AT - Respiratory Respiratory: bilateral: diminished - Cardiovascular Heart rate: 124 Rhythm: regularly irregular Heart sounds: normal: S2 - Gastrointestinal General gastrointestinal: soft - Integumentary Integumentary: pale - Neurologic YOUSUF - Musculoskeletal Musculoskeletal: generalized weakness - Psychiatric Lethargic and difficult to arouse - Labs CBC & Chem 7: 11/20/20 06:25 11/20/20 06:25 Labs: Abnormal Lab Results - Last 24 Hours (Table) 11/20/20 11/20/20 Range/Units 06:25 06:25 WBC 2.2 L (3.8-10.6) k/uL RBC 2.95 L (3.80-5.40) m/uL Hgb 9.3 L (11.4-16.0) gm/dL Hct 26.7 L (34.0-46.0) % RDW 17.0 H (11.5-15.5) % Plt Count 28 L (150-450) k/uL Blast Cells % 33 H* % Neutrophils # (Manual) 0.02 L* (1.3-7.7) k/uL Metamyelocytes # (Man) 0.02 H (0) k/uL Blast Cells # (Man) 0.73 H (0) k/uL BUN 4 L (7-17) mg/dL Creatinine 0.42 L (0.52-1.04) mg/dL Glucose 108 H (74-99) mg/dL Calcium 8.1 L (8.4-10.2) mg/dL Alkaline Phosphatase 37 L (38-126) U/L Total Protein 4.7 L (6.3-8.2) g/dL Albumin 2.4 L (3.5-5.0) g/dL Assessment and Plan (1) Acute myeloid leukemia Current Visit: Yes Status: Acute Priority: High Code(s): C92.00 - ACUTE MYELOBLASTIC LEUKEMIA, NOT HAVING ACHIEVED REMISSION SNOMED Code(s): 33152481 (2) Coagulopathy Current Visit: Yes Status: Acute Priority: High Code(s): D68.9 - COAGULATION DEFECT, UNSPECIFIED SNOMED Code(s): 92470059 (3) Altered mental status Current Visit: No Status: Acute Priority: High Code(s): R41.82 - ALTERED MENTAL STATUS, UNSPECIFIED SNOMED Code(s): 974630088 (4) SIRS (systemic inflammatory response syndrome) Current Visit: No Status: Acute Code(s): R65.10 - SIRS OF NON-INFECTIOUS ORIGIN W/O ACUTE ORGAN DYSFUNCTION SNOMED Code(s): 792493842 (5) 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: Chronic Priority: High Code(s): D61.810 - ANTINEOPLASTIC CHEMOTHERAPY INDUCED PANCYTOPENIA; T45.1X5A - ADVERSE EFFECT OF ANTINEOPLASTIC AND IMMUNOSUP DRUGS, INIT SNOMED Code(s): 064272867016765 Plan: AML: - Increased peripheral blasts Recurrent Syncopal episodes with movement Neutropenic Colitis: - Improving can increase diet after bone marrow biopsy tomorrow Ilness Myopathy: - PT/OT asked to provide daily therapy - Patient is not getting up and increased risks for pneumonia and skin infection with laying in bed, not to mention unable to assess if improving of syncopal episodes if only laying flat Status Post Bone Marrow Biopsy today Advancement of diet, discussed with surgery Close monitoring orthostatic (re-ordered) No discharge until safe while walking, need to have daily PT/OT working and walking with patient and detailed charting regarding this to ensure recurrent admission risk is decreased at discharge. greater than 30 minutes re-explaining plan for patient and goal of walking without syncopal episode
--- NOTE | 2020-11-20 15:03 | P.PN ---
Subjective From records: This is a 75-year-old patient of Dr. Chung. Chronic stable medical conditions include hyperlipidemia, hypertension, parathyroid disorder, basal cell skin cancer. Reported history of blood clot in the brain for which patient is on Coumadin, possibly venous thrombosis. 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 [November 2019 patient presented to the ER here-CT angios the head had shown intracranial hemorrhage adjacent to the right posterior cerebral artery but no definite aneurysm identified. Subdural hemorrhage. Patient was transferred to [facility] in [place]. Patient presented to her oncologist office yesterday feeling very tired and lethargic and a moment of unresponsiveness. The pressure was 50/30s. EMS transported the patient to the hospital. INR was greater than 10. Vitamin K was given. Broad-spectrum antibiotics were started in the ER including vancomycin and cefepime. Patient has been feeling weak and tired. No obvious reported fever or chills. Appetite has been okay Subjective: 11/14/2020 This is a pleasant 75 years old female with history of AML and follow-up with oncologist, patient presents with transient period of unconsciousness and unresponsiveness associated with hypotension at the oncology office. Patient states that she has long history of dizziness especially when she gets up more in the last 2 months associated with some sweating. She describes her dizziness as presyncope. Patient states that she was walking without help to she fell about 2 months ago due to her dizziness and now she needs more help with walking. Patient states that currently she needs to 3 people to help her walking. She complains also from pain in her hemorrhoids. Today she got 2 units of blood transfusion and her hemoglobin increased from 6.4 up to 10.1. Platelets 50 5K and WBC is 2.2K. Blast cells in the peripheral blood is 56% Currently her INR is 2.0. BMP is unremarkable. CT of the brain is negative. CT of the chest, abdomen and pelvis showed possible colitis. elliott-culture was obtained. Patient is currently covered with IV vancomycin and fluconazole with infectious disease team consulted 11/15/2020 Patient awake with no abdominal pain and her diarrhea is improving. She had low-grade temperature yesterday 100.5. 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 No hydronephrosis Bone marrow biopsy is planned for today but was cancelled by IR team for scheduling conflicts. Patient reports less dizziness today. She does not look confused like yesterday. Pancytopenia is a stable. BMP is a stable as well. Liver enzymes slightly impr venu. We will keep the fluid at normal saline 75 mL/h as patient is not eating much 11/16/2020 Patient states that her dizziness as she came with syncope and diarrhea has stopped as per her, she denies abdominal pain. She is able to eat some of her food, Throughout her symptoms are due to enterococcus UTI which is improved with antibiotic Unasyn, ID team on the case, also patient is an fluconazole while IV vancomycin was stopped. History of venous sinus thrombosis, Coumadin is on hold for patient is planned to go for colonoscopy and possible bone marrow biopsy on Wednesday, patient looks to do this procedure. Her pancytopenia is stable, no anticoagulation due to low platelets less than 40. No fever today. 11/17/2020 Patient looks comfortable, supine with her during her conversation. No distress. She denies diarrhea although there are still some reports per staff but also they report improvement in her diarrhea. No abdominal pain or tenderness abdomen looks soft. No nausea vomiting. Estimated plan is to undergo colonoscopy and possible bone marrow biopsy tomorrow and the perforation was started, patient was informed and she agreeable to do both procedures. Hemodynamically she is stable so. We will order labs for tomorrow. She remains on Unasyn for enterococcus UTI and Coumadin is still on hold pending procedures. She is on D5 normal saline at 75 mL/h 11/18/2020 Patient with no significant symptoms, she is resting comfortably in bed smiling and all her questions were answered to her satisfaction. Today patient underwent colonoscopy by surgery team showing diverticulosis with no diverticulitis, spasm/thickening of the transverse colon. With colonoscopy being negative for colitis most likely patient's symptoms related to her UTI from enterococci Cara patient is covered with Unasyn, no more dizziness and her mentation is improved significantly. Her Coumadin is still on hold for hematology/oncology primary team and surgery team. She has history of venous sinus thrombosis No headache or weakness currently. Hemodynamically she is a stable, no fever. Labs showing mild pancytopenia with WBC 1.8K, hemoglobin 9.1 and platelets was 30 K and that's why: Biopsy was not taken because of thrombocytopenia. INR is 1.2. Continue with normal saline at 75 mL/h. 11/19/2020 Patient lying in bed comfortable, it looks like she is having postural hypotension and dizziness again and medial drain 2.5 mg 3 times a day has been admitted by the oncology primary team, it was previously improved and PT/OT recommended home health care however it worsened again. Patient reports no diarrhea or abdominal pain. Her pancytopenia is a stable with WBC 2.1, hemoglobin 9.1, platelets 30 2K. INR is low after holding Coumadin. Patient is afebrile She is a status post bone marrow biopsy today and the result is pending. Diet is been advised by surgery team after colonoscopy did not show any diverticulitis. Currently she remains on Unasyn, fluconazole, D5 normal saline, cholestyramine and today midodrine is added 11/20/2020 Patient does not report dizziness today however she stayed in bed most of the time, also she is working with physical therapy and occupational therapy pending their final recommendation upon discharge. She denies abdominal pain and diarrhea to me. She denies any other complaints She is with no fever and hemodynamically stable. She has a stable pancytopenia over few days, She remains on Unasyn to finish therapy with oral Augmentin upon discharge per ID team recommendation for enterococcus UTI. Continue with D5 normal saline at 75 mL/h Oncology primary team on the case. Patient is status post bone marrow biopsy today, follow-up the results of the biopsy Her coumadine for her history of venous sinus thrombosis is on hold due to severe thrombocytopenia with platelets 28K today Objective - Vital Signs Vital signs: Vital Signs Temp 98.2 F 11/20/20 11:33 Pulse 79 11/20/20 11:33 Resp 22 11/20/20 11:33 BP 136/89 11/20/20 11:33 Pulse Ox 98 11/20/20 11:33 Intake & Output 11/19/20 11/20/20 11/20/20 18:59 06:59 18:59 Intake Total 300 590 Balance 300 590 Weight 63.503 kg Intake: IV 300 Oral 590 Other: Voiding Method Diaper Diaper Diaper Incontinent Incontinent Incontinent # Voids 1 - Exam -GENERAL: The patient is alert and oriented x3, not in any acute distress. Generally weak HEENT: Pupils are round and equally reacting to light. EOMI. No scleral icterus. No conjunctival pallor. Normocephalic, atraumatic. No pharyngeal erythema. No thyromegaly. CARDIOVASCULAR: S1 and S2 present. No murmurs, rubs, or gallops. PULMONARY: Chest is clear to auscultation, no wheezing or crackles. ABDOMEN: Soft, nontender, nondistended, normoactive bowel sounds. No palpable organomegaly. MUSCULOSKELETAL: No joint swelling or deformity. EXTREMITIES: No cyanosis, clubbing, or pedal edema. NEUROLOGICAL: Gross neurological examination did not reveal any focal deficits. SKIN: No rashes. no petechiae. - Labs CBC & Chem 7: 11/20/20 06:25 11/20/20 06:25 Labs: Abnormal Lab Results - Last 24 Hours (Table) 11/20/20 11/20/20 Range/Units 06:25 06:25 WBC 2.2 L (3.8-10.6) k/uL RBC 2.95 L (3.80-5.40) m/uL Hgb 9.3 L (11.4-16.0) gm/dL Hct 26.7 L (34.0-46.0) % RDW 17.0 H (11.5-15.5) % Plt Count 28 L (150-450) k/uL Blast Cells % 33 H* % Neutrophils # (Manual) 0.02 L* (1.3-7.7) k/uL Metamyelocytes # (Man) 0.02 H (0) k/uL Blast Cells # (Man) 0.73 H (0) k/uL BUN 4 L (7-17) mg/dL Creatinine 0.42 L (0.52-1.04) mg/dL Glucose 108 H (74-99) mg/dL Calcium 8.1 L (8.4-10.2) mg/dL Alkaline Phosphatase 37 L (38-126) U/L Total Protein 4.7 L (6.3-8.2) g/dL Albumin 2.4 L (3.5-5.0) g/dL Assessment and Plan Assessment: -Acute myeloid leukemia, being treated by Dr. lombardo from [facility]. 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 Continue with Unasyn -Hypotension decreased oral intake. Improved after Blood transfusion -Symptomatic severe anemia from AML. Status post 2 unit of blood transfusion. -pancytopenia, with infection is suspected. Hematology team. Continue with broad-spectrum antibiotics and ID team were consulted -cranial venous sinus thrombosis. Resume Coumadin after bone marrow biopsy -History of intracranial and subdural hemorrhage in November 2019. For which patient was transferred out to [facility] -Left thyroid nodule, patient informed -Essential hypertension . Currently hold of Zestril. Follow closely -Hyperlipidemia continue with Lipitor -Hyperuricemia likely from treatment for leukemia. Continue with allopurinol -Near-syncope likely due to vasovagal. Secondary to anemia.
[2020-11-20] MEDS: HYDROcodone/APAP 5-325MG 1 EACH TAB PO PRN ×2 (15:37→21:37)
[2020-11-20] MEDS: LACTATED RINGERS 1,000 ML IV SCH (19:44)
[2020-11-20] MEDS: ATORVASTATIN 40 MG TAB PO SCH (19:49)
[2020-11-20] MEDS: PETROLATUM, WHITE OINT 50 GM TUBE TOPICAL SCH (21:38)
[2020-11-20] MEDS: LIDOCAINE 4% CREAM 5 GM TUBE TOPICAL SCH (21:38)
--- NOTE | 2020-11-20 22:31 | PN ---
PROGRESS NOTE DATE OF SERVICE: 11/20/2020. REASON FOR FOLLOWUP: Enterococcus urinary tract infection. INTERVAL HISTORY: The patient is currently afebrile. The patient is breathing comfortably. Denies having any chest pain. No shortness of breath or cough. No nausea, vomiting. No abdominal pain. No diarrhea. PHYSICAL EXAMINATION: Blood pressure 105/52 with a pulse 74. Temperature 98.1. She is 94% on room air. General description: The patient is an elderly female lying in bed in no distress. Respiratory system: Unlabored breathing, clear to auscultation anteriorly. Heart S1, S2. Regular rate and rhythm. ABDOMEN: Soft, no tenderness. EXTREMITIES: No edema of the feet. LABS: Hemoglobin 9.3, white count 14.2, BUN of 4, creatinine 0.42. DIAGNOSTIC IMPRESSION AND PLAN: Patient with Enterococcus urinary tract infection, covered with Unasyn to continue while inpatient. Finish therapy with Augmentin. Continue supportive care. MMODL / IJN: [id number] /
[2020-11-21] MEDS: AMPICILLIN-SULBACTAM 3 GM in SODIUM CHLORIDE 0.9% 100 ML IVPB SCH ×3 (03:45→19:33)
[2020-11-21] MEDS: DEXTROSE 5%-0.9% NACL 1,000 ML IV SCH (03:46)
[2020-11-21] MEDS: polyethylene glycoL 3350 17 GM POWD.PACK PO SCH (08:30)
[2020-11-21] MEDS: MIDODRINE 5 MG TAB PO SCH ×2 (08:30→16:00)
[2020-11-21] MEDS: FLUCONAZOLE IN NACL,ISO-OSM 100 MG in SALINE 1 50ML.BAG IVPB SCH (08:30)
[2020-11-21] MEDS: LIDOCAINE 4% CREAM 5 GM TUBE TOPICAL SCH ×2 (08:31→21:51)
[2020-11-21] MEDS: HYDROcodone/APAP 5-325MG 1 EACH TAB PO PRN ×3 (08:31→21:57)
[2020-11-21] MEDS: allopurinoL 300 MG TAB PO SCH (08:31)
[2020-11-21] MEDS: CLOBETASOL PROP 0.05% CR 15GM TOPICAL SCH ×2 (08:32→21:51)
[2020-11-21] MEDS: PETROLATUM, WHITE OINT 50 GM TUBE TOPICAL SCH ×3 (08:32→21:51)
[2020-11-21 08:48] LABS: Anisocytosis Slight; HGB 8.8 gm/dL (11.4-16.0); MCH 30.6 pg (25.0-35.0); MCHC 33.9 g/dL (31.0-37.0); MCV 90.1 fL (80.0-100.0); Mean Platelet Volume 11.1; Poikilocytosis Slight; RBC 2.89 m/uL (3.80-5.40); RDW 16.9 % (11.5-15.5); WBC 1.8 k/uL (3.8-10.6)
[2020-11-21 08:53] LABS: Platelet Count 26 k/uL (150-450)
[2020-11-21 09:17] LABS: Neutrophils % (M) 1 %
[2020-11-21 09:18] LABS: Blast Cells # (M) 0.63 k/uL (0); Lymphocytes # (M) 1.06 k/uL (1.0-4.8); Monocytes # (M) 0.04 k/uL (0-1.0); Myelocytes # (M) 0.05 k/uL (0); Myelocytes % 3 %; Neutrophils # (M) 0.02 k/uL (1.3-7.7); Nucleated Red Blood Cells 0 /100 WBC (0-0); Total Cells Counted 100
--- NOTE | 2020-11-21 13:17 | P.PN ---
Subjective From records: This is a 75-year-old patient of Dr. Chung. Chronic stable medical conditions include hyperlipidemia, hypertension, parathyroid disorder, basal cell skin cancer. Reported history of blood clot in the brain for which patient is on Coumadin, possibly venous thrombosis. 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 [November 2019 patient presented to the ER here-CT angios the head had shown intracranial hemorrhage adjacent to the right posterior cerebral artery but no definite aneurysm identified. Subdural hemorrhage. Patient was transferred to [facility] in [place]. Patient presented to her oncologist office yesterday feeling very tired and lethargic and a moment of unresponsiveness. The pressure was 50/30s. EMS transported the patient to the hospital. INR was greater than 10. Vitamin K was given. Broad-spectrum antibiotics were started in the ER including vancomycin and cefepime. Patient has been feeling weak and tired. No obvious reported fever or chills. Appetite has been okay Subjective: 11/14/2020 This is a pleasant 75 years old female with history of AML and follow-up with oncologist, patient presents with transient period of unconsciousness and unresponsiveness associated with hypotension at the oncology office. Patient states that she has long history of dizziness especially when she gets up more in the last 2 months associated with some sweating. She describes her dizziness as presyncope. Patient states that she was walking without help to she fell about 2 months ago due to her dizziness and now she needs more help with walking. Patient states that currently she needs to 3 people to help her walking. She complains also from pain in her hemorrhoids. Today she got 2 units of blood transfusion and her hemoglobin increased from 6.4 up to 10.1. Platelets 50 5K and WBC is 2.2K. Blast cells in the peripheral blood is 56% Currently her INR is 2.0. BMP is unremarkable. CT of the brain is negative. CT of the chest, abdomen and pelvis showed possible colitis. elliott-culture was obtained. Patient is currently covered with IV vancomycin and fluconazole with infectious disease team consulted 11/15/2020 Patient awake with no abdominal pain and her diarrhea is improving. She had low-grade temperature yesterday 100.5. 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 No hydronephrosis Bone marrow biopsy is planned for today but was cancelled by IR team for scheduling conflicts. Patient reports less dizziness today. She does not look confused like yesterday. Pancytopenia is a stable. BMP is a stable as well. Liver enzymes slightly impr venu. We will keep the fluid at normal saline 75 mL/h as patient is not eating much 11/16/2020 Patient states that her dizziness as she came with syncope and diarrhea has stopped as per her, she denies abdominal pain. She is able to eat some of her food, Throughout her symptoms are due to enterococcus UTI which is improved with antibiotic Unasyn, ID team on the case, also patient is an fluconazole while IV vancomycin was stopped. History of venous sinus thrombosis, Coumadin is on hold for patient is planned to go for colonoscopy and possible bone marrow biopsy on Wednesday, patient looks to do this procedure. Her pancytopenia is stable, no anticoagulation due to low platelets less than 40. No fever today. 11/17/2020 Patient looks comfortable, supine with her during her conversation. No distress. She denies diarrhea although there are still some reports per staff but also they report improvement in her diarrhea. No abdominal pain or tenderness abdomen looks soft. No nausea vomiting. Estimated plan is to undergo colonoscopy and possible bone marrow biopsy tomorrow and the perforation was started, patient was informed and she agreeable to do both procedures. Hemodynamically she is stable so. We will order labs for tomorrow. She remains on Unasyn for enterococcus UTI and Coumadin is still on hold pending procedures. She is on D5 normal saline at 75 mL/h 11/18/2020 Patient with no significant symptoms, she is resting comfortably in bed smiling and all her questions were answered to her satisfaction. Today patient underwent colonoscopy by surgery team showing diverticulosis with no diverticulitis, spasm/thickening of the transverse colon. With colonoscopy being negative for colitis most likely patient's symptoms related to her UTI from enterococci Cara patient is covered with Unasyn, no more dizziness and her mentation is improved significantly. Her Coumadin is still on hold for hematology/oncology primary team and surgery team. She has history of venous sinus thrombosis No headache or weakness currently. Hemodynamically she is a stable, no fever. Labs showing mild pancytopenia with WBC 1.8K, hemoglobin 9.1 and platelets was 30 K and that's why: Biopsy was not taken because of thrombocytopenia. INR is 1.2. Continue with normal saline at 75 mL/h. 11/19/2020 Patient lying in bed comfortable, it looks like she is having postural hypotension and dizziness again and medial drain 2.5 mg 3 times a day has been admitted by the oncology primary team, it was previously improved and PT/OT recommended home health care however it worsened again. Patient reports no diarrhea or abdominal pain. Her pancytopenia is a stable with WBC 2.1, hemoglobin 9.1, platelets 30 2K. INR is low after holding Coumadin. Patient is afebrile She is a status post bone marrow biopsy today and the result is pending. Diet is been advised by surgery team after colonoscopy did not show any diverticulitis. Currently she remains on Unasyn, fluconazole, D5 normal saline, cholestyramine and today midodrine is added 11/20/2020 Patient does not report dizziness today however she stayed in bed most of the time, also she is working with physical therapy and occupational therapy pending their final recommendation upon discharge. She denies abdominal pain and diarrhea to me. She denies any other complaints She is with no fever and hemodynamically stable. She has a stable pancytopenia over few days, She remains on Unasyn to finish therapy with oral Augmentin upon discharge per ID team recommendation for enterococcus UTI. Continue with D5 normal saline at 75 mL/h Oncology primary team on the case. Patient is status post bone marrow biopsy today, follow-up the results of the biopsy Her coumadine for her history of venous sinus thrombosis is on hold due to severe thrombocytopenia with platelets 28K today 11/21/2020 This is a pleasant 75 years old female with AML follow-up with oncologist presents because of syncope related to hypotension and altered mental status, her mentation was improved significantly and his been normal for the last few days. She has been complaining of from postural hypotension and she was started on medodrine, workup showed that the patient complaining of from enterococcus UTI and currently she is on Unasyn. She has some suspected colitis on CT of the abdomen, however colonoscopy did not show any diverticulitis. She is status post bone marrow biopsy on 11/19, result is still pending She has history of venous sinus thrombosis on Coumadin which is held due to thrombocytopenia.Platelets today are 26K. rest of CBC showed low WBC 1.8K, hemoglobin 8.8. BMP is unremarkable She's been on IV fluids D5 normal saline for 1 week now, we are going to stop it and monitor patient closely Objective - Vital Signs Vital signs: Vital Signs Temp 96.5 F L 11/21/20 12:49 Pulse 79 11/21/20 12:49 Resp 18 11/21/20 12:49 BP 118/69 11/21/20 12:49 Pulse Ox 96 11/21/20 12:49 Intake & Output 11/20/20 11/21/20 11/21/20 18:59 06:59 18:59 Intake Total 590 Balance 590 Intake: Oral 590 Other: Voiding Method Diaper Diaper Diaper Incontinent Incontinent Incontinent # Voids 2 2 - Exam -GENERAL: The patient is alert and oriented x3, not in any acute distress. Generally weak HEENT: Pupils are round and equally reacting to light. EOMI. No scleral icterus. No conjunctival pallor. Normocephalic, atraumatic. No pharyngeal erythema. No thyromegaly. CARDIOVASCULAR: S1 and S2 present. No murmurs, rubs, or gallops. PULMONARY: Chest is clear to auscultation, no wheezing or crackles. ABDOMEN: Soft, nontender, nondistended, normoactive bowel sounds. No palpable organomegaly. MUSCULOSKELETAL: No joint swelling or deformity. EXTREMITIES: No cyanosis, clubbing, or pedal edema. NEUROLOGICAL: Gross neurological examination did not reveal any focal deficits. SKIN: No rashes. no petechiae. - Labs CBC & Chem 7: 11/21/20 06:34 11/20/20 06:25 Labs: Abnormal Lab Results - Last 24 Hours (Table) 11/21/20 Range/Units 06:34 WBC 1.8 L (3.8-10.6) k/uL RBC 2.89 L (3.80-5.40) m/uL Hgb 8.8 L (11.4-16.0) gm/dL Hct 26.0 L (34.0-46.0) % RDW 16.9 H (11.5-15.5) % Plt Count 26 L (150-450) k/uL Blast Cells % 35 H* % Neutrophils # (Manual) 0.02 L* (1.3-7.7) k/uL Myelocytes # (Manual) 0.05 H (0) k/uL Blast Cells # (Man) 0.63 H (0) k/uL Assessment and Plan Assessment: -Acute myeloid leukemia, being treated by Dr. lombardo from [facility]. Awaiting bone marrow biopsy results -Postural hypotension, started on midodrine -Sepsis secondary to UTI , culture is growing enterococcus. Continue with UnasynPeriod improving -pancytopenia, with infection is suspected. Hematology team following the case closely -history of cranial venous sinus thrombosis. Hold Coumadin due to thrombocytopenia -History of intracranial and subdural hemorrhage in November 2019. For which patient was transferred out to [facility] -Left thyroid nodule, patient informed -Essential hypertension . Currently hold of Zestril. Follow closely -Hyperlipidemia continue with Lipitor -Hyperuricemia likely from treatment for leukemia. Continue with allopurinol -Near-syncope likely due to vasovagal. Secondary to anemia. thank you for consulting us, we will follow up
--- NOTE | 2020-11-21 14:35 | P.PN ---
Subjective Progress Note Date: 11/21/20 CHIEF COMPLAINT: Rectal pain HISTORY OF PRESENT ILLNESS: Patient is status post colonoscopy which did reveal diverticulosis and spasms or thickening of the transverse colon. Biopsies not obtained due to low platelet count. Patient denies any abdominal pain or rectal pain. She is tolerating regular diet. She denies any nausea or vomiting. Patient is having evidence of orthostatic hypotension. Cardiology is now consult. Afebrile. WBC 1.8 Hgb 8.8 platelets 26 PHYSICAL EXAM: VITAL SIGNS: Reviewed. GENERAL: Well-developed in no acute distress. HEENT: No sclera icterus. Extraocular movements grossly intact. Moist buccal mucosa. Head is atraumatic, normocephalic. ABDOMEN: Soft. Nondistended. Nontender. NEUROLOGIC: Alert and oriented. Cranial nerves II through XII grossly intact. ASSESSMENT: 1. Rectal pain likely secondary to hemorrhoids. Now improved 2. Status post colonoscopy which did reveal diverticulosis and spasms or thickening of the transverse colon. Biopsies not obtained due to low platelet count. 3. Acute myeloid leukemia 4. 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 Chemotherapy-induced Pancytopenia 6. 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 Signing provider agrees with the documented findings, assessment, and plan of care. Objective - Vital Signs Vital signs: Vital Signs Temp 98.4 F 11/21/20 13:53 Pulse 79 11/21/20 12:49 Resp 18 11/21/20 12:49 BP 118/69 11/21/20 12:49 Pulse Ox 96 11/21/20 12:49 Intake & Output 11/20/20 11/21/20 11/21/20 18:59 06:59 18:59 Intake Total 590 Balance 590 Intake: Oral 590 Other: Voiding Method Diaper Diaper Diaper Incontinent Incontinent Incontinent # Voids 2 2 - Labs CBC & Chem 7: 11/21/20 06:34 11/20/20 06:25 Labs: Abnormal Lab Results - Last 24 Hours (Table) 11/21/20 Range/Units 06:34 WBC 1.8 L (3.8-10.6) k/uL RBC 2.89 L (3.80-5.40) m/uL Hgb 8.8 L (11.4-16.0) gm/dL Hct 26.0 L (34.0-46.0) % RDW 16.9 H (11.5-15.5) % Plt Count 26 L (150-450) k/uL Blast Cells % 35 H* % Neutrophils # (Manual) 0.02 L* (1.3-7.7) k/uL Myelocytes # (Manual) 0.05 H (0) k/uL Blast Cells # (Man) 0.63 H (0) k/uL
--- NOTE | 2020-11-21 15:51 | CDI ---
Documentation Clarification Form Date: 11/21/2020 03:37:46 PM From: Lupe Bhakta RN, CCDS Admit Date: 11/12/2020 02:25:00 PM Patient Name: Liat Schumacher Visit Number: [id number] ATTENTION: The Clinical Documentation Specialists (CDI) and [facility] Coding Staff appreciate your assistance in clarifying documentation. Please respond to the clarification below the line at the bottom and electronically sign. The CDI & [facility] Coding staff will review the response and follow-up if needed. Please note: Queries are made part of the Legal Health Record. If you have any questions, please contact the author of this message via ITS. Dr. Workman Your patient has the documented symptom of Altered Mental Status in the 11/12 H&P and consecutive Progress Notes through 11/21. Additional clarification regarding the etiology/cause of this symptom is requested. History/Risk Factors: AML, Postural Hypotension, Sepsis with enterococcus UTI this admission, Chemo induced Pancytopenia Clinical Indicators: 11/21 Attending Progress note: "This is a pleasant 75 years old female with AML follow-up with oncologist presents because of syncope related to hypotension and altered mental status, her mentation was improved significantly and his been normal for the last few days." 11/12-11/21 Labs: Lactic Acid 3.3/ 0.9, WBC 2.3/2.2/1.8, Hgb 8.6/6.4/10.1/9.8/8.6/9.19.3/8.8 11/12 CXR: "Left basilar atelectasis or early infiltrate." 11/12 CT Brain: negative Treatment: 11/15 Unasyn 3gm IVPB Q 8 hrs. 11/12 Cefepime 2gm IVPB x 1 11/14 Fluconazol 100mg IVPB QD 11/12 IV Vanco PTD 11/12 0.9% NS IVF bolus 500 cc Please clarify the etiology of the symptom of Altered Mental Status: Metabolic Encephalopathy due to (please specify cause) Toxic Encephalopathy (please specify cause) Other condition (please specify) Unable to determine (Template Last Revised: September 2020) no encephalopathy per my evaluation MTDD
[2020-11-21] MEDS: LACTATED RINGERS 1,000 ML IV SCH (17:09)
--- NOTE | 2020-11-21 19:19 | P.PN ---
Subjective Progress Note Date: 11/21/20 Principal diagnosis: Acute Leukemia Reviewed Orthostatics and patient continues to drop her BP low with sitting or standing. Her Bone Marrow has resulted with greater than 60% blasts through her bone marrow, therefore unfortunetly she has progressed rapidly after treatment and overall prognosis of this is very low. She is not a candidate for standard aggressive chemotherapy induction. Dr. Magana and Myself have discussed this with patient and and at this time our recommendations have been made for hospice care. WIll consult hospice to set up at home and hopefully discharge patient home tomorrow with hospice. Objective - Vital Signs Vital signs: Vital Signs Temp 98 F 11/21/20 11:56 Pulse 85 11/21/20 11:56 Resp 20 11/21/20 11:56 BP 110/76 11/21/20 11:56 Pulse Ox 95 11/21/20 11:56 Intake & Output 11/20/20 11/21/20 11/21/20 18:59 06:59 18:59 Intake Total 590 Balance 590 Intake: Oral 590 Other: Voiding Method Diaper Diaper Diaper Incontinent Incontinent Incontinent # Voids 2 2 - Exam - Constitutional General appearance: thin - EENT Eyes: EOMI ENT: hard of hearing, NA/AT - Respiratory Respiratory: bilateral: diminished - Cardiovascular Heart rate: 124 Rhythm: regularly irregular Heart sounds: normal: S2 - Gastrointestinal General gastrointestinal: soft - Integumentary Integumentary: pale - Neurologic YOUSUF - Musculoskeletal Musculoskeletal: generalized weakness - Psychiatric Lethargic and difficult to arouse - Labs CBC & Chem 7: 11/21/20 06:34 11/20/20 06:25 Labs: Abnormal Lab Results - Last 24 Hours (Table) 11/21/20 Range/Units 06:34 WBC 1.8 L (3.8-10.6) k/uL RBC 2.89 L (3.80-5.40) m/uL Hgb 8.8 L (11.4-16.0) gm/dL Hct 26.0 L (34.0-46.0) % RDW 16.9 H (11.5-15.5) % Plt Count 26 L (150-450) k/uL Blast Cells % 35 H* % Neutrophils # (Manual) 0.02 L* (1.3-7.7) k/uL Myelocytes # (Manual) 0.05 H (0) k/uL Blast Cells # (Man) 0.63 H (0) k/uL Assessment and Plan (1) Acute myeloid leukemia Current Visit: Yes Status: Acute Priority: High Code(s): C92.00 - ACUTE MYELOBLASTIC LEUKEMIA, NOT HAVING ACHIEVED REMISSION SNOMED Code(s): 67927296 (2) Coagulopathy Current Visit: Yes Status: Acute Priority: High Code(s): D68.9 - COAGULATION DEFECT, UNSPECIFIED SNOMED Code(s): 18474206 (3) Altered mental status Current Visit: No Status: Acute Priority: High Code(s): R41.82 - ALTERED MENTAL STATUS, UNSPECIFIED SNOMED Code(s): 703151658 (4) SIRS (systemic inflammatory response syndrome) Current Visit: No Status: Acute Code(s): R65.10 - SIRS OF NON-INFECTIOUS ORIGIN W/O ACUTE ORGAN DYSFUNCTION SNOMED Code(s): 349384636 (5) 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: Chronic Priority: High Code(s): D61.810 - ANTI NEOPLASTIC CHEMOTHERAPY INDUCED PANCYTOPENIA; T45.1X5A - ADVERSE EFFECT OF ANTINEOPLASTIC AND IMMUNOSUP DRUGS, INIT SNOMED Code(s): 929487397870866 (6) Orthostatic hypotension Current Visit: Yes Status: Acute Code(s): I95.1 - ORTHOSTATIC HYPOTENSION SNOMED Code(s): 72030871 (7) Orthostatic hypotension Current Visit: Yes Status: Acute Code(s): I95.1 - ORTHOSTATIC HYPOTENSION SNOMED Code(s): 11685656 Plan: AML: Progressive AML >60% blasts resulted in bone marrow - Increased peripheral blasts Orthostatic hypotension: - We have asked cardiology to assist. Recurrent Syncopal episodes with movement Neutropenic Colitis: - Improving can increase diet after bone marrow biopsy tomorrow Ilness Myopathy: - PT/OT asked to provide daily therapy - Patient is not getting up and increased risks for pneumonia and skin infection with laying in bed, not to mention unable to assess if improving of syncopal episodes if only laying flat Overall prognosis poor and not a candidate for induction, aggressive SOC. Discussed in detail with patient and and plan for discharge home with hospice tomorrow Physician Attest: I have completed the full history and physical and agree with above dictation, dictated as a scribe
[2020-11-21 21:06] VITALS: RESP 16
[2020-11-21] MEDS: ATORVASTATIN 40 MG TAB PO SCH (21:51)
--- NOTE | 2020-11-21 23:40 | PN ---
PROGRESS NOTE DATE OF SERVICE: 11/21/2020 REASON FOR FOLLOWUP: Enterococcus urinary tract infection. INTERVAL HISTORY: The patient is currently afebrile. Patient is breathing comfortably. The patient denies having any chest pain, shortness of breath or cough. No nausea, no vomiting. No abdominal pain or diarrhea. PHYSICAL EXAMINATION: Blood pressure 120/74, pulse of 73, temperature is 98.1. She is 93% on room air. General description is an elderly female lying in bed in no distress. Respiratory system: Unlabored breathing, is clear to auscultation anteriorly. Heart S1, S2. Regular rate and rhythm. ABDOMEN: Soft, no tenderness. LABS: Hemoglobin 8.1, white count 1.8. BUN of 4, creatinine 0.42. DIAGNOSTIC IMPRESSION AND PLAN: Patient with febrile neutropenia. Positive culture with Enterococcus faecalis in the urine. Blood culture negative. Patient is covered with Unasyn. Fever has resolved. Continue supportive care. MMODL / IJN: [id number] /
[2020-11-22] MEDS: AMPICILLIN-SULBACTAM 3 GM in SODIUM CHLORIDE 0.9% 100 ML IVPB SCH ×2 (03:57→11:58)
[2020-11-22 04:39] VITALS: TEMP 98
[2020-11-22] MEDS: HYDROcodone/APAP 5-325MG 1 EACH TAB PO PRN ×2 (06:15→13:42)
[2020-11-22] MEDS: MIDODRINE 5 MG TAB PO SCH (07:36)
[2020-11-22] MEDS ORDERED: FLUCONAZOLE 100 MG TAB PO SCH (09:00)
[2020-11-22] MEDS: PETROLATUM, WHITE OINT 50 GM TUBE TOPICAL SCH (09:21)
[2020-11-22] MEDS: polyethylene glycoL 3350 17 GM POWD.PACK PO SCH (09:21)
[2020-11-22] MEDS: CLOBETASOL PROP 0.05% CR 15GM TOPICAL SCH (09:21)
[2020-11-22] MEDS: allopurinoL 300 MG TAB PO SCH (09:21)
[2020-11-22] MEDS: LIDOCAINE 4% CREAM 5 GM TUBE TOPICAL SCH (09:21)
--- NOTE | 2020-11-22 11:31 | P.CRDCN ---
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 She followed in the office with Dr. Gonzales, last seen in the office in 2015 for a preop evaluation. We have been asked to see in consultation for orthostatic hypotension and syncope. She presented to an outpatient appointment for follow up visit, she was extremely lethargic and there was a moment of unresponsiveness. Her BP was 50s/30s, EMS was called and she was brought to the emergency department for further evaluation. Patient's hemoglobin found to be 6.4, received 2u PRBCs.Also started on IV fluids for possible dehyrdation. Patient found to have a UTI and started on IV antibiotics. CT brain- no acute intracranial abnormality seen. CT C/A/P- Nodular small bowel wall thickening noted involving jejunal loops is nonspecific, left hepatic lobe peripheral hepatic cysts noted less than 1cm, wall thickening noted to involve the tranverse colon distally and splenic flexure which could reflect colitis, persistent presacral edema improved. Patient is being followed by Surgery and Oncology. Patient underwent colonoscopy on 11/18/20 which revealed diverticulosis and spasms or thickening of the transverse colon, biopsies were not obtained due to the low platelet count. On 11/19/20, patient underwent bone marrow biopsy. Most recent echocardiogram eft ventricular systolic function is normal with EF measuring 5560 percent, trace MR, trace TR, mild concentric left ventricular hypertrophy. EKG reveals sinus tachycardia, T wave inversions in lead III, left axis deviation no significant ST-T wave abnormalities. Prior EKGs with similar findings. Telemetry tracings- patient not on manager monitoring. Chest xray left cerebellar atelectasis or early infiltrate. Patient seen and examined at bedside, no acute distress. Hopeful about going home today. She states she is having a meeting with her and Hospice. Patient states that when she stands up too quick, shes does feel dizzy, knows she has to take it slow at times. She denies chest pain, shortness of breath, palpitations. Never been told she has been in an irregular rhythm. Laboratory data reviewed, WBC 1.8, hemoglobin 8.8, platelets 26, sodium 140, potassium 3.5, serum creatinine 0.42, magnesium 1.9. Vital signs blood pressure 118/74, heart rate 75, afebrile, maintaining oxygen saturation is on room air. Current cardiac medications include atorvastatin 40 mg nightly. REVIEW OF SYSTEMS At the time of my exam: CONSTITUTIONAL: Denies fever or chills. CARDIOVASCULAR: Denies chest pain, shortness of breath, orthopnea, PND or palpitations. RESPIRATORY: Denies cough. GASTROINTESTINAL: Denies abdominal pain, diarrhea, constipation, nausea or vomiting. MUSCULOSKELETAL: Denies myalgias. NEUROLOGIC: Denies numbness, tingling, headacbe or weakness. ENDOCRINE: Denies fatigue, weight change, polydipsia or polyurina. GENITOURINARY: incontinence Denies burning, hematuria or urgency with micturation. HEMATOLOGIC: Denies history of anemia or bleeding. PHYSICAL EXAMINATION CONSTITUTIONAL: No apparent distress. HEENT: Head is normocephalic. Pupils are equal, round. Sclerae anicteric. Mucous membranes of the mouth are moist. No JVD. No carotid bruit. CHEST EXAMINATION: Lungs are clear to auscultation. No chest wall tenderness is noted on palpation or with deep breathing. HEART EXAMINATION: Regular rate and rhythm. S1, S2 heard. No murmurs, gallops or rub. ABDOMEN: Soft, nontender. Positive bowel sounds. EXTREMITIES: 2+ peripheral pulses, no lower extremity edema and no calf tenderness. SKIN: no bruising or rashes noted NEUROLOGIC EXAMINATION: Patient is awake, alert and oriented x3. ASSESSMENT Near-syncope- likely vasovagal due to dehydration and anemia Colitis Intracranial and Subdural Hematoma in November 2019 Anemia Hypertension Dyslipidemia Acute Myeloid Leukemia Atypical ductal hyperplasia History of Cranial venouis sinus thrombosis on coumadin- which is being held PLAN -No further cardiac workup at this time -Please reach out for any further questions or concerns. Thank you kindly for this consultation. Nurse Practitioner note has been reviewed, I agree with a documented findings and plan of care. Patient was seen and examined. 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, basal cell skin cancer, brain bleed History of Any Multi-Drug Resistant Organisms: None Reported Past Surgical History: Adenoidectomy, Appendectomy, Hysterectomy, Orthopedic Surgery, Tonsillectomy Additional Past Surgical History / Comment(s): navid breast reduction, hemorrhoidectomy, metal nithin in toe, lt carpal tunnel, basal cell skin cancer removed Past Anesthesia/Blood Transfusion Reactions: No Reported Reaction Past Psychological History: Anxiety Smoking Status: Unknown if ever smoked Past Alcohol Use History: None Reported Past Drug Use History: None Reported - Past Family History Mother Family Medical History: CVA/TIA, Dementia, Myocardial Infarction ([place]) Father Family Medical History: Cancer Additional Family Medical History / Comment(s): colon cancer, alcoholism Medications and Allergies Home Medications Medication Instructions Recorded Confirmed Type Allopurinol [Zyloprim] 300 mg PO DAILY 10/11/20 11/12/20 History Atorvastatin [Lipitor] 40 mg PO HS 10/11/20 11/12/20 History Famotidine 20 mg PO BID PRN 10/11/20 11/12/20 History ondansetron HCL [Zofran] 8 mg PO BID PRN 10/11/20 11/12/20 History Acetaminophen Tab [Tylenol] 650 mg PO Q6HR PRN tab 11/19/20 Rx Clobetasol Propionate [Temovate 1 applic TOPICAL BID 14 Days 11/19/20 Rx 0.05% Cream] applic Lidocaine 4% Cream [Lmx 4] 1 applic TOPICAL BID 14 Days tube 11/19/20 Rx Petrolatum, White [Aquaphor] 1 applic TOPICAL BID PRN 14 Days 11/19/20 Rx applic polyethylene glycoL 3350 [Miralax] 17 gm PO DAILY 20 Days powd.pack 11/19/20 Rx Allergies Allergy/AdvReac Type Severity Reaction Status Date / Time erythromycin base Allergy Rash/Hives Verified 11/12/20 13:21 Physical Exam Vitals: Vital Signs Temp Pulse Pulse Pulse Resp BP BP 11/21/20 13:53 98.4 F 11/21/20 12:49 96.5 F L 79 18 11/21/20 11:56 98 F 85 20 110/76 11/21/20 09:00 151/74 83/54 11/21/20 08:23 82 17 11/21/20 07:25 98.2 F 77 15 11/21/20 05:00 97.7 F 86 16 118/77 11/20/20 20:57 98.1 F 74 16 105/62 11/20/20 20:05 16 BP BP Pulse Ox 11/21/20 13:53 11/21/20 12:49 118/69 96 11/21/20 11:56 95 11/21/20 09:00 129/82 11/21/20 08:23 11/21/20 07:25 119/79 97 11/21/20 05:00 92 L 11/20/20 20:57 94 L 11/20/20 20:05 Intake and Output 11/20/20 11/21/20 11/21/20 22:59 06:59 14:59 Intake Total 590 Balance 590 Intake: Oral 590 Other: Voiding Method Diaper Diaper Incontinent Incontinent # Voids 2 2 Results 11/21/20 06:34 11/20/20 06:25 CBC 11/21/20 Range/Units 06:34 WBC 1.8 L (3.8-10.6) k/uL RBC 2.89 L (3.80-5.40) m/uL Hgb 8.8 L (11.4-16.0) gm/dL Hct 26.0 L (34.0-46.0) % Plt Count 26 L (150-450) k/uL Current Medications Generic Name Dose Route Start Last Admin Trade Name Freq PRN Reason Stop Dose Admin Acetaminophen 650 mg 11/12/20 14:25 11/18/20 15:15 Acetaminophen Tab 325 Mg Tab PO 650 mg Q6HR PRN Administration Mild Pain or Fever > 100.5 Hydrocodone Bitart/Acetaminophen 1 each 11/18/20 15:27 11/21/20 08:31 Hydrocodone/Apap 5-325mg 1 Each Tab PO 1 each Q6HR PRN Administration Pain Allopurinol 300 mg 11/13/20 09:00 11/21/20 08:31 Allopurinol 300 Mg Tab PO 300 mg DAILY GINO Administration Atorvastatin Calcium 40 mg 11/12/20 21:00 11/20/20 19:49 Atorvastatin 40 Mg Tab PO 40 mg HS GINO Administration Clobetasol Propionate 1 applic 11/18/20 21:00 11/21/20 08:32 Clobetasol Prop 0.05% Cr 15gm TOPICAL 1 applic BID GINO Administration Famotidine 20 mg 11/12/20 20:32 Famotidine 20 Mg Tab PO BID PRN on chemo days Fluconazole/Sodium Chloride 50 mls @ 50 mls/hr 11/14/20 09:00 11/21/20 08:30 100 mg/ IV Solution IVPB 50 mls/hr DAILY GINO Administration Ampicillin Sodium/Sulbactam 100 mls @ 200 mls/hr 11/15/20 12:00 11/21/20 12:35 Sodium 3 gm/ Sodium Chloride IVPB 200 mls/hr Q8H GINO Administration Lactated Ringer's 1,000 mls @ 20 mls/hr 11/18/20 19:00 11/20/20 19:44 Lactated Ringers IV Not Given .Q24H GINO Lidocaine HCl 1 applic 11/20/20 21:00 11/21/20 08:31 Lidocaine 4% Cream 5 Gm Tube TOPICAL 1 applic BID GINO Administration Midodrine 2.5 mg 11/21/20 07:30 11/21/20 08:30 Midodrine 5 Mg Tab PO 2.5 mg AC-BID GINO Administration Miscellaneous Information 1 each 11/18/20 18:56 Potassium Replacement Protocol 1 Each Misc MISCELLANE DAILY PRN Per Protocol Protocol Miscellaneous Information 1 each 11/18/20 18:56 Magnesium Replacement Protocol 1 Each Misc MISCELLANE DAILY PRN Per Protocol Protocol Naloxone HCl 0.2 mg 11/12/20 14:25 Naloxone 0.4 Mg/Ml 1 Ml Vial IV Q2M PRN Opioid Reversal Petrolatum 1 applic 11/20/20 20:45 11/21/20 08:32 Petrolatum, White Oint 50 Gm Tube TOPICAL 1 applic TID GINO Administration Polyethylene Glycol 17 gm 11/13/20 09:00 11/21/20 08:30 Polyethylene Glycol 3350 17 Gm Powd.Pack PO 17 gm DAILY GINO Administration Intake and Output 11/20/20 11/21/20 11/21/20 22:59 06:59 14:59 Intake Total 590 Balance 590 Intake: Oral 590 Other: Voiding Method Diaper Diaper Incontinent Incontinent # Voids 2 2 11/21/20 06:34 11/20/20 06:25
--- NOTE | 2020-11-22 13:30 | P.DS ---
Providers Date of admission: 11/12/20 14:25 Expected date of discharge: 11/22/20 Attending physician: Winsome Beckford Consults: 11/12/20 14:25 Consult Physician Routine Consulting Provider: Alberto Dubois Consult Reason/Comments: Syncope, dehydration, pancytopenia Do you want consulting provider notified?: Yes 11/14/20 01:01 Consult Physician Routine Consulting Provider: Jasepr Emmanuel Consult Reason/Comments: Possible infection Do you want consulting provider notified?: Yes 11/15/20 12:35 Consult Physician Routine Consulting Provider: Martinez Maya Consult Reason/Comments: rectal pain Do you want consulting provider notified?: Yes 11/21/20 11:54 Consult Physician Routine Consulting Provider: Bora Lyons Consult Reason/Comments: orthostatic hypotension and syncope Do you want consulting provider notified?: Yes Primary care physician: Pradeep Chung - [place] Diagnosis(es) (1) Acute myeloid leukemia Current Visit: Yes Status: Acute Priority: High (2) Coagulopathy Current Visit: Yes Status: Acute Priority: High (3) Altered mental status Current Visit: No Status: Acute Priority: High (4) SIRS (systemic inflammatory response syndrome) Current Visit: No Status: Acute (5) 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: Chronic Priority: High (6) Orthostatic hypotension Current Visit: Yes Status: Acute (7) Orthostatic hypotension Current Visit: Yes Status: Acute Patient Condition at Discharge: Stable Plan - Discharge Summary New Discharge Prescriptions: New Petrolatum, White [Aquaphor] 1 applic TOPICAL BID PRN 14 Days applic PRN Reason: Dry Skin Acetaminophen Tab [Tylenol] 650 mg PO Q6HR PRN tab PRN Reason: Mild Pain Or Fever > 100.5 Lidocaine 4% Cream [Lmx 4] 1 applic TOPICAL BID 14 Days tube Clobetasol Propionate [Temovate 0.05% Cream] 1 applic TOPICAL BID 14 Days applic Continue Famotidine 20 mg PO BID PRN PRN Reason: on chemo days Atorvastatin [Lipitor] 40 mg PO HS polyethylene glycoL 3350 [Miralax] 17 gm PO DAILY 20 Days powd.pack Discontinued Warfarin [Coumadin] 5 mg PO HS Warfarin [Coumadin] 2 mg PO SUTUTHSA@2100 lisinopriL [Zestril] 10 mg PO HS #0 No Action ondansetron HCL [Zofran] 8 mg PO BID PRN PRN Reason: Nausea Allopurinol [Zyloprim] 300 mg PO DAILY Discharge Medication List Allopurinol [Zyloprim] 300 mg PO DAILY 10/11/20 [History] Atorvastatin [Lipitor] 40 mg PO HS 10/11/20 [History] Famotidine 20 mg PO BID PRN 10/11/20 [History] ondansetron HCL [Zofran] 8 mg PO BID PRN 10/11/20 [History] Acetaminophen Tab [Tylenol] 650 mg PO Q6HR PRN tab 11/19/20 [Rx] Clobetasol Propionate [Temovate 0.05% Cream] 1 applic TOPICAL BID 14 Days applic 11/19/20 [Rx] Lidocaine 4% Cream [Lmx 4] 1 applic TOPICAL BID 14 Days tube 11/19/20 [Rx] Petrolatum, White [Aquaphor] 1 applic TOPICAL BID PRN 14 Days applic 11/19/20 [Rx] polyethylene glycoL 3350 [Miralax] 17 gm PO DAILY 20 Days powd.pack 11/19/20 [Rx] Follow up Appointment(s)/Referral(s): Pradeep Chung DO [Primary Care Provider] - 1-2 days [facility], [NON-STAFF] - 1 Week [facility] [NON-STAFF] - 1 Week Discharge Disposition: HOME WITH HOSPICE
[2020-11-22 14:16] VITALS: BP 157/85; PULSE 88
== END 2020-11-22 17:20 | disposition hospice, home (50) | DRG 871 ==
LOC: EC 12:17 → 5NMEDONC 14:25
PROVIDERS: ADMIT Internal Medicine Hematology & Oncology; ATTEND Internal Medicine Hematology & Oncology
PROC: 30233N1 Transfusion of Nonautologous Red Blood Cells into Peripheral Vein, Percutaneous Approach (ICD-10-PCS; 2020-11-14)
PROC: 0DJD8ZZ Inspection of Lower Intestinal Tract, Via Natural or Artificial Opening Endoscopic (ICD-10-PCS; principal; 2020-11-18 07:30)
PROC: 07DR3ZX Extraction of Iliac Bone Marrow, Percutaneous Approach, Diagnostic (ICD-10-PCS; 2020-11-19)
DX: A41.81 Sepsis due to Enterococcus (principal); D61.810 Antineoplastic chemotherapy induced pancytopenia; C92.00 Acute myeloblastic leukemia, not having achieved remission; N17.9 Acute kidney failure, unspecified; D68.9 Coagulation defect, unspecified; N39.0 Urinary tract infection, site not specified; J98.11 Atelectasis; D70.9 Neutropenia, unspecified; G72.89 Other specified myopathies; E21.5 Disorder of parathyroid gland, unspecified; S06.5X9S Traumatic subdural hemorrhage with loss of consciousness of unspecified duration, sequela; I11.9 Hypertensive heart disease without heart failure; Z51.5 Encounter for palliative care; Z66 Do not resuscitate; Z20.822 Contact with and (suspected) exposure to COVID-19; N76.0 Acute vaginitis; I95.1 Orthostatic hypotension; I44.4 Left anterior fascicular block; R50.81 Fever presenting with conditions classified elsewhere; E78.5 Hyperlipidemia, unspecified; I34.1 Nonrheumatic mitral (valve) prolapse; T45.1X5A Adverse effect of antineoplastic and immunosuppressive drugs, initial encounter; E86.0 Dehydration; T45.515A Adverse effect of anticoagulants, initial encounter; E79.0 Hyperuricemia without signs of inflammatory arthritis and tophaceous disease; K64.9 Unspecified hemorrhoids; K52.89 Other specified noninfective gastroenteritis and colitis; K57.30 Diverticulosis of large intestine without perforation or abscess without bleeding; F41.9 Anxiety disorder, unspecified; E04.1 Nontoxic single thyroid nodule; R32 Unspecified urinary incontinence; R15.9 Full incontinence of feces; H91.90 Unspecified hearing loss, unspecified ear; Z79.899 Other long term (current) drug therapy; Z79.01 Long term (current) use of anticoagulants; Z85.828 Personal history of other malignant neoplasm of skin; Z90.710 Acquired absence of both cervix and uterus; Z90.89 Acquired absence of other organs; Z90.49 Acquired absence of other specified parts of digestive tract; Z87.19 Personal history of other diseases of the digestive system; Z87.42 Personal history of other diseases of the female genital tract; Z87.39 Personal history of other diseases of the musculoskeletal system and connective tissue; Z87.2 Personal history of diseases of the skin and subcutaneous tissue; Z98.890 Other specified postprocedural states; Z88.1 Allergy status to other antibiotic agents; Z82.49 Family history of ischemic heart disease and other diseases of the circulatory system; Z80.0 Family history of malignant neoplasm of digestive organs; Z81.1 Family history of alcohol abuse and dependence; Z82.3 Family history of stroke; Z81.8 Family history of other mental and behavioral disorders; Z83.71 Family history of colonic polyps
CPT/HCPCS: 36415; 38222; 45378; 70470; 71046; 71260; 74177; 76770; 80048; 80053; 80202; 81001; 82607; 82728; 82746; 83540; 83550; 83605; 83625; 83735; 84145; 84484; 85025; 85045; 85379; 85384; 85610; 85730; 86140; 86850; 86900; 86901; 86920; 87040; 87077; 87086; 87186; 87635; 93005; 96361; 96374; 99285